=== PATIENT | female | born 1945 | race Caucasian/White ===

== ENCOUNTER 2016-06-24 12:46 | Emergency (ER) | payer MEDICAID, MEDICARE ==
[~2016-06-24] VITALS: Ht 162.6 cm; Wt 99.8 kg
[~2016-06-24 12:46] MED LIST: ACET-168 PO; CEPH500C PO; CEPH500T PO; CYCL10TA9 PO; DICL75TA2 PO; GABA-486 PO; HYDR-3454 PO; HYDR-3874 PO; HYDR25TA4 PO; IBP800T PO; LEVO125T; LEVO125T6; LEVO125T6 PO; LISI-594 PO; LVT.1T PO; OMEP20CA12 PO; OMEP40CA36 PO; OXYC-197 PO; PIRO-9; PIRO10CA; PNT40TEC PO; TRAM-21 PO
--- NOTE | 2016-06-24 13:08 | ED Chest Pain ---
General Chief Complaint: Chest Pain Stated Complaint: CHEST PAIN Source: patient Exam Limitations: no limitations History of Present Illness Time seen by provider: 12:58 Initial Comments Here with complaint of right-sided chest pain that she describes as sharp. It radiates to her right arm. Onset about 6 a.m. this morning and has persisted since. States the pain is 9 out of 10. Denies breathing problems, nausea, vomiting, sweating or weakness. No report of recent trauma. Timing/Duration: 4-6 hours Severity/Quality: moderate Location: central (right-sided) Radiation: arms (right-sided) Prior CP/Workup: stress test ASA po FREELANCE MAKEUP ARTIST: No NTG SL FREELANCE MAKEUP ARTIST: No Associated Symptoms: No abdominal pain, No back pain, No diaphoresis, No nausea /vomiting, No shortness of breath, No weakness Allergies and Home Medications Allergies Coded Allergies: No Known Drug Allergies (Unverified , 06/24/08) Home Medications Cephalexin 500 Mg Capsule, 1 CAP PO TID, #21 Prescribed by: SADIA GUZMAN on 09/29/15 1225 Gabapentin 100 Mg Capsule, 100 MG PO BID, (Reported) Hydrochlorothiazide 25 Mg Tablet, 25 MG PO DAILY, (Reported) Hydrocodone/Acetaminophen 1 Each Tablet, 1-2 TAB PO Q4-6HR PRN for PAIN, #30 Prescribed by: SADIA GUZMAN on 09/29/15 1225 Levothyroxine Sodium 125 Mcg Tablet, 125 MCG PO DAILY, (Reported) Omeprazole 40 Mg Capsule.dr, 40 MG PO DAILY, (Reported) Review of Systems Constitutional: see HPI, No chills, No fever EENTM: No Symptoms Reported Respiratory: No Symptoms Reported Cardiovascular: See HPI, Chest Pain, Denies Edema, Denies Lightheadedness Gastrointestinal: Denies Abdominal Pain, Denies Nausea, Denies Vomiting Genitourinary: No Symptoms Reported Musculoskeletal: no symptoms reported All Other Systems Reviewed Negative Unless Noted: Yes Past Wkbbmbc-Wcquns-Tmmldl Hx Patient Social History Alcohol Use: Denies Use Recreational Drug Use: No Smoking Status: Never a Smoker Immunizations Up To Date Tetanus Booster (TDap): More than 5yrs Date of Pneumonia Vaccine: Jun 10, 2015 Date of Influenza Vaccine: Dec 15, 2014 Surgeries HX Surgeries: Yes ( X 2, RIGHT EYE SX FOR CROSSED EYE, left foot fx, L TKR) Surgeries: Section, Eye Surgery, Hysterectomy, Oophorectomy Respiratory Hx Respiratory Disorders: No Cardiovascular Hx Cardiac Disorders: Yes Cardiac Disorders: Hypertension Neurological Hx Neurological Disorders: No Reproductive System Hx Reproductive Disorders: No Genitourinary Hx Genitourinary Disorders: No Gastrointestinal Hx Gastrointestinal Disorders: Yes Gastrointestinal Disorders: Gastroesophageal Reflux Musculoskeletal Hx Musculoskeletal Disorders: Yes (LEFT FOOT FX) Musculoskeletal Disorders: Arthritis, Chronic Back Pain, Spasms Endocrine Hx Endocrine Disorders: Yes Endocrine Disorders: Hypothyroidsim HEENT HX ENT Disorders: Yes (GLASSES, missing teeth) HEENT Disorders: Cataract Hearing Impairment: Hard of Hearing Cancer Hx Cancer: No Psychosocial Hx Psychiatric Problems: No Integumentary HX Skin/Integumentary Disorder: No Blood Transfusions Hx Blood Disorders: Yes (ANEMIA) Reviewed Nursing Assessment Reviewed/Agree w Nursing PMH: Yes Family Medical History Significant Family History: No Pertinent Family Hx Family Medial History: Patient reports no known family medical history. Physical Exam Vital Signs Vital Sign - Last 12Hours 06/24/16 12:50 Temp 98.1 Pulse 70 Resp 16 B/P (MAP) 146/97 Pulse Ox 98 O2 Delivery Room Air Capillary Refill : General Appearance: No Apparent Distress, WD/WN HEENT: PERRL/EOMI, Pharynx Normal Neck: Non Tender, Supple Respiratory: Lungs Clear, Normal Breath Sounds Cardiovascular: Regular Rate, Rhythm, No Murmur Gastrointestinal: Non Tender, Soft Extremity: Normal Range of Motion, Non Tender, No Calf Tenderness Neurologic/Psychiatric: Alert, Oriented x3 Skin: Normal Color, Warm/Dry Progress/Results/Core Measures Results/Orders Lab Results Laboratory Tests Test 06/24/16 13:25 06/24/16 14:42 Range/Units White Blood Count 9.1 4.3-11.0 10^3/uL Red Blood Count 4.42 4.35-5.85 10^6/uL Hemoglobin 12.8 11.5-16.0 G/DL Hematocrit 40 35-52 % Mean Corpuscular Volume 90 80-99 FL Mean Corpuscular Hemoglobin 29 25-34 PG Mean Corpuscular Hemoglobin Concent 32 32-36 G/DL Red Cell Distribution Width 13.9 10.0-14.5 % Platelet Count 406 H 130-400 10^3/uL Mean Platelet Volume 9.9 7.4-10.4 FL Neutrophils (%) (Auto) 65 42-75 % Lymphocytes (%) (Auto) 26 12-44 % Monocytes (%) (Auto) 6 0-12 % Eosinophils (%) (Auto) 3 0-10 % Basophils (%) (Auto) 1 0-10 % Neutrophils # (Auto) 5.9 1.8-7.8 X 10^3 Lymphocytes # (Auto) 2.3 1.0-4.0 X 10^3 Monocytes # (Auto) 0.5 0.0-1.0 X 10^3 Eosinophils # (Auto) 0.3 0.0-0.3 10^3/uL Basophils # (Auto) 0.1 0.0-0.1 10^3/uL Sodium Level 140 135-145 MMOL/L Potassium Level 4.4 3.6-5.0 MMOL/L Chloride Level 104 98-107 MMOL/L Carbon Dioxide Level 26 21-32 MMOL/L Anion Gap 10 5-14 MMOL/L Blood Urea Nitrogen 16 7-18 MG/DL Creatinine 0.86 0.60-1.30 MG/DL Estimat Glomerular Filtration Rate > 60 BUN/Creatinine Ratio 19 Glucose Level 89 70-105 MG/DL Calcium Level 9.1 8.5-10.1 MG/DL Magnesium Level 2.2 1.8-2.4 MG/DL Total Bilirubin 0.3 0.1-1.0 MG/DL Aspartate Amino Transf (AST/SGOT) 20 5-34 U/L Alanine Aminotransferase (ALT/SGPT) 13 0-55 U/L Alkaline Phosphatase 75 40-136 U/L Myoglobin 45.4 10.0-92.0 NG/ML Troponin I < 0.30 <0.30 NG/ML Total Protein 7.7 6.4-8.2 G/DL Albumin 3.7 3.2-4.5 G/DL Amylase Level 44 25-125 U/L Lipase 49 8-78 U/L Thyroid Stimulating Hormone (TSH) 4.10 0.35-4.94 UIU/ML Prothrombin Time 13.4 12.2-14.7 SEC INR Comment 1.1 0.8-1.4 Activated Partial Thromboplast Time 30 24-35 SEC D-Dimer 0.57 H 0.00-0.49 UG/ML My Orders Orders - BRODY HARRISON MD Cbc With Automated Diff (06/24/16 13:07) Magnesium (06/24/16 13:07) Chest 1 View, Ap/Pa Only (06/24/16 13:07) Ekg Tracing (06/24/16 13:07) Cardiac Profile 1 (06/24/16 13:07) Comprehensive Metabolic Panel (06/24/16 13:07) Myoglobin Serum (06/24/16 13:07) Protime With Inr (06/24/16 13:07) Partial Thromboplastin Time (06/24/16 13:07) O2 (06/24/16 13:07) Monitor-Rhythm Ecg Trace Only (06/24/16 13:07) Lipid Panel (06/25/16 06:00) Aspirin Chewable Tablet (Baby Aspirin Ch (06/24/16:15) Rx-Nitroglycerin Sl Tabs (Rx-Nitrostat S (06/24/16 13:15) Saline Lock/Iv-Start (06/24/16 13:07) Lipase (06/24/16 13:07) Amylase (06/24/16 13:07) Fibrin Degradation Products (06/24/16 13:07) Thyroid Stimulating Hormone (06/24/16 13:07) Ct Angio Chest W (06/24/16 15:51) Us Gallbladder [id number] (06/24/16 15:51) Fentanyl Injection (Sublimaze Injection (06/24/16 15:51) Iohexol Injection (Omnipaque 350 Mg/Ml 1 (06/24/16 16:15) Ns (Ivpb) (Sodium Chloride 0.9% Ivpb Bag (06/24/16 16:15) Fentanyl Injection (Sublimaze Injection (06/24/16 16:44) Ketorolac Injection (Toradol Injection) (06/24/16 16:44) Ns Iv 1000 Ml (Sodium Chloride 0.9%) (06/24/16 16:44) Lidocaine 2% Viscous 15 Ml (Xylocaine Vi (06/24/16 17:15) Antacid Suspension (Mylanta Suspension (06/24/16 17:15) Medications Given in ED Current Medications Medications Dose Ordered Sig/Wu Route Start Time Stop Time Status Last Admin Dose Admin Al Hydrox/Mg Hydrox/Simethicone 30 ml ONCE ONCE PO 06/24/16 17:15 06/24/16 17:16 DC 06/24/16 17:24 30 ML Aspirin 324 mg ONCE ONCE PO 06/24/16 13:15 06/24/16 13:16 DC 06/24/16 13:40 324 MG Iohexol 150 ml ONCE ONCE IV 06/24/16 16:15 06/24/16 16:32 DC 06/24/16 17:12 125 ML Lidocaine HCl 15 ml ONCE ONCE PO 06/24/16 17:15 06/24/16 17:16 DC 06/24/16 17:24 15 ML Nitroglycerin 0.4 mg UD ONCE SL 06/24/16 13:15 06/24/16 13:16 DC 06/24/16 13:40 0.4 MG Sodium Chloride 100 ml ONCE ONCE IV 06/24/16 16:15 06/24/16 16:32 DC 06/24/16 17:12 80 ML Sodium Chloride 1,000 ml @ 0 mls/hr Q0M ONCE IV 06/24/16 16:44 06/24/16 16:45 DC 06/24/16 17:24 0 MLS/HR Vital Signs/I&O Vital Sign - Last 12Hours 06/24/16 06/24/16 06/24/16 12:50 12:55 17:24 Temp 98.1 98.1 Pulse 70 Resp 16 B/P (MAP) 146/97 Pulse Ox 98 O2 Delivery Room Air Room Air Progress Note : Progress Note Seen and evaluated. IV, labs, EKG and chest x-ray ordered. ASA 324 mg by mouth and nitroglycerin sublingual ordered. Monitor patient. No definitive abnormality but patient continues with right-sided pain. CT angiogram of the chest due to mildly elevated d-dimer ordered. Due to right upper quadrant abdominal pain and pain radiating to the right shoulder blade, ultrasound gallbladder ordered. Fentanyl 50 g IV and Toradol 15 mg IV ordered. Monitor patient. Patient refused the fentanyl. GI cocktail ordered. 10: Findings reviewed with the patient. Noted to have a hiatal hernia which I think is the culprit problem. No other abnormalities noted. She will receive 1 L of normal saline after CT angiogram. Discharged home with return precautions. Patient verbalize understanding instructions and agreement with plan. ECG Initial ECG Impression Date: Jun 24, 2016 Initial ECG Impression Time: 13:00 Initial ECG Rate: 78 Initial ECG Rhythm: Normal Sinus Comment Sinus rhythm with borderline inferior Q waves. No evidence of ST elevation FL. Similar to previous of 03/06/14. Interpreted by me. Diagnostic Imaging Diagonstic Imaging: Xray Plain Films/CT/US/NM/MRI: chest Comments [facility]. [place], [place] NAME: NATHANIEL VASQUEZ [facility] REC#: [id number] PT STATUS: REG ER : 1945 PHYSICIAN: BRODY HARRISON MD ADMIT DATE: 06/24/16/ER Draft Date of Exam:06/24/16 CHEST 1 VIEW, AP/PA ONLY Indication: Chest pain. Discussion: Single portable upright view of the chest was obtained, comparison 06/10/2015. Small hiatal hernia is again noted. Stable normal heart size. No focal consolidation, pleural fluid, or pneumothorax. No osseous abnormality. Impression: 1. No acute cardiopulmonary process. 2. Small hiatal hernia. Dictated on workstation # [id number] Dict: 06/24/16 1349 Trans: 06/24/16 1350 [id number] Interpreted by: PASTORA MARIE MD Electronically signed by: Diagonstic Imaging: Ultrasound Plain Films/CT/US/NM/MRI: abdomen Comments NAME: NATHANIEL VASQUEZ [facility] REC#: [id number] PT STATUS: REG ER : 1945 PHYSICIAN: BRODY HARRISON MD ADMIT DATE: 06/24/16/ER Signed Date of Exam: 06/24/16 US GALLBLADDER [id number] PROCEDURE: US Gallbladder. TECHNIQUE: Multiple real-time grayscale images were obtained over the right upper quadrant in various projections. INDICATION: Chest pain and upper abdominal pain. FINDINGS: The pancreas is largely obscured by bowel gas. The liver demonstrates no focal mass. Portions of the left hepatic lobe are obscured by bowel gas. Hepatopetal flow in the portal vein is suggested on color Doppler images. The gallbladder demonstrates no definite stones or wall thickening. Portions of the gallbladder are obscured by overlying bowel gas. The CBD is obscured by bowel gas. The right kidney is 10.3 cm in length with no hydronephrosis or focal lesion identified. No fluid collection in the upper right abdomen seen. Sonographic Funes's sign is reportedly negative. IMPRESSION: Limited exam with no definitive abnormality. Dictated by: Dictated on workstation # [id number] Dict: 06/24/16 1628 Trans: 06/24/161645 [id number] Interpreted by: SUJATA MIDDLETON MD Electronically signed by:SUJATA MIDDLETON MD 06/24/161645 Diagonstic Imaging: CT Plain Films/CT/US/NM/MRI: abdomen, pelvis Comments [place] NAME: NATHANIEL VASQUEZ [facility] REC#: [id number] PT STATUS: REG ER : 1945 PHYSICIAN: BRODY HARRISON MD ADMIT DATE: 06/24/16/ER Draft Date of Exam:06/24/16 CT ANGIO CHEST W PROCEDURE: CT angiography of the chest with contrast. TECHNIQUE: Multiple contiguous axial images were obtained through the chest after uneventful bolus administration of intravenous contrast. Reconstructed CTA MIP acquisitions were also performed. INDICATION: Right-sided chest pain radiating into the back for 8 hours. COMPARISON: 12/29/2011. DISCUSSION: No pulmonary embolus is identified. The thoracic aorta is normal in caliber and configuration. No focal consolidation or suspicious pulmonary nodule identified. Normal heart size. No pleural or pericardial fluid. Moderate hiatal hernia is noted. Shoddy-appearing mediastinal lymph nodes are stable. No pathologically enlarged lymph nodes identified. The visualized upper abdomen is unremarkable. No acute osseous abnormality identified. Age-related degenerative changes are present within the thoracic spine. IMPRESSION: 1. No pulmonary embolus or other acute abnormality identified within the chest. 2. Moderate hiatal hernia. Dictated on workstation # [id number] Dict: 06/24/16 1644 Trans: 06/24/161647 RALPH [id number] Interpreted by: PASTORA MARIE MD Electronically signed by: Departure Impression Impression: Primary Impression: Hiatal hernia Additional Impression: Chest pain Qualified Codes: R07.9 - Chest pain, unspecified Disposition: 01 HOME, SELF-CARE Condition: Stable Departure-Patient Inst. Decision time for Depature: 17:43 Referrals: AFUA LAMB DO (PCP/Family) Primary Care Physician Patient Instructions: Chest Pain (DC), Hiatal Hernia (DC) Add. Discharge Instructions: All discharge instructions reviewed with patient and/or family. Voiced understanding. Follow-up with your doctor and your heart doctor within one week for recheck and further evaluation. You may take Pepcid over the generic famotidine 20 mg once or twice daily for the next several days and then as needed. Return for worse pain, fever, vomiting, weakness, breathing problems or other concerns as needed. Copy Copies To 1: AFUA LAMB TIMOTHY D MD Jun 24, 2016 13:08
[2016-06-24] MEDS ORDERED: RX-NITROGLYCERIN 0.4 MG TAB BTL 25'S SL ONE (13:15)
[2016-06-24] MEDS ORDERED: ASPIRIN 81 MG CHEW (CHILDREN'S ASA) PO ONE (13:15)
[2016-06-24 13:34] LABS: BASOPHILS # (AUTO) 0.1 10^3/uL (0.0-0.1); BASOPHILS % (AUTO) 1 % (0-10); EOSINOPHILS # (AUTO) 0.3 10^3/uL (0.0-0.3); EOSINOPHILS % (AUTO) 3 % (0-10); LYMPHOCYTES # (AUTO) 2.3 X 10^3 (1.0-4.0); LYMPHOCYTES % (AUTO) 26 % (12-44); MEAN CORPUSCULAR HEMOGLOBIN 29 PG (25-34); MEAN CORPUSCULAR HGB CONC 32 G/DL (32-36); MEAN CORPUSCULAR VOLUME 90 FL (80-99); MEAN PLATELET VOLUME 9.9 FL (7.4-10.4); MONOCYTES # (AUTO) 0.5 X 10^3 (0.0-1.0); MONOCYTES % (AUTO) 6 % (0-12); NEUTROPHILS # (AUTO) 5.9 X 10^3 (1.8-7.8); NEUTROPHILS % (AUTO) 65 % (42-75); PLATELET COUNT 406 10^3/uL (130-400); RED BLOOD COUNT 4.42 10^6/uL (4.35-5.85); RED CELL DISTRIBUTION WIDTH 13.9 % (10.0-14.5); WHITE BLOOD COUNT 9.1 10^3/uL (4.3-11.0)
--- NOTE | 2016-06-24 13:50 | Diagnostic Imaging Report ---
Indication: Chest pain. Discussion: Single portable upright view of the chest was obtained, comparison 06/10/2015. Small hiatal hernia is again noted. Stable normal heart size. No focal consolidation, pleural fluid, or pneumothorax. No osseous abnormality. Impression: 1. No acute cardiopulmonary process. 2. Small hiatal hernia. Dictated by: Dictated on workstation # [id number]
[2016-06-24 14:01] LABS: ALANINE AMINOTRANSFERASE 13 U/L (0-55); ALBUMIN 3.7 G/DL (3.2-4.5); AMYLASE 44 U/L (25-125); ANION GAP 10 MMOL/L (5-14); ASPARTATE AMINO TRANSFERASE 20 U/L (5-34); BILIRUBIN,TOTAL 0.3 MG/DL (0.1-1.0); BLOOD UREA NITROGEN 16 MG/DL (7-18); BUN/CREATININE RATIO 19; CALCIUM 9.1 MG/DL (8.5-10.1); CARBON DIOXIDE 26 MMOL/L (21-32); CHLORIDE 104 MMOL/L (98-107); CREATININE SERUM 0.86 MG/DL (0.60-1.30); GFR ESTIMATED > 60; GLUCOSE 89 MG/DL (70-105); LIPASE 49 U/L (8-78); MAGNESIUM 2.2 MG/DL (1.8-2.4); POTASSIUM 4.4 MMOL/L (3.6-5.0); SODIUM 140 MMOL/L (135-145); TOTAL PROTEIN 7.7 G/DL (6.4-8.2)
[2016-06-24 14:21] LABS: MYOGLOBIN SERUM 45.4 NG/ML (10.0-92.0)
[2016-06-24 15:04] LABS: INR 1.1 (0.8-1.4); PROTHROMBIN TIME PATIENT 13.4 SEC (12.2-14.7)
[2016-06-24] MEDS ORDERED: fentaNYL INJECTION 100 MCG/2 ML AMP IVP STA ×2 (15:51→16:44)
[2016-06-24] MEDS ORDERED: NS 100 ML (IVPB) BAG IV ONE (16:15)
[2016-06-24] MEDS ORDERED: IOHEXOL 350 MG/ML 150 ML (OMNIPAQUE 350) VIAL IV ONE (16:15)
--- NOTE | 2016-06-24 16:36 | Diagnostic Imaging Report ---
PROCEDURE: US Gallbladder. TECHNIQUE: Multiple real-time grayscale images were obtained over the right upper quadrant in various projections. INDICATION: Chest pain and upper abdominal pain. FINDINGS: The pancreas is largely obscured by bowel gas. The liver demonstrates no focal mass. Portions of the left hepatic lobe are obscured by bowel gas. Hepatopetal flow in the portal vein is suggested on color Doppler images. The gallbladder demonstrates no definite stones or wall thickening. Portions of the gallbladder are obscured by overlying bowel gas. The CBD is obscured by bowel gas. The right kidney is 10.3 cm in length with no hydronephrosis or focal lesion identified. No fluid collection in the upper right abdomen seen. Sonographic Funes's sign is reportedly negative. IMPRESSION: Limited exam with no definitive abnormality. Dictated by: Dictated on workstation # [id number]
[2016-06-24] MEDS ORDERED: KETOROLAC 30 MG/ML VIAL IVP STA (16:44)
[2016-06-24] MEDS ORDERED: NS IV 1000 ML 1,000 ML IV ONE (16:44)
--- NOTE | 2016-06-24 16:49 | Diagnostic Imaging Report ---
PROCEDURE: CT angiography of the chest with contrast. TECHNIQUE: Multiple contiguous axial images were obtained through the chest after uneventful bolus administration of intravenous contrast. Reconstructed CTA MIP acquisitions were also performed. INDICATION: Right-sided chest pain radiating into the back for 8 hours. COMPARISON: 12/29/2011. DISCUSSION: No pulmonary embolus is identified. The thoracic aorta is normal in caliber and configuration. No focal consolidation or suspicious pulmonary nodule identified. Normal heart size. No pleural or pericardial fluid. Moderate hiatal hernia is noted. Shoddy-appearing mediastinal lymph nodes are stable. No pathologically enlarged lymph nodes identified. The visualized upper abdomen is unremarkable. No acute osseous abnormality identified. Age-related degenerative changes are present within the thoracic spine. IMPRESSION: 1. No pulmonary embolus or other acute abnormality identified within the chest. 2. Moderate hiatal hernia. Dictated by: Dictated on workstation # [id number]
[2016-06-24] MEDS ORDERED: LIDOCAINE 2% VISCOUS 15 ML UDC PO ONE (17:15)
[2016-06-24] MEDS ORDERED: ANTACID SUSP 30 ML UDC (MYLANTA) PO ONE (17:15)
[2016-06-24 18:15] VITALS: BP 132/90
== END 2016-06-24 18:30 | disposition home or self-care (01) ==
LOC: EDUNIT# 12:46 → ER 12:48
DX: K44.9 Diaphragmatic hernia without obstruction or gangrene (principal); R07.9 Chest pain, unspecified; Z79.899 Other long term (current) drug therapy
CPT/HCPCS: 36415; 71010; 71275; 76705; 80053; 82150; 83690; 83735; 83874; 84443; 84484; 85025; 85379; 85610; 85730; 93005; 93041; 96361; 96374; 96375

== ENCOUNTER 2016-09-28 06:04 | Emergency (ER) | payer MEDICARE ==
[~2016-09-28] VITALS: Ht 162.6 cm; Wt 99.8 kg
[2016-09-28] MEDS ORDERED: LEVO75TA6 (06:13)
--- OUTSIDE RECORDS SUMMARY | 2016-09-28 06:15 | XMS REPORT | Continuity of Care Document ---
Author Author [facility] Address Unknown Phone Unavailable Allergies Active Description Code Type Severity Reaction Onset Reported/Identified Relationship to Patient Clinical Status Yes No Known Drug Allergies [id number] Drug Allergy Mild N/A 06/24/2008 Medications Problems Date Dx Coded Attending Type Code Diagnosis Diagnosed By 02/13/1418 URI WILL MD, Ot Z47.1 AFTERCARE FOLLOWING JOINT REPLACEMENT REBOLLEDO 02/13/1418 URI WILL MD, Ot Z96.652 PRESENCE OF LEFT ARTIFICIAL KNEE JOINT 10/30/2007 244.9 HYPOTHYROIDISM 10/30/2007 AFAU LAMB DO 244.9 HYPOTHYROIDISM 10/30/2007 244.9 HYPOTHYROIDISM 10/30/2007 244.9 HYPOTHYROIDISM 10/30/2007 JULIAN GODINEZ APRN 244.9 HYPOTHYROIDISM 10/30/2007 MAX TORRES APRN 244.9 HYPOTHYROIDISM 10/30/2007 JULIAN GODINEZ APRN 244.9 HYPOTHYROIDISM 10/30/2007 AFUA LAMB DO 244.9 HYPOTHYROIDISM 10/30/2007 JULIAN GODINEZ APRN 244.9 HYPOTHYROIDISM 10/30/2007 JULIAN GODINEZ APRN 244.9 HYPOTHYROIDISM 10/30/2007 JULIAN GODINEZ APRN 244.9 HYPOTHYROIDISM 10/30/2007 JULIAN GODINEZ APRN 244.9 HYPOTHYROIDISM 03/28/2008 338.4 PAIN CHRONIC SYNDROME 03/28/2008 AFUA LAMB DO 338.4 PAIN CHRONIC SYNDROME 03/28/2008 338.4 Pain Chronic Syndrome 03/28/2008 338.4 Pain Chronic Syndrome 03/28/2008 JULIAN GODINEZ APRN 338.4 Pain Chronic Syndrome 03/28/2008 MAX TORRES APRN 338.4 Pain Chronic Syndrome 03/28/2008 JULIAN GODINEZ APRN 338.4 Pain Chronic Syndrome 03/28/2008 AFUA LAMB DO 338.4 Pain Chronic Syndrome 03/28/2008 JULIAN GODINEZ APRN 338.4 Pain Chronic Syndrome 03/28/2008 JULIAN GODINEZ APRN 338.4 Pain Chronic Syndrome 03/28/2008 JULIAN GODINEZ APRN 338.4 Pain Chronic Syndrome 03/28/2008 JULIAN GODINEZ APRN 338.4 Pain Chronic Syndrome 06/06/2008 729.5 PAIN IN LIMB 06/06/2008 LAMB DOLUISA K 729.5 PAIN IN LIMB 06/06/2008 729.5 Pain In Limb 06/06/2008 729.5 Pain In Limb 06/06/2008 JULIAN GODINEZ APRN 729.5 Pain In Limb 06/06/2008 BRIAN DAVID MAX A 729.5 Pain In Limb 06/06/2008 JULIAN GODINEZ APRN 729.5 Pain In Limb 06/06/2008 LUIS LAMB DOA K 729.5 Pain In Limb 06/06/2008 JULIAN GODINEZ APRN 729.5 Pain In Limb 06/06/2008 JULIAN GODINEZ APRN 729.5 Pain In Limb 06/06/2008 JULIAN GODINEZ APRN 729.5 Pain In Limb 06/06/2008 JULIAN GODINEZ APRN 729.5 Pain In Limb 06/27/2008 724.2 PAIN LOW BACK 06/27/2008 LAMB DOLUISA K 724.2 PAIN LOW BACK 06/27/2008 724.2 Pain Low Back 06/27/2008 724.2 Pain Low Back 06/27/2008 JULIAN GODINEZ APRN 724.2 Pain Low Back 06/27/2008 BRIAN DAVID MAX A 724.2 Pain Low Back 06/27/2008 JULIAN GODINEZ APRN 724.2 Pain Low Back 06/27/2008 LUIS LAMB DOA K 724.2 Pain Low Back 06/27/2008 JULIAN GODINEZ APRN 724.2 Pain Low Back 06/27/2008 JULIAN GODINEZ APRN 724.2 Pain Low Back 06/27/2008 JULIAN GODINEZ APRN 724.2 Pain Low Back 06/27/2008 JULIAN GODINEZ APRN 724.2 Pain Low Back 09/27/2008 724.4 BACK PAIN WITH RADIATION 09/27/2008 LAMB DOLUISA K 724.4 BACK PAIN WITH RADIATION 09/27/2008 724.4 BACK PAIN WITH RADIATION 09/27/2008 724.4 BACK PAIN WITH RADIATION 09/27/2008 JULIAN GODINEZ APRN 724.4 BACK PAIN WITH RADIATION 09/27/2008 MAX TORRES APRN A 724.4 BACK PAIN WITH RADIATION 09/27/2008 JULIAN GODINEZ APRN 724.4 BACK PAIN WITH RADIATION 09/27/2008 LAMB DO, AFUA K 724.4 BACK PAIN WITH RADIATION 09/27/2008 JULIAN GODINEZ APRN 724.4 BACK PAIN WITH RADIATION 09/27/2008 JULIAN GODINEZ APRN 724.4 BACK PAIN WITH RADIATION 09/27/2008 JULIAN GODINEZ APRN 724.4 BACK PAIN WITH RADIATION 09/27/2008 JULIAN GODINEZ APRN 724.4 BACK PAIN WITH RADIATION 04/10/2010 278.02 OVERWEIGHT 04/10/2010 373.11 HORDEOLUM EXTERNUM 04/10/2010 LAMB DO, AFUA K 278.02 OVERWEIGHT 04/10/2010 LAMB DO, AFUA K 373.11 HORDEOLUM EXTERNUM 04/10/2010 278.02 OVERWEIGHT 04/10/2010 373.11 Hordeolum Externum 04/10/2010 278.02 OVERWEIGHT 04/10/2010 373.11 Hordeolum Externum 04/10/2010 JULIAN GODINEZ APRN 278.02 OVERWEIGHT 04/10/2010 JULIAN GODINEZ APRN 373.11 Hordeolum Externum 04/10/2010 MAX TORRES APRN A 278.02 OVERWEIGHT 04/10/2010 BRIAN DAVID MAX A 373.11 Hordeolum Externum 04/10/2010 JULIAN GODINEZ APRN 278.02 OVERWEIGHT 04/10/2010 JULIAN GODINEZ APRN 373.11 Hordeolum Externum 04/10/2010 LAMB DO, AFUA K 278.02 OVERWEIGHT 04/10/2010 LAMB DO, AFUA K 373.11 Hordeolum Externum 04/10/2010 JULIAN GODINEZ APRN 278.02 OVERWEIGHT 04/10/2010 JULIAN GODINEZ APRN 373.11 Hordeolum Externum 04/10/2010 JULIAN GODINEZ APRN 278.02 OVERWEIGHT 04/10/2010 JULIAN GODINEZ APRN 373.11 Hordeolum Externum 04/10/2010 JULIAN GODINEZ APRN 278.02 OVERWEIGHT 04/10/2010 JULIAN GODINEZ APRN 373.11 Hordeolum Externum 04/10/2010 JULIAN GODINEZ APRN 278.02 OVERWEIGHT 04/10/2010 JULIAN GODINEZ APRN 373.11 Hordeolum Externum 08/15/2010 719.46 KNEE PAIN 08/15/2010 LAMB DO, AFUA K 719.46 KNEE PAIN 08/15/2010 719.46 KNEE PAIN 08/15/2010 719.46 KNEE PAIN 08/15/2010 JULIAN GODINEZ APRN 719.46 KNEE PAIN 08/15/2010 RAJOTTFernando DAVID, MAX A 719.46 KNEE PAIN 08/15/2010 JULIAN GODINEZ APRN 719.46 KNEE PAIN 08/15/2010 LAMB DO, AFUA K 719.46 KNEE PAIN 08/15/2010 JULIAN GODINEZ APRN 719.46 KNEE PAIN 08/15/2010 JULIAN GODINEZ APRN 719.46 KNEE PAIN 08/15/2010 JULINA GODINEZ APRN 719.46 KNEE PAIN 08/15/2010 JULIAN GODINEZ APRN 719.46 KNEE PAIN 03/15/2011 466.0 BRONCHITIS, ACUTE 03/15/2011 786.2 COUGH 03/15/2011 LAMB DO, AFUA K 466.0 BRONCHITIS, ACUTE 03/15/2011 LAMB DO, AFUA K 786.2 COUGH 03/15/2011 466.0 Bronchitis, Acute 03/15/2011 786.2 Cough 03/15/2011 466.0 Bronchitis, Acute 03/15/2011 786.2 Cough 03/15/2011 JULIAN GODINEZ APRN 466.0 Bronchitis, Acute 03/15/2011 JULIAN GODINEZ APRN 786.2 Cough 03/15/2011 RAJOTTE DESKIDDING MACHINE OPERATOR, MAX A 466.0 Bronchitis, Acute 03/15/2011 RAJOTTE DESKIDDING MACHINE OPERATOR, MAX A 786.2 Cough 03/15/2011 JULIAN GODINEZ APRN 466.0 Bronchitis, Acute 03/15/2011 JULIAN GODINEZ APRN 786.2 Cough 03/15/2011 LAMB DO, AFUA K 466.0 Bronchitis, Acute 03/15/2011 LAMB DO, AFUA K 786.2 Cough 03/15/2011 JULIAN GODINEZ APRN T 466.0 Bronchitis, Acute 03/15/2011 JULIAN GODINEZ APRN 786.2 Cough 03/15/2011 JULIAN GODINEZ APRN 466.0 Bronchitis, Acute 03/15/2011 JULIAN GODINEZ APRN 786.2 Cough 03/15/2011 JULIAN GODINEZ APRN 466.0 Bronchitis, Acute 03/15/2011 JULIAN GODINEZ APRN 786.2 Cough 03/15/2011 HERBERT DAVID, JULIAN T 466.0 Bronchitis, Acute 03/15/2011 JULIAN GODINEZ APRN 786.2 Cough 12/31/2011 Ot 244.9 HYPOTHYROIDISM NOS 12/31/2011 Ot 278.00 OBESITY, NOS 12/31/2011 Ot 401.9 HYPERTENSION NOS 12/31/2011 Ot 530.81 ESOPHAGEAL REFLUX 12/31/2011 Ot 553.3 DIAPHRAGMATIC HERNIA 12/31/2011 Ot 786.59 CHEST PAIN NEC 12/31/2011 Ot 790.21 IMPAIRED FASTING GLUCOSE 12/31/2011 Ot V15.82 HISTORY OF TOBACCO USE 12/31/2011 Ot V85.36 BODY MASS INDEX 36.0-36.9, ADULT 10/30/2012 JULIAN GODINEZ APRN 716.90 ARTHRITIS/ ARTHROPATHY, UNSPECIFIED 10/30/2012 MAX TORRES APRN A 716.90 ARTHRITIS/ ARTHROPATHY, UNSPECIFIED 10/30/2012 JULIAN GODINEZ APRN 716.90 ARTHRITIS/ ARTHROPATHY, UNSPECIFIED 10/30/2012 AFUA LAMB DO K 716.90 ARTHRITIS/ ARTHROPATHY, UNSPECIFIED 10/30/2012 JULIAN GODINEZ APRN 716.90 ARTHRITIS/ ARTHROPATHY, UNSPECIFIED 10/30/2012 JULIAN GODINEZ APRN 716.90 ARTHRITIS/ ARTHROPATHY, UNSPECIFIED 10/30/2012 JULIAN GODINEZ APRN 716.90 ARTHRITIS/ ARTHROPATHY, UNSPECIFIED 10/30/2012 JULIAN GODINEZ APRN 716.90 ARTHRITIS/ ARTHROPATHY, UNSPECIFIED 04/05/2013 BRIAN DAVID MAX A 388.60 OTORRHEA UNSPECIFIED 04/05/2013 BRIAN DAVID MAX A 388.70 OTALGIA 04/05/2013 JULIAN GODINEZ APRN 388.60 OTORRHEA UNSPECIFIED 04/05/2013 JULIAN GODINEZ APRN 388.70 OTALGIA 04/05/2013 LAMB , AFUA K 388.60 OTORRHEA UNSPECIFIED 04/05/2013 LAMB DO AFUA K 388.70 OTALGIA 04/05/2013 JULIAN GODINEZ APRN T 388.60 OTORRHEA UNSPECIFIED 04/05/2013 HERBERT DAVID, JULIAN T 388.70 OTALGIA 04/05/2013 HERBERT DAVID, JULIAN T 388.60 OTORRHEA UNSPECIFIED 04/05/2013 HERBERT DAVID, JULIAN T 388.70 OTALGIA 04/05/2013 HERBERT DAVID, JULIAN T 388.60 OTORRHEA UNSPECIFIED 04/05/2013 JULIAN GODINEZ APRN T 388.70 OTALGIA 04/05/2013 HERBERT DAVID, JULIAN T 388.60 OTORRHEA UNSPECIFIED 04/05/2013 HERBERT DAVID, JULIAN T 388.70 OTALGIA 01/15/2014 AFUA LAMB DO 464.00 ACUTE LARYNGITIS WITHOUT OBSTRUCTION 01/15/2014 JULIAN GODINEZ APRN T 464.00 ACUTE LARYNGITIS WITHOUT OBSTRUCTION 01/15/2014 JULIAN GODINEZ APRN T 464.00 ACUTE LARYNGITIS WITHOUT OBSTRUCTION 01/15/2014 JULIAN GODINEZ APRN T 464.00 ACUTE LARYNGITIS WITHOUT OBSTRUCTION 01/15/2014 JULIAN GODINEZ APRN T 464.00 ACUTE LARYNGITIS WITHOUT OBSTRUCTION 03/06/2014 PASTORA PHILIPPE MD Ot 244.9 HYPOTHYROIDISM NOS 03/06/2014 PASTORA PHILIPPE MD Ot 278.00 OBESITY, NOS 03/06/2014 PASTORA PHILIPPE MD Ot 401.9 HYPERTENSION NOS 03/06/2014 PASOTRA PHILPIPE MD Ot 715.90 OSTEOARTHROS NOS-UNSPEC 03/06/2014 PASTORA PHILIPPE MD Ot 786.50 CHEST PAIN NOS 03/06/2014 PASTORA PHILIPPE MD Ot V03.82 PROPHYLACTIC VACC AGAINST STREPTOCOCCUS 03/06/2014 PASTORA PHILIPPE MD Ot V85.36 BODY MASS INDEX 36.0-36.9, ADULT 04/27/2014 JULIAN GODINEZ APRN T 401.1 HYPERTENSION, BENIGN ESSENTIAL 04/27/2014 JULIAN GODINEZ APRN 401.1 HYPERTENSION, BENIGN ESSENTIAL 05/25/2014 JULIAN GODINEZ APRN 703.8 OTHER SPECIFIED DISEASES OF NAIL 05/25/2014 JULIAN GODINEZ APRN 735.0 HALLUX VALGUS (ACQUIRED) 07/04/2014 ALEXX REYNA DC Ot 722.52 07/04/2014 ALEXX REYNA DC Ot 737.30 07/04/2014 SADE DIMAS DO Ot 729.5 PAIN IN LIMB 07/08/2014 HERBERT DAVID, JULIAN T 728.85 MUSCLE SPASM 09/23/2014 LONG DC, ALEXX S Ot 722.52 09/23/2014 LONG DC, ALEXX S Ot 737.30 09/23/2014 THOMAS DPM, SADIA Q Ot 825.25 09/23/2014 THOMAS DPM, SADIA Q Ot E000.8 09/23/2014 THOMAS DPM, SADIA Q Ot E928.9 09/23/2014 THOMAS DPM, SADIA Q Ot V72.63 09/23/2014 THOMAS DPM, SADIA Q Ot V74.8 09/23/2014 THOMAS DPM, SADIA Q Ot 733.82 NONUNION OF FRACTURE 09/23/2014 THOMAS DPM, SADIA Q Ot 905.4 LATE EFFECT LEG FX 09/23/2014 THOMAS DPM, SADIA Q Ot E929.9 LATE EFF ACCIDENT NOS 10/07/2014 THOMAS DPM, SADIA Q Ot 825.25 10/07/2014 THOMAS DPM, SADIA Q Ot E000.8 10/07/2014 THOMAS DPM, SADIA Q Ot E928.9 10/07/2014 THOMAS DPM, SADIA Q Ot V72.63 10/07/2014 THOMAS DPM, SADIA Q Ot V74.8 10/17/2014 THOMAS DPM, SADIA Q Ot 825.25 10/17/2014 THOMAS DPM, SADIA Q Ot E000.8 10/17/2014 THOMAS DPM, SADIA Q Ot E928.9 10/17/2014 THOMAS DPM, SADIA Q Ot V72.63 10/17/2014 THOMAS DPM, SADIA Q Ot V74.8 05/31/2015 LONG KARLOS, ALEXX S Ot 722.52 05/31/2015 LONG DC, ALEXX S Ot 737.30 05/31/2015 THOMAS DPM, SADIA Q Ot 825.25 05/31/2015 THOMAS DPM, SADIA Q Ot E000.8 05/31/2015 THOMAS DPM, SADIA Q Ot E928.9 05/31/2015 THOMAS DPM, SADIA Q Ot V72.63 05/31/2015 THOMAS DPM, SADIA Q Ot V74.8 05/31/2015 NICOLETTE SHERIDAN, URI Shaver Ot M17.12 UNILATERAL PRIMARY OSTEOARTHRITIS, LEFT 05/31/2015 NICOLETTE SHERIDAN, URI P Ot R53.83 OTHER FATIGUE 05/31/2015 NICOLETTE SHERIDAN, URI P Ot Z01.810 ENCOUNTER FOR PREPROCEDURAL CARDIOVASCUL 05/31/2015 NICOLETTE SHERIDAN, URI P Ot Z01.812 ENCOUNTER FOR PREPROCEDURAL LABORATORY E 06/01/2015 NICOLETTE SHERIDAN, URI P Ot M17.12 06/01/2015 NICOLETTE SHERIDAN, URI P Ot Z01.810 06/01/2015 NICOLETTE SHERIDAN, URI P Ot Z01.812 06/01/2015 NICOLETTE SHERIDAN, URI P Ot M17.12 06/01/2015 NICOLETTE SHERIDAN, URI P Ot R53.83 06/01/2015 NICOLETTE SHERIDAN, URI P Ot Z01.810 06/01/2015 NICOLETTE SHERIDAN, URI P Ot Z01.812 06/09/2015 NICOLETTE SHERIDAN, URI P Ot E03.9 06/09/2015 NICOLETTE SHERIDAN, URI P Ot I10 06/09/2015 NICOLETTE SHERIDAN, URI P Ot K21.9 06/09/2015 NICOLETTE SHERIDAN, URI P Ot M17.12 06/12/2015 NICOLETTE SHERIDAN, URI P Ot E03.9 HYPOTHYROIDISM, UNSPECIFIED 06/12/2015 NICOLETTE SHERIDAN, URI P Ot E66.9 OBESITY, UNSPECIFIED 06/12/2015 NICOLETTE SHERIDAN, URI P Ot I10 ESSENTIAL (PRIMARY) HYPERTENSION 06/12/2015 NICOLETTE SHERIDAN, URI P Ot I25.10 ATHSCL HEART DISEASE OF [place] CORONARY 06/12/2015 NICOLETTE SHERIDAN, URI Shaver Ot K21.9 GASTRO-ESOPHAGEAL REFLUX DISEASE WITHOUT 06/12/2015 NICOLETTE SHERIDAN, URI Shaver Ot M17.12 UNILATERAL PRIMARY OSTEOARTHRITIS, LEFT 06/12/2015 NICOLETTE SHERIDAN, URI P Ot R09.02 HYPOXEMIA 06/12/2015 NICOLETTE SHERIDAN, URI Shaver Ot Z68.39 BODY MASS INDEX (BMI) 39.0-39.9, ADULT 07/07/2015 URI WILL MD, Ot Z47.1 AFTERCARE FOLLOWING JOINT REPLACEMENT REBOLLEDO 07/07/2015 URI WILL MD Ot Z96.652 PRESENCE OF LEFT ARTIFICIAL KNEE JOINT 07/11/2015 URI WILL MD Ot Z47.1 AFTERCARE FOLLOWING JOINT REPLACEMENT REBOLLEDO 07/11/2015 URI WILL MD, Ot Z96.652 PRESENCE OF LEFT ARTIFICIAL KNEE JOINT 07/11/2015 LAMB DO, AFUA K Ot E87.6 HYPOKALEMIA 07/11/2015 LAMB DO, AFUA K Ot E87.8 OTH DISORDERS OF ELECTROLYTE AND FLUID B 07/21/2015 LAMB DO, AFUA K Ot E87.6 HYPOKALEMIA 07/21/2015 LAMB DO, AFUA K Ot E87.8 OTH DISORDERS OF ELECTROLYTE AND FLUID B 08/07/2015 URI WILL MD Ot Z47.1 AFTERCARE FOLLOWING JOINT REPLACEMENT REBOLLEDO 08/07/2015 URI WILL MD Ot Z96.652 PRESENCE OF LEFT ARTIFICIAL KNEE JOINT 08/10/2015 URI WILL MD Ot Z47.1 AFTERCARE FOLLOWING JOINT REPLACEMENT REBOLLEDO 08/10/2015 URI WILL MD Ot Z96.652 PRESENCE OF LEFT ARTIFICIAL KNEE JOINT 08/21/2015 URI WILL MD, Ot Z47.1 AFTERCARE FOLLOWING JOINT REPLACEMENT REBOLLEDO 08/21/2015 URI WILL MD Ot Z96.652 PRESENCE OF LEFT ARTIFICIAL KNEE JOINT 08/31/2015 URI WILL MD Ot Z47.1 AFTERCARE FOLLOWING JOINT REPLACEMENT REBOLLEDO 08/31/2015 URI WILL MD Ot Z96.652 PRESENCE OF LEFT ARTIFICIAL KNEE JOINT 09/25/2015 THOMAS DPM, SADIA Q Ot M20.12 HALLUX VALGUS (ACQUIRED), LEFT FOOT 09/25/2015 THOMAS DPM, SADIA Q Ot M20.42 OTHER HAMMER TOE(S) (ACQUIRED), LEFT EVELYN 09/25/2015 THOMAS DPM, SADIA Q Ot T84.293[facility] COMPL OF INT FIX OF BONES OF FOOT A 09/25/2015 HTOMAS DPM, SADIA Q Ot Z01.818 ENCOUNTER FOR OTHER PREPROCEDURAL EXAMIN 09/25/2015 THOMAS DPM, SADIA Q Ot Z11.2 ENCOUNTER FOR SCREENING FOR OTHER BACTER 09/27/2015 THOMAS DPM, SADIA Q Ot M20.12 HALLUX VALGUS (ACQUIRED), LEFT FOOT 09/27/2015 THOMAS DPM, SADIA Q Ot M20.42 OTHER HAMMER TOE(S) (ACQUIRED), LEFT EVELYN 09/27/2015 THOMAS DPM, SADIA Q Ot T84.293A [facility] COMPL OF INT FIX OF BONES OF FOOT A 09/27/2015 THOMAS DPM, SADIA Q Ot Z01.818 ENCOUNTER FOR OTHER PREPROCEDURAL EXAMIN 09/27/2015 THOMAS DPM, SADIA Q Ot Z11.2 ENCOUNTER FOR SCREENING FOR OTHER BACTER 09/29/2015 LAMB DO, AFUA K Ot E87.6 HYPOKALEMIA 09/29/2015 LAMB DO, AFUA K Ot E87.8 OTH DISORDERS OF ELECTROLYTE AND FLUID B 09/29/2015 THOMAS DPM, SADIA Q Ot M20.12 HALLUX VALGUS (ACQUIRED), LEFT FOOT 09/29/2015 THOMAS DPM, SADIA Q Ot M20.42 OTHER HAMMER TOE(S) (ACQUIRED), LEFT EVELYN 09/29/2015 THOMAS DPM, SADIA Q Ot T84.293A [facility] COMPL OF INT FIX OF BONES OF FOOT A 10/02/2015 THOMAS DPM, SADIA Q Ot M20.12 HALLUX VALGUS (ACQUIRED), LEFT FOOT 10/02/2015 THOMAS DPM, SADIA Q Ot M20.42 OTHER HAMMER TOE(S) (ACQUIRED), LEFT EVELYN 10/02/2015 THOMAS DPM, SADIA Q Ot T84.293A [facility] COMPL OF INT FIX OF BONES OF FOOT A 10/03/2015 THOMAS DPM, SADIA Q Ot M20.12 HALLUX VALGUS (ACQUIRED), LEFT FOOT 10/03/2015 THOMAS DPM, SADIA Q Ot M20.42 OTHER HAMMER TOE(S) (ACQUIRED), LEFT EVELYN 10/03/2015 THOMAS DPM, SADIA Q Ot T84.293A [facility] COMPL OF INT FIX OF BONES OF FOOT A 02/05/2016 LONG ALEXX EVERETT Ot 722.52 LUMB/LUMBOSAC DISC DEGEN 02/05/2016 LONG ALEXX EVERETT Ot 737.30 IDIOPATHIC SCOLIOSIS 02/05/2016 THOMAS DPM, SADIA Q Ot 825.25 FX METATARSAL-CLOSED 02/05/2016 THOMAS DPM, SADIA Q Ot E000.8 OTHER EXTERNAL CAUSE STATUS 02/05/2016 THOMAS DPM, SADIA Q Ot E928.9 ACCIDENT NOS 02/05/2016 THOMAS DPM, SADIA Q Ot V72.63 PRE-PROCEDURAL LABORATORY EXAMINATION 02/05/2016 THOMAS DPM, SADIA Q Ot V74.8 SCREEN-BACTERIAL DIS NEC 02/05/2016 LAMB DO, AFUA K Ot E87.6 HYPOKALEMIA 02/05/2016 LAMB DO, AFUA K Ot E87.8 OTH DISORDERS OF ELECTROLYTE AND FLUID B 05/23/2016 LONG DCALEXX S Ot 722.52 LUMB/LUMBOSAC DISC DEGEN 05/23/2016 LONG DCSEBASALEXX S Ot 737.30 IDIOPATHIC SCOLIOSIS 05/23/2016 THOMAS DPM, SADIA Q Ot 825.25 FX METATARSAL-CLOSED 05/23/2016 THOMAS DPM, SADIA Q Ot E000.8 OTHER EXTERNAL CAUSE STATUS 05/23/2016 THOMAS DPM, SADIA Q Ot E928.9 ACCIDENT NOS 05/23/2016 THOMAS DPM, SADIA Q Ot V72.63 PRE-PROCEDURAL LABORATORY EXAMINATION 05/23/2016 THOMAS DPM, SADIA Q Ot V74.8 SCREEN-BACTERIAL DIS NEC 05/23/2016 LAMB DO AFUA K Ot E87.6 HYPOKALEMIA 05/23/2016 ZAINAB PARNELL AFUA K Ot E87.8 OTH DISORDERS OF ELECTROLYTE AND FLUID B 06/24/2016 BRODY HARRISON MD Ot K44.9 DIAPHRAGMATIC HERNIA WITHOUT OBSTRUCTION 06/24/2016 BRODY HARRISON MD Ot R07.9 CHEST PAIN, UNSPECIFIED 06/24/2016 BRODY HARRISON MD Ot Z79.899 OTHER [facility] (CURRENT) DRUG THERAPY 06/27/2016 LAMB DO AFUA K Ot E87.6 HYPOKALEMIA 06/27/2016 ZAINAB PARNELL AFUA K Ot E87.8 OTH DISORDERS OF ELECTROLYTE AND FLUID B 06/28/2016 BRODY HARRISON MD Ot K44.9 DIAPHRAGMATIC HERNIA WITHOUT OBSTRUCTION 06/28/2016 BRODY HARRISON MD Ot R07.9 CHEST PAIN, UNSPECIFIED 06/28/2016 BRODY HARRISON MD Ot Z79.899 OTHER [facility] (CURRENT) DRUG THERAPY Procedures Code Description [place] [address] ROUTINE VENIPUNCTURE 06/24/2012 71958 CBC 06/24/2012 40599 LIPID PANEL 06/24 14039 CMP 06/24/2012 8011104 GFR CALC (RESULT ONLY) 06/24/2012 61900 TSH 06/24/2012 50308 CULTURE EAR & STAIN 04/05/2013 19480 ROUTINE VENIPUNCTURE 11/02/2013 18635 CMP 11/02/2013 17732 LIPID PANEL 11/02 53641 TSH 11/02/2013 41239 CBC 11/02/2013 [id number] REPLACE OF L KNEE JT WITH SYNTH SUB, NILDA 06/07/2015 Results Test Result Range Complete blood count (CBC) with automated white blood cell (WBC) differential - 06/24/16 13:25 Blood leukocytes automated count (number/volume) 9.1 10*3/ uL 4.3-11.0 Blood erythrocytes automated count (number/volume) 4.42 10*6 /uL 4.35-5.85 Venous blood hemoglobin measurement (mass/volume) 12.8 g/dL 11.5-16.0 Blood hematocrit (volume fraction) 40 % 35-52 Automated erythrocyte mean corpuscular volume 90 [foz_us] 80-99 Automated erythrocyte mean corpuscular hemoglobin (mass per erythrocyte) 29 pg 25-34 Automated erythrocyte mean corpuscular hemoglobin concentration measurement ( mass/volume) 32 g/dL 32-36 Automated erythrocyte distribution width ratio 13.9 % 10.0-14.5 Automated blood platelet count (count/volume) 406 10*3/uL 130-400 Automated blood platelet mean volume measurement 9.9 [foz_us ] 7.4-10.4 Automated blood neutrophils/100 leukocytes 65 % 42-75 Automated blood lymphocytes/100 leukocytes 26 % 12-44 Blood monocytes/100 leukocytes 6 % 0-12 Automated blood eosinophils/100 leukocytes 3 % 0-10 Automated blood basophils/100 leukocytes 1 % 0-10 Blood neutrophils automated count (number/volume) 5.9 10*3 1.8-7.8 Blood lymphocytes automated count (number/volume) 2.3 10*3 1.0-4.0 Blood monocytes automated count (number/volume) 0.5 10*3 0.0-1.0 Automated eosinophil count 0.3 10*3/uL 0.0-0.3 Automated blood basophil count (count/volume) 0.1 10*3/uL 0.0-0.1 Comprehensive metabolic panel - 06/24/16 13:25 Serum or plasma sodium measurement (moles/volume) 140 mmol/ L 135-145 Serum or plasma potassium measurement (moles/volume) 4.4 mmol/L 3.6-5.0 Serum or plasma chloride measurement (moles/volume) 104 mmol /L 98-107 Carbon dioxide 26 mmol/L 21-32 Serum or plasma anion gap determination (moles/volume) 10 mmol/L 5-14 Serum or plasma urea nitrogen measurement (mass/volume) 16 mg/dL 7-18 Serum or plasma creatinine measurement (mass/volume) 0.86 mg /dL 0.60-1.30 Serum or plasma urea nitrogen/creatinine mass ratio 19 NRG Serum or plasma creatinine measurement with calculation of estimated glomerular filtration rate > NRG Serum or plasma glucose measurement (mass/volume) 89 mg/dL 70-105 Serum or plasma calcium measurement (mass/volume) 9.1 mg/dL 8.5-10.1 Serum or plasma total bilirubin measurement (mass/volume) 0.3 mg/dL 0.1-1.0 Serum or plasma alkaline phosphatase measurement (enzymatic activity/volume) 75 U/L 40-136 Serum or plasma aspartate aminotransferase measurement (enzymatic activity/ volume) 20 U/L 5-34 Serum or plasma alanine aminotransferase measurement (enzymatic activity/volume ) 13 U/L 0-55 Serum or plasma protein measurement (mass/volume) 7.7 g/dL 6.4-8.2 Serum or plasma albumin measurement (mass/volume) 3.7 g/dL 3.2-4.5 Magnesium - 06/24/16 13:25 Magnesium 2.2 mg/dL 1.8-2.4 Serum or plasma troponin i.cardiac measurement (mass/volume) - 06/24/16 13:25 Serum or plasma troponin i.cardiac measurement (mass/volume) < ng/mL <0.30 Myoglobin, serum - 06/24/16 13:25 Myoglobin, serum 45.4 ng/mL 10.0-92.0 Serum or plasma amylase measurement (enzymatic activity/volume) - 06/24/16 13: 25 Serum or plasma amylase measurement (enzymatic activity/volume) 44 U/L 25-125 Lipase - 06/24/16 13:25 Lipase 49 U/L 8-78 THYROID STIMULATING HORMONE - 06/24/16 13:25 THYROID STIMULATING HORMONE 4.10 u[iU]/mL 0.35-4.94 PT panel in platelet poor plasma by coagulation assay - 06/24/16 14:42 Prothrombin time (PT) in platelet poor plasma by coagulation assay 13.4 s 12.2-14.7 INR in platelet poor plasma or blood by coagulation assay 1.1 0.8-1.4 Activated partial thromboplastin time (aPTT) in platelet poor plasma bycoagulation assay - 06/24/16 14:42 Activated partial thromboplastin time (aPTT) in platelet poor plasma bycoagulation assay 30 s 24-35 Fibrin D-dimer FEU measurement in platelet poor plasma (mass/volume) - 14:42 Fibrin D-dimer FEU measurement in platelet poor plasma (mass/volume) 0.57 ug/mL 0.00-0.49 Encounters ACCT No. Visit Date/Time Discharge Status Pt. Type Provider Facility Loc./Unit Complaint [id number] 07/08/2014 14:27:00 07/08/2014 23: 59:59 [facility] Outpatient JULIAN GODINEZ APRN [id number] 04/27/2014 16:07:00 04/27/2014 23: 59:59 [facility] Outpatient JULIAN GODINEZ APRN [id number] 03/23/2014 15:16:00 03/23/2014 23: 59:59 [facility] Outpatient JULIAN GODINEZ APRN [id number] 01/17/2014 15:57:00 01/17/2014 23: 59:59 [facility] Outpatient JULIAN GODINEZ APRN [id number] 01/15/2014 10:16:00 01/15/2014 23: 59:59 [facility] Outpatient AFUA LAMB DO [id number] 11/02/2013 13:04:00 11/02/2013 23: 59:59 [facility] Outpatient JULIAN GODINEZ APRN [id number] 04/05/2013 08:48:00 04/05/2013 23: 59:59 [facility] Outpatient MAX TORRES APRN [id number] 10/30/2012 14:22:00 10/30/2012 23: 59:59 [facility] Outpatient JULIAN GODINEZ APRN [id number] 06/24/2012 08:16:00 06/24/2012 23: 59:59 [facility] Outpatient [id number] 06/17/2012 14:06:00 06/17/2012 23: 59:59 [facility] Outpatient [id number] 04/14/2012 16:35:00 04/14/2012 23: 59:59 [place] [id number] 03/15/2011 09:42:00 03/15/2011 23: 59:59 [facility] Outpatient
--- NOTE | 2016-09-28 06:34 | ED Respiratory ---
General Chief Complaint: Respiratory Problems Stated Complaint: RT ARM PAIN,SOB,CAN'T SLEEP AT NIGHT Nursing Triage Note: patient reports SOA for a couple months, patient states the last 4 days her R arm has been hurting Source: patient, family Exam Limitations: no limitations History of Present Illness Time seen by provider: 06:29 Initial Comments This 70-year-old white female presents with a history of increasing shortness of breath and decreasing energy for the last several months. The patient in addition has complained of right arm and shoulder pain that largely seems to be unrelated to her exercise intolerance and shortness of breath. The patient denies history of heart disease. The patient denies a family history of heart disease. Significant pertinent past medical history includes hypothyroidism and hypertension. The patient is on levothyroxine and hydrochlorothiazide. She is a patient at [facility]. The patient has had no associated fever chills, productive cough, pressure-type chest discomfort, nausea, or diaphoresis. The patient is asymptomatic at this point. She has no shortness of breath. Allergies and Home Medications Allergies Coded Allergies: No Known Drug Allergies (Unverified , 06/24/08) Home Medications Hydrochlorothiazide 25 Mg Tablet, 25 MG PO DAILY, (Reported) Levothyroxine Sodium 75 Mcg Tablet, #90 (Reported) Omeprazole 40 Mg Capsule.dr, 40 MG PO DAILY, (Reported) Constitutional: No chills, No fever EENTM: No hearing loss, No vision loss Respiratory: No cough, dyspnea on exertion, short of breath, No wheezing Cardiovascular: No chest pain Gastrointestinal: No abdominal pain, No diarrhea, No nausea, No vomiting Genitourinary: No decreased output, No dysuria, No frequency : No Musculoskeletal: No back pain, joint pain (right shoulder. Worse with movement of the shoulder.) Skin: No rash Psychiatric/Neurological: No Symptoms Reported Hematologic/Lymphatic: Other (patient has noted increasing peripheral edema of both legs.) Immunological/Allergic: no symptoms reported Past Wghvnxm-Avhuvj-Sebihc Hx Patient Social History Alcohol Use: Denies Use Recreational Drug Use: No Smoking Status: Never a Smoker Recent Foreign Travel: No Contact w/Someone Who Travel: No Recent Infectious Disease Expo: No Recent Hopitalizations: No Immunizations Up To Date Tetanus Booster (TDap): More than 5yrs Date of Pneumonia Vaccine: Jun 10, 2015 Date of Influenza Vaccine: Dec 15, 2014 Surgeries HX Surgeries: Yes ( X 2, RIGHT EYE SX FOR CROSSED EYE, left foot fx, L TKR) Surgeries: Section, Eye Surgery, Hysterectomy, Oophorectomy Respiratory Hx Respiratory Disorders: No Cardiovascular Hx Cardiac Disorders: Yes Cardiac Disorders: Hypertension Neurological Hx Neurological Disorders: No Reproductive System Hx Reproductive Disorders: No Genitourinary Hx Genitourinary Disorders: No Gastrointestinal Hx Gastrointestinal Disorders: Yes Gastrointestinal Disorders: Gastroesophageal Reflux Musculoskeletal Hx Musculoskeletal Disorders: Yes (LEFT FOOT FX) Musculoskeletal Disorders: Arthritis, Chronic Back Pain, Spasms Endocrine Hx Endocrine Disorders: Yes Endocrine Disorders: Hypothyroidsim HEENT HX ENT Disorders: Yes (GLASSES, missing teeth) HEENT Disorders: Cataract Hearing Impairment: Hard of Hearing Cancer Hx Cancer: No Psychosocial Hx Psychiatric Problems: No Integumentary HX Skin/Integumentary Disorder: No Blood Transfusions Hx Blood Disorders: Yes (ANEMIA) Reviewed Nursing Assessment Reviewed/Agree w Nursing PMH: Yes Family Medical History Significant Family History: Cancer (sister, pancreatic cancer) Family Medial History: Patient reports no known family medical history. Physical Exam Vital Signs Vital Sign - Last 12Hours 09/28/16 06:13 Temp 98.2 Pulse 77 Resp 18 B/P (MAP) 172/114 Pulse Ox 98 Capillary Refill : Less Than 3 Seconds General Appearance: WD/WN, no apparent distress Eyes: Bilateral Eye Normal Inspection HEENT: normal ENT inspection Neck: supple, normal inspection Respiratory: no respiratory distress, decreased breath sounds Cardiovascular: normal peripheral pulses, regular rate, rhythm Gastrointestinal: normal bowel sounds, non tender Extremities: normal range of motion, non-tender Neurologic/Psychiatric: no motor/sensory deficits, alert, normal mood/affect, oriented x 3 Skin: normal color, warm/dry, No ecchymosis, No mottled, No pallor, No rash Progress/Results/Core Measures Results/Orders Lab Results Laboratory Tests Test 09/28/16 06:35 Range/Units White Blood Count 8.0 4.3-11.0 10^3/uL Red Blood Count 4.66 4.35-5.85 10^6/uL Hemoglobin 13.1 11.5-16.0 G/DL Hematocrit 42 35-52 % Mean Corpuscular Volume 89 80-99 FL Mean Corpuscular Hemoglobin 28 25-34 PG Mean Corpuscular Hemoglobin Concent 32 32-36 G/DL Red Cell Distribution Width 14.5 10.0-14.5 % Platelet Count 354 130-400 10^3/uL Mean Platelet Volume 9.6 7.4-10.4 FL Neutrophils (%) (Auto) 66 42-75 % Lymphocytes (%) (Auto) 24 12-44 % Monocytes (%) (Auto) 7 0-12 % Eosinophils (%) (Auto) 3 0-10 % Basophils (%) (Auto) 1 0-10 % Neutrophils # (Auto) 5.3 1.8-7.8 X 10^3 Lymphocytes # (Auto) 1.9 1.0-4.0 X 10^3 Monocytes # (Auto) 0.6 0.0-1.0 X 10^3 Eosinophils # (Auto) 0.2 0.0-0.3 10^3/uL Basophils # (Auto) 0.0 0.0-0.1 10^3/uL Prothrombin Time 13.0 12.2-14.7 SEC INR Comment 1.0 0.8-1.4 D-Dimer 0.55 H 0.00-0.49 UG/ML Sodium Level 138 135-145 MMOL/L Potassium Level 4.4 3.6-5.0 MMOL/L Chloride Level 103 98-107 MMOL/L Carbon Dioxide Level 21 21-32 MMOL/L Anion Gap 14 5-14 MMOL/L Blood Urea Nitrogen 18 7-18 MG/DL Creatinine 0.92 0.60-1.30 MG/DL Estimat Glomerular Filtration Rate > 60 BUN/Creatinine Ratio 20 Glucose Level 106 H 70-105 MG/DL Calcium Level 9.3 8.5-10.1 MG/DL Magnesium Level 2.1 1.8-2.4 MG/DL Total Bilirubin 0.3 0.1-1.0 MG/DL Aspartate Amino Transf (AST/SGOT) 22 5-34 U/L Alanine Aminotransferase (ALT/SGPT) 19 0-55 U/L Alkaline Phosphatase 82 40-136 U/L Troponin I < 0.30 <0.30 NG/ML C-Reactive Protein High Sensitivity 0.49 0.00-0.50 MG/DL B-Type Natriuretic Peptide 20.7 <100.0 PG/ML Total Protein 7.8 6.4-8.2 GM/DL Albumin 3.8 3.2-4.5 GM/DL Thyroid Stimulating Hormone (TSH) 4.75 0.35-4.94 UIU/ML Free Thyroxine 1.01 0.70-1.48 NG/DL My Orders Orders - SEAN, DOLLY Snider MD Cbc With Automated Diff (09/28/16 06:26) Magnesium (09/28/16 06:26) Chest 1 View, Ap/Pa Only (09/28/16 06:26) Ekg Tracing (09/28/16 06:26) Cardiac Profile 1 (09/28/16 06:26) Comprehensive Metabolic Panel (09/28/16 06:26) Protime With Inr (09/28/16 06:26) Monitor-Rhythm Ecg Trace Only (09/28/16 06:26) Saline Lock/Iv-Start (09/28/16 06:26) BNP (09/28/16 06:26) Fibrin Degradation Products (09/28/16 06:26) Free T4 (Free Thyroxine) (09/28/16 06:26) Thyroid Stimulating Hormone (09/28/16 06:26) Hs C Reactive Protein (09/28/16 06:39) Shoulder, Right, 2 Views (09/28/16 06:39) Ct Angio Chest W (09/28/16 07:15) Iohexol Injection (Omnipaque 350 Mg/Ml 1 (09/28/16 07:45) Ns (Ivpb) (Sodium Chloride 0.9% Ivpb Bag (09/28/16 07:45) Albuterol/Ipra Inhalation Soln (Duoneb I (09/28/16 07:45) Svn Sm Volume Nebulizer Rt-Rfs (09/28/16 07:39) Medications Given in ED Current Medications Medications Dose Ordered Sig/Wu Route Start Time Stop Time Status Last Admin Dose Admin Albuterol/ Ipratropium 3 ml ONCE ONCE INH 09/28/16 07:45 09/28/16 07:46 DC 09/28/16 08:11 3 ML Iohexol 125 ml ONCE ONCE IV 09/28/16 07:45 09/28/16 07:46 DC 09/28/16 08:03 125 ML Sodium Chloride 80 ml ONCE ONCE IV 09/28/16 07:45 09/28/16 07:46 DC 09/28/16 08:03 80 ML Vital Signs/I&O Vital Sign - Last 12Hours 09/28/16 06:13 Temp 98.2 Pulse 77 Resp 18 B/P (MAP) 172/114 Pulse Ox 98 Blood Pressure Mean: 133 Progress Note : Time: 06:35 Progress Note Patient's EKG demonstrated normal sinus rhythm. There is no change from the patient's previous EKG. Patient's laboratory and radiographic evaluation were all essentially unremarkable including a CT for PE of her chest as her d-dimer was weakly positive. The patient was given a DuoNeb treatment in the emergency department. There was some symptomatic improvement following the treatment. A prolonged conversation was undertaken with the patient and her . I discussed results of the testing. I asked that they follow up closely with her caregiver at [facility] on Friday. Departure Impression Impression: Primary Impression: Shortness of breath Disposition: 01 HOME, SELF-CARE Condition: Improved Departure-Patient Inst. Decision time for Depature: 08:26 Referrals: AFUA LAMB DO (PCP) Primary Care Physician JULIAN GODINEZ (Family) Primary Care Physician Patient Instructions: Shortness of Breath (Dyspnea) (DC) Add. Discharge Instructions: Close follow-up with your caregiver at [facility] on Friday. Albuterol inhaler trial over the weekend. Return if any problems or questions. All discharge instructions reviewed with patient and/or family. Voiced understanding. DOLLY ESTRADA MD Sep 28, 2016 06:34
[2016-09-28 06:45] LABS: BASOPHILS % (AUTO) 1 % (0-10); EOSINOPHILS # (AUTO) 0.2 10^3/uL (0.0-0.3); EOSINOPHILS % (AUTO) 3 % (0-10); LYMPHOCYTES # (AUTO) 1.9 X 10^3 (1.0-4.0); LYMPHOCYTES % (AUTO) 24 % (12-44); MEAN CORPUSCULAR HEMOGLOBIN 28 PG (25-34); MEAN CORPUSCULAR HGB CONC 32 G/DL (32-36); MEAN CORPUSCULAR VOLUME 89 FL (80-99); MEAN PLATELET VOLUME 9.6 FL (7.4-10.4); MONOCYTES # (AUTO) 0.6 X 10^3 (0.0-1.0); MONOCYTES % (AUTO) 7 % (0-12); NEUTROPHILS # (AUTO) 5.3 X 10^3 (1.8-7.8); NEUTROPHILS % (AUTO) 66 % (42-75); PLATELET COUNT 354 10^3/uL (130-400); RED BLOOD COUNT 4.66 10^6/uL (4.35-5.85); RED CELL DISTRIBUTION WIDTH 14.5 % (10.0-14.5)
[2016-09-28 07:04] LABS: hs C REACTIVE PROTEIN 0.49 MG/DL (0.00-0.50)
[2016-09-28 07:06] LABS: ALANINE AMINOTRANSFERASE 19 U/L (0-55); ALBUMIN 3.8 GM/DL (3.2-4.5); ANION GAP 14 MMOL/L (5-14); ASPARTATE AMINO TRANSFERASE 22 U/L (5-34); BILIRUBIN,TOTAL 0.3 MG/DL (0.1-1.0); BLOOD UREA NITROGEN 18 MG/DL (7-18); BUN/CREATININE RATIO 20; CALCIUM 9.3 MG/DL (8.5-10.1); CARBON DIOXIDE 21 MMOL/L (21-32); CHLORIDE 103 MMOL/L (98-107); CREATININE SERUM 0.92 MG/DL (0.60-1.30); GFR ESTIMATED > 60; GLUCOSE 106 MG/DL (70-105); MAGNESIUM 2.1 MG/DL (1.8-2.4); POTASSIUM 4.4 MMOL/L (3.6-5.0); SODIUM 138 MMOL/L (135-145); TOTAL PROTEIN 7.8 GM/DL (6.4-8.2)
--- NOTE | 2016-09-28 07:24 | Diagnostic Imaging Report ---
INDICATION: Cough. TECHNIQUE: Single-view chest at 07:14 a.m. CORRELATION STUDY: 06/24/2016. FINDINGS: Heart size, mediastinum, and vasculature are within normal limits. Minimal atelectasis in the right mid lung. The lungs are clear with no consolidating infiltrate. There is no significant effusion or pneumothorax. IMPRESSION: 1. Stable chest demonstrates no acute abnormality apart from minimal atelectasis in the right mid lung. Dictated by: Dictated on workstation # [id number]
[2016-09-28 07:28] LABS: THYROID STIMULATING HORMONE 4.75 UIU/ML (0.35-4.94)
--- NOTE | 2016-09-28 07:30 | Diagnostic Imaging Report ---
INDICATION: Shoulder pain. TECHNIQUE: Two views of the right shoulder. CORRELATION STUDY: None. FINDINGS: No acute fracture or dislocation. Hypertrophic changes about the distal clavicle. Lung silverman demonstrate somewhat patchy nodular appearance but is not well appreciated on the accompanying chest radiograph. IMPRESSION: 1. Negative for acute bony abnormality about the shoulder. Dictated by: Dictated on workstation # [id number]
[2016-09-28] MEDS ORDERED: RT-ALBUTEROL/IPRATROPIUM 3 ML (DUONEB) VIAL INH ONE (07:45)
[2016-09-28] MEDS ORDERED: IOHEXOL 350 MG/ML 150 ML (OMNIPAQUE 350) VIAL IV ONE (07:45)
[2016-09-28] MEDS ORDERED: NS 100 ML (IVPB) BAG IV ONE (07:45)
[2016-09-28 08:41] VITALS: BP 172/114
--- NOTE | 2016-09-28 08:56 | Diagnostic Imaging Report ---
PROCEDURE: CT angiography of the chest with contrast. TECHNIQUE: Multiple contiguous axial images were obtained through the chest after uneventful bolus administration of intravenous contrast. Reconstructed CTA MIP acquisitions were also performed. INDICATION: Shortness of air, right arm pain. CORRELATION STUDY: 06/24/2016 FINDINGS: There is no filling defect in the pulmonary arterial tree to suggest pulmonary embolism. Thoracic aorta unremarkable without intraluminal abnormality. Normal three-vessel branching pattern at the level of the aortic arch. Rather tortuous course about the brachiocephalic artery. Heart size within normal limits. No pathologically enlarged mediastinal and/or hilar lymph nodes. There is presence of moderate hiatal hernia. Lung silverman are clear. No infiltrate, effusion or pneumothorax. Calcified granuloma right upper lobe. Visualized portion of the upper abdomen likely some degree of hepatic steatosis. Multilevel degenerative changes thoracic spine. IMPRESSION: 1. CTA imaging unremarkable in appearance about the thoracic aorta. No findings to suggest pulmonary embolism or otherwise acute findings of the chest. Dictated by: Dictated on workstation # [id number]
== END 2016-09-28 08:40 | disposition home or self-care (01) ==
LOC: EDUNIT# 06:04 → ER 06:09
DX: R06.02 Shortness of breath (principal); E03.9 Hypothyroidism, unspecified; I10 Essential (primary) hypertension; K21.9 Gastro-esophageal reflux disease without esophagitis; M19.90 Unspecified osteoarthritis, unspecified site; Z87.81 Personal history of (healed) traumatic fracture; Z80.0 Family history of malignant neoplasm of digestive organs
CPT/HCPCS: 36415; 71010; 71275; 73030; 80053; 83735; 83880; 84439; 84443; 84484; 85025; 85379; 85610; 86141; 94640; 94664

== ENCOUNTER 2017-02-03 12:39 | Emergency (ER) | payer MEDICAID, MEDICARE ==
[~2017-02-03] VITALS: Ht 160 cm; Wt 99.8 kg
[~2017-02-03 12:39] MED LIST changes: +LEVO75TA6
--- OUTSIDE RECORDS SUMMARY | 2017-02-03 12:53 | XMS REPORT ---
Author Author JULIAN GODINEZ [facility] Address [address] [place] [address] Care Team Providers Care Firer Helper Name Role Phone HERBERT JULIAN Unavailable PROBLEMS Type Condition ICD9-CM Code [id number] Code Onset Dates Condition Status SNOMED Code Problem Excessive daytime sleepiness G47.19 Active 577117440085 Problem Anxiety F41.9 Active 96061349 Problem Hypertension, benign I10 Active 23606947 Problem Hypothyroidism (acquired) E03.9 Active 084823927 ALLERGIES No Known Allergies SOCIAL HISTORY Never Assessed PLAN OF CARE Activity Details Follow Up annually for preventive care, sooner for chronic health maintenance Reason: VITAL SIGNS Height 63 in 2016-05-27 Weight 221.1 lbs 2016-05-27 Temperature 97.6 degrees Fahrenheit 2016-05-27 Heart Rate 76 bpm 2016-05-27 Respiratory Rate 20 2016-05-27 BMI 39.16 kg/m2 2016-05-27 Blood pressure systolic 132 mmHg 2016-05-27 Blood pressure diastolic 90 mmHg 2016-05-27 MEDICATIONS Medication Instructions Dosage Frequency Start Date End Date Duration Status Hydrochlorothiazide 25 1 tablet in the morning 24h Active Levothyroxine Sodium 75 mcg Orally Once a day 1 tablet 24h Sep, Active Omeprazole 40 mg 1 capsule 24h Mar, Active RESULTS No Results PROCEDURES Procedure Date Ordered Result Body Site INIT PREV PE LTD DUR MOS MCR May 27, 2016 ANNUAL WELLNES VST; PERSNL PPS INIT May 27, 2016 [facility] VISIT ESTABLISHED PATIENT May 27, 2016 ANNUAL WELLNESS VST; PPS SUBSQT VST May 27, 2016 IMMUNIZATIONS No Known Immunizations MEDICAL (GENERAL) HISTORY Type Description Date Medical History Hypothyroidism Medical History Osteoarthritis (knee) Medical History Hypertension Medical History GERD Surgical History hysterectomy - LIZBETH/BSO for AUB ([place]) 2000 Surgical History section x 2 Surgical History R eye surgery Surgical History Fractured left foot - plate placed ([place]) then removed Surgical History left knee replacement ([place]) 05/2015 Surgical History Tonsillectomy Hospitalization History surgeries
--- OUTSIDE RECORDS SUMMARY | 2017-02-03 12:55 | XMS REPORT ---
Author Author JULIAN GODINEZ [facility] Address [address] [place] [address] Care Team Providers Care [employer] Chief Creative Officer Name Role Phone JULIAN GODINEZ Unavailable PROBLEMS Type Condition ICD9-CM Code [id number] Code Onset Dates Condition Status SNOMED Code Problem Excessive daytime sleepiness G47.19 Active 122796160294 Problem Anxiety F41.9 Active 42474149 Problem Hypertension, benign I10 Active 70970627 Problem Hypothyroidism (acquired) E03.9 Active 585064941 ALLERGIES No Information SOCIAL HISTORY Never Assessed PLAN OF CARE VITAL SIGNS MEDICATIONS No Known Medications RESULTS Name Result Date Reference Range TSH 2016-05-31 TSH 3.240 0.450-4.500 LIPID PANEL 2016-05-31 Cholesterol, Total 171 100-199 Triglycerides 168 0-149 HDL Cholesterol 52 >39 VLDL Cholesterol Param 34 5-40 LDL Cholesterol Calc 85 0-99 CMP 2016-05-31 Glucose, Serum 93 65-99 BUN 20 8-27 Creatinine, Serum 0.93 0.57-1.00 eGFR If NonAfricn Am 63 >59 eGFR If Africn Am 73 >59 BUN/Creatinine Ratio 22 11-26 Sodium, Serum 140 134-144 Potassium, Serum 4.6 3.5-5.2 Chloride, Serum 97 96-106 Carbon Dioxide, Total 27 18-29 Calcium, Serum 9.7 8.7-10.3 Protein, Total, Serum 7.6 6.0-8.5 Albumin, Serum 4.4 3.6-4.8 Globulin, Total 3.2 1.5-4.5 A/G Ratio 1.4 1.2-2.2 Bilirubin, Total 0.4 0.0-1.2 Alkaline Phosphatase, S 84 39-117 AST (SGOT) 22 0-40 ALT (SGPT) 19 0-32 CBC 2016-05-31 WBC 8.3 3.4-10.8 RBC 4.55 3.77-5.28 Hemoglobin 13.0 11.1-15.9 Hematocrit 40.5 34.0-46.6 MCV 89 79-97 MCH 28.6 26.6-33.0 MCHC 32.1 31.5-35.7 RDW 14.2 12.3-15.4 Platelets 389 150-379 Neutrophils 61 Lymphs 29 Monocytes 6 Eos 2 Basos 1 Immature Cells Neutrophils (Absolute) 5.1 1.4-7.0 Lymphs (Absolute) 2.4 0.7-3.1 Monocytes(Absolute) 0.5 0.1-0.9 Eos (Absolute) 0.2 0.0-0.4 Baso (Absolute) 0.1 0.0-0.2 Immature Granulocytes 1 Immature Grans (Abs) 0.0 0.0-0.1 NRBC Hematology Comments: PROCEDURES Procedure Date Ordered Result Body Site LAB NOT BILLED BY [facility] May 31, 2016 VENIPUNCT, ROUTINE* May 31, 2016 IMMUNIZATIONS No Known Immunizations MEDICAL (GENERAL) HISTORY Type Description Date Medical History Hypothyroidism Medical History Osteoarthritis (knee) Medical History Hypertension Medical History GERD Surgical History hysterectomy - LIZBETH/BSO for AUB ([place]) 2000 Surgical History section x 2 Surgical History R eye surgery Surgical History Fractured left foot - plate placed ([place]) then removed Surgical History left knee replacement ([place]) 05/2015 Surgical History Tonsillectomy Hospitalization History surgeries
[2017-02-03] MEDS ORDERED: NS IV 1000 ML 1,000 ML IV ONE (13:38)
[2017-02-03] MEDS ORDERED: RT-ALBUTEROL SULF 2.5 MG/3 ML PRE-MIX VIAL INH STA (13:38)
[2017-02-03] MEDS ORDERED: RT-ALBUTEROL/IPRATROPIUM 3 ML (DUONEB) VIAL INH ONE (13:45)
--- NOTE | 2017-02-03 13:47 | ED Respiratory ---
General Chief Complaint: Cough/Cold/Flu Symptoms Stated Complaint: COUGH Nursing Triage Note: PRODUCTIVE COUGH 3-4 DAYS, PAIN IN CHEST WITH COUGHING, SHORTNESS OF BREATH WITH ACTIVITY, SLEEPING A LOT PER . Source: patient Exam Limitations: no limitations History of Present Illness Time seen by provider: 13:36 Initial Comments Patient presents to ER by private conveyance with her spouse with a chief complaint of past for 5 days she's had progressively worsening malaise, tiredness, cough productive of yellow phlegm. She denies fevers, chills, presently being nausea however yesterday she did vomit 1 after a large coughing fit. She is having some pain up under her left ribs especially on deep inspiration or cough. No cardiac history. She does not smoke however she quit when she was 22 years old. She has not sought dental care for this yet. She denies a history of COPD/asthma or other pulmonary disease. She does not use oxygen at home and has not been hypoxic in the ER on room air. Allergies and Home Medications Allergies Coded Allergies: No Known Drug Allergies (Unverified , 06/24/08) Home Medications Hydrochlorothiazide 25 Mg Tablet, 25 MG PO DAILY, (Reported) Levothyroxine Sodium 75 Mcg Tablet, #90 (Reported) Omeprazole 40 Mg Capsule.dr, 40 MG PO DAILY, (Reported) Constitutional: No chills, No diaphoresis EENTM: No ear pain, No eye pain Respiratory: cough, phlegm, short of breath Cardiovascular: see HPI, chest pain, No vascular heart diseas Gastrointestinal: No constipation, No diarrhea, nausea, vomiting (x1 yesterday) Genitourinary: No discharge, No dysuria Musculoskeletal: No back pain, No joint pain Skin: No pruritus, No rash Psychiatric/Neurological: Denies Headache, Denies Numbness, Denies Paresthesia Past [id number] Hx Patient Social History Alcohol Use: Denies Use Recreational Drug Use: No Smoking Status: Never a Smoker 2nd Hand Smoke Exposure: Yes Recent Foreign Travel: No Contact w/Someone Who Travel: No Recent Infectious Disease Expo: No Recent Hopitalizations: No Physical Abuse: No Sexual Abuse: No Immunizations Up To Date Tetanus Booster (TDap): More than 5yrs Date of Pneumonia Vaccine: Jun 10, 2015 Date of Influenza Vaccine: Dec 05, 2014 Surgeries History of Surgeries: Yes ( X 2, RIGHT EYE SX FOR CROSSED EYE, left foot fx, L TKR) Surgeries: Section, Eye Surgery, Hysterectomy, Oophorectomy Respiratory History of Respiratory Disorde: No Cardiovascular History of Cardiac Disorders: Yes Cardiac Disorders: Hypertension Neurological History of Neurological Disord: No Reproductive System Hx Reproductive Disorders: No Gastrointestinal History of Gastrointestinal Di: Yes Gastrointestinal Disorders: Gastroesophageal Reflux Musculoskeletal History of Musculoskeletal Dis: Yes (LEFT FOOT FX) Musculoskeletal Disorders: Arthritis, Chronic Back Pain, Spasms Endocrine History of Endocrine Disorders: Yes Endocrine Disorders: Hypothyroidsim HEENT HEENT Disorders: Cataract Hearing Impairment: Hard of Hearing Cancer History of Cancer: No Psychosocial History of Psychiatric Problem: No Suicide Risk Score: 0 Integumentary History of Skin or Integumenta: No Blood Transfusions History of Blood Disorders: Yes (ANEMIA) Family Medical History Significant Family History: Cancer Family Medial History: Patient reports no known family medical history. Physical Exam Vital Signs Vital Sign - Last 12Hours 02/03/17 02/03/17 13:06 14:27 Temp 98.6 Pulse 83 Resp 20 B/P (MAP) 125/94 Pulse Ox 96 O2 Delivery Room Air Capillary Refill : Less Than 3 Seconds General Appearance: WD/WN, mild distress Eyes: Bilateral Eye Normal Inspection, Bilateral Eye PERRL, Bilateral Eye EOMI HEENT: PERRL/EOMI, normal ENT inspection, TMs normal, pharynx normal Neck: non-tender, full range of motion, supple, normal inspection Respiratory: no respiratory distress, no accessory muscle use, crackles (left side), wheezing, other (chest tender to palpation over left lower ribs. Painful on deep inspiration.) Cardiovascular: normal peripheral pulses, regular rate, rhythm, no edema Gastrointestinal: normal bowel sounds, non tender, soft Neurologic/Psychiatric: no motor/sensory deficits, alert, normal mood/affect, oriented x 3 Skin: normal color, warm/dry Focused Exam Evaluation Lactate Level Laboratory Tests 02/03/17 14:08: Lactic Acid Level 1.72 Lactic Acid Level Laboratory Tests Test 02/03/17 14:08 Lactic Acid Level 1.72 MMOL/L (0.50-2.00) Progress/Results/Core Measures Suspected Sepsis Recent Fever Within 48 Hours: No Infection Criteria Present: Suspected New Infection New/Unexplained Altered Menta: No Sepsis Screen: No Definite Risk Sepsis Diagnosis: SIRS Temperature:98.6 Pulse: 83 Respiratory Rate: 20 Laboratory Tests 02/03/17 14:08: White Blood Count 8.2 Blood Pressure 125 /94 Mean: 104 Laboratory Tests 02/03/17 14:08: Lactic Acid Level 1.72 Laboratory Tests 02/03/17 14:08: Creatinine 1.09, Platelet Count 327, Total Bilirubin 0.3 Results/Orders Lab Results Laboratory Tests Test 02/03/17 14:08 Range/Units White Blood Count 8.2 4.3-11.0 10^3/uL Red Blood Count 4.49 4.35-5.85 10^6/uL Hemoglobin 12.9 11.5-16.0 G/DL Hematocrit 40 35-52 % Mean Corpuscular Volume 89 80-99 FL Mean Corpuscular Hemoglobin 29 25-34 PG Mean Corpuscular Hemoglobin Concent 32 32-36 G/DL Red Cell Distribution Width 14.3 10.0-14.5 % Platelet Count 327 130-400 10^3/uL Mean Platelet Volume 9.9 7.4-10.4 FL Neutrophils (%) (Auto) 69 42-75 % Lymphocytes (%) (Auto) 19 12-44 % Monocytes (%) (Auto) 9 0-12 % Eosinophils (%) (Auto) 3 0-10 % Basophils (%) (Auto) 1 0-10 % Neutrophils # (Auto) 5.6 1.8-7.8 X 10^3 Lymphocytes # (Auto) 1.6 1.0-4.0 X 10^3 Monocytes # (Auto) 0.7 0.0-1.0 X 10^3 Eosinophils # (Auto) 0.2 0.0-0.3 10^3/uL Basophils # (Auto) 0.1 0.0-0.1 10^3/uL Sodium Level 138 135-145 MMOL/L Potassium Level 3.7 3.6-5.0 MMOL/L Chloride Level 102 98-107 MMOL/L Carbon Dioxide Level 25 21-32 MMOL/L Anion Gap 11 5-14 MMOL/L Blood Urea Nitrogen 19 H 7-18 MG/DL Creatinine 1.09 0.60-1.30 MG/DL Estimat Glomerular Filtration Rate 50 BUN/Creatinine Ratio 17 Glucose Level 113 H 70-105 MG/DL Lactic Acid Level 1.72 0.50-2.00 MMOL/L Calcium Level 9.0 8.5-10.1 MG/DL Total Bilirubin 0.3 0.1-1.0 MG/DL Aspartate Amino Transf (AST/SGOT) 24 5-34 U/L Alanine Aminotransferase (ALT/SGPT) 21 0-55 U/L Alkaline Phosphatase 69 40-136 U/L B-Type Natriuretic Peptide 40.7 <100.0 PG/ML Total Protein 7.4 6.4-8.2 GM/DL Albumin 3.7 3.2-4.5 GM/DL My Orders Orders - VERN SCHULTZ BNP (02/03/17 13:38) Cbc With Automated Diff (02/03/17 13:38) Comprehensive Metabolic Panel (02/03/17 13:38) Lactic Acid Analyzer (02/03/17 13:38) Sputum Culture (02/03/17 13:38) Chest Pa/Lat (2 View) (02/03/17 13:38) Saline Lock/Iv-Start (02/03/17 13:38) Ns Iv 1000 Ml (Sodium Chloride 0.9%) (02/03/17 13:38) Albuterol Pre-Mix Nebs (Rt) (Proventil P (02/03/17 13:38) Albuterol/Ipra Inhalation Soln (Duoneb I (02/03/17 13:45) Svn Sm Volume Nebulizer Rt-Rfs (02/03/17 13:38) Medications Given in ED Current Medications Medications Dose Ordered Sig/Wu Route Start Time Stop Time Status Last Admin Dose Admin Albuterol/ Ipratropium 3 ml ONCE ONCE INH 02/03/17 13:45 02/03/17 13:46 DC 02/03/17 14:26 3 ML Sodium Chloride 1,000 ml @ 0 mls/hr Q0M ONCE IV 02/03/17 13:38 02/03/17 13:43 DC 02/03/17 14:14 0 MLS/HR Vital Signs/I&O Vital Sign - Last 12Hours 02/03/17 02/03/17 13:06 14:27 Temp 98.6 Pulse 83 Resp 20 B/P (MAP) 125/94 Pulse Ox 96 95 O2 Delivery Room Air Capillary Refill : Less Than 3 Seconds Blood Pressure Mean: 104 Progress Note : Time: 13:47 Progress Note Vitals are okay however she has some wheezing and crackles in that left upper lobe that may be consistent with pneumonia. We'll go ahead and grab an x-ray, give her some fluids, and a breathing treatment and see how she does after that. The chest pain is definitely pleuritic/chest wall in nature. Diagnostic Imaging Diagonstic Imaging: Xray Plain Films/CT/US/NM/MRI: chest (2 views) Comments No acute cardiopulmonary processes noted. Reviewed: Reviewed by Me Departure Impression Impression: Primary Impression: Bronchitis Disposition: 01 HOME, SELF-CARE Condition: Stable Departure-Patient Inst. Decision time for Depature: 15:34 Referrals: AFUA LAMB DO (PCP) Primary Care Physician JULIAN GODINEZ (Family) Primary Care Physician Patient Instructions: Acute Bronchitis, Adult (DC) Add. Discharge Instructions: Drink plenty of fluids and use Tylenol 1000 mg every 8 hours or ibuprofen 800 mg every 8 hours as needed for body aches and headaches and fever. Take the azithromycin 2 tablets today and then one tablet daily until it's gone and take 2 tablets of prednisone daily until it's gone for 5 days total each. If you're not seeing some improvement at the end of the week follow-up to primary care physician. Please return to the ER to begin to have chest pain, shortness of breath or worsening of her symptoms. While you're sick use the pro-air, 2 puffs with the spacer device 3 times a day and then every 4 hours as needed if you're having wheezing or shortness of breath in between time. If you're having coughing you can use [id number] cough drops or you may warehouse order picker the Tessalon Perles and use 1 tablet every 6 hours. All discharge instructions reviewed with patient and/or family. Voiced understanding. Scripts Albuterol Sulfate (PROAIR HFA) 1 Puff Puff 2 PUFF IH Q4H Y for WHEEZING, #1 EACH 0 Refills 1 PUFF = 90 MCG Prov: VERN SCHULTZ 02/03/17 Benzonatate (Tessalon Perle) 100 Mg Capsule 100 MG PO Q6H Y for COUGH, #20 CAP 0 Refills Prov: VERN SCHULTZ 02/03/17 Prednisone (Prednisone) 20 Mg Tab 20 MG PO BID for 5 Days, #10 TAB 0 Refills Prov: VERN SCHULTZ 02/03/17 Azithromycin (Azithromycin) 250 Mg Tablet 250 MG PO UD, #6 TAB 0 Refills TAKE 2 TABLETS ON DAY ONE THEN TAKE 1 TABLET DAILY FOR FOUR MORE DAYS Prov: VERN SCHULTZ 02/03/17 Copy Copies To 1: AFUA LAMB TITUS J Feb 03, 2017 13:47
[2017-02-03 14:17] LABS: BASOPHILS # (AUTO) 0.1 10^3/uL (0.0-0.1); BASOPHILS % (AUTO) 1 % (0-10); EOSINOPHILS # (AUTO) 0.2 10^3/uL (0.0-0.3); EOSINOPHILS % (AUTO) 3 % (0-10); LYMPHOCYTES # (AUTO) 1.6 X 10^3 (1.0-4.0); LYMPHOCYTES % (AUTO) 19 % (12-44); MEAN CORPUSCULAR HEMOGLOBIN 29 PG (25-34); MEAN CORPUSCULAR HGB CONC 32 G/DL (32-36); MEAN CORPUSCULAR VOLUME 89 FL (80-99); MEAN PLATELET VOLUME 9.9 FL (7.4-10.4); MONOCYTES # (AUTO) 0.7 X 10^3 (0.0-1.0); MONOCYTES % (AUTO) 9 % (0-12); NEUTROPHILS # (AUTO) 5.6 X 10^3 (1.8-7.8); NEUTROPHILS % (AUTO) 69 % (42-75); PLATELET COUNT 327 10^3/uL (130-400); RED BLOOD COUNT 4.49 10^6/uL (4.35-5.85); RED CELL DISTRIBUTION WIDTH 14.3 % (10.0-14.5); WHITE BLOOD COUNT 8.2 10^3/uL (4.3-11.0)
[2017-02-03 14:38] LABS: ALBUMIN 3.7 GM/DL (3.2-4.5); BILIRUBIN,TOTAL 0.3 MG/DL (0.1-1.0); CREATININE SERUM 1.09 MG/DL (0.60-1.30); POTASSIUM 3.7 MMOL/L (3.6-5.0); TOTAL PROTEIN 7.4 GM/DL (6.4-8.2)
--- NOTE | 2017-02-03 15:35 | Diagnostic Imaging Report ---
EXAMINATION: PA and lateral views of the chest. INDICATION: Cough. FINDINGS: The lungs demonstrate slightly prominent interstitial markings that appear to be chronic with no focal airspace opacity. There is a moderate-sized hiatal hernia. The heart size is mildly enlarged. No effusion or pneumothorax. The mediastinum and delisa appear unremarkable. IMPRESSION: Moderate-sized hiatal hernia. Mild cardiomegaly without significant congestion. Dictated by: Dictated on workstation # [id number]
[2017-02-03] MEDS ORDERED: AZIT250T12 PO (15:36)
[2017-02-03] MEDS ORDERED: PRD20T PO (15:36)
[2017-02-03] MEDS ORDERED: BENZ-13 PO (15:43)
[2017-02-03] MEDS ORDERED: RT-ALBUINH IH (15:43)
[2017-02-03 16:04] VITALS: BP 125/94
== END 2017-02-03 16:04 | disposition home or self-care (01) ==
LOC: EDUNIT# 12:39 → ER 12:40
DX: J40 Bronchitis, not specified as acute or chronic (principal); E03.9 Hypothyroidism, unspecified; K21.9 Gastro-esophageal reflux disease without esophagitis; I10 Essential (primary) hypertension; Z77.22 Contact with and (suspected) exposure to environmental tobacco smoke (acute) (chronic); Z87.59 Personal history of other complications of pregnancy, childbirth and the puerperium; Z90.710 Acquired absence of both cervix and uterus; Z96.652 Presence of left artificial knee joint; Z80.9 Family history of malignant neoplasm, unspecified
CPT/HCPCS: 36415; 71020; 80053; 83605; 83880; 85025; 87070; 87205; 94640; 96360

== ENCOUNTER 2017-03-03 04:06 | Day surgery (SDC) | payer MEDICARE ==
[~2017-03-03] VITALS: Ht 160 cm; Wt 108.6 kg
[~2017-03-03 04:06] MED LIST changes: +AZIT250T12 PO; +BENZ-13 PO; -LEVO75TA6; +LEVO75TA6 PO; +PRD20T PO; +RT-ALBUINH IH
--- OUTSIDE RECORDS SUMMARY | 2017-03-03 04:14 | XMS REPORT | Continuity of Care Document ---
Author Author Formerly [facility] Address Unknown Phone Unavailable Allergies Active Description Code Type Severity Reaction Onset Reported/Identified Relationship to Patient Clinical Status Yes No Known Drug Allergies [id number] Drug Allergy Mild N/A 06/24/2008 Medications There is no data. Problems Date Dx Coded Attending Type Code Diagnosis Diagnosed By 02/13/1418 NICOLETTE SHERIDAN, URI Shaver Ot Z47.1 AFTERCARE FOLLOWING JOINT REPLACEMENT REBOLLEDO 02/13/1418 URI WILL MD, Ot Z96.652 PRESENCE OF LEFT ARTIFICIAL KNEE JOINT 10/30/2007 244.9 HYPOTHYROIDISM 10/30/2007 AFUA LAMB DO 244.9 HYPOTHYROIDISM 10/30/2007 244.9 HYPOTHYROIDISM [...] Pain Chronic Syndrome 03/28/2008 MAX TORRES APRN A 338.4 Pain Chronic Syndrome 03/28/2008 JULIAN GODINEZ APRN 338.4 Pain Chronic Syndrome 03/28/2008 AFUA LAMB DO 338.4 Pain Chronic Syndrome 03/28/2008 JULIAN GODINEZ APRN 338.4 Pain Chronic Syndrome 03/28/2008 JULIAN GODINEZ APRN 338.4 Pain Chronic Syndrome 03/28/2008 JULIAN GODINEZ APRN 338.4 Pain Chronic Syndrome 03/28/2008 JULIAN GODINEZ APRN 338.4 Pain Chronic Syndrome 06/06/2008 729.5 PAIN IN LIMB 06/06/2008 LUIS LAMB DOA K 729.5 PAIN IN LIMB 06/06/2008 729.5 Pain In Limb 06/06/2008 729.5 Pain In Limb 06/06/2008 JULIAN GODINEZ APRN 729.5 Pain In Limb 06/06/2008 SLIM TORRES APRNYL A 729.5 Pain In Limb 06/06/2008 JULIAN GODINEZ APRN 729.5 Pain In Limb 06/06/2008 AFUA LAMB DO K 729.5 Pain In Limb 06/06/2008 JULIAN GODINEZ APRN 729.5 Pain In Limb 06/06/2008 JULIAN GODINEZ APRN 729.5 Pain In Limb 06/06/2008 JULIAN GODINEZ APRN 729.5 Pain In Limb 06/06/2008 JULIAN GODINEZ APRN 729.5 Pain In Limb 06/27/2008 724.2 PAIN LOW BACK 06/27/2008 LUIS LAMB DOA K 724.2 PAIN LOW BACK 06/27/2008 724.2 [...] PAIN WITH RADIATION 09/27/2008 MAX TORRES APRN 724.4 BACK PAIN WITH RADIATION 09/27/2008 JULIAN GODINEZ APRN 724.4 BACK PAIN WITH RADIATION 09/27/2008 ZAINAB DO, AFUA K 724.4 BACK PAIN WITH [...] MAX TORRES APRN A 278.02 OVERWEIGHT 04/10/2010 SLIM TORRES APRNYL A 373.11 Hordeolum Externum 04/10/2010 JULIAN GODINEZ APRN 278.02 OVERWEIGHT 04/10/2010 JULIAN GOIDNEZ APRN 373.11 Hordeolum Externum 04/10/2010 LAMB DO, AFUA K 278.02 OVERWEIGHT 04/10/2010 LAMB DO, AFUA K 373.11 Hordeolum Externum 04/10/2010 JULIAN GODINEZ APRN 278.02 OVERWEIGHT 04/10/2010 JULIAN GODINEZ APRN 373.11 Hordeolum Externum 04/10/2010 JULIAN GODINEZ APRN 278.02 OVERWEIGHT 04/10/2010 JULIAN GODINEZ APRN 373.11 Hordeolum Externum 04/10/2010 JULIAN GODINEZ APRN 278.02 OVERWEIGHT 04/10/2010 JULIAN GODINEZ APRN 373.11 Hordeolum Externum 04/10/2010 JULIAN GODINEZ APRN T 278.02 OVERWEIGHT 04/10/2010 JULIAN GODINEZ APRN 373.11 Hordeolum Externum 08/15/2010 719.46 KNEE PAIN 08/15/2010 LAMB DO, AFUA K 719.46 KNEE PAIN 08/15/2010 719.46 KNEE PAIN 08/15/2010 719.46 KNEE PAIN 08/15/2010 JULIAN GODINEZ APRN 719.46 KNEE PAIN 08/15/2010 BRIAN DAVID MAX A 719.46 KNEE PAIN 08/15/2010 JULIAN [...] 03/15/2011 JULIAN GODINEZ APRN 786.2 Cough 03/15/2011 BRIAN DAVID MAX A 466.0 Bronchitis, Acute 03/15/2011 RAJLILIANE JOANN, MAX A 786.2 Cough 03/15/2011 JULIAN GODINEZ APRN 466.0 Bronchitis, Acute 03/15/2011 JULIAN GODINEZ APRN 786.2 Cough 03/15/2011 LAMB DO, AFUA K 466.0 Bronchitis, Acute 03/15/2011 LAMB DO, AFUA K 786.2 Cough 03/15/2011 JULIAN GODINEZ APRN 466.0 Bronchitis, Acute 03/15/2011 JULIAN GODINEZ APRN 786.2 Cough 03/15/2011 JULIAN GODINEZ APRN 466.0 Bronchitis, Acute 03/15/2011 JULIAN GODINEZ APRN 786.2 Cough 03/15/2011 HERBERT DAVID, JULIAN T 466.0 Bronchitis, Acute 03/15/2011 HERBERT DAVID, JULIAN Kimble 786.2 Cough 03/15/2011 JULIAN GODINEZ APRN 466.0 [...] JULIAN GODINEZ APRN 388.70 OTALGIA 04/05/2013 LAMB DO AFUA K 388.60 OTORRHEA UNSPECIFIED 04/05/2013 LAMB DO, AFUA K 388.70 OTALGIA 04/05/2013 HERBERT DAVID, JULIAN T 388.60 OTORRHEA UNSPECIFIED 04/05/2013 HERBERT DAVID, JULIAN T 388.70 OTALGIA 04/05/2013 HERBERT DAVID, JULIAN T 388.60 OTORRHEA UNSPECIFIED 04/05/2013 HERBERT KAMINSKIN, JULIAN T 388.70 OTALGIA 04/05/2013 HERBERT DAVID, JULIAN T 388.60 OTORRHEA UNSPECIFIED 04/05/2013 HERBERT DAVID, JULIAN T 388.70 OTALGIA 04/05/2013 HERBERT DAVID, JULIAN T 388.60 OTORRHEA UNSPECIFIED 04/05/2013 HERBERT DAVID, JULIAN T 388.70 OTALGIA 01/15/2014 LAMB DO, AFUA K 464.00 ACUTE LARYNGITIS WITHOUT OBSTRUCTION 01/15/2014 JULIAN [...] PHILIPPE MD Ot 401.9 HYPERTENSION NOS 03/06/2014 PASTORA PHILIPPE MD Ot 715.90 OSTEOARTHROS NOS-UNSPEC 03/06/2014 PASTORA PHILIPPE MD Ot 786.50 CHEST PAIN NOS 03/06/2014 PASTORA PHILIPPE MD Ot V03.82 PROPHYLACTIC VACC AGAINST STREPTOCOCCUS 03/06/2014 PASTORA PHILIPPE MD Ot V85.36 BODY MASS INDEX 36.0-36.9, ADULT 04/27/2014 JULIAN GODINEZ APRN T 401.1 HYPERTENSION, BENIGN ESSENTIAL 04/27/2014 JULIAN GODINEZ APRN 401.1 HYPERTENSION, BENIGN ESSENTIAL 05/25/2014 JULIAN GODINEZ APRN T 703.8 OTHER SPECIFIED DISEASES OF NAIL 05/25/2014 JULIAN GODINEZ APRN T 735.0 HALLUX VALGUS (ACQUIRED) 07/04/2014 ALEXX REYNA DC Ot 722.52 07/04/2014 ALEXX REYNA DC Ot 737.30 07/04/2014 SADE DIMAS DO Ot 729.5 PAIN IN LIMB 07/08/2014 JULIAN GODINEZ APRN T 728.85 MUSCLE SPASM 09/23/2014 LONG DC, [...] DPM, SADIA Q Ot V74.8 05/31/2015 LONG DC, ALEXX S Ot 722.52 05/31/2015 LONG DC, [...] P Ot I25.10 ATHSCL HEART DISEASE OF [place] CORONARY 06/12/2015 NICOLETTE SHERIDAN, URI Shaver Ot K21.9 GASTRO-ESOPHAGEAL REFLUX DISEASE WITHOUT 06/12/2015 NICOLETTE SHERIDAN, URI Shaver Ot M17.12 UNILATERAL PRIMARY OSTEOARTHRITIS, LEFT 06/12/2015 NICOLETTE SHERIDAN, URI P Ot R09.02 HYPOXEMIA 06/12/2015 NICOLETTE SHERIDAN, URI Shaver Ot Z68.39 BODY MASS INDEX (BMI) 39.0-39.9, ADULT 07/07/2015 URI WILL MD Ot Z47.1 AFTERCARE FOLLOWING JOINT REPLACEMENT REBOLLEDO 07/07/2015 URI WILL MD, Ot Z96.652 PRESENCE OF LEFT ARTIFICIAL KNEE JOINT 07/11/2015 URI WILL MD, Ot Z47.1 AFTERCARE FOLLOWING [...] LEFT ARTIFICIAL KNEE JOINT 08/31/2015 URI WILL MD, Ot Z47.1 AFTERCARE FOLLOWING JOINT REPLACEMENT REBOLLEDO 08/31/2015 URI WILL MD Ot Z96.652 PRESENCE OF LEFT ARTIFICIAL KNEE JOINT 09/25/2015 THOMAS DPM, SADIA Q Ot M20.12 HALLUX VALGUS (ACQUIRED), LEFT FOOT 09/25/2015 THOMAS DPM, SADIA Q Ot M20.42 OTHER HAMMER TOE(S) (ACQUIRED), LEFT EVELYN 09/25/2015 THOMAS DPM, SADIA Q Ot T84.293A [facility] COMPL OF INT FIX OF BONES OF FOOT A 09/25/2015 THOMAS DPM, SADIA Q Ot Z01.818 ENCOUNTER FOR OTHER PREPROCEDURAL EXAMIN 09/25/2015 THOMAS DPM, SADIA Q Ot Z11.2 ENCOUNTER FOR SCREENING FOR OTHER BACTER 09/27/2015 THOMAS DPM, SADIA Q Ot M20.12 HALLUX VALGUS (ACQUIRED), LEFT FOOT 09/27/2015 THOMAS DPM, SADIA Q Ot M20.42 OTHER HAMMER TOE(S) (ACQUIRED), LEFT EVELYN 09/27/2015 THOMAS DPM, SADIA Q Ot T84.293A [facility] COMPL OF INT FIX OF BONES OF [...] 09/29/2015 THOMAS DPM, SADIA Q Ot T84.293A [facility] COMPL OF INT FIX OF BONES OF FOOT A 10/02/2015 THOMAS DPM, SADIA Q Ot M20.12 HALLUX VALGUS (ACQUIRED), LEFT FOOT 10/02/2015 THOMAS DPM, SADIA Q Ot M20.42 OTHER HAMMER TOE(S) (ACQUIRED), LEFT EVELYN 10/02/2015 THOMAS DPM, SADIA Q Ot T84.293A [facility] COMPL OF INT FIX OF BONES OF FOOT A 10/03/2015 THOMAS DPM, SADIA Q Ot M20.12 HALLUX VALGUS (ACQUIRED), LEFT FOOT 10/03/2015 THOMAS DPM, SADIA Q Ot M20.42 OTHER HAMMER TOE(S) (ACQUIRED), LEFT EVELYN 10/03/2015 THOMAS DPM, SADIA Q Ot T84.293A [facility] COMPL OF INT FIX OF BONES OF FOOT A 02/05/2016 LONG DCALEXX Ot 722.52 LUMB/LUMBOSAC DISC DEGEN 02/05/2016 LONG DCALEXX S Ot 737.30 IDIOPATHIC SCOLIOSIS 02/05/2016 THOMAS DPM, [...] DISORDERS OF ELECTROLYTE AND FLUID B 05/23/2016 ALEXX REYNA DC Ot 722.52 LUMB/LUMBOSAC DISC DEGEN 05/23/2016 ALEXX REYNA DC S Ot 737.30 IDIOPATHIC SCOLIOSIS 05/23/2016 THOMAS DPM, SADIA Q Ot 825.25 FX METATARSAL-CLOSED 05/23/2016 THOMAS DPM, SADIA Q Ot E000.8 OTHER EXTERNAL CAUSE STATUS 05/23/2016 THOMAS DPM, SADIA Q Ot E928.9 ACCIDENT NOS 05/23/2016 THOMAS DPM, SADIA Q Ot V72.63 PRE-PROCEDURAL LABORATORY EXAMINATION 05/23/2016 THOMAS DPM, SADIA Q Ot V74.8 SCREEN-BACTERIAL DIS NEC 05/23/2016 LAMB DO, AFUA K Ot E87.6 HYPOKALEMIA 05/23/2016 ZAINAB PARNELL AFUA K Ot E87.8 OTH DISORDERS OF ELECTROLYTE AND FLUID B 06/24/2016 BRODY HARRISON MD Ot K44.9 DIAPHRAGMATIC HERNIA WITHOUT OBSTRUCTION 06/24/2016 BRODY HARRISON MD Ot R07.9 CHEST PAIN, UNSPECIFIED 06/24/2016 BRODY HARRISON MD Ot 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 06/27/2016 LAMB DO AFUA K Ot E87.6 HYPOKALEMIA 06/27/2016 LAMB DO AFUA K Ot E87.8 OTH DISORDERS OF ELECTROLYTE AND FLUID B 06/28/2016 BRODY HARRISON MD Ot K44.9 DIAPHRAGMATIC HERNIA WITHOUT OBSTRUCTION 06/28/2016 HUNTER SHERIDAN, BRODY Way Ot R07.9 CHEST PAIN, UNSPECIFIED 06/28/2016 BRODY HARRISON MD Ot 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 09/28/2016 SEAN SHERIDAN, DOLLY Snider Ot E03.9 HYPOTHYROIDISM, UNSPECIFIED 09/28/2016 SEAN SHERIDAN, DOLLY Snider Ot I10 ESSENTIAL (PRIMARY) HYPERTENSION 09/28/2016 SEAN SHERIDAN, DOLLY Snider Ot K21.9 GASTRO-ESOPHAGEAL REFLUX DISEASE WITHOUT 09/28/2016 SEAN SHERIDAN, DOLLY Snider Ot M19.90 UNSPECIFIED OSTEOARTHRITIS, UNSPECIFIED 09/28/2016 SEAN SHERIDAN, DOLLY Snider Ot R06.02 SHORTNESS OF BREATH 09/28/2016 SEAN SHERIDAN, DOLLY Snider Ot Z80.0 FAMILY HISTORY OF MALIGNANT NEOPLASM OF 09/28/2016 SEAN SHERIDAN, DOLLY Snider Ot Z87.81 PERSONAL HISTORY OF (HEALED) TRAUMATIC F 09/30/2016 DOLLY ESTRADA MD Ot E03.9 HYPOTHYROIDISM, UNSPECIFIED 09/30/2016 SEAN SHERIDAN, DOLLY Snider Ot I10 ESSENTIAL (PRIMARY) HYPERTENSION 09/30/2016 SEAN SHERIDAN, DOLLY Snider Ot K21.9 GASTRO-ESOPHAGEAL REFLUX DISEASE WITHOUT 09/30/2016 SEAN SHERIDAN, DOLLY Snider Ot M19.90 UNSPECIFIED OSTEOARTHRITIS, UNSPECIFIED 09/30/2016 SEAN SHERIDAN, DOLLY Snider Ot R06.02 SHORTNESS OF BREATH 09/30/2016 SEAN SHERIDAN, DOLLY Snider Ot Z80.0 FAMILY HISTORY OF MALIGNANT NEOPLASM OF 09/30/2016 SEAN SHERIDAN, DOLLY Snider Ot Z87.81 PERSONAL HISTORY OF (HEALED) TRAUMATIC F 01/08/2017 LONG DCALEXX S Ot 722.52 LUMB/LUMBOSAC DISC DEGEN 01/08/2017 LONG DCALEXX S Ot 737.30 IDIOPATHIC SCOLIOSIS 01/08/2017 THOMAS DPM, SADIA Q Ot 825.25 FX METATARSAL-CLOSED 01/08/2017 THOMAS DPM, SADIA Q Ot E000.8 OTHER EXTERNAL CAUSE STATUS 01/08/2017 THOMAS DPM, SADIA Q Ot E928.9 ACCIDENT NOS 01/08/2017 THOMAS DPM, SADIA Q Ot V72.63 PRE-PROCEDURAL LABORATORY EXAMINATION 01/08/2017 THOMAS DPM, SADIA Q Ot V74.8 SCREEN-BACTERIAL DIS NEC 01/08/2017 LAMB DO, AFUA K Ot E87.6 HYPOKALEMIA 01/08/2017 LAMB DO, AFUA K Ot E87.8 OTH DISORDERS OF ELECTROLYTE AND FLUID B 02/03/2017 LONG DC, ALEXX S Ot 722.52 LUMB/LUMBOSAC DISC DEGEN 02/03/2017 LONG DC, ALEXX S Ot 737.30 IDIOPATHIC SCOLIOSIS 02/03/2017 THOMAS DPM, SADIA Q Ot 825.25 FX METATARSAL-CLOSED 02/03/2017 THOMAS DPM, SADIA Q Ot E000.8 OTHER EXTERNAL CAUSE STATUS 02/03/2017 THOMAS DPM, SADIA Q Ot E928.9 ACCIDENT NOS 02/03/2017 THOMAS DPM, SADIA Q Ot V72.63 PRE-PROCEDURAL LABORATORY EXAMINATION 02/03/2017 THOMAS DPM, SADIA Q Ot V74.8 SCREEN-BACTERIAL DIS NEC 02/03/2017 LAMB DO, AFUA K Ot E87.6 HYPOKALEMIA 02/03/2017 LAMB DO AFUA K Ot E87.8 OTH DISORDERS OF ELECTROLYTE AND FLUID B 02/03/2017 VERN SCHULTZ MD Ot E03.9 HYPOTHYROIDISM, UNSPECIFIED 02/03/2017 VERN SCHULTZ MD Ot I10 ESSENTIAL (PRIMARY) HYPERTENSION 02/03/2017 VERN SCHULTZ MD Ot J40 BRONCHITIS, NOT SPECIFIED ACUTE OR CH 02/03/2017 VERN SCHULTZ MD Ot K21.9 GASTRO-ESOPHAGEAL REFLUX DISEASE WITHOUT 02/03/2017 VERN SCHULTZ MD Ot R05 COUGH 02/03/2017 VERN SCHULTZ MD Ot Z77.22 CNTCT W AND EXPSR TO ENVIRON TOBACCO SMO 02/03/2017 VERN SCHULTZ MD Ot Z80.9 FAMILY HISTORY OF MALIGNANT NEOPLASM, UN 02/03/2017 VERN SCHULTZ MD Ot Z87.59 PERSONAL HISTORY OF COMP OF PREG, CHLDBR 02/03/2017 VERN SCHULTZ MD Ot Z90.710 ACQUIRED ABSENCE OF BOTH CERVIX AND UTER 02/03/2017 VERN SCHULTZ MD Ot Z96.652 PRESENCE OF LEFT ARTIFICIAL KNEE JOINT Procedures Code Description [place] [address] ROUTINE VENIPUNCTURE 06/24/2012 65977 CBC 06/24/2012 07606 LIPID PANEL 06/24/2012 70193 CMP 06/24/2012 1676675 GFR CALC (RESULT ONLY) 06/24/2012 70068 TSH 06/24/2012 29013 CULTURE EAR & STAIN 04/05/2013 88085 ROUTINE VENIPUNCTURE 11/02/2013 12223 CMP 11/02/2013 41440 LIPID PANEL 11/02/2013 86985 TSH 11/02/2013 18967 CBC 11/02/2013 [id number] REPLACE OF L KNEE JT WITH SYNTH SUB, NILDA 06/07/2015 Results Test Result Range Complete blood count (CBC) with automated white blood cell (WBC) differential - 06/24/16 13:25 Blood leukocytes automated count (number/volume) 9.1 10*3/uL 4.3-11.0 Blood erythrocytes automated count (number/volume) 4.42 10*6/uL 4.35-5.85 Venous blood hemoglobin measurement (mass/volume) 12.8 [...] Automated blood platelet mean volume measurement 9.9 [foz_us] 7.4-10.4 Automated blood neutrophils/100 leukocytes 65 % [...] Serum or plasma sodium measurement (moles/volume) 140 mmol/L 135-145 Serum or plasma potassium measurement (moles/volume) 4.4 mmol/L 3.6-5.0 Serum or plasma chloride measurement (moles/volume) 104 mmol/L 98-107 Carbon dioxide 26 mmol/L 21-32 Serum or plasma anion gap determination (moles/volume) 10 mmol/L 5-14 Serum or plasma urea nitrogen measurement (mass/volume) 16 mg/dL 7-18 Serum or plasma creatinine measurement (mass/volume) 0.86 mg/dL 0.60-1.30 Serum or plasma urea nitrogen/creatinine mass [...] or plasma troponin i.cardiac measurement (mass/volume) < ng/ mL <0.30 Myoglobin, serum - 06/24/16 13:25 Myoglobin, serum 45.4 ng/mL 10.0-92.0 Serum or plasma amylase measurement (enzymatic activity/volume) - 06/24/16 13: 25 Serum or plasma amylase measurement (enzymatic activity/volume) 44 U /L 25-125 Lipase - 06/24/16 13:25 Lipase 49 [...] platelet poor plasma (mass/volume) 0.57 ug/mL 0.00-0.49 Complete blood count (CBC) with automated white blood cell (WBC) differential - 09/28/16 06:35 Blood leukocytes automated count (number/volume) 8.0 10*3/uL 4.3-11.0 Blood erythrocytes automated count (number/volume) 4.66 10*6/uL 4.35-5.85 Venous blood hemoglobin measurement (mass/volume) 13.1 g/dL 11.5-16.0 Blood hematocrit (volume fraction) 42 % 35-52 Automated erythrocyte mean corpuscular volume 89 [foz_us] 80-99 Automated erythrocyte mean corpuscular hemoglobin (mass per erythrocyte) 28 pg 25-34 Automated erythrocyte mean corpuscular hemoglobin concentration measurement ( mass/volume) 32 g/dL 32-36 Automated erythrocyte distribution width ratio 14.5 % 10.0-14.5 Automated blood platelet count (count/volume) 354 10*3/uL 130-400 Automated blood platelet mean volume measurement 9.6 [foz_us] 7.4-10.4 Automated blood neutrophils/100 leukocytes 66 % 42-75 Automated blood lymphocytes/100 leukocytes 24 % 12-44 Blood monocytes/100 leukocytes 7 % 0-12 Automated blood eosinophils/100 leukocytes 3 % 0-10 Automated blood basophils/100 leukocytes 1 % 0-10 Blood neutrophils automated count (number/volume) 5.3 10*3 1.8-7.8 Blood lymphocytes automated count (number/volume) 1.9 10*3 1.0-4.0 Blood monocytes automated count (number/volume) 0.6 10*3 0.0-1.0 Automated eosinophil count 0.2 10*3/uL 0.0-0.3 Automated blood basophil count (count/volume) 0.0 10*3/uL 0.0-0.1 PT panel in platelet poor plasma by coagulation assay - 09/28/16 06:35 Prothrombin time (PT) in platelet poor plasma by coagulation assay 13.0 s 12.2-14.7 INR in platelet poor plasma or blood by coagulation assay 1.0 0.8-1.4 THYROID STIMULATING HORMONE - 09/28/16 06:35 THYROID STIMULATING HORMONE 4.75 u[iU]/mL 0.35-4.94 Fibrin D-dimer FEU measurement in platelet poor plasma (mass/volume) - 06:35 Fibrin D-dimer FEU measurement in platelet poor plasma (mass/volume) 0.55 ug/mL 0.00-0.49 Comprehensive metabolic panel - 09/28/16 06:35 Serum or plasma sodium measurement (moles/volume) 138 mmol/L 135-145 Serum or plasma potassium measurement (moles/volume) 4.4 mmol/L 3.6-5.0 Serum or plasma chloride measurement (moles/volume) 103 mmol/L 98-107 Carbon dioxide 21 mmol/L 21-32 Serum or plasma anion gap determination (moles/volume) 14 mmol/L 5-14 Serum or plasma urea nitrogen measurement (mass/volume) 18 mg/dL 7-18 Serum or plasma creatinine measurement (mass/volume) 0.92 mg/dL 0.60-1.30 Serum or plasma urea nitrogen/creatinine mass ratio 20 NRG Serum or plasma creatinine measurement with calculation of estimated glomerular filtration rate > NRG Serum or plasma glucose measurement (mass/volume) 106 mg/dL 70-105 Serum or plasma calcium measurement (mass/volume) 9.3 mg/dL 8.5-10.1 Serum or plasma total bilirubin measurement (mass/volume) 0.3 mg/dL 0.1-1.0 Serum or plasma alkaline phosphatase measurement (enzymatic activity/volume) 82 U/L 40-136 Serum or plasma aspartate aminotransferase measurement (enzymatic activity/ volume) 22 U/L 5-34 Serum or plasma alanine aminotransferase measurement (enzymatic activity/volume ) 19 U/L 0-55 Serum or plasma protein measurement (mass/volume) 7.8 g/dL 6.4-8.2 Serum or plasma albumin measurement (mass/volume) 3.8 g/dL 3.2-4.5 Magnesium - 09/28/16 06:35 Magnesium 2.1 mg/dL 1.8-2.4 Serum or plasma troponin i.cardiac measurement (mass/volume) - 09/28/16 06:35 Serum or plasma troponin i.cardiac measurement (mass/volume) < ng/ mL <0.30 Serum or plasma lithium measurement (moles/volume) - 09/28/16 06:35 BNP level 20.7 pg/mL <100.0 Serum or plasma thyroxine (T4) free measurement (mass/volume) - 09/28/16 06:35 Serum or plasma thyroxine (T4) free measurement (mass/volume) 1.01 ng/dL 0.70-1.48 Serum or plasma C reactive protein measurement (mass/volume) - 09/28/16 06:35 Serum or plasma C reactive protein measurement (mass/volume) 0.49 mg /dL 0.00-0.50 Sputum Gram stain - 02/03/17 13:46 GRAM STAIN SPUTUM AND MIXED BACTERIAL [place] [facility] Bacterial sputum culture - 02/03/17 13:46 Bacterial sputum culture NORMAL [facility] Complete blood count (CBC) with automated white blood cell (WBC) differential - 02/03/17 14:08 Blood leukocytes automated count (number/volume) 8.2 10*3/uL 4.3-11.0 Blood erythrocytes automated count (number/volume) 4.49 10*6/uL 4.35-5.85 Venous blood hemoglobin measurement (mass/volume) 12.9 g/dL 11.5-16.0 Blood hematocrit (volume fraction) 40 % 35-52 Automated erythrocyte mean corpuscular volume 89 [foz_us] 80-99 Automated erythrocyte mean corpuscular hemoglobin (mass per erythrocyte) 29 pg 25-34 Automated erythrocyte mean corpuscular hemoglobin concentration measurement ( mass/volume) 32 g/dL 32-36 Automated erythrocyte distribution width ratio 14.3 % 10.0-14.5 Automated blood platelet count (count/volume) 327 10*3/uL 130-400 Automated blood platelet mean volume measurement 9.9 [foz_us] 7.4-10.4 Automated blood neutrophils/100 leukocytes 69 % 42-75 Automated blood lymphocytes/100 leukocytes 19 % 12-44 Blood monocytes/100 leukocytes 9 % 0-12 Automated blood eosinophils/100 leukocytes 3 % 0-10 Automated blood basophils/100 leukocytes 1 % 0-10 Blood neutrophils automated count (number/volume) 5.6 10*3 1.8-7.8 Blood lymphocytes automated count (number/volume) 1.6 10*3 1.0-4.0 Blood monocytes automated count (number/volume) 0.7 10*3 0.0-1.0 Automated eosinophil count 0.2 10*3/uL 0.0-0.3 Automated blood basophil count (count/volume) 0.1 10*3/uL 0.0-0.1 Blood lactic acid measurement (moles/volume) - 02/03/17 14:08 Blood lactic acid measurement (moles/volume) 1.72 mmol/L 0.50-2.00 Comprehensive metabolic panel - 02/03/17 14:08 Serum or plasma sodium measurement (moles/volume) 138 mmol/L 135-145 Serum or plasma potassium measurement (moles/volume) 3.7 mmol/L 3.6-5.0 Serum or plasma chloride measurement (moles/volume) 102 mmol/L 98-107 Carbon dioxide 25 mmol/L 21-32 Serum or plasma anion gap determination (moles/volume) 11 mmol/L 5-14 Serum or plasma urea nitrogen measurement (mass/volume) 19 mg/dL 7-18 Serum or plasma creatinine measurement (mass/volume) 1.09 mg/dL 0.60-1.30 Serum or plasma urea nitrogen/creatinine mass ratio 17 NRG Serum or plasma creatinine measurement with calculation of estimated glomerular filtration rate 50 NRG Serum or plasma glucose measurement (mass/volume) 113 mg/dL 70-105 Serum or plasma calcium measurement (mass/volume) 9.0 mg/dL 8.5-10.1 Serum or plasma total bilirubin measurement (mass/volume) 0.3 mg/dL 0.1-1.0 Serum or plasma alkaline phosphatase measurement (enzymatic activity/volume) 69 U/L 40-136 Serum or plasma aspartate aminotransferase measurement (enzymatic activity/ volume) 24 U/L 5-34 Serum or plasma alanine aminotransferase measurement (enzymatic activity/volume ) 21 U/L 0-55 Serum or plasma protein measurement (mass/volume) 7.4 g/dL 6.4-8.2 Serum or plasma albumin measurement (mass/volume) 3.7 g/dL 3.2-4.5 Serum or plasma lithium measurement (moles/volume) - 02/03/17 14:08 BNP level 40.7 pg/mL <100.0 Encounters ACCT No. Visit Date/Time Discharge Status Pt. Type Provider Facility Loc./Unit Complaint [id number] 07/08/2014 14:27:00 07/08/2014 23:59:59 CLS Outpatient JULIAN GODINEZ APRN [id number] 04/27/2014 16:07:00 04/27/2014 23:59:59 CLS Outpatient JULIAN GODINEZ APRN [id number] 03/23/2014 15:16:00 03/23/2014 23:59:59 CLS Outpatient JULIAN GODINEZ APRN [id number] 01/17/2014 15:57:00 01/17/2014 23:59:59 CLS Outpatient JULIAN GODINEZ APRN [id number] 01/15/2014 10:16:00 01/15/2014 23:59:59 CLS Outpatient AFUA LAMB DO [id number] 11/02/2013 13:04:00 11/02/2013 23:59:59 CLS Outpatient JULIAN GODINEZ APRN [id number] 04/05/2013 08:48:00 04/05/2013 23:59:59 CLS Outpatient BRIAN JOANNSLIMCOLE Bravo [id number] 10/30/2012 14:22:00 10/30/2012 23:59:59 CLS Outpatient JULIAN GODINEZ APRN [id number] 06/24/2012 08:16:00 06/24/2012 23:59:59 CLS Outpatient [id number] 06/17/2012 14:06:00 06/17/2012 23:59:59 CLS Outpatient [id number] 04/14/2012 16:35:00 04/14/2012 23:59:59 [place] [id number] 03/15/2011 09:42:00 03/15/2011 23:59:59 CLS Outpatient [id number] 02/03/2017 12:40:00 02/03/2017 16:04:00 DIS Emergency MARION SHERIDAN, VERN Salgado [facility] ER COUGH [id number] 09/28/2016 06:09:00 09/28/2016 08:40:00 DIS Emergency SEAN SHERIDAN, DOLLY Snider [facility] ER RT ARM PAIN,SOB,CAN'T SLEEP AT NIGHT [id number] 06/24/2016 12:48:00 06/24/2016 18:30:00 DIS Emergency HUNTER SHERIDAN, BRODY Way [facility] ER CHEST PAIN [id number] 09/29/2015 08:18:00 09/29/2015 15:00:00 DIS Outpatient THOMAS DPM, SADIA Q Via [facility] LEFT FOOT HARDWARE FAILURE;HALLUS;MEHREENERTOE [id number] 09/25/2015 13:05:00 09/25/2015 13:35:00 DIS Outpatient THOMAS DPM, SADIA Q [facility] PREOP LEFT FOOT HARDWARE FAILURE;HALLUX; HAMMERTOE [id number] 08/31/2015 13:03:00 08/31/2015 14:19:00 DIS Outpatient URI WILL MD [facility] REHAB L TKR [id number] 06/19/2015 14:41:00 06/19/2015 23:59:59 CLS Outpatient AFUA LAMB DO [facility] HH HYPOPOTASSEMIA, LOW CHLORIDE LEVEL [id number] 06/07/2015 07:30:00 06/12/2015 17:30:00 DIS Inpatient URI WILL MD [facility] 4TH LEFT KNEE SEVERE OSTEOARTHRITIS [id number] 05/31/2015 09:21:00 05/31/2015 10:45:00 DIS Outpatient URI WILL MD [facility] PREOP LEFT KNEE SEVERE OSTEOARTHRITIS [id number] 09/23/2014 11:23:00 09/23/2014 17:00:00 DIS Outpatient THOMAS DPM, SADIA Q Via [facility] FRACTURED 5TH METATARSAL [id number] 09/15/2014 10:32:00 09/15/2014 23:59:59 CLS Outpatient THOMAS DPM, SADIA Q [facility] PREOP FRACTURED 5TH METATARSAL [id number] 07/04/2014 10:30:00 07/04/2014 12:30:00 DIS Emergency SADE DIMAS DO [facility] ER RIGHT LEG PAIN [id number] 03/05/2014 14:17:00 03/06/2014 12:20:00 DIS Inpatient PASTORA PHILIPPE MD [facility] ICU CHEST PAIN [id number] 07/02/2013 14:32:00 07/02/2013 23:59:59 CLS Outpatient ALEXX REYNA DC [facility] RAD LUMBAGO [id number] 12/29/2011 10:00:00 Document Registration
[2017-03-03 04:28] LABS: BASOPHILS # (AUTO) 0.1 10^3/uL (0.0-0.1); BASOPHILS % (AUTO) 1 % (0-10); EOSINOPHILS # (AUTO) 0.2 10^3/uL (0.0-0.3); EOSINOPHILS % (AUTO) 3 % (0-10); LYMPHOCYTES # (AUTO) 1.6 X 10^3 (1.0-4.0); LYMPHOCYTES % (AUTO) 25 % (12-44); MEAN CORPUSCULAR HEMOGLOBIN 29 PG (25-34); MEAN CORPUSCULAR HGB CONC 32 G/DL (32-36); MEAN CORPUSCULAR VOLUME 88 FL (80-99); MEAN PLATELET VOLUME 9.7 FL (7.4-10.4); MONOCYTES # (AUTO) 0.7 X 10^3 (0.0-1.0); MONOCYTES % (AUTO) 12 % (0-12); NEUTROPHILS # (AUTO) 3.7 X 10^3 (1.8-7.8); NEUTROPHILS % (AUTO) 60 % (42-75); PLATELET COUNT 320 10^3/uL (130-400); RED BLOOD COUNT 4.52 10^6/uL (4.35-5.85); RED CELL DISTRIBUTION WIDTH 13.9 % (10.0-14.5); WHITE BLOOD COUNT 6.2 10^3/uL (4.3-11.0)
--- NOTE | 2017-03-03 04:28 | ED Cardiac General ---
History of Present Illness General Stated Complaint: COUGH CHEST PAIN Source: patient (SOMEWHAT LIMITED / VAGUE HISTORIAN) History of Present Illness Time seen by provider: 04:08 Initial Comments PT ARRIVES VIA POV FROM HOME C/O CHEST PAIN SINCE 1500 YESTERDAY PAIN IS IN MID CHEST, NO RADIATION OF PAIN C/O SHORTNESS OF BREATH, ESPECIALLY WITH EXERTION SYMPTOMS WORSE WITH EXERTION, EASE/RESOLVE WITH REST HAS HAD ONGOING NON-PRODUCTIVE COUGH FOR A COUPLE OF MONTHS-- AND IS NO DIFFERENT TODAY NO FEVER/SWEATS/CHILLS HAS HAD SWELLING TO LEFT LOWER LEG/FOOT X 1 MONTH OR MORE--HAS NOT SOUGHT CARE, AND IS NO DIFFERENT TODAY NO NAUSEA/VOMITING C/O BEING VERY TIRED ALL DAY YESTERDAY, AND SLEPT ALL DAY YESTERDAY PT WAS TREATED FOR A "SINUS INFECTION" A COUPLE OF WEEKS AGO, GIVEN AN UNKNOWN ANTIBIOTIC--THOSE SYMPTOMS RESOLVED SEEN IN THIS ER 02/03/17 AND DX WITH BRONCHITIS AND GIVEN RX FOR ZITHROMAX, TESSALON, PREDNISONE, ALBUTEROL INHALER. Allergies and Home Medications Allergies Coded Allergies: No Known Drug Allergies (Unverified , 06/24/08) Home Medications Albuterol Sulfate 1 Puff Puff, 2 PUFF IH Q4H PRN for WHEEZING, #1 Ref 0 1 PUFF = 90 MCG Prescribed by: VERN SCHULTZ on 02/03/17 1543 Azithromycin 250 Mg Tablet, 250 MG PO UD, #6 Ref 0 TAKE 2 TABLETS ON DAY ONE THEN TAKE 1 TABLET DAILY FOR FOUR MORE DAYS Prescribed by: VERN SCHULTZ on 02/03/17 1536 Benzonatate 100 Mg Capsule, 100 MG PO Q6H PRN for COUGH, #20 Ref 0 Prescribed by: VERN SCHULTZ on 02/03/17 1543 Hydrochlorothiazide 25 Mg Tablet, 25 MG PO DAILY, (Reported) Levothyroxine Sodium 75 Mcg Tablet, #90 (Reported) Omeprazole 40 Mg Capsule.dr, 40 MG PO DAILY, (Reported) Prednisone 20 Mg Tab, 20 MG PO BID for 5 Days, #10 Ref 0 Prescribed by: VERN SCHULTZ on 02/03/17 1536 Review of Systems Constitutional: no symptoms reported EENTM: No Symptoms Reported Respiratory: See HPI, Cough, Shortness of Air, SOA With Exertion Cardiovascular: See HPI, Chest Pain, Edema, Denies Lightheadedness, Denies Palpitations, Denies Syncope Gastrointestinal: No Symptoms Reported, Denies Abdominal Pain, Denies Nausea, Denies Vomiting Genitourinary: No Symptoms Reported Musculoskeletal: see HPI Skin: no symptoms reported Psychiatric/Neurological: No Symptoms Reported Endocrine: No Symptoms Reported Hematologic/Lymphatic: No Symptoms Reported Past [id number] Hx Patient Social History Alcohol Use: Denies Use Recreational Drug Use: No Smoking Status: Former Smoker (SMOKED TEEN, QUIT AGE 22) 2nd Hand Smoke Exposure: Yes ( IS SMOKER) Recent Foreign Travel: No Contact w/Someone Who Travel: No Recent Hopitalizations: No Immunizations Up To Date Tetanus Booster (TDap): More than 5yrs Date of Pneumonia Vaccine: Jun 10, 2015 Date of Influenza Vaccine: Dec 05, 2014 Surgeries History of Surgeries: Yes ( X 2, 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, LEFT FOOT SURGERY; LEFT TKR;HYST/BSO) Surgeries: Section, Eye Surgery, Hysterectomy, Oophorectomy, Orthopedic Respiratory History of Respiratory Disorde: No Cardiovascular History of Cardiac Disorders: Yes Cardiac Disorders: Hypertension Neurological History of Neurological Disord: No Reproductive System Hx Reproductive Disorders: No 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, 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 Genitourinary History of Genitourinary Disor: No Gastrointestinal History of Gastrointestinal Di: Yes Gastrointestinal Disorders: Gastroesophageal Reflux, Hiatal Hernia Musculoskeletal History of Musculoskeletal Dis: Yes (LEFT FOOT FX) Musculoskeletal Disorders: Arthritis, Chronic Back Pain, Spasms Endocrine History of Endocrine Disorders: Yes Endocrine Disorders: Hypothyroidsim HEENT History of HEENT Disorders: Yes HEENT Disorders: Cataract Hearing Impairment: Hard of Hearing Cancer History of Cancer: No Psychosocial History of Psychiatric Problem: No Integumentary History of Skin or Integumenta: No Blood Transfusions History of Blood Disorders: Yes (ANEMIA) Family Medical History Significant Family History: Cancer Family Medial History: Patient reports no known family medical history. Physical Exam Vital Signs Vital Sign - Last 12Hours 03/03/17 04:25 Temp 97.1 Pulse 70 Resp 18 B/P (MAP) 129/83 (98) Pulse Ox 95 O2 Delivery Nasal Cannula O2 Flow Rate 2.0 FiO2 100 Capillary Refill : General Appearance: Anxious, Other (MILDLY DYSPNEIC ON EXERTION. ) HEENT: PERRL/EOMI, Normal ENT Inspection (EDENTULOUS) Neck: Full Range of Motion, Normal Inspection, Non Tender, Supple, No Carotid Bruit, No JVD Respiratory: Chest Non Tender, Normal Breath Sounds, No Accessory Muscle Use, No Respiratory Distress Cardiovascular: Regular Rate, Rhythm, No JVD, No Murmur, Normal Peripheral Pulses Gastrointestinal: Normal Bowel Sounds, No Organomegaly, No Pulsatile Mass, Non Tender, Soft Extremity: Normal Capillary Refill, Normal Range of Motion, Non Tender, Pedal Edema (TRACE ON LEFT) Neurologic/Psychiatric: Alert, Oriented x3, No Motor/Sensory Deficits, rubber splicer II- XII Norm as Tested, Other (ANXIOUS) Skin: Normal Color, Warm/Dry, No Rash Progress/Results/Core Measures Results/Orders Lab Results Laboratory Tests Test 03/03/17 04:22 Range/Units White Blood Count 6.2 4.3-11.0 10^3/uL Red Blood Count 4.52 4.35-5.85 10^6/uL Hemoglobin 12.9 11.5-16.0 G/DL Hematocrit 40 35-52 % Mean Corpuscular Volume 88 80-99 FL Mean Corpuscular Hemoglobin 29 25-34 PG Mean Corpuscular Hemoglobin Concent 32 32-36 G/DL Red Cell Distribution Width 13.9 10.0-14.5 % Platelet Count 320 130-400 10^3/uL Mean Platelet Volume 9.7 7.4-10.4 FL Neutrophils (%) (Auto) 60 42-75 % Lymphocytes (%) (Auto) 25 12-44 % Monocytes (%) (Auto) 12 0-12 % Eosinophils (%) (Auto) 3 0-10 % Basophils (%) (Auto) 1 0-10 % Neutrophils # (Auto) 3.7 1.8-7.8 X 10^3 Lymphocytes # (Auto) 1.6 1.0-4.0 X 10^3 Monocytes # (Auto) 0.7 0.0-1.0 X 10^3 Eosinophils # (Auto) 0.2 0.0-0.3 10^3/uL Basophils # (Auto) 0.1 0.0-0.1 10^3/uL Prothrombin Time 13.9 12.2-14.7 SEC INR Comment 1.1 0.8-1.4 Activated Partial Thromboplast Time 27 24-35 SEC Sodium Level 139 135-145 MMOL/L Potassium Level 3.7 3.6-5.0 MMOL/L Chloride Level 102 98-107 MMOL/L Carbon Dioxide Level 25 21-32 MMOL/L Anion Gap 12 5-14 MMOL/L Blood Urea Nitrogen 21 H 7-18 MG/DL Creatinine 1.09 0.60-1.30 MG/DL Estimat Glomerular Filtration Rate 50 BUN/Creatinine Ratio 19 Glucose Level 106 H 70-105 MG/DL Calcium Level 8.9 8.5-10.1 MG/DL Magnesium Level 2.2 1.8-2.4 MG/DL Total Bilirubin 0.4 0.1-1.0 MG/DL Aspartate Amino Transf (AST/SGOT) 29 5-34 U/L Alanine Aminotransferase (ALT/SGPT) 24 0-55 U/L Alkaline Phosphatase 67 40-136 U/L Total Creatine Kinase 106 29-168 U/L Creatine Kinase MB 1.6 <6.6 NG/ML Troponin I < 0.30 <0.30 NG/ML B-Type Natriuretic Peptide 19.4 <100.0 PG/ML Total Protein 7.6 6.4-8.2 GM/DL Albumin 3.8 3.2-4.5 GM/DL Amylase Level 30 25-125 U/L Lipase 25 8-78 U/L My Orders Orders - SADE DIMAS DO Amylase (03/03/17 04:21) Cbc With Automated Diff (03/03/17 04:21) Comprehensive Metabolic Panel (03/03/17 04:21) Creatine Kinase (03/03/17 04:21) Creatine Kinase Mb (03/03/17 04:21) Lipase (03/03/17 04:21) Partial Thromboplastin Time (03/03/17 04:21) Protime With Inr (03/03/17 04:21) Troponin I (03/03/17 04:21) Chest 1 View, Ap/Pa Only (03/03/17 04:21) O2 (03/03/17 04:21) Ekg Tracing (03/03/17 04:21) Aspirin Chewable Tablet (Baby Aspirin Ch (03/03/17 04:30) BNP (03/03/17 04:21) Monitor-Rhythm Ecg Trace Only (03/03/17 04:21) Magnesium (03/03/17 04:21) Saline Lock/Iv-Start (03/03/17 05:15) Ns Iv 1000 Ml (Sodium Chloride 0.9%) (03/03/17 05:15) Ct Angio Chest W (03/03/17 05:15) Medications Given in ED Current Medications Medications Dose Ordered Sig/Wu Route Start Time Stop Time Status Last Admin Dose Admin Aspirin 324 mg ONCE ONCE PO 03/03/17 04:30 03/03/17 04:31 DC 03/03/17 04:39 324 MG Vital Signs/I&O Vital Sign - Last 12Hours 03/03/17 03/03/17 03/03/17 03/03/17 04:25 04:25 04:25 04:32 Temp 97.1 Pulse 70 Resp 18 B/P (MAP) 129/83 (98) Pulse Ox 95 95 O2 Delivery Nasal Cannula Nasal Cannula Nasal Cannula Nasal Cannula O2 Flow Rate 2.0 2.00 2.00 100.00 FiO2 100 Progress Note : Progress Note O2 SATS 92-93% ON ROOM AIR--UP TO 95-96% ON 2L/NC NO PAIN OR SHORTNESS OF BREATH AFTER PT GETS SETTLED ON ER CART ECG Initial ECG Impression Time: 04:07 Initial ECG Rate: 77 Initial ECG Rhythm: Normal Sinus Initial ECG Impression: Normal Initial ECG Comparisson: No Previous ECG Available Departure Departure-Patient Inst. Referrals: AFUA LAMB DO (PCP) Primary Care Physician JULIAN GODINEZ (Family) Primary Care Physician SADE DIMAS DO Mar 03, 2017 04:28
[2017-03-03] MEDS ORDERED: ASPIRIN 81 MG CHEW (CHILDREN'S ASA) PO ONE (04:30)
[2017-03-03 04:37] LABS: INR 1.1 (0.8-1.4); PROTHROMBIN TIME PATIENT 13.9 SEC (12.2-14.7)
[2017-03-03 04:46] LABS: ALANINE AMINOTRANSFERASE 24 U/L (0-55); ALBUMIN 3.8 GM/DL (3.2-4.5); AMYLASE 30 U/L (25-125); ANION GAP 12 MMOL/L (5-14); ASPARTATE AMINO TRANSFERASE 29 U/L (5-34); BILIRUBIN,TOTAL 0.4 MG/DL (0.1-1.0); BLOOD UREA NITROGEN 21 MG/DL (7-18); BUN/CREATININE RATIO 19; CALCIUM 8.9 MG/DL (8.5-10.1); CARBON DIOXIDE 25 MMOL/L (21-32); CHLORIDE 102 MMOL/L (98-107); CREATINE KINASE 106 U/L (29-168); CREATININE SERUM 1.09 MG/DL (0.60-1.30); GFR ESTIMATED 50; GLUCOSE 106 MG/DL (70-105); LIPASE 25 U/L (8-78); MAGNESIUM 2.2 MG/DL (1.8-2.4); POTASSIUM 3.7 MMOL/L (3.6-5.0); SODIUM 139 MMOL/L (135-145); TOTAL PROTEIN 7.6 GM/DL (6.4-8.2)
[2017-03-03 04:53] LABS: TROPONIN I < 0.30 NG/ML (<0.30)
[2017-03-03] MEDS ORDERED: NS IV 1000 ML 1,000 ML IV ONE (05:15)
--- NOTE | 2017-03-03 06:48 | Diagnostic Imaging Report ---
INDICATION: Bibasilar atelectasis and infiltrates, chest pain, and cough since yesterday around 3:00 PM, has not improved. Comparison study: Chest from 02/03/2017. FINDINGS: Portable upright view of the chest demonstrates a hiatal hernia with some adjacent atelectasis. Heart size and vascularity are normal. There are no pleural effusions. IMPRESSION: There is a hiatal hernia with adjacent atelectasis. Dictated by: Dictated on workstation # [id number]
[2017-03-03] MEDS ORDERED: DEXTROSE 50% 50 ML (IMS) SYR IV ONE (07:00)
[2017-03-03] MEDS ORDERED: NS 100 ML (IVPB) BAG IV ONE (07:00)
[2017-03-03] MEDS ORDERED: IOHEXOL 350 MG/ML 150 ML (OMNIPAQUE 350) VIAL IV ONE (07:00)
--- NOTE | 2017-03-03 07:24 | Diagnostic Imaging Report ---
PROCEDURE: CT angiography of the chest with contrast. TECHNIQUE: Multiple contiguous axial images were obtained through the chest after uneventful bolus administration of intravenous contrast. Reconstructed CTA MIP acquisitions were also performed. INDICATION: Cough and chest pain. Comparison study: CTA of the chest dated 09/28/2016. FINDINGS: CTA demonstrates no pulmonary emboli, aortic dissection, or aneurysm. No definite vascular calcifications are seen. Heart size and vascularity are normal. There are no pleural effusions. No abnormally enlarged lymph nodes are present. There are a few small mediastinal and right hilar lymph nodes which are upper normal in size. Moderate-sized hiatal hernia is again identified. Visualized portions of the abdomen appear unremarkable. Bone windows demonstrate mild degenerative changes. IMPRESSION: 1. There are no acute findings. 2. Moderate hiatal hernia is again identified. Dictated by: Dictated on workstation # [id number]
[2017-03-03 08:00] VITALS: BP 123/61
[2017-03-03] MEDS ORDERED: morphine INJ 4 MG/ML 1 ML (VIAL/SYRINGE) IV PRN (08:30)
[2017-03-03] MEDS ORDERED: NITROGLYCERIN 0.4 MG SL TABS BTL 25'S SL PRN (08:30)
--- NOTE | 2017-03-03 10:08 | Short Stay Summary-Hospitalist ---
HPI History of Present Illness: HPI/Chief Complaint CC: Chest pain HPI: This is a 71yoWF of [facility] [place] who presents to the ER w/c/o CP. She reports having a cough for the past 2 months after a sinus infection which was treated by her PCP. She had a normal heart test a few years back but cannot recall when that exactly occurred. Pt feels ok otherwise. I spoke to Dr Calabrese who will see the patient in consultation and likely perform EST to risk stratify. Source: patient Exam Limitations: no limitations Date Seen 03/03/17 Time Seen by Provider: 09:30 Attending Physician Araceli Hopper DO PCP Tracy Spicer DO Referring Physician Date of Admission Mar 03, 2017 at 07:00 Home Medications & Allergies Home Medications Reviewed patient Home Medication Reconciliation Form Allergies Allergies Coded Allergies No Known Drug Allergies (Unverified06/24/08) Past [id number]-[id number]-Jnbzxc Hx Patient Social History Marrital Status: Employed/Student: retired Alcohol Use: Denies Use Recreational Drug Use: No Smoking Status: Former Smoker (SMOKED TEEN, QUIT AGE 22) 2nd Hand Smoke Exposure: Yes ( IS SMOKER) Recent Foreign Travel: No Contact w/other who traveled: No Recent Hopitalizations: No Recent Infectious Disease Expo: No Immunizations Up To Date Tetanus Booster (TDap): More than 5yrs Date of Pneumonia Vaccine: Jun 10, 2015 Date of Influenza Vaccine: Dec 05, 2014 Surgeries Yes ( X 2, 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, LEFT FOOT SURGERY; LEFT TKR;HYST/BSO) Section, Eye Surgery, Hysterectomy, Oophorectomy, Orthopedic Respiratory No Cardiovascular Yes High Cholesterol, Hypertension Neurological No Reproductive System 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, 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 Genitourinary No Gastrointestinal Yes Gastroesophageal Reflux, Hiatal Hernia Musculoskeletal Yes (LEFT FOOT FX) Arthritis, Chronic Back Pain, Spasms Endocrine History of Endocrine Disorders: Yes Endocrine Disorders: Hypothyroidsim HEENT History of HEENT Disorders: Yes HEENT Disorders: Cataract Hearing Impairment: Hard of Hearing Cancer No Psychosocial History of Psychiatric Problem: No Integumentary History of Skin or Integumenta: No Blood Transfusions History of Blood Disorders: Yes (ANEMIA) Family Medical History Significant Family History: Cancer Family Hx: Patient reports no known family medical history. Review of Systems Constitutional: see HPI EENTM: no symptoms reported Respiratory: cough Cardiovascular: chest pain Gastrointestinal: no symptoms reported Genitourinary: no symptoms reported Musculoskeletal: no symptoms reported Skin: no symptoms reported Psychiatric/Neurological: No Symptoms Reported All Other Systems Reviewed Negative Unless Noted: Yes Physical Exam Physical Exam Vital Signs Vital Sign - Last 12Hours 03/03/17 04:25 Temp 97.1 Pulse 70 Resp 18 B/P (MAP) 129/83 (98) Pulse Ox 95 O2 Delivery Nasal Cannula O2 Flow Rate 2.0 FiO2 100 Capillary Refill : Less Than 3 Seconds General Appearance: No Apparent Distress, WD/WN, Chronically ill, Obese Eyes: Bilateral Eye Normal Inspection, Bilateral Eye PERRL HEENT: PERRL/EOMI, Normal ENT Inspection, Pharynx Normal Neck: Full Range of Motion, Normal Inspection, Non Tender, Supple, Carotid Bruit Respiratory: Chest Non Tender, Lungs Clear, Normal Breath Sounds, No Accessory Muscle Use, No Respiratory Distress Cardiovascular: Regular Rate, Rhythm, No Edema, No Gallop, No JVD, No Murmur, Normal Peripheral Pulses Gastrointestinal: Normal Bowel Sounds, No Organomegaly, No Pulsatile Mass, Non Tender, Soft Back: Normal Inspection, No CVA Tenderness, No Vertebral Tenderness Extremity: Normal Capillary Refill, Normal Inspection, Normal Range of Motion, Non Tender, No Calf Tenderness, No Pedal Edema Neurologic/Psychiatric: Alert, Oriented x3, No Motor/Sensory Deficits, Normal Mood/Affect Skin: Normal Color, Warm/Dry Lymphatic: No Adenopathy Results Results/Procedures Lab Laboratory Tests 03/03/17 04:22 Short Stay Diagnosis Discharge Diagnosis-Short Stay Admission Diagnosis Chest pain HTN Hypothyroidism Asthma? GERD Cough x 2 months but negative CXR and CT chest Final Discharge Diagnosis Chest pain HTN Hypothyroidism Asthma? GERD Cough x 2 months but negative CXR and CT chest Conclusion Plan Plan: Risk stratification per Cardiology Home meds when reconciled GERD ARACELI Seo DO Mar 03, 2017 10:08
--- NOTE | 2017-03-03 10:14 | Consultation-Cardiology ---
HPI-Cardiology Cardiology Consultation: Date of Consultation 03/03/17 Date of Admission Attending Physician Araceli Hopper DO Admitting Physician Tracy Spicer DO Consulting Physician Samuel CALABRESE MD HPI: Time Seen by Provider: 09:00 Chief Complaint: Chest pain This is a 71-year-old lady who denies having diabetes, she presents with chest pain which is moderate intensity. Continuing since yesterday. No radiation. No exacerbating or relieving factors. Initial intensity 8/10. Still has mild discomfort. Review of Systems-Cardiology Review of Systems Constitutional: No As described under HPI, No no symptoms reported, No chills, No fever, No lightheadedness, No malaise, No tiredness, No weight loss, No weight gain, No other Eyes: No As described under HPI, No no symptoms reported, No blindness, No blurred vision, No contact lenses, No drainage, No decreased acuity, No foreign body sensation, No glasses, No inflammation, No pain, No photophobia, No previous injury, No shadows, No tunnel vision, No other, No vision change Ears/Nose/Throat: No As described under HPI, No no symptoms reported, No chronic hearing loss, No epistaxis, No ear discharge, No ear pain, No loose teeth, No mouth pain, No mouth swelling, No nasal drainage, No nose pain, No recent hearing loss, No throat pain, No throat swelling, No ulcerations, No other Respiratory: No no symptoms reported, No As described under HPI, No cough, No orthopnea, No shortness of breath, No SOB with excertion, No SOB at rest, No stridor, No wheezing, No other Cardiovascular: chest pain Gastrointestinal: No no symptoms reported, No As described under HPI, No abdomen distended, No abdominal pain, No blood streaked bowels, No constipation , No diarrhea, No difficulty swallowing, No nausea, No poor appetite, No poor fluid intake, No rectal bleeding, No vomiting, No other, No nausea/vomiting/ diarrhea, No stool coloration changes Genitourinary: No no symptoms reported, No As described under HPI, No burning, No dysuria, No discharge, No frequency, No flank pain, No hematuria, No incontinence, No pain, No urgency, No other, No urine frequency changes, No urine coloration changes Musculoskeletal: No no symptoms reported, No As describe under HPI, No back pain, No gout, No joint pain, No joint swelling, No muscle pain, No muscle stiffness, No neck pain, No other Skin: No no symptoms reported, No As described under HPI, No change in color, No change in hair/nails, No dryness, No lesions, No lumps, No rash, No other, No skin related problems, No ulcerations, No rash on exposed areas, No ulcerations on exposed areas Psychiatric/Neurological: No no symptoms reported, No As described under HPI, No anxiety, No depression, No emotional problems, No headache, No numbness, No pre-existing deficit, No seizure, No tingling, No tremors, No weakness, No other , No focal weakness, No syncope Hematologic: No no symptoms reported, No As described under HPI, No anemia, No blood clots, No easy bleeding, No easy bruising, No swollen glands, No other, No bleeding abnormalities All Other Systems Reviewed Negative Unless Noted: Yes [id number]-Zlbodl Hx Patient Social History Marrital Status: Employed/Student: retired Alcohol Use: Denies Use Recreational Drug Use: No Smoking Status: Former Smoker (SMOKED TEEN, QUIT AGE 22) 2nd Hand Smoke Exposure: Yes ( IS SMOKER) Recent Foreign Travel: No Recent Infectious Disease Expo: No Immunizations Up To Date Tetanus Booster (TDap): More than 5yrs Date of Pneumonia Vaccine: Jun 10, 2015 Date of Influenza Vaccine: Dec 05, 2014 Past Medical History PMH As described under Assessment. Family Medical History Family History: Patient reports no known family medical history. Allergies and Home Medications Allergies Coded Allergies: No Known Drug Allergies (Unverified , 06/24/08) Home Medications Hydrochlorothiazide 25 Mg Tablet, 25 MG PO DAILY, (Reported) Levothyroxine Sodium 75 Mcg Tablet, 75 MCG PO DAILY, (Reported) Omeprazole 40 Mg Capsule.dr, 40 MG PO DAILY, (Reported) Physical Exam-Cardiology Physical Exam Vital Signs/I&O Vital Sign - Last 12Hours 03/03/17 03/03/17 03/03/17 03/03/17 04:25 04:25 04:25 04:32 Temp 97.1 Pulse 70 Resp 18 B/P (MAP) 129/83 (98) Pulse Ox 95 95 O2 Delivery Nasal Cannula Nasal Cannula Nasal Cannula Nasal Cannula O2 Flow Rate 2.0 2.00 2.00 100.00 FiO2 100 03/03/17 03/03/17 03/03/17 03/03/17 08:00 08:00 08:02 08:58 Temp 98.5 97.1 Pulse 67 69 69 Resp 16 18 B/P (MAP) 123/61 (81) Pulse Ox 98 O2 Delivery Nasal Cannula Nasal Cannula Nasal Cannula O2 Flow Rate 2.00 2.00 2.00 03/03/17 03/03/17 11:02 12:00 Temp 97.6 Resp 18 O2 Delivery Nasal Cannula Nasal Cannula O2 Flow Rate 2.00 2.00 Capillary Refill : Less Than 3 Seconds Constitutional: No appears stated age, No AAO x 3, No apparent distress, No PERRL, No well-developed, No well-nourished, No other HEENT: No PERRL, No normal ENT inspection, No TMs normal, No pharynx normal, No scleral icterus (R), No scleral icterus (L), No pale conjunctivae (R), No pale conjunctivae (L), No photophobia, No TM abnormal (R), No TM abnormal (L), No pharyngeal erythema, No tonsillar exudate, No other, No discharge, No EOMI, No hearing is well preserved, No hard of hearing, No oral hygience is good, No ulceration, No xanthelasmas are seen Neck: No non-tender, No full range of motion, No supple, No normal inspection, No carotid bruit, No limited range of motion, No lymphadenopathy (R), No lymphadenopathy (L), No tender lateral, No tender midline, No thyromegaly, No other, No carotid pulses are 2 + bilaterally, No with good upstrokes Respiratory: No accessory muscle use, No respiratory distress, No chest tender , No chest expansion is symmetric, No chest is bilaterally symmetric, No lungs clear to percussion, No lungs clear to auscultation, No crackles, No rhonchi, No rales, No stridor, No wheezing, No pleural rub, No other Cardiovascular: No regular rate-rhythm, No irregularly irregular, No extra beats, No parasternal heave is noted, No JVD, No edema, No bradycardia, No tachycardia, No point of maximal impulse, No cardiac thrills are palpable, No S1 and S2, No gallop/S3, No gallop/S4, No diastolic murmur, No systolic murmur, No friction rub, No click, No other Gastrointestinal: No tender, No soft, No round, No distended, No pulsatile mass , No organomegaly, No guarding, No rebound, No tenderness, No hernia, No mass, No audible bowel sounds, No abnormal bowel sounds, No abdominal bruits, No spleenomegaly, No other Rectal: deferred Extremities: No normal range of motion, No non-tender, No normal inspection, No pedal edema, No calf tenderness, No normal capillary refill, No pelvis stable , No calf tenderness, No inflammation, No pedal edema, No slow capillary refill , No swelling, No other, No abrasion, No clubbing, No cyanosis, No ecchymosis, No laceration, No no lower extremity edema bilateral, No significant edema, No tenderness, No wound Neurologic/Psychiatric: No seasonal greenery bundler II-XII nml as tested, No no motor/sensory deficits, No alert, No normal mood/affect, No oriented x 3, No abnormal cerebellar tests, No abnormal seasonal greenery bundler II-XII, No abnormal gait, No aphasia, No EOM palsy, No facial droop, No motor weakness, No sensory deficit, No depressed affect, No disoriented x 3, No other, No grossly intact, No power is 5/5 both on sides Skin: No normal color, No warm/dry, No cyanosis, No cool, No diaphoresis, No damp, No ecchymosis, No jaundice, No mottled, No pallor, No rash, No tattoos/ piercings, No ulcerations, No rash on exposed areas, No ulcerations on exposed areas, No other Data Review Labs Laboratory Tests 03/03/17 04:22: White Blood Count 6.2, Red Blood Count 4.52, Hemoglobin 12.9, Hematocrit 40, Mean Corpuscular Volume 88, Mean Corpuscular Hemoglobin 29, Mean Corpuscular Hemoglobin Concent 32, Red Cell Distribution Width 13.9, Platelet Count 320, Mean Platelet Volume 9.7, Neutrophils (%) (Auto) 60, Lymphocytes (%) (Auto) 25, Monocytes (%) (Auto) 12, Eosinophils (%) (Auto) 3, Basophils (%) (Auto) 1, Neutrophils # (Auto) 3.7, Lymphocytes # (Auto) 1.6, Monocytes # (Auto) 0.7, Eosinophils # (Auto) 0.2, Basophils # (Auto) 0.1, Prothrombin Time 13.9, INR Comment 1.1, Activated Partial Thromboplast Time 27, Sodium Level 139, Potassium Level 3.7, Chloride Level 102, Carbon Dioxide Level 25, Anion Gap 12, Blood Urea Nitrogen 21H, Creatinine 1.09, Estimat Glomerular Filtration Rate 50 , BUN/Creatinine Ratio 19, Glucose Level 106H, Calcium Level 8.9, Magnesium Level 2.2, Total Bilirubin 0.4, Aspartate Amino Transf (AST/SGOT) 29, Alanine Aminotransferase (ALT/SGPT) 24, Alkaline Phosphatase 67, Total Creatine Kinase 106, Creatine Kinase MB 1.6, Troponin I < 0.30, B-Type Natriuretic Peptide 19.4 , Total Protein 7.6, Albumin 3.8, Amylase Level 30, Lipase 25 03/03/17 10:29: Troponin I < 0.30 ECG Impression ECG Initial ECG Rhythm: Normal Sinus Initial ECG Impression: Normal A/P-Cardiology Assessment/Admission Diagnosis Chest pain Plan Chest pain: Check serial troponin. EKG negative. Pharmacological nuclear stress test tomorrow morning. Thank you for your consultation. Please call me if you have any questions. Janki Calabrese MD, FACP, FACC, FSCAI, FHRS, CCDS Interventional Cardiology Cardiac Electrophysiology Vascular Medicine and Endovascular Interventions Samuel CALABRESE MD Mar 03, 2017 10:14 am
[2017-03-03 12:00] VITALS: BP 95/66
[2017-03-03] MEDS ORDERED: INFLUENZA TRIvalent 2017-2018 0.5 ML/45 MCG SYR IM ONE (13:45)
[2017-03-03 16:00] VITALS: BP 105/63
[2017-03-03 20:00] VITALS: BP 125/71
[2017-03-04] VITALS (18 sets, daily range): BP systolic 90–131; BP diastolic 56–99
[2017-03-04 05:00] LABS: BASOPHILS % (AUTO) 0 % (0-10); EOSINOPHILS # (AUTO) 0.2 10^3/uL (0.0-0.3); EOSINOPHILS % (AUTO) 4 % (0-10); LYMPHOCYTES # (AUTO) 0.7 X 10^3 (1.0-4.0); LYMPHOCYTES % (AUTO) 12 % (12-44); MEAN CORPUSCULAR HEMOGLOBIN 29 PG (25-34); MEAN CORPUSCULAR HGB CONC 32 G/DL (32-36); MEAN CORPUSCULAR VOLUME 90 FL (80-99); MEAN PLATELET VOLUME 9.8 FL (7.4-10.4); MONOCYTES # (AUTO) 0.5 X 10^3 (0.0-1.0); MONOCYTES % (AUTO) 9 % (0-12); NEUTROPHILS # (AUTO) 4.3 X 10^3 (1.8-7.8); NEUTROPHILS % (AUTO) 75 % (42-75); PLATELET COUNT 259 10^3/uL (130-400); RED BLOOD COUNT 4.39 10^6/uL (4.35-5.85); WHITE BLOOD COUNT 5.7 10^3/uL (4.3-11.0)
[2017-03-04 05:22] LABS: ALANINE AMINOTRANSFERASE 23 U/L (0-55); ALBUMIN 3.5 GM/DL (3.2-4.5); ANION GAP 11 MMOL/L (5-14); ASPARTATE AMINO TRANSFERASE 30 U/L (5-34); BILIRUBIN,TOTAL 0.4 MG/DL (0.1-1.0); BLOOD UREA NITROGEN 16 MG/DL (7-18); BUN/CREATININE RATIO 20; CALCIUM 8.7 MG/DL (8.5-10.1); CARBON DIOXIDE 26 MMOL/L (21-32); CHLORIDE 101 MMOL/L (98-107); CHOLESTEROL 137 MG/DL (< 200); CREATININE SERUM 0.82 MG/DL (0.60-1.30); DIRECT LDL 79 MG/DL (1-129); GFR ESTIMATED > 60; GLUCOSE 99 MG/DL (70-105); POTASSIUM 3.9 MMOL/L (3.6-5.0); SODIUM 138 MMOL/L (135-145); TOTAL PROTEIN 6.7 GM/DL (6.4-8.2); TRIGLYCERIDES 82 MG/DL (<150); VLDL CHOLESTEROL 16 MG/DL (5-40)
[2017-03-04] MEDS ORDERED: CATHETER FLUSH 10 ML SYR IV PRN (08:00)
--- NOTE | 2017-03-04 08:47 | Diagnostic Imaging Report ---
INDICATION: Decreased pedal pulses. TECHNIQUE: A bilateral lower extremity arterial Doppler study was performed in the routine fashion with color flow Doppler and waveform analysis. FINDINGS: On both sides, flow is triphasic throughout with no focal high velocity jets or occluded segments. IMPRESSION: Unremarkable bilateral lower extremity arterial Doppler study. Dictated by: Dictated on workstation # [id number]
[2017-03-04] MEDS ORDERED: REGADENOSON 0.4 MG/5 ML SYR (LEXISCAN) IV ONE (08:57)
[2017-03-04] MEDS ORDERED: ASPIRIN E.C. 325 MG (ECOTRIN) TABLET PO SCH (09:00)
--- NOTE | 2017-03-04 09:34 | Discharge Summary-Hospitalist ---
Diagnosis/Chief Complaint Date of Admission Mar 03, 2017 at 07:00 Date of Discharge Discharge Date: Mar 04, 2017 Admission Diagnosis Chest pain HTN Hypothyroidism Asthma? GERD Cough x 2 months but negative CXR and CT chest HH Discharge Diagnosis Chest pain with negative troponins but abnormal stress test but negative cardiac catheterization for significant stenosis HTN Hypothyroidism Asthma? GERD Cough x 2 months but negative CXR and CT chest HH Discharge Summary Discharge Physical Examination Allergies: Coded Allergies: No Known Drug Allergies (Unverified , 06/24/08) Vitals & I&Os Vital Signs Date Time Temp Pulse Resp B/P (MAP) Pulse Ox O2 Delivery O2 Flow Rate FiO2 03/04/17 17:00 80 99/68 (78) 97 Room Air 03/04/17 15:23 2.00 03/04/17 12:00 99.9 20 03/03/17 04:25 100 Hospital Course Hospital course: Patient had a brief hospital course she was admitted for chest pain troponins were all resulted as negative and she underwent cardiac stress test that was abnormal and due to risk factors she underwent cardiac catheterization that revealed no significant ischemic changes or stenosis so she was discharged in good condition and will have close follow-up a [facility]. Labs (last 24 hrs) Pending Labs Discharge Home Medications: Active Scripts Active Aspirin EC (Aspirin) 81 Mg Tablet. 81 Mg PO DAILY 30 Days Reported Levothyroxine Sodium 75 Mcg Tablet 75 Mcg PO DAILY Hydrochlorothiazide 25 Mg Tablet 25 Mg PO DAILY Omeprazole 40 Mg Capsule. 40 Mg PO DAILY Instructions to patient/family Please see electronic discharge instructions given to patient. Clinical Quality Measures DVT/VTE Risk/Contraindication: Risk Factor Score Per Nursin RFS Level Per Nursing on Admit: 3=High ROBERT GRANDE DO Mar 04, 2017 09:34
[2017-03-04] MEDS ORDERED: CLOPIDOGREL 300 MG (PLAVIX) TABLET PO NR (12:37)
--- NOTE | 2017-03-04 12:55 | Cardiology Progress Note ---
Cardiology SOAP Progress Note Subjective: still has chest pain Objective: I&O/Vital Signs Vital Sign - Last 12Hours 03/04/17 03/04/17 03/04/17 03/04/17 01:00 04:00 04:00 07:00 Pulse 74 79 81 B/P (MAP) 106/66 (79) Pulse Ox 96 95 O2 Delivery Nasal Cannula Nasal Cannula O2 Flow Rate 2.00 2.00 03/04/17 03/04/17 03/04/17 03/04/17 07:02 07:40 08:00 08:24 Temp 97.9 Pulse 88 Resp 20 B/P (MAP) 112/68 (83) Pulse Ox 96 100 100 O2 Delivery Nasal Cannula Nasal Cannula Nasal Cannula Nasal Cannula O2 Flow Rate 2.00 2.00 2.00 2.00 03/04/17 03/04/17 03/04/17 03/04/17 09:24 10:21 11:00 12:00 Temp 99.9 Pulse 75 101 80 79 Resp 20 B/P (MAP) 96/83 (87) 124/66 (85) 131/57 (81) 131/57 (81) Pulse Ox 92 94 90 O2 Delivery Room Air Room Air Room Air 03/04/17 12:00 Pulse 87 B/P (MAP) 101/56 (71) Pulse Ox 91 O2 Delivery Room Air Intake and Output 03/04/17 00:00 Intake Total 1100 ml Balance 1100 ml Weight (Pounds): 239 Weight (Ounces): 6.0 Weight (Calculated Kilograms): [phone] Constitutional: No appears stated age, No AAO x 3, No apparent distress, No PERRL, No well-developed, No well-nourished, No other Respiratory: No accessory muscle use, No respiratory distress, No chest tender , No chest expansion is symmetric, No chest is bilaterally symmetric, No lungs clear to percussion, No lungs clear to auscultation, No crackles, No rhonchi, No rales, No stridor, No wheezing, No pleural rub, No other Cardiovascular: No regular rate-rhythm, No irregularly irregular, No extra beats, No parasternal heave is noted, No JVD, No edema, No bradycardia, No tachycardia, No point of maximal impulse, No cardiac thrills are palpable, No S1 and S2, No gallop/S3, No gallop/S4, No diastolic murmur, No systolic murmur, No friction rub, No click, No other Gastrointestional: No tender, No soft, No round, No distended, No pulsatile mass, No organomegaly, No guarding, No rebound, No tenderness, No hernia, No mass, No audible bowel sounds, No abnormal bowel sounds, No abdominal bruits, No spleenomegaly, No other Extremities: No normal range of motion, No non-tender, No normal inspection, No pedal edema, No calf tenderness, No normal capillary refill, No pelvis stable , No calf tenderness, No inflammation, No pedal edema, No slow capillary refill , No swelling, No other, No abrasion, No clubbing, No cyanosis, No ecchymosis, No laceration, No no lower extremity edema bilateral, No significant edema, No tenderness, No wound Neurologic/Psychiatric: No floor layer II-XII nml as tested, No no motor/sensory deficits, No alert, No normal mood/affect, No oriented x 3, No abnormal cerebellar tests, No abnormal floor layer II-XII, No abnormal gait, No aphasia, No EOM palsy, No facial droop, No motor weakness, No sensory deficit, No depressed affect, No disoriented x 3, No other, No grossly intact, No power is 5/5 both on sides Skin: No normal color, No warm/dry, No cyanosis, No cool, No diaphoresis, No damp, No ecchymosis, No jaundice, No mottled, No pallor, No rash, No tattoos/ piercings, No ulcerations, No rash on exposed areas, No ulcerations on exposed areas, No other Results/Procedures: Labs Laboratory Tests 03/04/17 04:30: White Blood Count 5.7, Red Blood Count 4.39, Hemoglobin 12.5, Hematocrit 40, Mean Corpuscular Volume 90, Mean Corpuscular Hemoglobin 29, Mean Corpuscular Hemoglobin Concent 32, Red Cell Distribution Width 14.0, Platelet Count 259, Mean Platelet Volume 9.8, Neutrophils (%) (Auto) 75, Lymphocytes (%) (Auto) 12, Monocytes (%) (Auto) 9, Eosinophils (%) (Auto) 4, Basophils (%) (Auto) 0, Neutrophils # (Auto) 4.3, Lymphocytes # (Auto) 0.7L, Monocytes # (Auto) 0.5, Eosinophils # (Auto) 0.2, Basophils # (Auto) 0.0, Sodium Level 138, Potassium Level 3.9, Chloride Level 101, Carbon Dioxide Level 26, Anion Gap 11, Blood Urea Nitrogen 16, Creatinine 0.82, Estimat Glomerular Filtration Rate > 60, BUN/ Creatinine Ratio 20, Glucose Level 99, Calcium Level 8.7, Total Bilirubin 0.4, Aspartate Amino Transf (AST/SGOT) 30, Alanine Aminotransferase (ALT/SGPT) 23, Alkaline Phosphatase 63, Myoglobin 71.0, Total Protein 6.7, Albumin 3.5, Triglycerides Level 82, Cholesterol Level 137, LDL Cholesterol Direct 79, VLDL Cholesterol 16, HDL Cholesterol 39L A/P: Assessment/Dx: Chest pain, hypoxia Plan: Chest pain: acute coronary syndrome ruled out with serial negative troponin. EKG negative. Pharmacological nuclear stress test done this morning showed evidence of apical lateral ischemia. Coronary angiography is recommended. We will give Plavix 300 mg 1 today. hypoxia: Low oxygen saturation. Suggestive of COPD. No evidence of congestive heart failure. Defer to primary team Thank you for your consultation. Please call me if you have any questions. Janki Calabrese MD, FACP, FACC, FSCAI, FHRS, CCDS Interventional Cardiology Cardiac Electrophysiology Vascular Medicine and Endovascular Interventions Samuel CALABRESE MD Mar 04, 2017 12:54 pm
[2017-03-04] MEDS ORDERED: fentaNYL INJECTION 100 MCG/2 ML AMP ONE (12:57)
[2017-03-04] MEDS ORDERED: MIDAZOLAM 5 MG/5 ML (VERSED) VIAL ONE (12:57)
[2017-03-04] MEDS ORDERED: VERAPAMIL 5 MG/2 ML (CALAN) VIAL IV ONE (13:29)
[2017-03-04] MEDS ORDERED: HEParin 1000 UNIT/ML (10ML VIAL) FOR BOLUS ONE (13:29)
[2017-03-04] MEDS ORDERED: NITROGLYCERIN DRIP 25 MG/D5W 250 ML IV ONE (13:29)
--- NOTE | 2017-03-04 14:02 | Cardiac Procedure Note-CS/ASA ---
Pre-Procedure Note Pre-Op Procedure Note H&P Reviewed The H&P was reviewed, patient examined and no changes noted. Date H&P Reviewed: Mar 04, 2017 Time H&P Reviewed: 13:30 Conscious Sedation Pre-Proced Time Reviewed: 13:30 ASA Class: 3 Airway Mallampati Classification: ([place] appropriate class) I. II. III, IV Lungs Heart ASA score ASA 1: a normal healthy patient ASA 2: a patient with a mild systemic disease (mid diabetes, controlled hypertension, obesity ASA 3: a patient with a severe systemic disease that limits activity (angina , COPD, prior Myocardial infarction) ASA 4: a patient with an incapacitating disease that is a constant threat to life (CHF, renal failure) ASA 5: a moribund patient not expected to survive 24 hrs. (ruptured aneurysm) ASA 6: a declared brain patient whose organs are being harvested. For emergent operations, add the letter E after the classification Grade 1 Sedation Plan: Analgesia, Amnesia, Plan communicated to team members, Discussed options with patient/fam, Discussed risks with patient/fam Note The patient is an appropriate candidate to undergo the planned procedure, sedation, and anesthesia. The patient immediately re-assessed prior to indication. Samuel SHAY MD Mar 04, 2017 2:02 pm
[2017-03-04] MEDS ORDERED: NS IV 1000 ML 1,000 ML IV SCH (14:03)
--- NOTE | 2017-03-04 14:03 | Cardiology Post Procedure Note ---
Post-Procedure Note Physician (s)/Bottle Washer (s) Physician Samuel HSAY MD Pre-Procedure Diagnosis Pre-Procedure Diagnosis: chest pain, abnormal nuclear stress test Post-Procedure Note Procedure Start Date: Mar 04, 2017 Procedure Start Time: 13:30 Name of Procedure: Coronary angiography, left heart catheterization Findings/Procedure Note Mild left main disease. No other coronary disease noted. Normal LV function. Anesthesia Type: Conscious Sedation Estimated blood loss (mL): 10 Contrast Amount: 65 Post-Procedure Diagnosis Post-operative diagnosis: Mild CAD. Samuel SHAY MD Mar 04, 2017 2:03 pm
[2017-03-04] MEDS ORDERED: HEParin (CATH LAB) 2,000 ML IV ONE (14:12)
[2017-03-04] MEDS ORDERED: LIDOCAINE 1% INJ 50 ML (XYLOCAINE) VIAL ONE (14:12)
[2017-03-04] MEDS ORDERED: NS IV 1000 ML 1,000 ML ONE (14:12)
[2017-03-04] MEDS ORDERED: PATIENT MAY USE OWN MEDS, ALL PO SCH (14:15)
[2017-03-04] MEDS ORDERED: ASPI-983 PO (16:59)
--- NOTE | 2017-03-04 18:26 | STRESS TEST ---
DATE OF SERVICE: 03/04/2017 PHARMACOLOGICAL NUCLEAR STRESS TEST ATTENDING PHYSICIAN: Araceli Hopper DO. PRIMARY PHYSICIAN: Tracy Spicer DO. PERFORMING PHYSICIAN: Dr. Janki Calabrese. DIAGNOSIS: Chest pain. PROCEDURE DETAILS: The patient was brought to the stress lab after informed consent was taken. Stress test was performed according to the Lexiscan protocol. A 0.4 mg of IV Lexiscan was given. Baseline rhythm was sinus at 80 BPM. Blood pressure was 96/83 mmHg. Maximum heart rate was 106 BPM with blood pressure 137/71 mmHg. The patient had mild chest pain. No ST-T wave abnormalities. No arrhythmias were noted. A 10.63 mCi of Myoview were given for rest imaging and 32.0 mCi of Myoview were given for stress imaging. There is a moderate sized severe intensity apical lateral defect, which has mild reversibility. TID is 0.84, EF is 74%. SSS 14, SRS 8, SDS 4. No wall motion abnormalities. IMPRESSION/CONCLUSION: 1. Pharmacological stress test is negative for ischemia. 2. Normal left ventricular function with normal wall motion. 3. There is evidence of apical lateral ischemia. Clinical correlation is recommended. Job ID: [id number] DocumentID: [id number] Dictated Date: 03/04/2017 12:06:08 Azure Architect Date: 03/04/2017 15:11:42 Dictated By: YEN CALABRESE MD
--- NOTE | 2017-03-04 18:53 | CARDIAC CATHETERIZATION ---
DATE OF SERVICE: 03/04/2017 CORONARY ANGIOGRAPHY INDICATION: Recurrent chest pain, abnormal nuclear stress test. PREOPERATIVE DIAGNOSIS: Recurrent chest pain and abnormal nuclear stress test. POSTOPERATIVE DIAGNOSIS: Mild CAD, normal LV function. HISTORY: The patient is a 71-year-old lady, who presented with prolonged episode of chest pain and recurrent episode. Stress test was performed, which showed evidence there was an apical lateral reversible defect. Coronary angiography was recommended. PROCEDURES PERFORMED: 1. Coronary angiography. 2. Left heart catheterization. COMPLICATIONS: None. SPECIMENS: None. ESTIMATED BLOOD LOSS: 10 mL. ANESTHESIA: Conscious sedation. ANTICOAGULATION: IV heparin. CONTRAST: 106 mL of Omnipaque. FLUOROSCOPY TIME: 6.5 minutes. RADIATION DOSE: 1599 mGy. PROCEDURE DETAILS: The patient was brought to the supervisor cytogenetic laboratory after informed consent was taken. All the risks and complications were explained in detail. She was draped and prepped in the usual sterile fashion. Access was gained in the right radial artery with a 6-Spanish sheath. Left heart catheterization and coronary angiography of the left system was done with a Kevin catheter and the right was engaged with a JR4 catheter. FINDINGS: 1. Left main: mild disease. Stenosis severity 20%. 2. LAD: No significant disease. 3. Left circumflex artery: Patent. 4. RCA: Patent. 5. Left heart catheterization, LV pressure 92/6 mmHg. LVEDP 10 mmHg. Aortic pressure 78/15 mmHg. No gradient across the aortic valve. Normal LV function with no wall motion abnormalities. IMPRESSION AND CONCLUSION: Mild coronary artery disease, secondary prevention measures are recommended. Job ID: [id number] DocumentID: [id number] Dictated Date: 03/04/2017 14:14:50 Machine Deburrer Date: 03/04/2017 18:52:40 Dictated By: YEN SHAY MD MTDD
[2017-03-05] MEDS ORDERED: ASPIRIN E.C. 81 MG (ECOTRIN) TAB PO SCH (09:00)
[2017-03-05] MEDS ORDERED: SULF1TAB35 PO (22:17)
== END 2017-03-04 17:25 | disposition home or self-care (01) ==
LOC: EDUNIT# 04:06 → ER 04:08 → UNDOADMOB 07:00 → ICU 07:00 → CATH 08:00 → ICU 08:00 → UNDOADMOB 08:00 → UNDODISOB 03-04 17:25 → CATH 03-04 17:25
PROVIDERS: ATTEND Internal Medicine
DX: I25.10 Atherosclerotic heart disease of native coronary artery without angina pectoris (principal); I10 Essential (primary) hypertension; E78.00 Pure hypercholesterolemia, unspecified; E03.9 Hypothyroidism, unspecified; K21.9 Gastro-esophageal reflux disease without esophagitis; K44.9 Diaphragmatic hernia without obstruction or gangrene; R05 Cough; Z79.82 Long term (current) use of aspirin; Z79.899 Other long term (current) drug therapy; Z87.891 Personal history of nicotine dependence
CPT/HCPCS: 36415; 71010; 71275; 78452; 80053; 80061; 82150; 82550; 82553; 83690; 83735; 83874; 83880; 84484; 85025; 85610; 85730; 93005; 93017; 93041; 93306; 93458; 93925; 96360

== ENCOUNTER 2017-03-05 18:58 | Emergency (ER) | payer MEDICARE ==
[~2017-03-05] VITALS: Ht 160 cm; Wt 102.1 kg
[~2017-03-05 18:58] MED LIST changes: +ASPI-983 PO
--- NOTE | 2017-03-05 19:21 | ED General ---
General Stated Complaint: BACK PAIN Source of Information: Patient Exam Limitations: No Limitations History of Present Illness Time Seen by Provider: 19:20 Initial Comments ER with reports of left scapular pain for the past 2 days. She's also been fatigued for the past 4-5 days sleeping nearly all the time. She was just released from here earlier today following a cardiac catheterization which showed minimal coronary artery disease with no intervention Timing/Duration: 4-5 Days Severity: Moderate Associated Systoms: Malaise Allergies and Home Medications Allergies Coded Allergies: No Known Drug Allergies (Unverified , 06/24/08) Home Medications Aspirin 81 Mg Tablet.dr, 81 MG PO DAILY for 30 Days Prescribed by: SARAH YEH on 03/04/17 [id number] Hydrochlorothiazide 25 Mg Tablet, 25 MG PO DAILY, (Reported) Levothyroxine Sodium 75 Mcg Tablet, 75 MCG PO DAILY, (Reported) Omeprazole 40 Mg Capsule.dr, 40 MG PO DAILY, (Reported) Constitutional: see HPI EENTM: see HPI Respiratory: no symptoms reported Cardiovascular: no symptoms reported Genitourinary: no symptoms reported Musculoskeletal: back pain Skin: no symptoms reported Psychiatric/Neurological: No Symptoms Reported Past Ontvjve-Zegunb-Nplxzu Hx Patient Social History Type Used: Cigarettes Former Smoker, Quit: Mar 03, 1968 2nd Hand Smoke Exposure: Yes ( IS SMOKER) Recent Foreign Travel: No Contact w/Someone Who Travel: No Recent Hopitalizations: No Immunizations Up To Date Tetanus Booster (TDap): More than 5yrs Date of Pneumonia Vaccine: Jun 10, 2015 Date of Influenza Vaccine: Dec 15, 2016 Seasonal Allergies Seasonal Allergies: No Surgeries History of Surgeries: Yes (LEFT TKR, LEFT FOOT SX, ) Surgeries: Section, Eye Surgery, Hysterectomy, Oophorectomy, Orthopedic Respiratory History of Respiratory Disorde: No Cardiovascular History of Cardiac Disorders: Yes Cardiac Disorders: High Cholesterol, Hypertension Neurological History of Neurological Disord: No Reproductive System Hx Reproductive Disorders: No Sexually Transmitted Disease: No HIV/AIDS: No 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, 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 Genitourinary History of Genitourinary Disor: No Gastrointestinal History of Gastrointestinal Di: Yes Gastrointestinal Disorders: Gastroesophageal Reflux, Hiatal Hernia Musculoskeletal History of Musculoskeletal Dis: Yes (LEFT FOOT FX, LEFT TKR) Musculoskeletal Disorders: Arthritis, Chronic Back Pain, Spasms Endocrine History of Endocrine Disorders: Yes Endocrine Disorders: Hypothyroidsim HEENT History of HEENT Disorders: Yes HEENT Disorders: Cataract Hearing Impairment: Hard of Hearing Cancer History of Cancer: No Psychosocial History of Psychiatric Problem: No Integumentary History of Skin or Integumenta: No Blood Transfusions History of Blood Disorders: Yes (ANEMIA) Family Medical History Significant Family History: Cancer Family Medial History: Patient reports no known family medical history. Physical Exam Vital Signs Vital Sign - Last 12Hours 03/05/17 19:24 Temp 98.3 Pulse 72 Resp 28 B/P (MAP) 122/85 (97) Capillary Refill : General Appearance: No Apparent Distress, WD/WN Eyes: Bilateral Eye Normal Inspection, Bilateral Eye PERRL, Bilateral Eye EOMI HEENT: PERRL/EOMI, TMs Normal Neck: Full Range of Motion, Normal Inspection Respiratory: Normal Breath Sounds, No Accessory Muscle Use, No Respiratory Distress Cardiovascular: Regular Rate, Rhythm, Normal Peripheral Pulses Gastrointestinal: Non Tender, Soft Extremity: Normal Capillary Refill, Normal Inspection Neurologic/Psychiatric: Alert, Oriented x3, No Motor/Sensory Deficits Skin: Normal Color Progress/Results/Core Measures Suspected Sepsis SIRS Temperature: Pulse: Respiratory Rate: Laboratory Tests 03/05/17 19:40: White Blood Count 4.6 Blood Pressure / Mean: Laboratory Tests 03/05/17 19:40: Creatinine 0.91, Platelet Count 277, Total Bilirubin 0.4 Results/Orders Lab Results Laboratory Tests Test 03/05/17 19:40 03/05/17 21:22 Range/Units White Blood Count 4.6 4.3-11.0 10^3/uL Red Blood Count 4.24 L 4.35-5.85 10^6/uL Hemoglobin 12.2 11.5-16.0 G/DL Hematocrit 38 35-52 % Mean Corpuscular Volume 89 80-99 FL Mean Corpuscular Hemoglobin 29 25-34 PG Mean Corpuscular Hemoglobin Concent 32 32-36 G/DL Red Cell Distribution Width 14.0 10.0-14.5 % Platelet Count 277 130-400 10^3/uL Mean Platelet Volume 9.8 7.4-10.4 FL Neutrophils (%) (Auto) 62 42-75 % Lymphocytes (%) (Auto) 24 12-44 % Monocytes (%) (Auto) 12 0-12 % Eosinophils (%) (Auto) 2 0-10 % Basophils (%) (Auto) 0 0-10 % Neutrophils # (Auto) 2.8 1.8-7.8 X 10^3 Lymphocytes # (Auto) 1.1 1.0-4.0 X 10^3 Monocytes # (Auto) 0.5 0.0-1.0 X 10^3 Eosinophils # (Auto) 0.1 0.0-0.3 10^3/uL Basophils # (Auto) 0.0 0.0-0.1 10^3/uL Sodium Level 136 135-145 MMOL/L Potassium Level 3.2 L 3.6-5.0 MMOL/L Chloride Level 101 98-107 MMOL/L Carbon Dioxide Level 26 21-32 MMOL/L Anion Gap 9 5-14 MMOL/L Blood Urea Nitrogen 12 7-18 MG/DL Creatinine 0.91 0.60-1.30 MG/DL Estimat Glomerular Filtration Rate > 60 BUN/Creatinine Ratio 13 Glucose Level 125 H 70-105 MG/DL Calcium Level 8.3 L 8.5-10.1 MG/DL Total Bilirubin 0.4 0.1-1.0 MG/DL Aspartate Amino Transf (AST/SGOT) 31 5-34 U/L Alanine Aminotransferase (ALT/SGPT) 23 0-55 U/L Alkaline Phosphatase 66 40-136 U/L Total Protein 7.0 6.4-8.2 GM/DL Albumin 3.6 3.2-4.5 GM/DL Thyroid Stimulating Hormone (TSH) 5.52 H 0.35-4.94 UIU/ML Free Thyroxine 0.92 0.70-1.48 NG/DL Monoscreen NEGATIVE NEGATIVE Urine Color YELLOW Urine Clarity SLIGHTLY CLOUDY Urine pH 6.5 5-9 Urine Specific [place] 1.005 L 1.016-1.022 Urine Protein NEGATIVE NEGATIVE Urine Glucose (UA) NEGATIVE NEGATIVE Urine Ketones NEGATIVE NEGATIVE Urine Nitrite POSITIVE H NEGATIVE Urine Bilirubin NEGATIVE NEGATIVE Urine Urobilinogen NORMAL NORMAL MG/DL Urine Leukocyte Esterase 1+ H NEGATIVE Urine RBC (Auto) 2+ H NEGATIVE Urine RBC 2-5 H /HPF Urine WBC 2-5 /HPF Urine Squamous Epithelial Cells 0-2 /HPF Urine Crystals NONE /LPF Urine Bacteria LARGE H /HPF Urine Casts NONE /LPF Urine Mucus NEGATIVE /LPF Urine Culture Indicated YES My Orders Orders - JEANETTE MARTINEZ INSTALLER HELPER Cbc With Automated Diff (03/05/17 19:19) Thyroid Stimulating Hormone (03/05/17 19:19) Free T4 (Free Thyroxine) (03/05/17 19:19) Comprehensive Metabolic Panel (03/05/17 19:19) Ua Culture If Indicated (03/05/17 19:19) Chest Pa/Lat (2 View) (03/05/17 19:19) Ketorolac Injection (Toradol Injection) (03/05/17 21:15) Monotest (03/05/17 21:06) Urine Culture (03/05/17 21:22) Medications Given in ED Current Medications Medications Dose Ordered Sig/Wu Route Start Time Stop Time Status Last Admin Dose Admin Ketorolac Tromethamine 60 mg ONCE ONCE IM 03/05/17 21:15 03/05/17 21:16 DC 03/05/17 21:16 60 MG Vital Signs/I&O Vital Sign - Last 12Hours 03/05/17 19:24 Temp 98.3 Pulse 72 Resp 28 B/P (MAP) 122/85 (97) Capillary Refill : Departure Impression Impression: Primary Impression: Fatigue Additional Impressions: Urinary tract infection Thyroid dysfunction Disposition: HOME, SELF-CARE Condition: Stable Departure-Patient Inst. Decision time for Depature: 22:16 Referrals: AFUA LAMB DO (PCP) Primary Care Physician JULIAN GODINEZ (Family) Primary Care Physician Patient Instructions: NO INSTRUCTIONS GIVEN Add. Discharge Instructions: 1. Return to ER for any concerns 2. Follow up with her doctor next week 3. Take antibiotics as directed for the bladder infection. Scripts Sulfamethoxazole/Trimethoprim (Bactrim Ds Tablet) 1 Each Tablet 1 EACH PO BID, #6 TAB Prov: JEANETTE MARTINEZ APRN 03/05/17 Copy Copies To 1: AFUA LAMB PETER J APRN Mar 05, 2017 19:21
[2017-03-05 20:11] LABS: BASOPHILS % (AUTO) 0 % (0-10); EOSINOPHILS # (AUTO) 0.1 10^3/uL (0.0-0.3); EOSINOPHILS % (AUTO) 2 % (0-10); LYMPHOCYTES # (AUTO) 1.1 X 10^3 (1.0-4.0); LYMPHOCYTES % (AUTO) 24 % (12-44); MEAN CORPUSCULAR HEMOGLOBIN 29 PG (25-34); MEAN CORPUSCULAR HGB CONC 32 G/DL (32-36); MEAN CORPUSCULAR VOLUME 89 FL (80-99); MEAN PLATELET VOLUME 9.8 FL (7.4-10.4); MONOCYTES # (AUTO) 0.5 X 10^3 (0.0-1.0); MONOCYTES % (AUTO) 12 % (0-12); NEUTROPHILS # (AUTO) 2.8 X 10^3 (1.8-7.8); NEUTROPHILS % (AUTO) 62 % (42-75); PLATELET COUNT 277 10^3/uL (130-400); RED BLOOD COUNT 4.24 10^6/uL (4.35-5.85); WHITE BLOOD COUNT 4.6 10^3/uL (4.3-11.0)
[2017-03-05 20:37] LABS: ALANINE AMINOTRANSFERASE 23 U/L (0-55); ALBUMIN 3.6 GM/DL (3.2-4.5); ANION GAP 9 MMOL/L (5-14); ASPARTATE AMINO TRANSFERASE 31 U/L (5-34); BILIRUBIN,TOTAL 0.4 MG/DL (0.1-1.0); BLOOD UREA NITROGEN 12 MG/DL (7-18); CALCIUM 8.3 MG/DL (8.5-10.1); CARBON DIOXIDE 26 MMOL/L (21-32); CHLORIDE 101 MMOL/L (98-107); GLUCOSE 125 MG/DL (70-105); POTASSIUM 3.2 MMOL/L (3.6-5.0); SODIUM 136 MMOL/L (135-145)
[2017-03-05 20:42] LABS: BUN/CREATININE RATIO 13; CREATININE SERUM 0.91 MG/DL (0.60-1.30); GFR ESTIMATED > 60
--- NOTE | 2017-03-05 20:48 | Diagnostic Imaging Report ---
INDICATION: Shortness of breath. Compared 03/03/2017 FINDINGS: There is a retrocardiac hernia. The lungs are clear. The heart and vessels normal. There is no effusion or pneumothorax. There has been no change from the study of 03/03. IMPRESSION: No acute appearing abnormality Dictated by: Dictated on workstation # [id number]
[2017-03-05 20:59] LABS: THYROID STIMULATING HORMONE 5.52 UIU/ML (0.35-4.94)
[2017-03-05] MEDS ORDERED: KETOROLAC 60 MG/2 ML VIAL IM ONE (21:15)
[2017-03-05 21:40] LABS: BILIRUBIN,URINE NEGATIVE (NEGATIVE); KETONES,URINE NEGATIVE (NEGATIVE); LEUKOCYTE ESTERASE ,URINE 1+ (NEGATIVE); NITRITE,URINE POSITIVE (NEGATIVE); PH,URINE 6.5 (5-9); PROTEIN,URINE NEGATIVE (NEGATIVE); UROBILINOGEN,URINE NORMAL (NORMAL)
[2017-03-05 21:48] LABS: SQUAMOUS EPITHELIAL CELL,UR 0-2 /HPF
[2017-03-05] MEDS ORDERED: SULF1TAB35 PO (22:17)
[2017-03-05 22:22] VITALS: BP 122/74
[2017-03-05] MEDS ORDERED: TRIM/SULFAMETH 160/800 (SEPTRA DS) TAB PO ONE (22:30)
--- OUTSIDE RECORDS SUMMARY | 2017-03-06 10:12 | XMS REPORT | Continuity of Care Document ---
Author Author Formerly [facility] Address Unknown Phone Unavailable Allergies Active Description Code Type Severity Reaction Onset Reported/Identified Relationship to Patient Clinical Status Yes No Known Drug Allergies [id number] Drug Allergy Mild N/A 06/24/2008 Medications There [...] JULIAN GODINEZ APRN 278.02 OVERWEIGHT 04/10/2010 JULIAN GODNIEZ APRN 373.11 Hordeolum Externum 04/10/2010 LAMB DO, [...] P Ot I25.10 ATHSCL HEART DISEASE OF [place] CORONARY 06/12/2015 NICOLETTE SHERIDAN, URI Shaver Ot [...] 09/25/2015 THOMAS DPM, SADIA Q Ot T84.293A [facility] COMPL OF INT FIX OF BONES OF [...] 09/27/2015 THOMAS DPM, SADIA Q Ot T84.293A [facility] COMPL OF INT FIX OF BONES OF FOOT A 09/27/2015 THOMAS DPM, SADIA Q Ot Z01.818 ENCOUNTER FOR OTHER PREPROCEDURAL EXAMIN 09/27/2015 THOMAS DPM, SADIA Q Ot Z11.2 ENCOUNTER FOR SCREENING FOR OTHER BACTER 09/29/2015 LAMB DO, AFUA K Ot E87.6 HYPOKALEMIA 09/29/2015 LAMB DO, AFUA K Ot E87.8 OTH DISORDERS OF ELECTROLYTE AND FLUID B 09/29/2015 TOHMAS DPM, SADIA Q Ot M20.12 HALLUX VALGUS (ACQUIRED), LEFT FOOT 09/29/2015 THOMAS DPM, SADIA Q Ot M20.42 OTHER HAMMER TOE(S) (ACQUIRED), LEFT EVELYN 09/29/2015 THOMAS DPM, SADIA Q Ot T84.293A [facility] COMPL OF INT FIX OF BONES OF FOOT A 10/02/2015 THOMAS DPM, SADIA Q Ot M20.12 HALLUX VALGUS (ACQUIRED), LEFT FOOT 10/02/2015 THOMAS DPM, SADIA Q Ot M20.42 OTHER HAMMER TOE(S) (ACQUIRED), LEFT EVELYN 10/02/2015 THOMAS DPM, SADIA Q Ot T84.293A [facility] COMPL OF INT FIX OF BONES OF FOOT A 10/03/2015 THOMAS DPM, SADIA Q Ot M20.12 HALLUX VALGUS (ACQUIRED), LEFT FOOT 10/03/2015 THOMAS DPM, SADIA Q Ot M20.42 OTHER HAMMER TOE(S) (ACQUIRED), LEFT EVELYN 10/03/2015 THOMAS DPM, SADIA Q Ot T84.293A [facility] COMPL OF INT FIX OF BONES OF [...] 06/24/2016 BRODY HARRISON MD Ot Z79.899 OTHER [employer] (CURRENT) DRUG THERAPY 06/27/2016 LAMB DO AFUA K Ot E87.6 HYPOKALEMIA 06/27/2016 LAMB DO AFUA K Ot E87.8 OTH DISORDERS OF ELECTROLYTE AND FLUID B 06/28/2016 BRODY HARRISON MD Ot K44.9 DIAPHRAGMATIC HERNIA WITHOUT OBSTRUCTION 06/28/2016 HUNTER SHERIDAN, BRODY Way Ot R07.9 CHEST PAIN, UNSPECIFIED 06/28/2016 BRODY HARRISON MD Ot Z79.899 OTHER [employer] (CURRENT) DRUG THERAPY 09/28/2016 SEAN SHERIDAN, DOLLY [...] Procedures Code Description [place] [address] ROUTINE VENIPUNCTURE 06/24/2012 23255 CBC 06/24/2012 87125 LIPID PANEL 06/24/2012 10023 CMP 06/24/2012 0355188 GFR CALC (RESULT ONLY) 06/24/2012 94730 TSH 06/24/2012 68926 CULTURE EAR & STAIN 04/05/2013 92050 ROUTINE VENIPUNCTURE 11/02/2013 13427 CMP 11/02/2013 77952 LIPID PANEL 11/02/2013 96421 TSH 11/02/2013 59681 CBC 11/02/2013 [id number] REPLACE OF L KNEE JT WITH SYNTH [...] GRAM STAIN SPUTUM AND MIXED BACTERIAL [place] [facility] Bacterial sputum culture - 02/03/17 13:46 Bacterial sputum culture NORMAL [facility] Complete blood count (CBC) with automated white [...] 02/03/17 14:08 BNP level 40.7 pg/mL <100.0 Complete blood count (CBC) with automated white blood cell (WBC) differential - 03/03/17 04:22 Blood leukocytes automated count (number/volume) 6.2 10*3/uL 4.3-11.0 Blood erythrocytes automated count (number/volume) 4.52 10*6/uL 4.35-5.85 Venous blood hemoglobin measurement (mass/volume) 12.9 g/dL 11.5-16.0 Blood hematocrit (volume fraction) 40 % 35-52 Automated erythrocyte mean corpuscular volume 88 [foz_us] 80-99 Automated erythrocyte mean corpuscular hemoglobin (mass per erythrocyte) 29 pg 25-34 Automated erythrocyte mean corpuscular hemoglobin concentration measurement ( mass/volume) 32 g/dL 32-36 Automated erythrocyte distribution width ratio 13.9 % 10.0-14.5 Automated blood platelet count (count/volume) 320 10*3/uL 130-400 Automated blood platelet mean volume measurement 9.7 [foz_us] 7.4-10.4 Automated blood neutrophils/100 leukocytes 60 % 42-75 Automated blood lymphocytes/100 leukocytes 25 % 12-44 Blood monocytes/100 leukocytes 12 % 0-12 Automated blood eosinophils/100 leukocytes 3 % 0-10 Automated blood basophils/100 leukocytes 1 % 0-10 Blood neutrophils automated count (number/volume) 3.7 10*3 1.8-7.8 Blood lymphocytes automated count (number/volume) 1.6 10*3 1.0-4.0 Blood monocytes automated count (number/volume) 0.7 10*3 0.0-1.0 Automated eosinophil count 0.2 10*3/uL 0.0-0.3 Automated blood basophil count (count/volume) 0.1 10*3/uL 0.0-0.1 PT panel in platelet poor plasma by coagulation assay - 03/03/17 04:22 Prothrombin time (PT) in platelet poor plasma by coagulation assay 13.9 s 12.2-14.7 INR in platelet poor plasma or blood by coagulation assay 1.1 0.8-1.4 Activated partial thromboplastin time (aPTT) in platelet poor plasma bycoagulation assay - 03/03/17 04:22 Activated partial thromboplastin time (aPTT) in platelet poor plasma bycoagulation assay 27 s 24-35 Comprehensive metabolic panel - 03/03/17 04:22 Serum or plasma sodium measurement (moles/volume) 139 mmol/L 135-145 Serum or plasma potassium measurement (moles/volume) 3.7 mmol/L 3.6-5.0 Serum or plasma chloride measurement (moles/volume) 102 mmol/L 98-107 Carbon dioxide 25 mmol/L 21-32 Serum or plasma anion gap determination (moles/volume) 12 mmol/L 5-14 Serum or plasma urea nitrogen measurement (mass/volume) 21 mg/dL 7-18 Serum or plasma creatinine measurement (mass/volume) 1.09 mg/dL 0.60-1.30 Serum or plasma urea nitrogen/creatinine mass ratio 19 NRG Serum or plasma creatinine measurement with calculation of estimated glomerular filtration rate 50 NRG Serum or plasma glucose measurement (mass/volume) 106 mg/dL 70-105 Serum or plasma calcium measurement (mass/volume) 8.9 mg/dL 8.5-10.1 Serum or plasma total bilirubin measurement (mass/volume) 0.4 mg/dL 0.1-1.0 Serum or plasma alkaline phosphatase measurement (enzymatic activity/volume) 67 U/L 40-136 Serum or plasma aspartate aminotransferase measurement (enzymatic activity/ volume) 29 U/L 5-34 Serum or plasma alanine aminotransferase measurement (enzymatic activity/volume ) 24 U/L 0-55 Serum or plasma protein measurement (mass/volume) 7.6 g/dL 6.4-8.2 Serum or plasma albumin measurement (mass/volume) 3.8 g/dL 3.2-4.5 Magnesium - 03/03/17 04:22 Magnesium 2.2 mg/dL 1.8-2.4 Serum or plasma creatine kinase measurement (enzymatic activity/volume) - 03/03 04:22 Serum or plasma creatine kinase measurement (enzymatic activity/volume) 106 U/L 29-168 Serum or plasma creatine kinase MB measurement (enzymatic activity/volume) - 04:22 Serum or plasma creatine kinase MB measurement (enzymatic activity/volume) 1.6 ng/mL <6.6 Serum or plasma troponin i.cardiac measurement (mass/volume) - 03/03/17 04:22 Serum or plasma troponin i.cardiac measurement (mass/volume) < ng/ mL <0.30 Serum or plasma amylase measurement (enzymatic activity/volume) - 03/03/17 04: 22 Serum or plasma amylase measurement (enzymatic activity/volume) 30 U /L 25-125 Lipase - 03/03/17 04:22 Lipase 25 U/L 8-78 Serum or plasma lithium measurement (moles/volume) - 03/03/17 04:22 BNP level 19.4 pg/mL <100.0 Serum or plasma troponin i.cardiac measurement (mass/volume) - 03/03/17 10:29 Serum or plasma troponin i.cardiac measurement (mass/volume) < ng/ mL <0.30 Complete blood count (CBC) with automated white blood cell (WBC) differential - 03/04/17 04:30 Blood leukocytes automated count (number/volume) 5.7 10*3/uL 4.3-11.0 Blood erythrocytes automated count (number/volume) 4.39 10*6/uL 4.35-5.85 Venous blood hemoglobin measurement (mass/volume) 12.5 g/dL 11.5-16.0 Blood hematocrit (volume fraction) 40 % 35-52 Automated erythrocyte mean corpuscular volume 90 [foz_us] 80-99 Automated erythrocyte mean corpuscular hemoglobin (mass per erythrocyte) 29 pg 25-34 Automated erythrocyte mean corpuscular hemoglobin concentration measurement ( mass/volume) 32 g/dL 32-36 Automated erythrocyte distribution width ratio 14.0 % 10.0-14.5 Automated blood platelet count (count/volume) 259 10*3/uL 130-400 Automated blood platelet mean volume measurement 9.8 [foz_us] 7.4-10.4 Automated blood neutrophils/100 leukocytes 75 % 42-75 Automated blood lymphocytes/100 leukocytes 12 % 12-44 Blood monocytes/100 leukocytes 9 % 0-12 Automated blood eosinophils/100 leukocytes 4 % 0-10 Automated blood basophils/100 leukocytes 0 % 0-10 Blood neutrophils automated count (number/volume) 4.3 10*3 1.8-7.8 Blood lymphocytes automated count (number/volume) 0.7 10*3 1.0-4.0 Blood monocytes automated count (number/volume) 0.5 10*3 0.0-1.0 Automated eosinophil count 0.2 10*3/uL 0.0-0.3 Automated blood basophil count (count/volume) 0.0 10*3/uL 0.0-0.1 Comprehensive metabolic panel - 03/04/17 04:30 Serum or plasma sodium measurement (moles/volume) 138 mmol/L 135-145 Serum or plasma potassium measurement (moles/volume) 3.9 mmol/L 3.6-5.0 Serum or plasma chloride measurement (moles/volume) 101 mmol/L 98-107 Carbon dioxide 26 mmol/L 21-32 Serum or plasma anion gap determination (moles/volume) 11 mmol/L 5-14 Serum or plasma urea nitrogen measurement (mass/volume) 16 mg/dL 7-18 Serum or plasma creatinine measurement (mass/volume) 0.82 mg/dL 0.60-1.30 Serum or plasma urea nitrogen/creatinine mass ratio 20 NRG Serum or plasma creatinine measurement with calculation of estimated glomerular filtration rate > NRG Serum or plasma glucose measurement (mass/volume) 99 mg/dL 70-105 Serum or plasma calcium measurement (mass/volume) 8.7 mg/dL 8.5-10.1 Serum or plasma total bilirubin measurement (mass/volume) 0.4 mg/dL 0.1-1.0 Serum or plasma alkaline phosphatase measurement (enzymatic activity/volume) 63 U/L 40-136 Serum or plasma aspartate aminotransferase measurement (enzymatic activity/ volume) 30 U/L 5-34 Serum or plasma alanine aminotransferase measurement (enzymatic activity/volume ) 23 U/L 0-55 Serum or plasma protein measurement (mass/volume) 6.7 g/dL 6.4-8.2 Serum or plasma albumin measurement (mass/volume) 3.5 g/dL 3.2-4.5 Myoglobin, serum - 03/04/17 04:30 Myoglobin, serum 71.0 ng/mL 10.0-92.0 Lipid 1996 panel - 03/04/17 04:30 Serum or plasma triglyceride measurement (mass/volume) 82 mg/dL <150 Serum or plasma cholesterol measurement (mass/volume) 137 mg/dL < 200 Serum or plasma cholesterol in HDL measurement (mass/volume) 39 mg/ dL 40-60 Cholesterol in LDL [mass/volume] in serum or plasma by direct assay 79 mg/dL 1-129 Serum or plasma cholesterol in VLDL measurement (mass/volume) 16 mg/ dL 5-40 Complete blood count (CBC) with automated white blood cell (WBC) differential - 03/05/17 19:40 Blood leukocytes automated count (number/volume) 4.6 10*3/uL 4.3-11.0 Blood erythrocytes automated count (number/volume) 4.24 10*6/uL 4.35-5.85 Venous blood hemoglobin measurement (mass/volume) 12.2 g/dL 11.5-16.0 Blood hematocrit (volume fraction) 38 % 35-52 Automated erythrocyte mean corpuscular volume 89 [foz_us] 80-99 Automated erythrocyte mean corpuscular hemoglobin (mass per erythrocyte) 29 pg 25-34 Automated erythrocyte mean corpuscular hemoglobin concentration measurement ( mass/volume) 32 g/dL 32-36 Automated erythrocyte distribution width ratio 14.0 % 10.0-14.5 Automated blood platelet count (count/volume) 277 10*3/uL 130-400 Automated blood platelet mean volume measurement 9.8 [foz_us] 7.4-10.4 Automated blood neutrophils/100 leukocytes 62 % 42-75 Automated blood lymphocytes/100 leukocytes 24 % 12-44 Blood monocytes/100 leukocytes 12 % 0-12 Automated blood eosinophils/100 leukocytes 2 % 0-10 Automated blood basophils/100 leukocytes 0 % 0-10 Blood neutrophils automated count (number/volume) 2.8 10*3 1.8-7.8 Blood lymphocytes automated count (number/volume) 1.1 10*3 1.0-4.0 Blood monocytes automated count (number/volume) 0.5 10*3 0.0-1.0 Automated eosinophil count 0.1 10*3/uL 0.0-0.3 Automated blood basophil count (count/volume) 0.0 10*3/uL 0.0-0.1 Comprehensive metabolic panel - 03/05/17 19:40 Serum or plasma sodium measurement (moles/volume) 136 mmol/L 135-145 Serum or plasma potassium measurement (moles/volume) 3.2 mmol/L 3.6-5.0 Serum or plasma chloride measurement (moles/volume) 101 mmol/L 98-107 Carbon dioxide 26 mmol/L 21-32 Serum or plasma anion gap determination (moles/volume) 9 mmol/L 5-14 Serum or plasma urea nitrogen measurement (mass/volume) 12 mg/dL 7-18 Serum or plasma creatinine measurement (mass/volume) 0.91 mg/dL 0.60-1.30 Serum or plasma urea nitrogen/creatinine mass ratio 13 NRG Serum or plasma creatinine measurement with calculation of estimated glomerular filtration rate > NRG Serum or plasma glucose measurement (mass/volume) 125 mg/dL 70-105 Serum or plasma calcium measurement (mass/volume) 8.3 mg/dL 8.5-10.1 Serum or plasma total bilirubin measurement (mass/volume) 0.4 mg/dL 0.1-1.0 Serum or plasma alkaline phosphatase measurement (enzymatic activity/volume) 66 U/L 40-136 Serum or plasma aspartate aminotransferase measurement (enzymatic activity/ volume) 31 U/L 5-34 Serum or plasma alanine aminotransferase measurement (enzymatic activity/volume ) 23 U/L 0-55 Serum or plasma protein measurement (mass/volume) 7.0 g/dL 6.4-8.2 Serum or plasma albumin measurement (mass/volume) 3.6 g/dL 3.2-4.5 THYROID STIMULATING HORMONE - 03/05/17 19:40 THYROID STIMULATING HORMONE 5.52 u[iU]/mL 0.35-4.94 Serum or plasma thyroxine (T4) free measurement (mass/volume) - 03/05/17 19:40 Serum or plasma thyroxine (T4) free measurement (mass/volume) 0.92 ng/dL 0.70-1.48 Serum heterophile antibody titer - 03/05/17 19:40 Serum heterophile antibody titer NEGATIVE NEGATIVE Complete urinalysis with reflex to culture - 03/05/17 21:22 Urine color determination YELLOW NRG Urine clarity determination SLIGHTLY CLOUDY NRG Urine pH measurement by test strip 6.5 5-9 Specific gravity of urine by test strip 1.005 1.016- 1.022 Urine protein assay by test strip, semi-quantitative NEGATIVE NEGATIVE Urine glucose detection by automated test strip NEGATIVE NEGATIVE Erythrocytes detection in urine sediment by light microscopy 2+ NEGATIVE Urine ketones detection by automated test strip NEGATIVE NEGATIVE Urine nitrite detection by test strip POSITIVE NEGATIVE Urine total bilirubin detection by test strip NEGATIVE NEGATIVE Urine urobilinogen measurement by automated test strip (mass/volume) NORMAL NORMAL Urine leukocyte esterase detection by dipstick 1+ NEGATIVE Automated urine sediment erythrocyte count by microscopy (number/high power field) [HPF] NRG Automated urine sediment leukocyte count by microscopy (number/high power field ) [HPF] NRG Bacteria detection in urine sediment by light microscopy LARGE NRG Squamous epithelial cells detection in urine sediment by light microscopy 0-2 NRG Crystals detection in urine sediment by light microscopy NONE NRG Casts detection in urine sediment by light microscopy NONE NRG Mucus detection in urine sediment by light microscopy NEGATIVE NRG Complete urinalysis with reflex to culture YES NRG Bacterial urine culture - 03/05/17 21:22 Bacterial urine culture [id number] NRG COLONY COUNT 10,000/ML - 100,000/ML NRG FTX;REPORTABLE STUDIES TO FOLLOW NRG Encounters ACCT No. Visit Date/Time Discharge Status Pt. Type Provider Facility Loc./Unit Complaint [id number] 07/08/2014 14:27:00 07/08/2014 23:59:59 CLS Outpatient JULIAN GODINEZ APRN [id number] 04/27/2014 16:07:00 04/27/2014 23:59:59 CLS Outpatient JULIAN GODINEZ APRN [id number] 03/23/2014 15:16:00 03/23/2014 23:59:59 CLS Outpatient JULIAN GODINEZ APRN [id number] 01/17/2014 15:57:00 01/17/2014 23:59:59 CLS Outpatient JULIAN GODINEZ APRN [id number] 01/15/2014 10:16:00 01/15/2014 23:59:59 CLS Outpatient AFUA LAMB DO [id number] 11/02/2013 13:04:00 11/02/2013 23:59:59 CLS Outpatient JULIAN GODINEZ APRN [id number] 04/05/2013 08:48:00 04/05/2013 23:59:59 CLS Outpatient MAX TORRES APRN [id number] 10/30/2012 14:22:00 10/30/2012 23:59:59 CLS Outpatient JULIAN GODINEZ APRN [id number] 06/24/2012 08:16:00 06/24/2012 23:59:59 CLS Outpatient [id number] 06/17/2012 14:06:00 06/17/2012 23:59:59 CLS Outpatient [id number] 04/14/2012 16:35:00 04/14/2012 23:59:59 [place] [id number] 03/15/2011 09:42:00 03/15/2011 23:59:59 CLS Outpatient [id number] 03/03/2017 08:00:00 03/04/2017 17:25:00 DIS Outpatient ROBERT GRANDE DO [facility] CATH CHEST PAIN [id number] 02/03/2017 12:40:00 02/03/2017 16:04:00 DIS Emergency MARION SHERIDAN, VERN Salgado [facility] ER COUGH [id number] 09/28/2016 06:09:00 09/28/2016 08:40:00 DIS Emergency SEAN SHERIDAN, DOLLY Snider [facility] ER RT ARM PAIN,SOB,CAN'T SLEEP AT NIGHT [id number] 06/24/2016 12:48:00 06/24/2016 18:30:00 DIS Emergency HUNTER SHERIDAN, BRODY Way [facility] ER CHEST PAIN [id number] 09/29/2015 08:18:00 09/29/2015 15:00:00 DIS Outpatient THOMAS DPM, SADIA Q [facility] SDC LEFT FOOT HARDWARE FAILURE;HALLUS;HAMMERTOE [id number] 09/25/2015 13:05:00 09/25/2015 13:35:00 DIS Outpatient THOMAS DPM, SADIA Q [facility] PREOP LEFT FOOT HARDWARE FAILURE;HALLUX; HAMMERTOE [id number] 08/31/2015 13:03:00 08/31/2015 14:19:00 DIS Outpatient URI WILL MD [facility] REHAB L TKR [id number] 06/19/2015 14:41:00 06/19/2015 23:59:59 CLS Outpatient AFUA LAMB DO [facility] HH HYPOPOTASSEMIA, LOW CHLORIDE LEVEL [id number] 06/07/2015 07:30:00 06/12/2015 17:30:00 DIS Inpatient URI WILL MD [facility] 4TH LEFT KNEE SEVERE OSTEOARTHRITIS [id number] 05/31/2015 09:21:00 05/31/2015 10:45:00 DIS Outpatient NICOLETTE SHERIDAN, URI Shaver [facility] PREOP LEFT KNEE SEVERE OSTEOARTHRITIS [id number] 09/23/2014 11:23:00 09/23/2014 17:00:00 DIS Outpatient THOMAS MCCONNELLMSADIA Q [facility] SDC FRACTURED 5TH METATARSAL [id number] 09/15/2014 10:32:00 09/15/2014 23:59:59 CLS Outpatient NIRU GUZMAN DPMIN Q [facility] PREOP FRACTURED 5TH METATARSAL [id number] 07/04/2014 10:30:00 07/04/2014 12:30:00 DIS Emergency SADE DIMAS DO [facility] ER RIGHT LEG PAIN [id number] 03/05/2014 14:17:00 03/06/2014 12:20:00 DIS Inpatient JOSE MARTIN SHERIDAN, PASTORA Torres [facility] ICU CHEST PAIN [id number] 07/02/2013 14:32:00 07/02/2013 23:59:59 CLS Outpatient ALEXX REYNA DC [facility] RAD LUMBAGO [id number] 03/05/2017 19:00:00 ACT Emergency JEANETTE MARTINEZ APRN [facility] ER BACK PAIN [id number] 12/29/2011 10:00:00 Document Registration
== END 2017-03-05 22:22 | disposition home or self-care (01) ==
LOC: EDUNIT# 18:58 → ER 19:00
DX: N39.0 Urinary tract infection, site not specified (principal); R53.83 Other fatigue; E78.00 Pure hypercholesterolemia, unspecified; I10 Essential (primary) hypertension; K21.9 Gastro-esophageal reflux disease without esophagitis; E03.9 Hypothyroidism, unspecified; Z79.82 Long term (current) use of aspirin; Z87.891 Personal history of nicotine dependence; Z90.710 Acquired absence of both cervix and uterus
CPT/HCPCS: 36415; 71020; 80053; 81000; 84439; 84443; 85025; 86308; 87088; 87186; 96372; 99284

== ENCOUNTER 2018-01-02 10:15 | Emergency (ER) | payer MEDICARE ==
[~2018-01-02] VITALS: Ht 160 cm; Wt 104.3 kg
[~2018-01-02 10:15] MED LIST changes: -BENZ-13 PO; +BENZ100C18 PO; -OXYC-197 PO; +OXYC1TAB87 PO; +SULF1TAB35 PO
--- OUTSIDE RECORDS SUMMARY | 2018-01-02 10:49 | XMS REPORT ---
Author Author THOMAS SADIA Organization [facility] Address [address] [place] [address] Care Team Providers Care Bench Machine Operator Name Role Phone SADIA GUZMAN Unavailable PROBLEMS Type Condition ICD9-CM Code LJJ98-AI Code Onset Dates Condition Status SNOMED Code Problem Obesity (BMI 35.0-39.9 without comorbidity) E66.9 Active 353952804 Problem Essential hypertension I10 Active 31470921 Problem Elevated triglycerides with high cholesterol E78.2 Active 590571845 Problem Allergic rhinitis J30.9 Active 87182779 Problem Exposure to second hand smoke Z77.22 Active 95807136 Problem Other hammer toe(s) (acquired), right foot M20.41 Active 111886798 Problem Other hammer toe(s) (acquired), left foot M20.42 Active 28861379 Problem Acquired hallux valgus of left foot M20.12 Active 810275994706274 Problem Hallux valgus (acquired), right foot M20.11 Active 955728530 Problem Excessive daytime sleepiness G47.19 Active 774459873940 Problem Stasis dermatitis of both legs I87.2 Active 13449279 Problem Osteopenia of lumbar spine M85.88 Active 200196414 Problem Neuropathy G62.9 Active 697222293 Problem Anxiety F41.9 Active 02152749 Problem Acquired hypothyroidism E03.9 Active 710844533 ALLERGIES No Information ENCOUNTERS Encounter Location Date Diagnosis [facility] [address] [facility] [id number] [address] Feb, [facility] [address], [place] [address] Jan, 2018 [facility] [id number], [place] [address] 14 Dec, 2017 Cough R05 ; Allergic rhinitis J30.9 ; Cerumen impaction H61.20 ; Exposure to second hand smoke Z77.22 and BMI 40.0-44.9, adult Z68.41 [address] [address] [id number] [place] [address] Nov, Onychomycosis B35.1 ; Neuropathy G62.9 ; Other hammer toe(s ) (acquired), left foot M20.42 ; Other hammer toe(s) (acquired), right foot M20.41 ; Acquired hallux valgus of left foot M20.12 and Hallux valgus (acquired) , right foot M20.11 [place] [id number] [place] [address]239- [address]647 Aug, [address] [address] Aug, Onychomycosis B35.1 and Neuropathy G62.[address] [address] Aug, Medicare annual wellness visit, initial Z00.00 [place] [id number] [place] [address]47[address] July, [address] [address] July, Essential hypertension I10 ; Elevated triglycerides with high cholesterol E78.2 ; Elevated glucose R73.09 ; Acquired hypothyroidism E03.9 ; Obesity (BMI 35.0-39.9 without comorbidity) E66.9 ; Bilateral leg edema R60.0 and Left ear impacted cerumen H61.22 [place] [id number] [place] [address]79- 8615 Jun, [address] [address] May, Hypothyroidism (acquired) E03.9 and Stasis dermatitis of both legs I87.2 [place] [id number] [place] [address]27- 9045 May, Hypothyroidism (acquired) E03.9 [facility] [address] [place] [address] 90575- 42[address] 16 May, 2017 Medicare annual wellness visit, initial Z00.00 [facility] [id number] [place] [address] 05104- 7604 16 May, 2017 Stasis dermatitis of both legs I87.2 and Onychomycosis B35.1 [place] [id number] [place] [address] 14999- 5018 02 Mar, 2017 Hypothyroidism (acquired) E03.9 [place] [id number] [place] [address] 57[address]- 8346 Feb, Wheezing R06.2 and Hypothyroidism (acquired) E03.9 [place] [id number] [place] [address] 59362- 6046 17 Dec, 2016 Encounter for immunization Z23 [place] [address] [address] 14 Oct, 2016 Excessive daytime sleepiness G47.19 [place] [id number] [place] [address] 95932- 0827 17 Sep, 2016 Chest pain in adult R07.9 ; SOB (shortness of breath) R06.02 and Anxiety F41.9 [place] [id number] [place] [address] 95417- 9518 17 Sep, 2016 [place] [id number] [place] [address] 08157- 5293 May, Medicare annual wellness visit, initial Z00.00 [place] [id number] [place] [address] 44724- 0580 13 May, 2016 Medicare annual wellness visit, initial Z00.00 [place] [id number] [place] [address] 15082- 8716 Feb, Hypothyroidism (acquired) E03.9 [place] [id number] [place] [address] 10781- 9301 Oct, Hypothyroidism (acquired) E03.9 [facility] [id number] [place] [address] 44236- 2268 Oct, Hypothyroidism (acquired) E03.9 [facility] [id number] [place] [address] 39094- 4434 Sep, Hypertension, benign I10 and Hypothyroidism (acquired) E03.9 [facility] [address] [address]68- [address]66 Sep, Pre-op evaluation Z01.818 ; Hypertension, benign I10 and Hypothyroidism (acquired) E03.9 [facility] [address] [address]47- [address] May, [place] [address] [address]- [address] May, [facility] [address] [address]- [address] May, Preoperative clearance Z01.818 [facility] [id number] [place] [address] 22452- 4854 Apr, Hypertension, benign I10 and Hypothyroidism (acquired) E03.9 [facility] [id number] [place] [address] 40958- 2750 Apr, Hypertension, benign I10 ; Hypothyroidism (acquired) E03.9 and Gastritis K29.70 [facility] [id number] [place] [address] 00597- 7721 Mar, [facility] [id number] [place] [address] 07095- 4758 Feb, [place] [address] [address]- [address] Jan, Primary osteoarthritis of left knee M17.12 [facility] [id number] [place] [address] 33797- 9325 Dec, Left knee pain M25.562 [facility] [address], [place] [address] Dec, Left knee pain M25.562 [facility] [address] [place] [address] 44838- 8260 Dec, Encounter for immunization Z23 [facility] [id number] [place] [address] 04975- 0815 Sep, Pre-op evaluation V72.84 and Fracture of 5th metatarsal 825.25 [facility] [address], [place] [address] Aug, [facility] [id number] [place] [address] 00010- 4566 Aug, [facility] [id number] [place] [address] 01284- 2043 July, Metatarsal bone fracture 825.25 ; Hallux valgus 735.0 ; 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 ; Hammertoe 735.4 and Onychomycosis 110.1 [facility] [address], [place] [address] Jun, [facility] [address], [place] [address] Jun, [facility] [address], [place] [address] May, [facility] [address], [place] [address] May, [facility] [address], [place] [address]- 3992 Apr, [facility] [address], [place] [address]- [address] Apr, [facility] [address], [place] [address]- [address] Mar, [facility] [place] [facility] [address] [id number] [place] [address]- 8739 Mar, [facility] [place] [facility] [address] [id number] [place] [address]- 4243 Mar, [facility] [place] [facility] [address] [id number] [place] [address]- 9102 Mar, [facility] [place] [facility] [address] [id number] [place] [address]- 1251 Jan, [facility] [place] [facility] [address] [id number] [place] [address]- 3769 Jan, [facility] [place] [facility] [address] [id number] [place] [address]- 7798 Jan, [facility] [place] [facility] [address] [id number] [place] [address]- 0966 Jan, [facility] [place] [facility] [address] [id number] [place] [address]- 2775 Dec, [facility] [place] [facility] [address] [id number] [place] [address]- 8322 Dec, [facility] [place] [facility] [address] [id number] [place] [address]- 2844 Nov, [facility] [place] [facility] [address] [id number] [place] [address]- 6090 Nov, [facility] [place] [facility] [address] [id number] [place] [address]- 3116 Oct, [facility] [place] [facility] [address] [id number] [place] [address]- 0331 Oct, [facility] [place] [facility] [address] [id number] [place] [address]- 3061 Oct, [facility] [place] [facility] [address] [id number] [place] [address]- 0499 Oct, [facility] [place] [facility] [address] [id number] [place] [address]- 8675 Aug, [facility] [place] [facility] [address] [id number] [place] [address]- 8950 Aug, [facility] [place] [facility] [address] [id number] [place] [address]- 3545 July, [facility] [place] [facility] [address] [id number] [place] [address]- 9269 July, [facility] [place] [facility] [address] [id number] [place] [address]- 2222 Jun, [facility] [place] [facility] [address] [id number] [place] [address]- 4463 Jun, [facility] [place] [facility] [address] [id number] [place] [address]- 6275 Jun, [facility] [place] [facility] [address] [id number] [place] [address]- 6752 Mar, [facility] [place] [facility] [address] [id number] [place] [address]- 9617 Mar, [facility] [place] [facility] [address] [id number] [place] [address]- 5683 Mar, [facility] [place] [facility] [address] [id number] [place] [address]- 6891 Mar, [facility] [place] [facility] [address] [id number], [place] [address]- 7841 Mar, [facility] [place] [facility] [address] [id number], [place] [address]- 6664 Dec, [facility] [place] [facility] [address] [id number] [place] [address]- 6890 Dec, [facility] [place] [facility] [address] [id number] [place] [address]- 0067 Oct, [facility] [place] [facility] [address] [id number] [place] [address]- 6239 Oct, [facility] [place] [facility] [address] [id number] [place] [address]- 0299 10 Jun, 2012 [facility] [place] [facility] [address] [id number] [place] [address]- 7280 Jun, [facility] [place] [facility] [address] [id number] [place] [address]- 7870 May, [facility] [place] [facility] [address] [id number] [place] [address]- 6862 May, [facility] [place] [facility] [address] [id number] [place] [address]- 4016 Apr, [facility] [place] [facility] [address] [id number] [place] [address]- 7883 Apr, [facility] [place] [facility] [address] [id number] [place] [address]- 5439 Mar, [facility] [place] [facility] [address] [id number] [place] [address]- 8252 Dec, [facility] [place] [facility] [address] [id number] [place] [address]- 6598 Dec, [facility] [place] [facility] [address] [id number] [place] [address]- 9078 Dec, [facility] [place] [facility] [address] [id number] [place] [address]- 5945 Dec, [facility] [place] [facility] [address] [id number] [place] [address]- 1563 Oct, [facility] [place] [facility] [address] [id number] [place] [address]- 0539 Jun, [facility] [place] [facility] [address] [id number] [place] [address]- 8177 Feb, [facility] [place] [facility] [address] [id number] [place] [address]- 2546 Jan, [facility] [place] [facility] [address] [id number] [place] [address]- 9268 Jan, [facility] [address] [facility] [id number], [place] [address]- 3211 Feb, [facility] [address] [facility] [id number], [place] [address]- 6425 Jun, [facility] [address] [facility] [id number], [place] [address]- 3476 Feb, [facility] [address] [facility] [id number], [place] [address]- 4325 Sep, [facility] [address] [facility] [id number], [place] [address]- 9343 Jun, IMMUNIZATIONS No Known Immunizations SOCIAL HISTORY Never Assessed REASON FOR VISIT 3 month f/u - RUDY Matson PLAN OF CARE Activity Details Follow Up prn Reason: VITAL SIGNS Height 63 in 2017-12-05 Blood pressure systolic 118 mmHg 2017-12-05 Blood pressure diastolic 80 mmHg 2017-12-05 MEDICATIONS Unknown Medications RESULTS No Results PROCEDURES Procedure Date Ordered Result Body Site [facility] VISIT ESTABLISHED PATIENT Dec 05, 2017 INSTRUCTIONS MEDICATIONS ADMINISTERED No Known Medications MEDICAL (GENERAL) HISTORY Type Description Date Medical History Hypothyroidism Medical History Osteoarthritis (knee) Medical History Hypertension Medical History GERD Surgical History hysterectomy - LIZBETH/BSO for AUB ([facility]quin) 2000 Surgical History section x 2 Surgical History R eye surgery Surgical History Fractured left foot - plate placed (Thomas) then removed Surgical History left knee replacement (Zashyanneta) 05/2015 Surgical History Tonsillectomy Hospitalization History surgeries Hospitalization History cough - [facility] ED visit 02/03/17 Hospitalization History cough and chest pain - [facility] inpatient admit. Discharged 03/04/17. 03/03/17 Hospitalization History back pain - [facility] ED visit 03/05/17
--- OUTSIDE RECORDS SUMMARY | 2018-01-02 10:50 | XMS REPORT ---
Author Author SADIA GUZMAN Organization [facility] Address [address] [place] [address] Care Team Providers Care Compound Machine Operator Name Role Phone SADIA GUZMAN Unavailable PROBLEMS Type Condition ICD9-CM Code UNT35-KZ Code Onset Dates Condition Status SNOMED Code Problem Osteopenia of lumbar spine M85.88 Active 279071981 Problem Excessive daytime sleepiness G47.19 Active 859899775255 Problem Anxiety F41.9 Active 70108739 Problem Acquired hypothyroidism E03.9 Active 993285017 Problem Essential hypertension I10 Active 75604524 Problem Neuropathy G62.9 Active 783067793 Problem Stasis dermatitis of both legs I87.2 Active 34319591 Problem Elevated triglycerides with high cholesterol E78.2 Active 959144031 Problem Obesity (BMI 35.0-39.9 without comorbidity) E66.9 Active [id number] ALLERGIES No Information ENCOUNTERS Encounter Location Date Diagnosis [place] [id number] [address] Nov, [facility] [address] [place] [id number] [place] [address] Aug, [facility] [id number] [place] [address]- 0078 Aug, Onychomycosis B35.1 and Neuropathy G62.9 [facility] [id number] [place] [address]- 1678 Aug, Medicare annual wellness visit, initial Z00.00 [place] [address] [address] July, [facility] [id number] [place] [address]62- 77[address] July, Essential hypertension I10 ; Elevated triglycerides with high cholesterol E78.2 ; Elevated glucose R73.09 ; Acquired hypothyroidism E03.9 ; Obesity (BMI 35.0-39.9 without comorbidity) E66.9 ; Bilateral leg edema R60.0 and Left ear impacted cerumen H61.22 [place] [address] [id number] [place] [address]- [address] 02 Jun, 2017 [place] [address] [address] 28 May, 2017 Hypothyroidism (acquired) E03.9 and Stasis dermatitis of both legs I87.2 [place] [address] [address]- [address] 16 May, 2017 Hypothyroidism (acquired) E03.9 [place] [address] [address]- [address] May, Medicare annual wellness visit, initial Z00.00 [place] [address] [address]- [address] May, Stasis dermatitis of both legs I87.2 and Onychomycosis B35.1 [place] [address] [address]- [address]151 Mar, Hypothyroidism (acquired) E03.9 [place] [address] [place] [id number] [place] [address]33- 0979 Feb, Wheezing R06.2 and Hypothyroidism (acquired) E03.9 [place] [address] [address]- [address] 17 Dec, 2016 Encounter for immunization Z23 [place] [address] [address]- [address] 14 Oct, 2016 Excessive daytime sleepiness G47.19 [place] [address] 6[address]- [address] 17 Sep, 2016 Chest pain in adult R07.9 ; SOB (shortness of breath) R06.02 and Anxiety F41.9 [place] [address] [place] [address] [address] 17 Sep, 2016 [facility] [address] [address] May, Medicare annual wellness visit, initial Z00.00 [facility] [address] [address] 13 May, 2016 Medicare annual wellness visit, initial Z00.00 [facility] [id number] [place] [address]27- 8408 12 Feb, 2016 Hypothyroidism (acquired) E03.9 [facility] [id number] [place] [address] 10022- 3206 15 Oct, 2015 Hypothyroidism (acquired) E03.9 [facility] [id number] [address] Oct, Hypothyroidism (acquired) E03.9 [facility] [address] [place] [address] 22412- 4533 Sep, Hypertension, benign I10 and Hypothyroidism (acquired) E03.9 [facility] [id number] [place] [address] 01548- 4608 Sep, Pre-op evaluation Z01.818 ; Hypertension, benign I10 and Hypothyroidism (acquired) E03.9 [facility] [address] [address] May, [facility] [address] [place] [address] May, [facility] [address] [address] 267[address] May, Preoperative clearance Z01.818 [facility] [address] [place] [address] 22772- 3909 Apr, Hypertension, benign I10 and Hypothyroidism (acquired) E03.9 [facility] [address] [place] [address] 14479- 5274 Apr, Hypertension, benign I10 ; Hypothyroidism (acquired) E03.9 and Gastritis K29.[address] [address]- [address] Mar, [place] [address] [place] [id number] [place] [address] 17789- 7581 Feb, [place] [address] 47797- 5[address] Jan, Primary osteoarthritis of left knee M17.[address] 7[address]- 0407 Dec, Left knee pain M25.562 [place] [address] [address]- 3093 Dec, Left knee pain M25.[address] 27[address]- [address] Dec, Encounter for immunization Z23 [address] [address]- [address] Sep, Pre-op evaluation V72.84 and Fracture of 5th metatarsal 825.25 [place] [id number] [place] [address] 42199- 7879 Aug, [address] 26[address]- 82[address] Aug, [place] [address] [address]- [address] July, Metatarsal bone fracture 825.25 ; Hallux valgus 735.0 ; 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 ; Hammertoe 735.4 and Onychomycosis 110.1 [place] [address] [id number] [place] [address]43- 0622 Jun, [address] [address]- [address] Jun, [facility] [place] [facility] [address] [id number] [place] [address]- 1620 May, [facility] [place] [facility] [address] [id number] [place] [address]- 0654 May, [facility] [place] [facility] [address] [id number] [place] [address]- 8154 Apr, [facility] [place] [facility] [address] [id number] [place] [address]- 9574 Apr, [facility] [place] [facility] [address] [id number] [place] [address] Mar, [facility] [place] [facility] [address] [id number] [place] [address]- 4061 Mar, [facility] [place] [facility] [address] [id number] [place] [address]- 2573 Mar, [facility] [place] [facility] [address] [id number], [place] [address] 3468 Mar, [facility] [place] [facility] [address] [id number] [place] [address]- 3055 Jan, [facility] [place] [facility] [address] [id number], [place] [address]- 5229 Jan, [facility] [place] [facility] [address] [id number], [place] [address]- 9859 Jan, [facility] [place] [facility] [address] [id number], [place] [address]- 9[address] Jan, [facility] [place] [facility] [address] [id number] [place] [address]- 8764 Dec, [facility] [place] [facility] [address] [id number] [place] [address]- 6653 Dec, [facility] [place] [facility] [address] [id number] [place] [address]- 0213 Nov, [facility] [place] [facility] [address] [id number] [place] [address]- 0042 Nov, [facility] [place] [facility] [address] [id number] [place] [address]- 6896 Oct, [facility] [place] [facility] [address] [id number] [place] [address]- 8425 Oct, [facility] [place] [facility] [address] [id number] [place] [address]- 7199 Oct, [facility] [place] [facility] [address] [id number] [place] [address]- 7680 Oct, [facility] [place] [facility] [address] [id number] [place] [address]- 5168 Aug, [facility] [place] [facility] [address] [id number] [place] [address]- 9660 Aug, [facility] [place] [facility] [address] [id number] [place] [address]- 1623 July, [facility] [place] [facility] [address] [id number] [place] [address]- 0666 July, [facility] [place] [facility] [address] [id number] [place] [address]- 1887 Jun, [facility] [place] [facility] [address] [id number] [place] [address]- 6391 Jun, [facility] [place] [facility] [address] [id number] [place] [address]- 8706 Jun, [facility] [place] [facility] [address] [id number], [place] [address]- 5687 Mar, [facility] [place] [facility] [address] [id number] [place] [address]- 4922 Mar, [facility] [place] [facility] [address] [id number] [place] [address]- 3058 Mar, [facility] [place] [facility] [address] [id number] [place] [address]- 4777 Mar, [facility] [place] [facility] [address] [id number] [place] [address]- 4330 Mar, [facility] [place] [facility] [address] [id number] [place] [address]- 0612 Dec, [facility] [place] [facility] [address] [id number] [place] [address]- 4644 Dec, [facility] [place] [facility] [address] [id number] [place] [address]- 3998 Oct, [facility] [place] [facility] [address] [id number] [place] [address]- 1133 Oct, [facility] [place] [facility] [address] [id number] [place] [address]- 5317 Jun, [facility] [place] [facility] [address] [id number] [place] [address]- 7812 Jun, [facility] [place] [facility] [address] [id number] [place] [address]- 7319 May, [facility] [place] [facility] [address] [id number] [place] [address]- 6871 May, [facility] [place] [facility] [address] [id number] [place] [address]- 0644 Apr, [facility] [place] [facility] [address] [id number] [place] [address]- 4426 Apr, [facility] [place] [facility] [address] [id number] [place] [address]- 7035 Mar, [facility] [place] [facility] [address] [id number] [place] [address]- 9539 Dec, [facility] [place] [facility] [address] [id number] [place] [address]- 4726 Dec, [facility] [place] [facility] [address] [id number] [place] [address]- 7288 Dec, [facility] [place] [facility] [address] [id number], [place] [address]- 5806 Dec, [facility] [id number] [address]- 2055 Oct, [facility] [address], [place] [address] 2546 Jun, [facility] [address] [place] [address]- 6516 Feb, [facility] [address] [place] [address]- 2546 Jan, [facility] [address], [place] [address]- 5[address] Jan, [facility] [address], [place] [address]- 4016 Feb, [facility] [address] [place] [address]- 3626 Jun, [facility] [address], [place] [address]- 7709 Feb, [facility] [address], [place] [address]- 2908 Sep, [facility] [id number] [address]- 1409 Jun, IMMUNIZATIONS No Known Immunizations SOCIAL HISTORY Never Assessed REASON FOR VISIT Onychomycosis, left foot pain with swelling-Bharat GRANT PLAN OF CARE Activity Details Follow Up 3 Months Reason: VITAL SIGNS Height 63 in 2017-08-29 Blood pressure systolic 132 mmHg 2017-08-29 Blood pressure diastolic 90 mmHg 2017-08-29 MEDICATIONS Medication Instructions Dosage Frequency Start Date End Date Duration Status Triamcinolone & Emollient 0.1 % Active Omeprazole 40 mg 1 capsule 24h Mar, Not-Taking Levothyroxine Sodium 75 mcg Orally Once a day 1 tablet 24h Sep, Active Hydrochlorothiazide 25 mg Orally Once a day 1 tablet in the morning 24h Active RESULTS No Results PROCEDURES Procedure Date Ordered Result Body Site DEBRIDE NAIL, 6 OR MORE August 29, 2017 [facility] VISIT ESTABLISHED PATIENT August 29, 2017 INSTRUCTIONS MEDICATIONS ADMINISTERED No Known Medications MEDICAL (GENERAL) HISTORY Type Description Date Medical History Hypothyroidism Medical History Osteoarthritis (knee) Medical History Hypertension Medical History GERD Surgical History hysterectomy - LIZBETH/BSO for AUB ([facility]) 2000 Surgical History section x 2 Surgical History R eye surgery Surgical History Fractured left foot - plate placed (Mika) then removed Surgical History left knee replacement (Branden) 05/2015 Surgical History Tonsillectomy Hospitalization History surgeries
--- OUTSIDE RECORDS SUMMARY | 2018-01-02 10:50 | XMS REPORT ---
Author Author POLINA MENA Organization [facility] Address [address] [place] [address] Care Team Providers Care Guest Services Associate Name Role Phone POLINA MENA Unavailable PROBLEMS Type Condition ICD9-CM Code [id number] Code Onset Dates Condition Status SNOMED Code Problem Osteopenia of lumbar spine M85.88 Active 990019080 Problem Excessive daytime sleepiness G47.19 Active 506899955040 Problem Anxiety F41.9 Active 50307886 Problem Acquired hypothyroidism E03.9 Active 632811071 Problem Essential hypertension I10 Active 31477185 Problem Neuropathy G62.9 Active 918610505 Problem Stasis dermatitis of both legs I87.2 Active 64263196 Problem Elevated triglycerides with high cholesterol E78.2 Active 772432816 Problem Obesity (BMI 35.0-39.9 without comorbidity) E66.9 Active 055319088 ALLERGIES No Known Allergies ENCOUNTERS Encounter Location Date Diagnosis [place] [id number] [place] [address] 91170- 2064 Nov, [place] [id number] [place] [address] 82521- 3630 Aug, [place] [address] [place] [address] 58116- 2831 Aug, Onychomycosis B35.1 and Neuropathy G62.9 [facility] [address] [place] [address] 09768- 0673 Aug, Medicare annual wellness visit, initial Z00.00 [facility] [address] [place] [address] 59469- 7148 July, [facility] [address] [place] [address] 05509- 9832 July, Essential hypertension I10 ; Elevated triglycerides with high cholesterol E78.2 ; Elevated glucose R73.09 ; Acquired hypothyroidism E03.9 ; Obesity (BMI 35.0-39.9 without comorbidity) E66.9 ; Bilateral leg edema R60.0 and Left ear impacted cerumen H61.22 [place] [address] [place] [id number] [place] [address] 35928- 8958 02 Jun, 2017 [place] [address] 73284- 0352 28 May, 2017 Hypothyroidism (acquired) E03.9 and Stasis dermatitis of both legs I87.2 [place] [address] 76415- 6518 May, Hypothyroidism (acquired) E03.9 [place] [address] [place] [id number] [place] [address] 39439- 6775 16 May, 2017 Medicare annual wellness visit, initial Z00.00 [place] [address] 44630- 7607 May, Stasis dermatitis of both legs I87.2 and Onychomycosis B35.1 [place] [address] [place] [id number] [place] [address] 92727- 3205 02 Mar, 2017 Hypothyroidism (acquired) E03.9 [place] [address] [place] [id number] [place] [address] 20938- 3337 Feb, Wheezing R06.2 and Hypothyroidism (acquired) E03.9 [place] [address] [place] [id number] [place] [address] 23208- 3633 17 Dec, 2016 Encounter for immunization Z23 [place] [address] 26814- 2768 14 Oct, 2016 Excessive daytime sleepiness G47.19 [place] [address] [place] [id number] [place] [address] 77036- 8635 17 Sep, 2016 Chest pain in adult R07.9 ; SOB (shortness of breath) R06.02 and Anxiety F41.9 [place] [address] [address]- 4324 17 Sep, 2016 [facility] [address] [place] [address] 80097- 0325 May, Medicare annual wellness visit, initial Z00.00 [facility] [address] [address]- 8870 13 May, 2016 Medicare annual wellness visit, initial Z00.00 [facility] [address] [place] [id number] [place] [address] 97909- 6847 12 Feb, 2016 Hypothyroidism (acquired) E03.9 [facility] [address] [place] [id number] [place] [address] 57309- 3674 15 Oct, 2015 Hypothyroidism (acquired) E03.9 [facility] [address] [place] [address] [id number] [place] [address] 49153- 7642 Oct, Hypothyroidism (acquired) E03.9 [facility] [address] [place] [address] [id number] [place] [address] 26388- 1141 Sep, Hypertension, benign I10 and Hypothyroidism (acquired) E03.9 [facility] [address] [place] [address] 07822- 0553 Sep, Pre-op evaluation Z01.818 ; Hypertension, benign I10 and Hypothyroidism (acquired) E03.9 [facility] [address] [address]- 6396 May, [facility] [address] [place] [id number] [address]- 1898 May, [facility] [address] [place] [address] 56554- 9612 May, Preoperative clearance Z01.818 [facility] [address] [place] [address] 88658- 3273 Apr, Hypertension, benign I10 and Hypothyroidism (acquired) E03.9 [facility] [address] [place] [id number] [place] [address] 91212- 3418 Apr, Hypertension, benign I10 ; Hypothyroidism (acquired) E03.9 and Gastritis K29.70 [place] [address] [place] [id number] [place] [address] 67350- 0913 Mar, [place] [address] [place] [id number] [place] [address] 94151- 5355 Feb, [place] [address] 30933- 1228 Jan, Primary osteoarthritis of left knee M17.12 [place] [id number] [place] [address] 81550- 1898 Dec, Left knee pain M25.562 [place] [id number] [place] [address] 54145- 2410 Dec, Left knee pain M25.[address] 36715- 0969 Dec, Encounter for immunization Z23 [place] [id number] [place] [address] 59949- 7848 Sep, Pre-op evaluation V72.84 and Fracture of 5th metatarsal 825.25 [place] [id number] [place] [address] 57085- 5114 Aug, [place] [id number] [place] [address] 79183- 7224 Aug, [place] [id number] [place] [address] 23960- 9145 July, Metatarsal bone fracture 825.25 ; Hallux valgus 735.0 ; 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 ; Hammertoe 735.4 and Onychomycosis 110.1 [place] [address] [place] [id number] [place] [address] 50077- 4855 14 Jun, [address] 89415- 4747 Jun, [facility] [place] [facility] [address] [id number] [place] [address]- 3793 May, [facility] [place] [facility] [address] [id number] [place] [address]- 5496 May, [facility] [place] [facility] [address] [facility] [id number] [place] [address]- 2402 Apr, [facility] [place] [facility] [address] [id number] [place] [address]- 2533 Apr, [facility] [place] [facility] [address] [id number] [place] [address]- 5592 Mar, [facility] [place] [facility] [address] [id number] [place] [address]- 6276 Mar, [facility] [place] [facility] [address] [id number] [place] [address]- 6478 Mar, [facility] [place] [facility] [address] [id number] [address]- 5131 Mar, [facility] [place] [facility] [address] [id number] [place] [address]- 8323 Jan, [facility] [place] [facility] [address] [id number] [place] [address]- 0351 Jan, [facility] [place] [facility] [address] [id number], [place] [address]- 0918 Jan, [facility] [place] [facility] [address] [id number] [address]- 0724 Jan, [facility] [place] [facility] [address] [id number] [address]- 6868 Dec, [facility] [place] [facility] [address] [facility] [id number] [address]- 9534 Dec, [facility] [place] [facility] [address] [facility] [id number][place] [address]- 4375 Nov, [facility] [place] [facility] [address] [id number] [place] [address]- 4430 Nov, [facility] [address] [id number] [place] [address]- 4174 Oct, [facility] [address] [id number] [place] [address]- 1203 Oct, [facility] [address] [id number] [place] [address]- 6208 Oct, [facility] [address] [id number] [place] [address]- 6613 Oct, [facility] [address] [id number] [place] [address]- 9437 Aug, [facility] [address] [id number] [place] [address]- 0969 Aug, [facility] [address] [id number] [place] [address]- 7667 July, [facility] [address] [id number] [place] [address]- 5621 July, [facility] [address] [id number] [place] [address]- 1981 Jun, [facility] [address] [id number] [place] [address]- 8494 Jun, [facility] [place] [facility] [address] [id number] [place] [address]- 3162 Jun, [facility] [place] [facility] [address] [id number] [place] [address]- 9765 Mar, [facility] [place] [facility] [address] [id number] [place] [address]- 1437 Mar, [facility] [place] [facility] [address] [id number] [place] [address]- 5083 Mar, [facility] [place] [facility] [address] [id number] [place] [address]- 8988 Mar, [facility] [place] [facility] [address] [id number] [place] [address]- 6507 Mar, [facility] [place] [facility] [address] [id number] [place] [address]- 0322 Dec, [facility] [place] [facility] [address] [id number] [place] [address]- 1825 Dec, [facility] [place] [facility] [address] [id number] [place] [address]- 5109 Oct, [facility] [place] [facility] [address] [id number] [place] [address]- 2658 Oct, [facility] [place] [facility] [address] [id number] [place] [address]- 4318 Jun, [facility] [place] [facility] [address] [id number] [place] [address]- 5055 Jun, [facility] [place] [facility] [address] [id number] [place] [address]- 1924 May, [facility] [place] [facility] [address] [id number] [place] [address]- 2402 May, [facility] [place] [facility] [address] [id number] [place] [address]- 3637 Apr, [facility] [place] [facility] [address] [id number] [place] [address]- 6069 Apr, [facility] [place] [facility] [address] [id number] [address]- 8454 Mar, [facility] [place] [facility] [address] [id number] [place] [address]- 9672 Dec, [facility] [place] [facility] [address] [id number] [place] [address]- 6017 Dec, [facility] [place] [facility] [address] [id number][place] [address]- 2648 Dec, [facility] [place] [facility] [address] [id number] [address]- 2542 Dec, [facility] [address] [address]- 3444 Oct, [facility] [address] [address]- 9547 Jun, [facility] [address] [address]- 5166 Feb, [facility] [address] [place] [id number] [place] [address] 37252- 1043 Jan, [facility] [address] [place] [address] 32455- 4394 Jan, [facility] [address] [place] [id number] [place] [address] 47431- 8277 Feb, [facility] [address] [place] [id number] [place] [address] 24416- 7981 Jun, [facility] [address] [address]- 3787 Feb, [facility] [address] [address]- 9993 Sep, [facility] [address] [address]- 7265 Jun, IMMUNIZATIONS No Known Immunizations SOCIAL HISTORY Never Assessed REASON FOR VISIT Physical-RUDY Miner PLAN OF CARE Activity Details Follow Up annually for preventive care, sooner for chronic health maintenance Reason: VITAL SIGNS Height 63 in 2017-08-29 Weight 226.2 lbs 2017-08-29 Temperature 97.8 degrees Fahrenheit 2017-08-29 Heart Rate 88 bpm 2017-08-29 Respiratory Rate 20 2017-08-29 BMI 40.07 kg/m2 2017-08-29 Blood pressure systolic 112 mmHg 2017-08-29 Blood pressure diastolic 78 mmHg 2017-08-29 MEDICATIONS Medication Instructions Dosage Frequency Start Date End Date Duration Status Triamcinolone & Emollient 0.1 % Active Omeprazole 40 mg 1 capsule 24h Mar, Active Levothyroxine Sodium 75 mcg Orally Once a day 1 tablet 24h Sep, Active Hydrochlorothiazide 25 mg Orally Once a day 1 tablet in the morning 24h Active RESULTS Name Result Date Reference Range Mammogram, Bilateral Screening 2017-09-11 Bone Density 2017-09-11 PROCEDURES Procedure Date Ordered Result Body Site INIT PREV PE LTD DUR 1ST 12 MOS MCR August 29, 2017 ANNUAL WELLNES VST; PERSNL PPS INIT August 29, 2017 [facility] VISIT ESTABLISHED PATIENT August 29, 2017 ANNUAL WELLNESS VST; PPS SUBSQT VST August 29, 2017 INSTRUCTIONS MEDICATIONS ADMINISTERED No [...]
--- OUTSIDE RECORDS SUMMARY | 2018-01-02 10:50 | XMS REPORT ---
Author Author IAN LEAL Organization [facility] Address [address] [place] [address] Care Team Providers Care Logistics Engineer Name Role Phone IAN LEAL Unavailable PROBLEMS Type Condition ICD9-CM Code [id number] Code Onset Dates Condition Status SNOMED Code Problem Osteopenia of lumbar spine M85.88 Active 653431619 Problem Excessive daytime sleepiness G47.19 Active 938504193805 Problem Anxiety F41.9 Active 72049759 Problem Acquired hypothyroidism E03.9 Active 425588809 Problem Essential hypertension I10 Active 29334333 Problem Neuropathy G62.9 Active 008318549 Problem Stasis dermatitis of both legs I87.2 Active 04323941 Problem Elevated triglycerides with high cholesterol E78.2 Active 057466584 Problem Obesity (BMI 35.0-39.9 without comorbidity) E66.9 Active 704914287 ALLERGIES No Information ENCOUNTERS Encounter Location Date Diagnosis [place] [address] [place] [id number] [place] [address] 02711- 9103 Nov, [facility] [address] [place] [id number] [place] [address] 59878- 5918 Aug, [facility] [address] [place] [id number] [place] [address] 21755- 9629 Aug, Onychomycosis B35.1 and Neuropathy G62.9 [facility] [address] [place] [id number] [place] [address] 41105- 1841 Aug, Medicare annual wellness visit, initial Z00.00 [facility] [address] 86627- 9360 July, [facility] [address] [place] [id number] [place] [address] 08830- 4460 July, Essential hypertension I10 ; Elevated triglycerides with high cholesterol E78.2 ; Elevated glucose R73.09 ; Acquired hypothyroidism E03.9 ; Obesity (BMI 35.0-39.9 without comorbidity) E66.9 ; Bilateral leg edema R60.0 and Left ear impacted cerumen H61.22 [place] [address] [place] [id number] [place] [address] 03781- 7981 02 Jun, 2017 [place] [address] 16340- 7832 28 May, 2017 Hypothyroidism (acquired) E03.9 and Stasis dermatitis of both legs I87.2 [place] [address] 24088- 1629 16 May, 2017 Hypothyroidism (acquired) E03.9 [place] [address] 47424- 4946 May, Medicare annual wellness visit, initial Z00.00 [place] [address] 24724- 2898 May, Stasis dermatitis of both legs I87.2 and Onychomycosis B35.1 [place] [address] 33898- 0721 Mar, Hypothyroidism (acquired) E03.9 [place] [address] [place] [id number] [place] [address] 17861- 5154 Feb, Wheezing R06.2 and Hypothyroidism (acquired) E03.9 [place] [address] 56848- 7337 17 Dec, 2016 Encounter for immunization Z23 [place] [address] 26969- 5795 14 Oct, 2016 Excessive daytime sleepiness G47.19 [place] [address] 32851- 9620 17 Sep, 2016 Chest pain in adult R07.9 ; SOB (shortness of breath) R06.02 and Anxiety F41.9 [place] [address] [place] [address]- 9721 17 Sep, 2016 [facility] [address] [address]- 6696 May, Medicare annual wellness visit, initial Z00.00 [facility] [address], [place] [address]- 0615 13 May, 2016 Medicare annual wellness visit, initial Z00.00 [facility] [address] [place] [id number] [place] [address] 33727- 6924 12 Feb, 2016 Hypothyroidism (acquired) E03.9 [facility] [address] [place] [id number] [place] [address] 70917- 7529 15 Oct, 2015 Hypothyroidism (acquired) E03.9 [facility] [address] [place] [id number] [address]- 3676 Oct, Hypothyroidism (acquired) E03.9 [facility] [address] [place] [address] 46742- 8697 Sep, Hypertension, benign I10 and Hypothyroidism (acquired) E03.9 [facility] [address] [place] [id number] [place] [address] 16714- 5154 Sep, Pre-op evaluation Z01.818 ; Hypertension, benign I10 and Hypothyroidism (acquired) E03.9 [facility] [address] [address]- 0624 May, [facility] [address], [place] [address]- 9679 May, [facility] [address], [place] [address]- 9696 May, Preoperative clearance Z01.818 [facility] [address] [place] [address] 23053- 3861 Apr, Hypertension, benign I10 and Hypothyroidism (acquired) E03.9 [facility] [address] [place] [address] 59216- 5469 Apr, Hypertension, benign I10 ; Hypothyroidism (acquired) E03.9 and Gastritis K29.[address] 83298- 2403 Mar, [place] [address] [place] [id number] [place] [address] 17366- 3768 Feb, [place] [address] 90073- 5356 Jan, Primary osteoarthritis of left knee M17.[address] 72527- 2500 Dec, Left knee pain M25.562 [place] [address] 73831- 8956 Dec, Left knee pain M25.[address] 97916- 5320 Dec, Encounter for immunization Z23 [address] 77463- 1556 Sep, Pre-op evaluation V72.84 and Fracture of 5th metatarsal 825.25 [place] [id number] [place] [address] 00477- 3813 Aug, [address] 85220- 1181 Aug, [place] [address] 51718- 0060 July, Metatarsal bone fracture 825.25 ; Hallux valgus 735.0 ; 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 ; Hammertoe 735.4 and Onychomycosis 110.1 [place] [address] [place] [id number] [place] [address] 95244- 8696 Jun, [address] 68306- 5626 Jun, [facility] [place] [facility] [address] [id number] [place] [address]- 4096 May, [facility] [place] [facility] [address] [id number] [place] [address]- 7277 May, [facility] [place] [facility] [address] [id number] [place] [address]- 3145 Apr, [facility] [place] [facility] [address] [id number] [place] [address]- 1303 Apr, [facility] [place] [facility] [address] [id number] [place] 1475 Mar, [facility] [place] [facility] [address] [id number] [place] [address]- 9978 Mar, [facility] [place] [facility] [address] [id number] [place] [address]- 5180 Mar, [facility] [place] [facility] [address] [id number], [place] [address]- 1678 Mar, [facility] [place] [facility] [address] [id number] [place] [address]- 9256 Jan, [facility] [place] [facility] [address] [id number], [place] [address]- 0727 Jan, [facility] [place] [facility] [address] [id number], [place] [address]- 6661 Jan, [facility] [place] [facility] [address] [id number], [place] [address]- 2040 Jan, [facility] [place] [facility] [address] [id number] [place] [address]- 0463 Dec, [facility] [place] [facility] [address] [id number] [place] [address]- 4954 Dec, [facility] [place] [facility] [address] [id number] [place] [address]- 0311 Nov, [facility] [place] [facility] [address] [id number] [place] [address]- 9940 Nov, [facility] [place] [facility] [address] [id number] [place] [address]- 6963 Oct, [facility] [place] [facility] [address] [id number] [place] [address]- 0602 Oct, [facility] [place] [facility] [address] [id number] [place] [address]- 4366 Oct, [facility] [place] [facility] [address] [id number] [place] [address]- 9326 Oct, [facility] [place] [facility] [address] [id number] [place] [address]- 6386 Aug, [facility] [place] [facility] [address] [id number] [place] [address]- 1084 Aug, [facility] [place] [facility] [address] [id number] [place] [address]- 6036 July, [facility] [place] [facility] [address] [id number] [place] [address]- 7974 July, [facility] [place] [facility] [address] [id number] [place] [address]- 3260 Jun, [facility] [place] [facility] [address] [id number] [place] [address]- 3113 Jun, [facility] [place] [facility] [address] [id number] [place] [address]- 8174 Jun, [facility] [place] [facility] [address] [id number], [place] [address]- 0498 Mar, [facility] [place] [facility] [address] [id number] [place] [address] Mar, [facility] [place] [facility] [address] [id number] [place] [address] Mar, [facility] [place] [facility] [address] [id number] [place] [address] Mar, [facility] [place] [facility] [address] [id number] [place] [address] Mar, [facility] [place] [facility] [address] [id number] [place] [address] Dec, [facility] [place] [facility] [address] [id number] [place] [address] Dec, [facility] [place] [facility] [address] [id number] [place] [address] Oct, [facility] [place] [facility] [address] [id number] [place] [address] Oct, [facility] [place] [facility] [address] [id number] [place] [address] Jun, [facility] [place] [facility] [address] [id number] [place] [address] Jun, [facility] [place] [facility] [address] [id number] [place] [address] May, [facility] [place] [facility] [address] [id number] [place] [address] May, [facility] [place] [facility] [address] [id number] [place] [address] Apr, [facility] [place] [facility] [address] [id number] [place] [address] Apr, [facility] [place] [facility] [address] [id number] [place] [address] Mar, [facility] [place] [facility] [address] [id number] [place] [address] Dec, [facility] [place] [facility] [address] [id number] [place] [address] Dec, [facility] [place] [facility] [address] [id number] [place] [address] Dec, [facility] [place] [facility] [address] [id number], [place] [address] Dec, [facility] [address] [id number], [place] [address] Oct, [facility] [id number] [address] Jun, [facility] [id number], [place] [address] Feb, [facility] [id number], [place] [address] Jan, [facility] [id number], [place] [address] Jan, [facility] [id number], [place] [address] Feb, [facility] [id number], [place] [address] Jun, [facility] [id number], [place] [address] Feb, [facility] [id number], [place] [address] Sep, [facility] [id number], [place] [address] Jun, IMMUNIZATIONS No Known Immunizations SOCIAL HISTORY Never Assessed REASON FOR VISIT requests appt PLAN OF CARE VITAL SIGNS MEDICATIONS Unknown Medications RESULTS No Results PROCEDURES No Known procedures INSTRUCTIONS MEDICATIONS ADMINISTERED No Known Medications MEDICAL [...]
--- OUTSIDE RECORDS SUMMARY | 2018-01-02 10:50 | XMS REPORT ---
Author Author IAN LEAL Organization [facility] Address [address] [place] [address] Care Team Providers Care Supervisor Wall Mirror Department Name Role Phone IAN LEAL Unavailable PROBLEMS Type Condition ICD9-CM Code ANK53-PR Code Onset Dates Condition Status SNOMED Code Problem Osteopenia of lumbar spine M85.88 Active 143691871 Problem Excessive daytime sleepiness G47.19 Active 574130093712 Problem Anxiety F41.9 Active 78982007 Problem Acquired hypothyroidism E03.9 Active 228416817 Problem Essential hypertension I10 Active 53605492 Problem Neuropathy G62.9 Active 751244089 Problem Stasis dermatitis of both legs I87.2 Active 31637585 Problem Elevated triglycerides with high cholesterol E78.2 Active 467361709 Problem Obesity (BMI 35.0-39.9 without comorbidity) E66.9 Active 554720949 ALLERGIES No Information ENCOUNTERS Encounter Location Date Diagnosis [place] [id number] [place] [address] 26038- 6399 Nov, [facility] [id number] [place] [address] 26435- 6281 Aug, [facility] [id number] [place] [address] 99638- 2255 Aug, Onychomycosis B35.1 and Neuropathy G62.9 [facility] [id number] [place] [address] 57927- 2678 Aug, Medicare annual wellness visit, initial Z00.00 [facility] [address] 0[address]35- 3503 July, [facility] [id number] [place] [address] 27821- 8243 July, Essential hypertension I10 ; Elevated triglycerides with high cholesterol E78.2 ; Elevated glucose R73.09 ; Acquired hypothyroidism E03.9 ; Obesity (BMI 35.0-39.9 without comorbidity) E66.9 ; Bilateral leg edema R60.0 and Left ear impacted cerumen H61.22 [place] [id number] [place] [address] 33866- 2477 02 Jun, 2017 [place] [address] 32083- 9925 28 May, 2017 Hypothyroidism (acquired) E03.9 and Stasis dermatitis of both legs I87.2 [place] [address] 89617- 5319 16 May, 2017 Hypothyroidism (acquired) E03.9 [place] [address] 15495- 0839 May, Medicare annual wellness visit, initial Z00.00 [place] [address] 79384- 1262 May, Stasis dermatitis of both legs I87.2 and Onychomycosis B35.1 [place] [address] 91692- 2434 Mar, Hypothyroidism (acquired) E03.9 [place] [id number] [place] [address] 30261- 1139 Feb, Wheezing R06.2 and Hypothyroidism (acquired) E03.9 [place] [address] 51282- 3279 17 Dec, 2016 Encounter for immunization Z23 [place] [address] 69863- 1947 14 Oct, 2016 Excessive daytime sleepiness G47.19 [place] [address] 07128- 9400 17 Sep, 2016 Chest pain in adult R07.9 ; SOB (shortness of breath) R06.02 and Anxiety F41.9 [place] [address] [place] [place] [address]- 6097 17 Sep, 2016 [facility] [address] [address]- 5882 May, Medicare annual wellness visit, initial Z00.00 [facility] [address] [address]- 0871 13 May, 2016 Medicare annual wellness visit, initial Z00.00 [facility] [id number] [place] [address] 37387- 5845 12 Feb, 2016 Hypothyroidism (acquired) E03.9 [facility] [id number] [place] [address] 71621- 0658 15 Oct, 2015 Hypothyroidism (acquired) E03.9 [facility] [id number] [address]- 9572 Oct, Hypothyroidism (acquired) E03.9 [facility] [id number] [place] [address] 57020- 9393 Sep, Hypertension, benign I10 and Hypothyroidism (acquired) E03.9 [facility] [id number] [place] [address] 48493- 4281 Sep, Pre-op evaluation Z01.818 ; Hypertension, benign I10 and Hypothyroidism (acquired) E03.9 [facility] [address] [address]- 3709 May, [facility] [address] [address]- 1946 May, [facility] [address] [address]- 8379 May, Preoperative clearance Z01.818 [facility] [id number] [place] [address] 63331- 6163 Apr, Hypertension, benign I10 and Hypothyroidism (acquired) E03.9 [facility] [id number] [place] [address] 38416- 0692 Apr, Hypertension, benign I10 ; Hypothyroidism (acquired) E03.9 and Gastritis K29.[address] 25692- 6870 Mar, [place] [id number] [place] [address] 46931- 0370 Feb, [place] [address] 89784- 5619 Jan, Primary osteoarthritis of left knee M17.[address] 69687- 7650 Dec, Left knee pain M25.562 [place] [address] 42746- 3738 Dec, Left knee pain M25.[address] 28614- 2254 Dec, Encounter for immunization Z23 [address] 59827- 6688 Sep, Pre-op evaluation V72.84 and Fracture of 5th metatarsal 825.25 [place] [id number] [place] [address] 50357- 8126 Aug, [address] 06271- 7530 Aug, [place] [address] 67040- 8041 July, Metatarsal bone fracture 825.25 ; Hallux valgus 735.0 ; 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 ; Hammertoe 735.4 and Onychomycosis 110.1 [place] [id number] [place] [address] 27971- 0169 Jun, [address] 56215- 8671 Jun, [facility] [place] [facility] [address] [id number] [place] [address]- 6080 May, [facility] [place] [facility] [address] [id number] [place] [address]- 6531 May, [facility] [place] [facility] [address] [id number] [place] [address]- 2276 Apr, [facility] [place] [facility] [address] [id number] [place] [address]- 7483 Apr, [facility] [place] [facility] [address] [id number] [place] 3341 Mar, [facility] [place] [facility] [address] [id number] [place] [address]- 1565 Mar, [facility] [place] [facility] [address] [id number] [place] [address]- 8609 Mar, [facility] [place] [facility] [address] [id number], [place] [address]- 0037 Mar, [facility] [place] [facility] [address] [id number] [place] [address]- 1687 Jan, [facility] [place] [facility] [address] [id number], [place] [address]- 8763 Jan, [facility] [place] [facility] [address] [id number], [place] [address]- 5352 Jan, [facility] [place] [facility] [address] [id number] [address]- 8976 Jan, [facility] [place] [facility] [address] [id number] [place] [address]- 7512 Dec, [facility] [place] [facility] [address] [id number] [place] [address]- 7812 Dec, [facility] [place] [facility] [address] [id number] [place] [address]- 2391 Nov, [facility] [place] [facility] [address] [id number] [place] [address]- 6459 Nov, [facility] [place] [facility] [address] [id number] [place] [address]- 2717 Oct, [facility] [place] [facility] [address] [id number] [place] [address]- 6416 Oct, [facility] [place] [facility] [address] [id number] [place] [address]- 0335 Oct, [facility] [place] [facility] [address] [id number] [place] [address]- 1260 Oct, [facility] [place] [facility] [address] [id number] [place] [address]- 1489 Aug, [facility] [place] [facility] [address] [id number] [place] [address]- 2130 Aug, [facility] [place] [facility] [address] [id number] [place] [address]- 4840 July, [facility] [place] [facility] [address] [id number] [place] [address]- 1120 July, [facility] [place] [facility] [address] [id number] [place] [address]- 1908 Jun, [facility] [place] [facility] [address] [id number] [place] [address]- 0558 Jun, [facility] [place] [facility] [address] [id number] [place] [address]- 9519 Jun, [facility] [place] [facility] [address] [id number], [place] [address]- 9484 Mar, [facility] [place] [facility] [address] [id number] [place] [address]- 9913 Mar, [facility] [place] [facility] [address] [id number] [place] [address]- 6778 Mar, [facility] [place] [facility] [address] [id number] [place] [address]- 8345 Mar, [facility] [place] [facility] [address] [id number] [place] [address]- 1952 Mar, [facility] [place] [facility] [address] [id number] [place] [address]- 1981 Dec, [facility] [place] [facility] [address] [id number] [place] [address]- 5083 Dec, [facility] [place] [facility] [address] [id number] [place] [address]- 0261 Oct, [facility] [place] [facility] [address] [id number] [place] [address]- 2469 Oct, [facility] [place] [facility] [address] [id number] [place] [address]- 2442 Jun, [facility] [place] [facility] [address] [id number] [place] [address]- 9953 Jun, [facility] [place] [facility] [address] [id number] [place] [address]- 1657 May, [facility] [place] [facility] [address] [id number] [place] [address]- 1010 May, [facility] [place] [facility] [address] [id number] [place] [address]- 1149 Apr, [facility] [place] [facility] [address] [id number] [place] [address]- 5129 Apr, [facility] [place] [facility] [address] [id number] [place] [address]- 6705 Mar, [facility] [place] [facility] [address] [id number] [place] [address]- 1543 Dec, [facility] [place] [facility] [address] [id number] [place] [address]- 4659 Dec, [facility] [place] [facility] [address] [id number] [place] [address]- 6120 Dec, [facility] [place] [facility] [address] [id number] [address]- 5446 Dec, [facility] [id number] [address]- 0674 Oct, [facility] [address] [address]- 5426 Jun, [facility] [address], [place] [address]- 9506 Feb, [facility] [address] [address]- 5976 Jan, [facility] [address] [address]- 4264 Jan, [facility] [address], [place] [address]- 5216 Feb, [facility] [address], [place] [address]- 0486 Jun, [facility] [address], [place] [address]- 1899 Feb, [facility] [address] [address]- 4217 Sep, [facility] [address] [address]- 7522 Jun, IMMUNIZATIONS No Known Immunizations SOCIAL HISTORY Never Assessed REASON FOR VISIT [facility] needs dx clarification PLAN OF CARE VITAL SIGNS MEDICATIONS Unknown [...]
--- OUTSIDE RECORDS SUMMARY | 2018-01-02 10:51 | XMS REPORT ---
Author Author JULIAN GODINEZ Organization [facility] Address [address] [place] [address] Care Team Providers Care Photostatic Copy Maker Name Role Phone JULIAN GODINEZ Unavailable PROBLEMS Type Condition ICD9-CM Code [id number] Code Onset Dates Condition Status SNOMED Code Problem Osteopenia of lumbar spine M85.88 Active 333142916 Problem Excessive daytime sleepiness G47.19 Active 761393356035 Problem Anxiety F41.9 Active 54824993 Problem Acquired hypothyroidism E03.9 Active 073041951 Problem Essential hypertension I10 Active 49638547 Problem Neuropathy G62.9 Active 944839327 Problem Stasis dermatitis of both legs I87.2 Active 77454482 Problem Elevated triglycerides with high cholesterol E78.2 Active 426709788 Problem Obesity (BMI 35.0-39.9 without comorbidity) E66.9 Active 684032588 ALLERGIES No Information ENCOUNTERS Encounter Location Date Diagnosis [place] [id number] [place] [address] 64090- 3850 Nov, [place] [address] [id number] [place] [address] 38819- 1939 Aug, [place] [address] [place] [address] 32457- 6447 Aug, Onychomycosis B35.1 and Neuropathy G62.9 [place] [address] [place] [address] 61943- 8089 Aug, Medicare annual wellness visit, initial Z00.00 [place] [id number] [place] [address] 31888- 9186 July, [place] [id number] [place] [address] 09073- 1300 July, Essential hypertension I10 ; Elevated triglycerides with high cholesterol E78.2 ; Elevated glucose R73.09 ; Acquired hypothyroidism E03.9 ; Obesity (BMI 35.0-39.9 without comorbidity) E66.9 ; Bilateral leg edema R60.0 and Left ear impacted cerumen H61.22 [place] [address] 98995- 7327 Jun, [place] [address] 72076- 0568 28 May, 2017 Hypothyroidism (acquired) E03.9 and Stasis dermatitis of both legs I87.2 [place] [address] 11608- 2246 May, Hypothyroidism (acquired) E03.9 [place] [address] 49957- 9287 May, Medicare annual wellness visit, initial Z00.00 [place] [address] 03810- 6308 May, Stasis dermatitis of both legs I87.2 and Onychomycosis B35.1 [place] [address] 27879- 2845 Mar, Hypothyroidism (acquired) E03.9 [place] [address] 12239- 4404 Feb, Wheezing R06.2 and Hypothyroidism (acquired) E03.9 [place] [id number] [place] [address] 27539- 8636 Dec, Encounter for immunization Z23 [place] [address] 59539- 2632 14 Oct, 2016 Excessive daytime sleepiness G47.19 [place] [address] 65997- 7080 17 Sep, 2016 Chest pain in adult R07.9 ; SOB (shortness of breath) R06.02 and Anxiety F41.9 [place] [address] [place] [address]- 6037 17 Sep, 2016 [facility] [address], [place] [address]- 5200 17 May, 2016 Medicare annual wellness visit, initial Z00.00 [facility] [address]- 7336 13 May, 2016 Medicare annual wellness visit, initial Z00.00 [facility] [id number] [place] [address] 21276- 2433 12 Feb, 2016 Hypothyroidism (acquired) E03.9 [facility] [id number] [place] [address] 22420- 5075 15 Oct, 2015 Hypothyroidism (acquired) E03.9 [facility] [id number] [place] [address] 90006- 3811 Oct, Hypothyroidism (acquired) E03.9 [facility] [id number], [place] [address]- 1288 Sep, Hypertension, benign I10 and Hypothyroidism (acquired) E03.9 [facility] [address] [place] [address] 98481- 8224 Sep, Pre-op evaluation Z01.818 ; Hypertension, benign I10 and Hypothyroidism (acquired) E03.9 [facility] [address], [place] [address]- 1710 May, [facility] [address], [place] [address]- 0288 May, [facility] [address], [place] [address]- 0461 May, Preoperative clearance Z01.818 [facility] [address] [place] [address] 23067- 4159 Apr, Hypertension, benign I10 and Hypothyroidism (acquired) E03.9 [facility] [address], [place] [address]- 0579 Apr, Hypertension, benign I10 ; Hypothyroidism (acquired) E03.9 and Gastritis K29.70 [place] [address] 61104- 4111 Mar, [place] [id number] [place] [address] 72071- 0710 Feb, [place] [address] 68887- 2544 Jan, Primary osteoarthritis of left knee M17.12 [place] [address] 34441- 5317 Dec, Left knee pain M25.562 [place] [address] 91920- 0663 Dec, Left knee pain M25.562 [place] [address] 44634- 5339 Dec, Encounter for immunization Z23 [address] 80189- 9434 Sep, Pre-op evaluation V72.84 and Fracture of 5th metatarsal 825.25 [place] [id number] [place] [address] 32853- 0091 Aug, [place] [id number] [place] [address] 27467- 0180 Aug, [place] [address] 69365- 7986 July, Metatarsal bone fracture 825.25 ; Hallux valgus 735.0 ; 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 ; Hammertoe 735.4 and Onychomycosis 110.1 [place] [id number] [place] [address] 21558- 2000 Jun, [place] [address] 72376- 1563 Jun, [facility] [place] [facility] [address] [id number] [place] [address]- 6975 May, [facility] [place] [facility] [address] [id number] [place] [address]- 3705 May, [facility] [place] [facility] [address] [id number] [place] [address]- 2768 Apr, [facility] [place] [facility] [address] [id number] [place] [address]- 7795 Apr, [facility] [place] [facility] [address] [id number] [place] [address]- 4884 Mar, [facility] [place] [facility] [address] [id number] [place] [address]- 2817 Mar, [facility] [place] [facility] [address] [id number] [place] [address]- 3852 Mar, [facility] [place] [facility] [address] [id number] [place] [address]- 1166 Mar, [facility] [place] [facility] [address] [id number] [place] [address]- 2595 Jan, [facility] [place] [facility] [address] [id number] [place] [address]- 8516 Jan, [facility] [place] [facility] [address] [id number] [place] [address]- 5111 Jan, [facility] [place] [facility] [address] [id number], [place] [address]- 6052 Jan, [facility] [place] [facility] [address] [id number] [place] [address]- 2390 Dec, [facility] [place] [facility] [address] [id number] [place] [address]- 4215 Dec, [facility] [place] [facility] [address] [id number] [place] [address]- 2280 Nov, [facility] [place] [facility] [address] [id number] [place] [address]- 7566 Nov, [facility] [place] [facility] [address] [id number] [place] [address]- 3551 Oct, [facility] [place] [facility] [address] [id number] [place] [address]- 0600 Oct, [facility] [place] [facility] [address] [id number] [place] [address]- 8665 Oct, [facility] [place] [facility] [address] [id number] [place] [address]- 6642 Oct, [facility] [place] [facility] [address] [id number] [place] [address]- 8050 Aug, [facility] [place] [facility] [address] [id number] [place] [address]- 4159 Aug, [facility] [place] [facility] [address] [id number] [place] [address]- 0462 July, [facility] [place] [facility] [address] [id number] [place] [address]- 9036 July, [facility] [place] [facility] [address] [id number] [place] [address]- 7971 Jun, [facility] [place] [facility] [address] [id number] [place] [address]- 2501 Jun, [facility] [place] [facility] [address] [id number] [place] [address]- 0971 Jun, [facility] [place] [facility] [address] [id number] [place] [address]- 5474 Mar, [facility] [place] [facility] [address] [id number] [place] [address]- 9158 Mar, [facility] [place] [facility] [address] [id number] [place] [address]- 1847 Mar, [facility] [place] [facility] [address] [id number] [place] [address]- 8203 Mar, [facility] [place] [facility] [address] [id number] [place] [address]- 8546 Mar, [facility] [address] [id number] [place] [address]- 4423 Dec, [facility] [place] [facility] [address] [id number] [place] [address]- 5798 Dec, [facility] [address] [id number] [place] [address]- 0891 Oct, [facility] [place] [facility] [address] [id number] [place] [address]- 6790 Oct, [facility] [address] [id number] [place] [address]- 4176 Jun, [facility] [place] [facility] [address] [id number] [place] [address]- 6716 Jun, [facility] [place] [facility] [address] [id number] [place] [address]- 8162 May, [facility] [address] [id number] [place] [address] May, [facility] [place] [facility] [address] [id number] [place] [address] Apr, [facility] [address] [id number] [place] [address] Apr, [facility] [place] [facility] [address] [id number] [place] [address] Mar, [facility] [address] [id number] [place] [address] Dec, [facility] [place] [facility] [address] [id number] [place] [address] Dec, [facility] [place] [facility] [address] [id number] [place] [address] Dec, [facility] [place] [facility] [address] [id number] [place] [address] Dec, [facility] [id number] [address] Oct, [facility] [id number] [place] [address] Jun, [facility] [id number] [address] Feb, [facility] [id number] [place] [address] Jan, [facility] [id number], [place] [address] Jan, [facility] [id number] [place] [address] Feb, [facility] [id number] [address] Jun, [facility] [id number], [place] [address] Feb, [facility] [id number] [place] [address] Sep, [facility] [id number] [place] [address] Jun, IMMUNIZATIONS No Known Immunizations SOCIAL HISTORY Never Assessed REASON FOR VISIT Lab results PLAN OF CARE VITAL SIGNS MEDICATIONS Unknown [...]
--- OUTSIDE RECORDS SUMMARY | 2018-01-02 10:51 | XMS REPORT ---
Author Author JULIAN GODINEZ Organization [facility] Address [address] [place] [address] Care Team Providers Care Student Services Coordinator Name Role Phone JULIAN GODINEZ Unavailable PROBLEMS Type Condition ICD9-CM Code [id number] Code Onset Dates Condition Status SNOMED Code Problem Osteopenia of lumbar spine M85.88 Active 723420901 Problem Excessive daytime sleepiness G47.19 Active 664845110915 Problem Anxiety F41.9 Active 23444283 Problem Acquired hypothyroidism E03.9 Active 260258211 Problem Essential hypertension I10 Active 37265683 Problem Neuropathy G62.9 Active 054311393 Problem Stasis dermatitis of both legs I87.2 Active 62413622 Problem Elevated triglycerides with high cholesterol E78.2 Active 000336220 Problem Obesity (BMI 35.0-39.9 without comorbidity) E66.9 Active 811263412 ALLERGIES No Information ENCOUNTERS Encounter Location Date Diagnosis [place] [id number] [place] [address] 88840- 5672 Nov, [place] [address] [place] [id number] [place] [address] 76261- 6953 Aug, [place] [address] [place] [address] 67769- 2948 Aug, Onychomycosis B35.1 and Neuropathy G62.9 [place] [id number] [place] [address] 40199- 1686 Aug, Medicare annual wellness visit, initial Z00.00 [place] [id number] [place] [address] 63613- 7914 July, [place] [id number] [place] [address] 00895- 0711 July, Essential hypertension I10 ; Elevated triglycerides with high cholesterol E78.2 ; Elevated glucose R73.09 ; Acquired hypothyroidism E03.9 ; Obesity (BMI 35.0-39.9 without comorbidity) E66.9 ; Bilateral leg edema R60.0 and Left ear impacted cerumen H61.22 [place] [address] 90804- 2052 Jun, [place] [address] 71937- 6209 28 May, 2017 Hypothyroidism (acquired) E03.9 and Stasis dermatitis of both legs I87.2 [place] [address] 99676- 4754 May, Hypothyroidism (acquired) E03.9 [place] [address] 29653- 0719 May, Medicare annual wellness visit, initial Z00.00 [place] [address] 88103- 8475 May, Stasis dermatitis of both legs I87.2 and Onychomycosis B35.1 [place] [address] 62469- 0123 Mar, Hypothyroidism (acquired) E03.9 [place] [address] 09530- 2605 Feb, Wheezing R06.2 and Hypothyroidism (acquired) E03.9 [place] [address] [place] [address] [id number] [place] [address] 93827- 0013 Dec, Encounter for immunization Z23 [place] [address] 78085- 4056 14 Oct, 2016 Excessive daytime sleepiness G47.19 [place] [address] 93124- 9117 17 Sep, 2016 Chest pain in adult R07.9 ; SOB (shortness of breath) R06.02 and Anxiety F41.9 [place] [address] [place] [address]- 5462 17 Sep, 2016 [facility] [address] [address] 5272 17 May, 2016 Medicare annual wellness visit, initial Z00.00 [facility] [address] 8906 13 May, 2016 Medicare annual wellness visit, initial Z00.00 [facility] [id number] [place] [address] 44911- 9463 12 Feb, 2016 Hypothyroidism (acquired) E03.9 [facility] [id number] [place] [address] 99183- 2448 15 Oct, 2015 Hypothyroidism (acquired) E03.9 [facility] [id number] [place] [address] 84063- 5587 Oct, Hypothyroidism (acquired) E03.9 [facility] [id number] [address]- 1567 Sep, Hypertension, benign I10 and Hypothyroidism (acquired) E03.9 [facility] [address] [place] [address] 71742- 4148 Sep, Pre-op evaluation Z01.818 ; Hypertension, benign I10 and Hypothyroidism (acquired) E03.9 [facility] [address] [address]- 4347 May, [facility] [address] [address]- 7502 May, [facility] [address] [address]- 9715 May, Preoperative clearance Z01.818 [facility] [address] [place] [address] 74692- 3688 Apr, Hypertension, benign I10 and Hypothyroidism (acquired) E03.9 [facility] [address] [address]- 1470 Apr, Hypertension, benign I10 ; Hypothyroidism (acquired) E03.9 and Gastritis K29.70 [place] [address] 81589- 1346 Mar, [place] [address] [place] [id number] [place] [address] 41333- 5188 Feb, [place] [address] 22529- 3070 Jan, Primary osteoarthritis of left knee M17.12 [place] [address] 89324- 7216 Dec, Left knee pain M25.562 [place] [address] 23894- 4732 Dec, Left knee pain M25.562 [place] [address] 99600- 2549 Dec, Encounter for immunization Z23 [address] 43446- 9577 Sep, Pre-op evaluation V72.84 and Fracture of 5th metatarsal 825.25 [place] [address] [place] [address] [id number] [place] [address] 23928- 7018 Aug, [place] [address] [place] [address] [id number] [place] [address] 81687- 4327 Aug, [place] [address] 77030- 1839 July, Metatarsal bone fracture 825.25 ; Hallux valgus 735.0 ; 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 ; Hammertoe 735.4 and Onychomycosis 110.1 [place] [address] [place] [id number] [place] [address] 07615- 7244 Jun, [place] [address] 94174- 4189 Jun, [facility] [place] [facility] [address] [id number] [place] [address]- 3899 May, [facility] [place] [facility] [address] [id number] [place] [address]- 3026 May, [facility] [place] [facility] [address] [id number] [place] [address]- 1699 Apr, [facility] [place] [facility] [address] [id number] [place] [address]- 2648 Apr, [facility] [place] [facility] [address] [id number] [place] [address]- 0536 Mar, [facility] [place] [facility] [address] [id number] [place] [address]- 8589 Mar, [facility] [place] [facility] [address] [id number] [place] [address]- 0767 Mar, [facility] [place] [facility] [address] [id number] [place] [address]- 4941 Mar, [facility] [place] [facility] [address] [id number] [place] [address]- 9279 Jan, [facility] [place] [facility] [address] [id number] [place] [address]- 7585 Jan, [facility] [place] [facility] [address] [id number] [place] [address]- 0030 Jan, [facility] [place] [facility] [address] [id number], [place] [address]- 6887 Jan, [facility] [place] [facility] [address] [id number] [place] [address]- 5753 Dec, [facility] [place] [facility] [address] [id number] [place] [address]- 9626 Dec, [facility] [place] [facility] [address] [id number] [place] [address]- 4579 Nov, [facility] [place] [facility] [address] [id number] [place] [address]- 8058 Nov, [facility] [place] [facility] [address] [id number] [place] [address]- 5968 Oct, [facility] [place] [facility] [address] [id number] [place] [address]- 8426 Oct, [facility] [place] [facility] [address] [id number] [place] [address]- 6944 Oct, [facility] [place] [facility] [address] [id number] [place] [address]- 8619 Oct, [facility] [place] [facility] [address] [id number] [place] [address]- 9739 Aug, [facility] [place] [facility] [address] [id number] [place] [address]- 1468 Aug, [facility] [place] [facility] [address] [id number] [place] [address]- 4371 July, [facility] [place] [facility] [address] [id number] [place] [address]- 7994 July, [facility] [place] [facility] [address] [id number] [place] [address]- 2373 Jun, [facility] [place] [facility] [address] [id number] [place] [address]- 1213 Jun, [facility] [place] [facility] [address] [id number] [place] [address]- 9140 Jun, [facility] [place] [facility] [address] [id number] [place] [address]- 4228 Mar, [facility] [place] [facility] [address] [id number] [place] [address]- 7956 Mar, [facility] [place] [facility] [address] [id number] [place] [address]- 0645 Mar, [facility] [place] [facility] [address] [id number] [place] [address]- 0686 Mar, [facility] [place] [facility] [address] [id number] [place] [address]- 1615 Mar, [facility] [address] [id number] [place] [address]- 2213 Dec, [facility] [place] [facility] [address] [id number] [place] [address]- 6557 Dec, [facility] [address] [id number] [place] [address]- 1350 Oct, [facility] [place] [facility] [address] [id number] [place] [address]- 7996 Oct, [facility] [address] [id number] [place] [address]- 3654 Jun, [facility] [place] [facility] [address] [id number] [place] [address]- 5686 Jun, [facility] [place] [facility] [address] [id number] [place] [address]- 7623 May, [facility] [address] [id number] [place] [address]- 7006 May, [facility] [place] [facility] [address] [id number] [place] [address]- 7150 Apr, [facility] [address] [id number] [place] [address]- 1292 Apr, [facility] [place] [facility] [address] [id number] [place] [address]- 1572 Mar, [facility] [address] [id number] [place] [address]- 8130 Dec, [facility] [place] [facility] [address] [id number] [place] [address]- 5671 Dec, [facility] [place] [facility] [address] [id number] [place] [address]- 8036 Dec, [facility] [place] [facility] [address] [id number] [place] [address]- 5346 Dec, [facility] [address] [address]- 6460 Oct, [facility] [address], [place] [address]- 0306 Jun, [facility] [address], [place] [address]- 4526 Feb, [facility] [address] [place] [id number] [place] [address] 64811- 2546 Jan, [facility] [address], [place] [address]- 0833 Jan, [facility] [address] [place] [id number] [place] [address] 93590- 3426 Feb, [facility] [address] [id number] [place] [address] 39874- 1403 Jun, [facility] [address], [place] [address]- 9216 Feb, [facility] [address], [place] [address]- 0007 Sep, [facility] [address], [place] [address]- 1782 Jun, IMMUNIZATIONS No Known Immunizations SOCIAL HISTORY Never Assessed REASON FOR VISIT Lab PLAN OF CARE VITAL SIGNS MEDICATIONS Unknown Medications RESULTS Name Result Date Reference Range TSH 2017-05-30 TSH 4.18 0.40-4.50 PROCEDURES Procedure Date Ordered Result Body Site LAB NOT BILLED BY [facility] May 30, 2017 VENIPUNCT, ROUTINE* May 30, 2017 INSTRUCTIONS MEDICATIONS ADMINISTERED No Known Medications [...]
--- OUTSIDE RECORDS SUMMARY | 2018-01-02 10:51 | XMS REPORT ---
Author Author IAN LEAL [facility] Address [address] [place] [address] Care Team Providers Care [employer] Supervisor Name Role Phone IAN LEAL Unavailable PROBLEMS Type Condition ICD9-CM Code MQD78-XP Code Onset Dates Condition Status SNOMED Code Problem Osteopenia of lumbar spine M85.88 Active 856615042 Problem Excessive daytime sleepiness G47.19 Active 617672776445 Problem Anxiety F41.9 Active 53116826 Problem Acquired hypothyroidism E03.9 Active 996408658 Problem Essential hypertension I10 Active 48903321 Problem Neuropathy G62.9 Active 200416700 Problem Stasis dermatitis of both legs I87.2 Active 84594154 Problem Elevated triglycerides with high cholesterol E78.2 Active 471795373 Problem Obesity (BMI 35.0-39.9 without comorbidity) E66.9 Active 239857102 ALLERGIES No Known Allergies ENCOUNTERS Encounter Location Date Diagnosis [facility] [id number] [place] [address] 01174- 0351 Nov, [facility] [id number] [place] [address] 69000- 2845 Aug, [facility] [id number] [place] [address] 90504- 5650 Aug, Onychomycosis B35.1 and Neuropathy G62.9 [facility] [id number] [place] [address] 35541- 6694 Aug, Medicare annual wellness visit, initial Z00.00 [facility] [id number] [place] [address] 51457- 7494 July, [facility] [id number] [place] [address] 12622- 1814 July, Essential hypertension I10 ; Elevated triglycerides with high cholesterol E78.2 ; Elevated glucose R73.09 ; Acquired hypothyroidism E03.9 ; Obesity (BMI 35.0-39.9 without comorbidity) E66.9 ; Bilateral leg edema R60.0 and Left ear impacted cerumen H61.22 [place] [address] [place] [id number] [place] [address] 46328- 2394 02 Jun, 2017 [place] [address] 91398- 7024 28 May, 2017 Hypothyroidism (acquired) E03.9 and Stasis dermatitis of both legs I87.2 [place] [address] 49900- 0076 May, Hypothyroidism (acquired) E03.9 [place] [address] [place] [id number] [place] [address] 77231- 6892 May, Medicare annual wellness visit, initial Z00.00 [place] [address] 77343- 6265 May, Stasis dermatitis of both legs I87.2 and Onychomycosis B35.1 [place] [address] 26503- 8508 Mar, Hypothyroidism (acquired) E03.9 [place] [address] [place] [address] [id number] [place] [address] 15030- 5733 Feb, Wheezing R06.2 and Hypothyroidism (acquired) E03.9 [place] [address] [place] [id number] [place] [address] 10044- 6936 17 Dec, 2016 Encounter for immunization Z23 [place] [address] 70676- 3742 Oct, Excessive daytime sleepiness G47.19 [place] [address] [place] [id number] [place] [address] 86519- 1377 17 Sep, 2016 Chest pain in adult R07.9 ; SOB (shortness of breath) R06.02 and Anxiety F41.9 [place] [address] [place] [address] [address]- 2717 17 Sep, 2016 [facility] [address] [address]- 0199 May, Medicare annual wellness visit, initial Z00.00 [facility] [address] [address]- 2271 13 May, 2016 Medicare annual wellness visit, initial Z00.00 [facility] [address] [address]- 3034 12 Feb, 2016 Hypothyroidism (acquired) E03.9 [facility] [id number] [place] [address] 44649- 8935 15 Oct, 2015 Hypothyroidism (acquired) E03.9 [facility] [id number] [address]- 8740 Oct, Hypothyroidism (acquired) E03.9 [facility] [address] [place] [address] 20271- 1383 Sep, Hypertension, benign I10 and Hypothyroidism (acquired) E03.9 [facility] [id number] [place] [address] 49007- 2354 Sep, Pre-op evaluation Z01.818 ; Hypertension, benign I10 and Hypothyroidism (acquired) E03.9 [facility] [address] [address]- 9508 May, [facility] [address] [address]- 1808 May, [facility] [address] [address]- 1833 May, Preoperative clearance Z01.818 [facility] [address] [place] [address] 62275- 8973 Apr, Hypertension, benign I10 and Hypothyroidism (acquired) E03.9 [facility] [address] [place] [address] 51722- 5815 Apr, Hypertension, benign I10 ; Hypothyroidism (acquired) E03.9 and Gastritis K29.[address] 51338- 6235 Mar, [place] [address] 61776- 7449 Feb, [address] 48796- 4281 Jan, Primary osteoarthritis of left knee M17.[address] 58825- 5365 Dec, Left knee pain M25.[address] 07966- 3971 Dec, Left knee pain M25.[address] 49533- 7482 Dec, Encounter for immunization Z23 [address] 70024- 6643 Sep, Pre-op evaluation V72.84 and Fracture of 5th metatarsal 825.25 [place] [id number] [place] [address] 20215- 4964 Aug, [address] 40462- 4012 Aug, [address] 36320- 1376 July, Metatarsal bone fracture 825.25 ; Hallux valgus 735.0 ; 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 ; Hammertoe 735.4 and Onychomycosis 110.1 [place] [id number] [place] [address] 97488- 2521 Jun, [address] 71152- 4732 Jun, [facility] [place] [facility] [address] [id number] [place] [address]- 2785 May, [facility] [place] [facility] [address] [id number] [place] [address]- 9923 May, [facility] [place] [facility] [address] [id number] [place] [address]- 5658 Apr, [facility] [place] [facility] [address] [id number] [place] [address]- 3693 Apr, [facility] [place] [facility] [address] [id number] [place] [address]- 6003 Mar, [facility] [place] [facility] [address] [id number] [place] [address]- 1766 Mar, [facility] [place] [facility] [address] [id number] [place] [address]- 9010 Mar, [facility] [place] [facility] [address] [id number] [address]- 7317 Mar, [facility] [place] [facility] [address] [id number] [place] [address]- 6040 Jan, [facility] [place] [facility] [address] [id number] [place] [address]- 6064 Jan, [facility] [place] [facility] [address] [id number] [place] [address]- 2505 Jan, [facility] [place] [facility] [address] [id number] [place] [address]- 8999 Jan, [facility] [place] [facility] [address] [id number] [place] [address]- 9577 Dec, [facility] [place] [facility] [address] [id number] [place] [address]- 2393 Dec, [facility] [place] [facility] [address] [id number] [place] [address]- 3555 Nov, [facility] [place] [facility] [address] [id number] [place] [address]- 3445 Nov, [facility] [place] [facility] [address] [id number] [place] [address]- 2356 Oct, [facility] [place] [facility] [address] [id number] [place] [address]- 0826 Oct, [facility] [place] [facility] [address] [id number] [place] [address]- 6357 Oct, [facility] [place] [facility] [address] [id number] [place] [address]- 0549 Oct, [facility] [place] [facility] [address] [id number] [place] [address]- 5432 Aug, [facility] [place] [facility] [address] [id number] [place] [address]- 9240 Aug, [facility] [place] [facility] [address] [id number] [place] [address]- 2592 July, [facility] [place] [facility] [address] [id number] [place] [address]- 5472 July, [facility] [place] [facility] [address] [id number] [place] [address]- 3821 Jun, [facility] [place] [facility] [address] [id number] [place] [address]- 9522 Jun, [facility] [place] [facility] [address] [id number] [place] [address]- 5216 Jun, [facility] [place] [facility] [address] [id number] [place] [address]- 2665 Mar, [facility] [place] [facility] [address] [id number] [place] [address]- 1780 Mar, [facility] [place] [facility] [address] [id number] [place] [address]- 9700 Mar, [facility] [place] [facility] [address] [id number] [place] [address]- 5370 Mar, [facility] [place] [facility] [address] [id number] [place] [address] Mar, [facility] [place] [facility] [address] [id number] [place] [address] Dec, [facility] [place] [facility] [address] [id number] [place] [address] Dec, [facility] [place] [facility] [address] [id number] [place] [address] Oct, [facility] [place] [facility] [address] [id number] [place] [address] Oct, [facility] [place] [facility] [address] [id number] [place] [address] Jun, [facility] [place] [facility] [address] [id number] [place] [address] Jun, [facility] [place] [facility] [address] [id number] [place] [address] May, [facility] [place] [facility] [address] [id number] [place] [address] May, [facility] [place] [facility] [address] [id number] [place] [address] Apr, [facility] [place] [facility] [address] [id number] [place] [address] Apr, [facility] [place] [facility] [address] [id number] [place] [address] Mar, [facility] [place] [facility] [address] [id number] [place] [address] Dec, [facility] [place] [facility] [address] [id number] [place] [address] Dec, [facility] [place] [facility] [address] [id number] [place] [address] Dec, [facility] [place] [facility] [address] [id number] [place] [address] Dec, [facility] [id number] [address] Oct, [facility] [id number] [address] Jun, [facility] [id number] [address] Feb, [facility] [id number] [address] Jan, [facility] [id number] [address] Jan, [facility] [id number] [place] [address] Feb, [facility] [id number] [address] Jun, [facility] [id number] [address] Feb, [facility] [id number] [address] Sep, [facility] [id number] [address] Jun, IMMUNIZATIONS No Known Immunizations SOCIAL HISTORY Never Assessed REASON FOR VISIT [place] [facility], feet are swelling PLAN OF CARE Activity Details Follow Up Next Available for [facility] with [facility] Reason: VITAL SIGNS Height 63 in 2017-08-05 Weight 220.7 lbs 2017-08-05 Temperature 97.9 degrees Fahrenheit 2017-08-05 Heart Rate 72 bpm 2017-08-05 Respiratory Rate 20 2017-08-05 BMI 39.09 kg/m2 2017-08-05 Blood pressure systolic 118 mmHg 2017-08-05 Blood pressure diastolic 64 mmHg 2017-08-05 MEDICATIONS Medication Instructions Dosage Frequency Start Date End Date Duration Status Triamcinolone & Emollient 0.1 % Active Hydrochlorothiazide 25 mg Orally Once a day 1 tablet in the morning 24h Active Levothyroxine Sodium 75 mcg Orally Once a day 1 tablet 24h 14 Sep, 2015 Active Omeprazole 40 mg 1 capsule 24h 07 Mar, 2014 Active RESULTS No Results PROCEDURES Procedure Date Ordered Result Body Site MICROALBUMIN, SEMIQUANT August 05, 2017 [facility] August 05, 2017 VENIPUNCT, ROUTINE* August 05, 2017 Hemoglobin Test Send Out 0 dollar August 05, 2017 [facility] VISIT ESTABLISHED PATIENT August 05, 2017 INSTRUCTIONS MEDICATIONS ADMINISTERED No Known [...]
--- OUTSIDE RECORDS SUMMARY | 2018-01-02 10:52 | XMS REPORT ---
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 Name Role Phone JULIAN GODINEZ Unavailable PROBLEMS Type Condition ICD9-CM Code BEG01-WX Code Onset Dates Condition Status SNOMED Code Problem Osteopenia of lumbar spine M85.88 Active 897641821 Problem Excessive daytime sleepiness G47.19 Active 311480498168 Problem Anxiety F41.9 Active 64757963 Problem Acquired hypothyroidism E03.9 Active 867486216 Problem Essential hypertension I10 Active 10696108 Problem Neuropathy G62.9 Active 291972011 Problem Stasis dermatitis of both legs I87.2 Active 93427287 Problem Elevated triglycerides with high cholesterol E78.2 Active 799227959 Problem Obesity (BMI 35.0-39.9 without comorbidity) E66.9 Active 387299273 ALLERGIES No Known Allergies ENCOUNTERS Encounter Location Date Diagnosis [place] [id number] [place] [address] 18726- 9589 Nov, [place] [address] [place] [id number] [place] [address] 10635- 2440 Aug, [place] [id number] [place] [address] 47951- 7543 Aug, Onychomycosis B35.1 and Neuropathy G62.9 [place] [id number] [place] [address] 04073- 5748 Aug, Medicare annual wellness visit, initial Z00.00 [place] [address] [place] [id number] [place] [address] 06352- 4715 July, [place] [address] [place] [id number] [place] [address] 83327- 2756 July, Essential hypertension I10 ; Elevated triglycerides with high cholesterol E78.2 ; Elevated glucose R73.09 ; Acquired hypothyroidism E03.9 ; Obesity (BMI 35.0-39.9 without comorbidity) E66.9 ; Bilateral leg edema R60.0 and Left ear impacted cerumen H61.22 [place] [address] [place] [id number] [place] [address] 54372- 4967 02 Jun, 2017 [place] [address] 37054- 5278 28 May, 2017 Hypothyroidism (acquired) E03.9 and Stasis dermatitis of both legs I87.2 [place] [address] 68782- 3121 May, Hypothyroidism (acquired) E03.9 [place] [address] 83590- 8546 16 May, 2017 Medicare annual wellness visit, initial Z00.00 [place] [address] 51678- 1785 May, Stasis dermatitis of both legs I87.2 and Onychomycosis B35.1 [place] [address] 61910- 5918 Mar, Hypothyroidism (acquired) E03.9 [place] [address] 82980- 6098 Feb, Wheezing R06.2 and Hypothyroidism (acquired) E03.9 [place] [address] 62530- 0972 Dec, Encounter for immunization Z23 [place] [address] 76887- 5108 14 Oct, 2016 Excessive daytime sleepiness G47.19 [place] [address] 76496- 5434 17 Sep, 2016 Chest pain in adult R07.9 ; SOB (shortness of breath) R06.02 and Anxiety F41.9 [place] [address] [place] [address]- 5000 17 Sep, 2016 [facility] [address] [address] 5177 17 May, 2016 Medicare annual wellness visit, initial Z00.00 [facility] [address] [address] 13 May, 2016 Medicare annual wellness visit, initial Z00.00 [facility] [address] [place] [id number] [place] [address] 00174- 7860 12 Feb, 2016 Hypothyroidism (acquired) E03.9 [facility] [address] [place] [id number] [place] [address] 57334- 5151 15 Oct, 2015 Hypothyroidism (acquired) E03.9 [facility] [address] [place] [id number] [place] [address] 79287- 4671 Oct, Hypothyroidism (acquired) E03.9 [facility] [address] [place] [id number] [place] [address] 49272- 5845 Sep, Hypertension, benign I10 and Hypothyroidism (acquired) E03.9 [facility] [id number] [place] [address] 46199- 8948 Sep, Pre-op evaluation Z01.818 ; Hypertension, benign I10 and Hypothyroidism (acquired) E03.9 [facility] [address] [address]- 8549 May, [facility] [address] [place] [id number] [address]- 0639 May, [facility] [address] [address]- 2649 May, Preoperative clearance Z01.818 [facility] [id number] [place] [address] 65068- 7834 Apr, Hypertension, benign I10 and Hypothyroidism (acquired) E03.9 [facility] [id number] [place] [address] 73264- 1159 Apr, Hypertension, benign I10 ; Hypothyroidism (acquired) E03.9 and Gastritis K29.70 [place] [address] 35305- 8251 Mar, [place] [address] [place] [id number] [place] [address] 86637- 4231 Feb, [place] [address] 45536- 4121 Jan, Primary osteoarthritis of left knee M17.12 [place] [address] 17251- 5062 Dec, Left knee pain M25.562 [place] [address] 34075- 7623 Dec, Left knee pain M25.562 [place] [address] 05509- 1154 Dec, Encounter for immunization Z23 [address] [address]27- 1253 Sep, Pre-op evaluation V72.84 and Fracture of 5th metatarsal 825.25 [place] [address] [place] [id number] [place] [address] 51357- 0939 Aug, [place] [address] [place] [id number] [place] [address] 40470- 9924 Aug, [place] [address] 50668- 3688 July, Metatarsal bone fracture 825.25 ; Hallux valgus 735.0 ; 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 ; Hammertoe 735.4 and Onychomycosis 110.1 [place] [address] [place] [id number] [place] [address] 17137- 4146 Jun, [place] [address] 76365- 2879 Jun, [facility] [place] [facility] [address] [id number] [place] [address]- 3564 May, [facility] [place] [facility] [address] [id number] [place] [address]- 8872 May, [facility] [place] [facility] [address] [id number] [place] [address]- 9145 Apr, [facility] [place] [facility] [address] [id number] [place] [address]- 6656 Apr, [facility] [place] [facility] [address] [id number] [place] [address]- 6377 Mar, [facility] [place] [facility] [address] [id number] [place] [address]- 9170 Mar, [facility] [place] [facility] [address] [id number] [place] [address]- 9748 Mar, [facility] [place] [facility] [address] [id number] [place] [address]- 4683 Mar, [facility] [place] [facility] [address] [id number] [place] [address]- 1000 Jan, [facility] [place] [facility] [address] [id number] [address]- 0143 Jan, [facility] [place] [facility] [address] [id number] [place] [address]- 1157 Jan, [facility] [place] [facility] [address] [id number] [address]- 2983 Jan, [facility] [place] [facility] [address] [id number] [place] [address]- 2799 Dec, [facility] [place] [facility] [address] [id number] [place] [address]- 9307 Dec, [facility] [place] [facility] [address] [id number] 6655 Nov, [facility] [place] [facility] [address] [id number] [address]- 0208 Nov, [facility] [place] [facility] [address] [id number] [place] [address]- 8367 Oct, [facility] [place] [facility] [address] [id number] [place] [address]- 9881 Oct, [facility] [place] [facility] [address] [id number] [place] [address]- 3318 Oct, [facility] [place] [facility] [address] [id number] [place] [address]- 1151 Oct, [facility] [place] [facility] [address] [id number] [place] [address]- 4401 Aug, [facility] [place] [facility] [address] [id number] [place] [address]- 6497 Aug, [facility] [place] [facility] [address] [id number] [place] [address]- 8907 July, [facility] [place] [facility] [address] [id number] [place] [address]- 1442 July, [facility] [place] [facility] [address] [id number] [place] [address]- 7117 Jun, [facility] [place] [facility] [address] [id number] [place] [address]- 6361 Jun, [facility] [place] [facility] [address] [id number] [place] [address]- 7331 Jun, [facility] [place] [facility] [address] [id number] [place] [address]- 1859 Mar, [facility] [place] [facility] [address] [id number] [place] [address]- 6460 Mar, [facility] [place] [facility] [address] [id number] [place] [address]- 3913 Mar, [facility] [place] [facility] [address] [id number] [place] [address]- 5683 Mar, [facility] [place] [facility] [address] [id number] [place] [address]- 1598 Mar, [facility] [place] [facility] [address] [id number] [place] [address]- 1815 Dec, [facility] [place] [facility] [address] [id number] [place] [address]- 3963 Dec, [facility] [place] [facility] [address] [id number] [place] [address]- 1194 Oct, [facility] [place] [facility] [address] [id number] [place] [address]- 7115 Oct, [facility] [place] [facility] [address] [id number] [place] [address]- 6082 Jun, [facility] [place] [facility] [address] [id number] [place] [address]- 4613 Jun, [facility] [place] [facility] [address] [id number] [place] [address]- 0718 May, [facility] [place] [facility] [address] [id number] [place] [address]- 5870 May, [facility] [place] [facility] [address] [id number] [place] [address]- 5718 Apr, [facility] [place] [facility] [address] [id number] [place] [address]- 3798 Apr, [facility] [place] [facility] [address] [id number] [place] [address]- 7651 Mar, [facility] [place] [facility] [address] [id number] [place] [address]- 5143 Dec, [facility] [place] [facility] [address] [id number] [place] [address]- 7991 Dec, [facility] [place] [facility] [address] [id number] [place] [address]- 3635 Dec, [facility] [place] [facility] [address] [id number] [place] [address]- 1971 Dec, [facility] [address] [place] [id number] [address]- 5066 Oct, [facility] [address] [address]- 6376 Jun, [facility] [address], [place] [address]- 9576 Feb, [facility] [address] [place] [id number] [address]- 4166 Jan, [facility] [address] [address]- 4866 Jan, [facility] [address] [place] [id number] [place] [address] 38667- 9436 Feb, [facility] [address] [place] [id number] [address]- 1655 Jun, [facility] [address] [address]- 5318 Feb, [facility] [address] [address]- 7801 Sep, [facility] [address] [address]- 3675 Jun, IMMUNIZATIONS No Known Immunizations SOCIAL HISTORY Never Assessed REASON FOR VISIT Swelling norma feet, reports swelling improved slightly. CBrumbackRN, verified meds with pt history PLAN OF CARE VITAL SIGNS Height 63 in 2017-06-11 Weight 215.6 lbs 2017-06-11 Temperature 98.4 degrees Fahrenheit 2017-06-11 Heart Rate 92 bpm 2017-06-11 Respiratory Rate 20 2017-06-11 BMI 38.19 kg/m2 2017-06-11 Blood pressure systolic 126 mmHg 2017-06-11 Blood pressure diastolic 88 mmHg 2017-06-11 MEDICATIONS Medication Instructions Dosage Frequency Start Date End Date Duration Status Hydrochlorothiazide 25 mg Orally Once a day 1 tablet in the morning 24h Active Levothyroxine Sodium 75 mcg Orally Once a day 1 tablet 24h Sep, Active Omeprazole 40 mg 1 capsule 24h Mar, Active RESULTS No Results PROCEDURES Procedure Date Ordered Result Body Site [facility] VISIT ESTABLISHED PATIENT June 11, 2017 INSTRUCTIONS MEDICATIONS ADMINISTERED No Known Medications [...]
--- OUTSIDE RECORDS SUMMARY | 2018-01-02 10:52 | XMS REPORT ---
Author Author JULIAN GODINEZ Organization [facility] Address [address] [place] [address] Care Team Providers Care Manager Social Work Name Role Phone JULIAN GODINEZ Unavailable PROBLEMS Type Condition ICD9-CM Code YSY15-QP Code Onset Dates Condition Status SNOMED Code Problem Osteopenia of lumbar spine M85.88 Active 130240700 Problem Excessive daytime sleepiness G47.19 Active 420881626097 Problem Anxiety F41.9 Active 08611434 Problem Acquired hypothyroidism E03.9 Active 623726012 Problem Essential hypertension I10 Active 68706170 Problem Neuropathy G62.9 Active 163848414 Problem Stasis dermatitis of both legs I87.2 Active 39036666 Problem Elevated triglycerides with high cholesterol E78.2 Active 377390291 Problem Obesity (BMI 35.0-39.9 without comorbidity) E66.9 Active 533799536 ALLERGIES No Information ENCOUNTERS Encounter Location Date Diagnosis [place] [id number] [place] [address] 71544- 6496 Nov, [place] [address] [place] [id number] [place] [address] 67412- 3853 Aug, [place] [id number] [place] [address] 35230- 4896 Aug, Onychomycosis B35.1 and Neuropathy G62.9 [place] [id number] [place] [address] 07895- 4903 Aug, Medicare annual wellness visit, initial Z00.00 [place] [address] [place] [id number] [place] [address] 62818- 2638 July, [place] [address] [place] [id number] [place] [address] 93970- 2405 July, Essential hypertension I10 ; Elevated triglycerides with high cholesterol E78.2 ; Elevated glucose R73.09 ; Acquired hypothyroidism E03.9 ; Obesity (BMI 35.0-39.9 without comorbidity) E66.9 ; Bilateral leg edema R60.0 and Left ear impacted cerumen H61.22 [place] [address] 12939- 1842 Jun, [place] [address] 70973- 2662 28 May, 2017 Hypothyroidism (acquired) E03.9 and Stasis dermatitis of both legs I87.2 [place] [address] 98266- 6848 May, Hypothyroidism (acquired) E03.9 [place] [address] 88482- 9641 May, Medicare annual wellness visit, initial Z00.00 [place] [address] 08873- 0569 May, Stasis dermatitis of both legs I87.2 and Onychomycosis B35.1 [place] [address] 92350- 4051 Mar, Hypothyroidism (acquired) E03.9 [place] [address] 62077- 0247 Feb, Wheezing R06.2 and Hypothyroidism (acquired) E03.9 [place] [address] [place] [id number] [place] [address] 03964- 1369 Dec, Encounter for immunization Z23 [place] [address] 68730- 2348 14 Oct, 2016 Excessive daytime sleepiness G47.19 [place] [address] 90546- 6043 17 Sep, 2016 Chest pain in adult R07.9 ; SOB (shortness of breath) R06.02 and Anxiety F41.9 [place] [address] [place] [address]- 6276 17 Sep, 2016 [facility] [address] [address]- 7891 17 May, 2016 Medicare annual wellness visit, initial Z00.00 [facility] [address] 1646 13 May, 2016 Medicare annual wellness visit, initial Z00.00 [facility] [address] [id number] [place] [address] 34712- 7301 12 Feb, 2016 Hypothyroidism (acquired) E03.9 [facility] [address] [place] [id number] [place] [address] 83490- 9989 15 Oct, 2015 Hypothyroidism (acquired) E03.9 [facility] [address] [place] [address] [id number] [place] [address] 93196- 3327 Oct, Hypothyroidism (acquired) E03.9 [facility] [address] [place] [id number] [address]- 9503 Sep, Hypertension, benign I10 and Hypothyroidism (acquired) E03.9 [facility] [id number] [place] [address] 88555- 2207 Sep, Pre-op evaluation Z01.818 ; Hypertension, benign I10 and Hypothyroidism (acquired) E03.9 [facility] [address] [address]- 8426 May, [facility] [address] [address]- 3896 May, [facility] [address] [address]- 3688 May, Preoperative clearance Z01.818 [facility] [id number] [place] [address] 17842- 3468 Apr, Hypertension, benign I10 and Hypothyroidism (acquired) E03.9 [facility] [address] [address]- 3093 Apr, Hypertension, benign I10 ; Hypothyroidism (acquired) E03.9 and Gastritis K29.70 [place] [address] 74331- 0490 Mar, [place] [address] [place] [id number] [place] [address] 22838- 1641 Feb, [place] [address] 02878- 5790 Jan, Primary osteoarthritis of left knee M17.12 [place] [address] 45394- 1774 Dec, Left knee pain M25.562 [place] [address] 35470- 7915 Dec, Left knee pain M25.562 [place] [address] 02497- 3560 Dec, Encounter for immunization Z23 [address] [address]644- 1147 Sep, Pre-op evaluation V72.84 and Fracture of 5th metatarsal 825.25 [place] [address] [place] [id number] [place] [address] 17759- 2647 Aug, [place] [address] [place] [id number] [place] [address] 87990- 8711 Aug, [place] [address] 92929- 6123 July, Metatarsal bone fracture 825.25 ; Hallux valgus 735.0 ; 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 ; Hammertoe 735.4 and Onychomycosis 110.1 [place] [address] [place] [id number] [place] [address] 25117- 8702 Jun, [place] [address] 60665- 5314 Jun, [facility] [place] [facility] [address] [id number] [place] [address]- 1368 May, [facility] [place] [facility] [address] [id number] [place] [address]- 9034 May, [facility] [place] [facility] [address] [id number] [place] [address]- 7103 Apr, [facility] [place] [facility] [address] [id number] [place] [address]- 3648 Apr, [facility] [place] [facility] [address] [id number] [place] [address]- 9833 Mar, [facility] [place] [facility] [address] [id number] [place] [address]- 2250 Mar, [facility] [place] [facility] [address] [id number] [place] [address]- 7401 Mar, [facility] [place] [facility] [address] [id number] [place] [address]- 3846 Mar, [facility] [place] [facility] [address] [id number] [place] [address]- 2957 Jan, [facility] [place] [facility] [address] [id number] [place] [address]- 4237 Jan, [facility] [place] [facility] [address] [id number] [place] [address]- 0790 Jan, [facility] [place] [facility] [address] [id number] [address]- 5695 Jan, [facility] [place] [facility] [address] [id number] [place] [address]- 2994 Dec, [facility] [place] [facility] [address] [id number] [place] [address]- 0377 Dec, [facility] [place] [facility] [address] [id number] [place] [address]- 4019 Nov, [facility] [place] [facility] [address] [id number] [place] [address]- 0285 Nov, [facility] [place] [facility] [address] [id number] [place] [address]- 9889 Oct, [facility] [place] [facility] [address] [id number] [place] [address]- 6783 Oct, [facility] [place] [facility] [address] [id number] [place] [address]- 8611 Oct, [facility] [place] [facility] [address] [id number] [place] [address]- 5884 Oct, [facility] [place] [facility] [address] [id number] [place] [address]- 3786 Aug, [facility] [place] [facility] [address] [id number] [place] [address]- 0508 Aug, [facility] [place] [facility] [address] [id number] [place] [address]- 5020 July, [facility] [place] [facility] [address] [id number] [place] [address]- 7368 July, [facility] [place] [facility] [address] [id number] [place] [address]- 4120 Jun, [facility] [place] [facility] [address] [id number] [place] [address]- 9657 Jun, [facility] [place] [facility] [address] [id number] [place] [address] Jun, [facility] [place] [facility] [address] [id number] [place] [address] Mar, [facility] [place] [facility] [address] [id number] [place] [address] Mar, [facility] [place] [facility] [address] [id number] [place] [address] Mar, [facility] [place] [facility] [address] [id number] [place] [address] Mar, [facility] [place] [facility] [address] [id number] [place] [address] Mar, [facility] [address] [id number] [place] [address] Dec, [facility] [place] [facility] [address] [id number] [place] [address] Dec, [facility] [address] [id number] [place] [address] Oct, [facility] [place] [facility] [address] [id number] [place] [address] Oct, [facility] [address] [id number] [place] [address] Jun, [facility] [place] [facility] [address] [id number] [place] [address] Jun, [facility] [place] [facility] [address] [id number] [place] [address] May, [facility] [address] [id number] [place] [address] May, [facility] [place] [facility] [address] [id number] [place] [address] Apr, [facility] [address] [id number] [place] [address] Apr, [facility] [place] [facility] [address] [id number] [place] [address] Mar, [facility] [address] [id number] [place] [address] Dec, [facility] [place] [facility] [address] [id number] [place] [address] Dec, [facility] [place] [facility] [address] [id number] [place] [address] Dec, [facility] [place] [facility] [address] [id number] [place] [address] Dec, [facility] [id number] [address] Oct, [facility] [id number] [address] Jun, [facility] [id number] [address] Feb, [facility] [id number] [address] Jan, [facility] [id number] [address] Jan, [facility] [id number] [place] [address] Feb, [facility] [id number] [address] Jun, [facility] [id number] [address] Feb, [facility] [id number] [address] Sep, [facility] [id number] [address] Jun, IMMUNIZATIONS No Known Immunizations SOCIAL HISTORY Never Assessed REASON FOR VISIT Refill request PLAN OF CARE VITAL SIGNS MEDICATIONS Medication Instructions Dosage Frequency Start Date End Date Duration Status Hydrochlorothiazide 25 mg Orally Once a day 1 tablet in the morning 24h 30 days Active RESULTS No Results PROCEDURES No Known procedures [...]
--- OUTSIDE RECORDS SUMMARY | 2018-01-02 10:52 | XMS REPORT ---
Author Author SERGIO Costello Organization [facility] Address [address] [place] [address] Care Team Providers Care Behaviour Support Teacher Name Role Phone SERGIO Costello Unavailable PROBLEMS Type Condition ICD9-CM Code PCP09-SI Code Onset Dates Condition Status SNOMED Code Problem Osteopenia of lumbar spine M85.88 Active 039739213 Problem Excessive daytime sleepiness G47.19 Active 387531052166 Problem Anxiety F41.9 Active 42529647 Problem Acquired hypothyroidism E03.9 Active 463359356 Problem Essential hypertension I10 Active 70710885 Problem Neuropathy G62.9 Active 093325754 Problem Stasis dermatitis of both legs I87.2 Active 49117346 Problem Elevated triglycerides with high cholesterol E78.2 Active 331432833 Problem Obesity (BMI 35.0-39.9 without comorbidity) E66.9 Active 605920787 ALLERGIES No Known Allergies ENCOUNTERS Encounter Location Date Diagnosis [facility] [id number] [place] [address]17- 3657 Nov, [facility] [id number], [place] [address] Aug, [facility] [id number] [place] [address] 21766- 7633 Aug, Onychomycosis B35.1 and Neuropathy G62.9 [facility] [id number] [address] Aug, Medicare annual wellness visit, initial Z00.00 [facility] [id number] [place] [address] 14582- 4326 July, [facility] [id number] [place] [address] 34203- 3295 22 May, 2018 Essential hypertension I10 ; Elevated triglycerides with high cholesterol E78.2 ; Elevated glucose R73.09 ; Acquired hypothyroidism E03.9 ; Obesity (BMI 35.0-39.9 without comorbidity) E66.9 ; Bilateral leg edema R60.0 and Left ear impacted cerumen H61.22 [facility] [id number] [place] [address] 73951- 8144 02 Jun, 2017 [facility] [address] [address]55- 1266 28 May, 2017 Hypothyroidism (acquired) E03.9 and Stasis dermatitis of both legs I87.2 [facility] [facility] [address] 0[address]89- 3276 May, Hypothyroidism (acquired) E03.9 [facility] [id number] [place] [address] 05016- 0984 16 May, 2017 Medicare annual wellness visit, initial Z00.00 [place] [address] 19397- 3806 May, Stasis dermatitis of both legs I87.2 and Onychomycosis B35.1 [facility] [address] 26986- 2565 02 Mar, 2017 Hypothyroidism (acquired) E03.9 [facility] [id number] [place] [address] 81810- 4842 Feb, Wheezing R06.2 and Hypothyroidism (acquired) E03.9 [facility] [id number] [place] [address] 24452- 3664 17 Dec, 2016 Encounter for immunization Z23 [facility] [address] 90218- 8921 14 Oct, 2016 Excessive daytime sleepiness G47.19 [facility] [id number] [place] [address] 24756- 6160 17 Sep, 2016 Chest pain in adult R07.9 ; SOB (shortness of breath) R06.02 and Anxiety F41.9 [facility] [id number] [address] 00[address] 17 Sep, 2016 [facility] [id number] [address] 6045 17 May, 2016 Medicare annual wellness visit, initial Z00.00 [facility] [id number] [address] 13 May, 2016 Medicare annual wellness visit, initial Z00.00 [facility] [id number], [place] [address] 4[address] 12 Feb, 2016 Hypothyroidism (acquired) E03.9 [facility] [id number] [place] [address] 94544- 8061 15 Oct, 2015 Hypothyroidism (acquired) E03.9 [facility] [id number] [address] 78[address] Oct, Hypothyroidism (acquired) E03.9 [facility] [address] [address]- 7[address] Sep, Hypertension, benign I10 and Hypothyroidism (acquired) E03.9 [facility] [id number], [place] [address] 37[address] Sep, Pre-op evaluation Z01.818 ; Hypertension, benign I10 and Hypothyroidism (acquired) E03.9 [facility] [id number], [place] [address]- 2720 May, [facility] [id number] [address] 5316 May, [facility] [id number], [place] [address]- 1752 May, Preoperative clearance Z01.818 [facility] [address], [place] [address]- 8259 Apr, Hypertension, benign I10 and Hypothyroidism (acquired) E03.9 [facility] [id number] [place] [address] 40565- 3334 Apr, Hypertension, benign I10 ; Hypothyroidism (acquired) E03.9 and Gastritis K29.70 [place] [address] 27144- 6195 Mar, [facility] [address] 03979- 2848 Feb, [facility] [address] 51808- 1348 Jan, Primary osteoarthritis of left knee M17.12 [place] [address] 18044- 4199 Dec, Left knee pain M25.562 [place] [address] 42228- 8121 Dec, Left knee pain M25.562 [place] [address] 25355- 2744 Dec, Encounter for immunization Z23 [place] [address] 55289- 8929 Sep, Pre-op evaluation V72.84 and Fracture of 5th metatarsal 825.25 [facility] [id number] [place] [address] 36895- 5652 Aug, [facility] [address] 61723- 9081 Aug, [facility] [id number] [place] [address] 79020- 8347 July, Metatarsal bone fracture 825.25 ; Hallux valgus 735.0 ; 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 ; Hammertoe 735.4 and Onychomycosis 110.1 [place] [address] 99199- 3548 Jun, [facility] [address] 23997- 8906 Jun, [facility] [place] [facility] [address] [id number] [place] [address]- 6784 May, [facility] [place] [facility] [address] [id number], [place] [address]- 8382 May, [facility] [place] [facility] [address] [facility] [id number] [place] [address]- 2469 Apr, [facility] [place] [facility] [address] [id number] [place] [address]- 6498 Apr, [facility] [place] [facility] [address] [facility] [id number] [place] [address]- 4821 Mar, [facility] [place] [facility] [address] [facility] [id number] [place] [address]- 7458 Mar, [facility] [place] [facility] [address] [facility] [id number], [place] [address]- 4718 Mar, [facility] [place] [facility] [address] [facility] [id number], [place] [address]- 7884 Mar, [facility] [place] [facility] [address] [facility] [id number], [place] [address]- 0275 Jan, [facility] [place] [facility] [address] [facility] [id number], [place] [address]- 4264 Jan, [facility] [place] [facility] [address] [facility] [id number], [place] [address]- 3393 Jan, [facility] [place] [facility] [address] [facility] [id number][place] [address]- 3792 Jan, [facility] [place] [facility] [address] [id number], [place] [address]- 6169 Dec, [facility] [place] [facility] [address] [facility] [id number], [place] [address]- 9636 Dec, [facility] [place] [facility] [address] [facility] [id number], [place] [address]- 6548 Nov, [facility] [place] [facility] [address] [id number] [place] [address]- 1497 Nov, [facility] [place] [facility] [address] [id number] [place] [address]- 3246 Oct, [facility] [place] [facility] [address] [id number] [place] [address]- 8389 Oct, [facility] [place] [facility] [address] [id number] [place] [address]- 6710 Oct, [facility] [place] [facility] [address] [id number] [place] [address]- 7709 Oct, [facility] [place] [facility] [address] [id number] [place] [address]- 5429 Aug, [facility] [place] [facility] [address] [id number] [place] [address]- 5227 Aug, [facility] [place] [facility] [address] [id number] [place] [address]- 4313 July, [facility] [place] [facility] [address] [id number] [place] [address]- 5327 July, [facility] [place] [facility] [address] [id number] [place] [address]- 4758 Jun, [facility] [place] [facility] [address] [id number] [place] [address]- 0964 Jun, [facility] [place] [facility] [address] [id number] [place] [address]- 4594 Jun, [facility] [place] [facility] [address] [id number] [place] [address]- 1514 Mar, [facility] [place] [facility] [address] [id number] [place] [address]- 8301 Mar, [facility] [place] [facility] [address] [id number] [place] [address]- 1366 Mar, [facility] [place] [facility] [address] [id number] [place] [address]- 2424 Mar, [facility] [place] [facility] [address] [id number] [place] [address]- 5370 Mar, [facility] [place] [facility] [address] [id number] [place] [address]- 7121 Dec, [facility] [place] [facility] [address] [id number] [place] [address]- 0916 Dec, [facility] [place] [facility] [address] [id number] [place] [address]- 2251 Oct, [facility] [place] [facility] [address] [id number] [place] [address]- 2875 Oct, [facility] [place] [facility] [address] [id number] [place] [address]- 0878 Jun, [facility] [place] [facility] [address] [id number] [place] [address]- 4569 Jun, [facility] [place] [facility] [address] [id number] [place] [address]- 4965 May, [facility] [place] [facility] [address] [id number] [place] [address]- 9764 May, [facility] [place] [facility] [address] [id number] [place] [address]- 7787 Apr, [facility] [place] [facility] [address] [id number] [place] [address]- 6017 Apr, [facility] [place] [facility] [address] [id number], [place] [address]- 2921 Mar, [facility] [place] [facility] [address] [id number] [place] [address]- 7702 Dec, [facility] [place] [facility] [address] [id number] [place] [address]- 3311 Dec, [facility] [place] [facility] [address] [id number] [place] [address]- 4220 Dec, [facility] [place] [facility] [address], [place] [address]- 3816 Dec, [facility] [id number], [place] [address]- 7666 Oct, [facility] [id number] [address]66 Jun, [facility] [address] 1444 Feb, [facility] [address], [place] [address]- 6233 Jan, [facility] [id number] [place] [address] 252837- 8409 Jan, [facility] [id number] [place] [address] 87942- 0676 Feb, [facility] [id number] [place] [address] 02046- 1357 Jun, [facility] [address], [place] [address]- 2477 Feb, [facility] [address], [place] [address]- 6325 Sep, [facility] [address], [place] [address]- 2697 Jun, IMMUNIZATIONS No Known Immunizations SOCIAL HISTORY Never Assessed REASON FOR VISIT swelling, bilateral left is worse, x2-3 months-----DBennettRN, redness in left leg x1 week PLAN OF CARE Activity Details Follow Up 7-10 days Reason: VITAL SIGNS Height 63 in 2017-05-30 Weight 225 lbs 2017-05-30 Temperature 98.1 degrees Fahrenheit 2017-05-30 Heart Rate 70 bpm 2017-05-30 Respiratory Rate 20 2017-05-30 BMI 39.85 kg/m2 2017-05-30 Blood pressure systolic 132 mmHg 2017-05-30 Blood pressure diastolic 74 mmHg 2017-05-30 MEDICATIONS Medication Instructions Dosage Frequency Start Date End Date Duration Status Triamcinolone Acetonide 0.1 % Externally Twice a day 1 application to affected area 12h Active Lasix 20 mg Orally Once a day 1 tablet 24h May, Active Omeprazole 40 mg 1 capsule 24h Mar, Active Levothyroxine Sodium 75 mcg Orally Once a day 1 tablet 24h Sep, Active Hydrochlorothiazide 25 1 tablet in the morning 24h Active Trazodone HCl 50 mg Orally Once a day 1 tablet at bedtime as needed 24h Sep, 30 day(s) Active RESULTS No Results PROCEDURES Procedure Date Ordered Result Body Site [facility] VISIT ESTABLISHED PATIENT May 30, 2017 INSTRUCTIONS MEDICATIONS ADMINISTERED No [...]
--- OUTSIDE RECORDS SUMMARY | 2018-01-02 10:53 | XMS REPORT ---
Author Author JULIAN GODINEZ Organization [facility] Address [address] [place] [address] Care Team Providers Care Performance Test Engineer Name Role Phone JULIAN GODINEZ Unavailable PROBLEMS Type Condition ICD9-CM Code [id number] Code Onset Dates Condition Status SNOMED Code Problem Stasis dermatitis of both legs I87.2 Active 11694035 Problem Excessive daytime sleepiness G47.19 Active 438784442449 Problem Hypothyroidism (acquired) E03.9 Active 947774437 Problem Anxiety F41.9 Active 57373420 Problem Hypertension, benign I10 Active [id number] ALLERGIES No Information ENCOUNTERS Encounter Location Date Diagnosis [place] [address] [address] Aug, [facility] [address] [address] July, [facility] [address] [address] Jun, [facility] [address] [address] May, Hypothyroidism (acquired) E03.9 and Stasis dermatitis of both legs I87.2 [place] [address] [place] [id number] [place] [address] May, Hypothyroidism (acquired) E03.9 [facility] [address] [place] [id number] [place] [address] May, Medicare annual wellness visit, initial Z00.00 [place] [address] [address] May, Stasis dermatitis of both legs I87.2 and Onychomycosis B35.1 [place] [address] [place] [address] 02 Mar, 2017 Hypothyroidism (acquired) E03.9 [facility] [address] [address] 29 Feb, 2017 Wheezing R06.2 and Hypothyroidism (acquired) E03.9 [facility] [address] [place] [id number] [place] [address]- [address] 17 Dec, 2016 Encounter for immunization Z23 [facility] [address] [address] 14 Oct, 2016 Excessive daytime sleepiness G47.19 [place] [address] [address] 17 Sep, 2016 Chest pain in adult R07.9 ; SOB (shortness of breath) R06.02 and Anxiety F41.9 [place] [address] [address] 17 Sep, 2016 [facility] [address] [place] [id number] [place] [address]- [address] 17 May, 2016 Medicare annual wellness visit, initial Z00.00 [place] [address] [address] 13 May, 2016 Medicare annual wellness visit, initial Z00.00 [place] [address] [place] [id number] [place] [address]- 4[address] 12 Feb, 2016 Hypothyroidism (acquired) E03.9 [facility] [address] [place] [id number] [place] [address] 79478- 6389 15 Oct, 2015 Hypothyroidism (acquired) E03.9 [facility] [address] [place] [id number] [place] [address]- [address]71 11 Oct, 2015 Hypothyroidism (acquired) E03.9 [facility] [address] [place] [id number] [place] [address]282- 39[address] 14 Sep, 2015 Hypertension, benign I10 and Hypothyroidism (acquired) E03.9 [facility] [address] [place] [id number] [place] [address] Sep, Pre-op evaluation Z01.818 ; Hypertension, benign I10 and Hypothyroidism (acquired) E03.9 [facility] [address] [place] [id number] [place] [address]- [address] May, [facility] [address] [place] [id number] [place] [address] 7[address]65- 1473 May, [facility] [address] [place] [id number] [place] [address] 08393- 2556 May, Preoperative clearance Z01.818 [facility] [address] [address] Apr, Hypertension, benign I10 and Hypothyroidism (acquired) E03.9 [facility] [address] [place] [id number] [place] [address]- [address] Apr, Hypertension, benign I10 ; Hypothyroidism (acquired) E03.9 and Gastritis K29.70 [facility] [address] [place] [id number] [place] [address] 84390- [address] Mar, [facility] [address] [address]- [address] Feb, [facility] [address] [place] [id number] [place] [address]- [address] Jan, Primary osteoarthritis of left knee M17.12 [facility] [address] [place] [id number] [place] [address]17- 3073 Dec, Left knee pain M25.562 [facility] [address] [place] [id number] [place] [address] 7[address]- [address] Dec, Left knee pain M25.562 [facility] [address] [place] [id number] [place] [address] 9[address]39- [address] Dec, Encounter for immunization Z23 [facility] [address] [address] Sep, Pre-op evaluation V72.84 and Fracture of 5th metatarsal 825.25 [facility] [address] [address] Aug, [facility] [address] [place] [id number] [address] Aug, [facility] [address] [place] [id number] [place] [address]88- [address]70 July, Metatarsal bone fracture 825.25 ; Hallux valgus 735.0 ; 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 ; Hammertoe 735.4 and Onychomycosis 110.1 [facility] [address] [place] [id number] [place] [address] 59185- 5350 Jun, [facility] [address] [place] [id number] [place] [address]85- 0840 Jun, [facility] [address] [place] [id number] [place] [address] 48026- 9995 May, [facility] [address], [place] [address] May, [facility] [id number] [place] [address]16- 3314 Apr, [facility] [address] [address]- 8[address] Apr, [facility] [address], [place] [address]- [address] Mar, [facility] [address], [place] [address]- [address] Mar, [facility] [address], [place] [address]- 8367 Mar, [facility] [address], [place] [address]- 12[address] Mar, [facility] [address] [place] [address] Jan, [facility] [place] [facility] [address] [id number] [place] [address] Jan, [facility] [place] [facility] [address] [id number] [place] [address]- 4122 Jan, [facility] [place] [facility] [address] [id number] [place] [address]- 6416 Jan, [facility] [place] [facility] [address] [id number] [place] [address]- 5814 Dec, [facility] [place] [facility] [address] [id number] [place] [address] Dec, [facility] [place] [facility] [address] [id number] [place] [address]- 5650 Nov, [facility] [place] [facility] [address] [id number] [place] [address]- 7870 Nov, [facility] [place] [facility] [address] [id number] [place] [address]- 0180 Oct, [facility] [place] [facility] [address] [id number] [place] [address]- 7976 Oct, [facility] [place] [facility] [address] [id number] [place] [address]- 1017 Oct, [facility] [place] [facility] [address] [id number], [place] [address]- 7242 Oct, [facility] [place] [facility] [address] [id number], [place] [address]- 5[address] Aug, [facility] [place] [facility] [address] [id number] [place] [address]- 7800 Aug, [facility] [place] [facility] [address] [id number] [place] [address]- 9135 July, [facility] [place] [facility] [address] [id number] [place] [address]- 9362 July, [facility] [place] [facility] [address] [id number] [place] [address]- 8323 17 Jun, 2013 [facility] [address] [id number] [place] [address]- 4764 Jun, [facility] [address] [id number] [place] [address]- 9616 Jun, [facility] [address] [id number] [place] [address]- 5036 Mar, [facility] [address] [id number] [place] [address]- 3389 Mar, [facility] [address] [id number] [place] [address]- 6854 Mar, [facility] [address] [id number] [place] [address]- 1925 Mar, [facility] [address] [id number] [place] [address]- 2954 Mar, [facility] [address] [id number] [place] [address]- 1072 Dec, [facility] [address] [id number] [place] [address]- 7565 Dec, [facility] [address] [id number] [place] [address]- 9767 Oct, [facility] [address] [id number] [place] [address]- 8557 Oct, [facility] [address] [id number] [place] [address]- 6437 Jun, [facility] [place] [facility] [address] [id number] [place] [address]- 4133 Jun, [facility] [place] [facility] [address] [id number] [place] [address]- 2494 May, [facility] [address] [id number] [place] [address]- 6227 May, [facility] [place] [facility] [address] [id number] [place] [address]- 3099 Apr, [facility] [place] [facility] [address] [id number] [place] [address]- 9626 Apr, [facility] [place] [facility] [address] [id number] [place] [address]- 0076 Mar, [facility] [place] [facility] [address] [id number] [place] [address]- 5566 Dec, [facility] [place] [facility] [address] [id number] [place] [address]- 5922 Dec, [facility] [place] [facility] [address] [id number] [place] [address]- 9556 Dec, [facility] [place] [facility] [address] [id number] [place] [address]- 9596 Dec, [facility] [place] [facility] [address] [id number] [place] [address]- 4314 Oct, [facility] [place] [facility] [address] [id number] [place] [address]- 7797 Jun, [facility] [place] [facility] [address] [facility] [id number] [place] [address]- 9657 Feb, [facility] [place] [facility] [address] [id number] [place] [address]- 5526 Jan, [facility] [place] [facility] [address] [id number], [place] [address]- 3576 Jan, [facility] [place] [facility] [address] [id number] [place] [address]- 1676 Feb, [facility] [place] [facility] [address] [id number] [place] [address]- 4116 Jun, [facility] [place] [facility] [address] [facility] [id number] [place] [address]- 1996 Feb, [facility] [place] [facility] [address] [id number] [place] [address]- 8295 14 Sep, 2008 [facility] [address] [facility] [id number] [place] [address]- 1498 13 Jun, 2008 IMMUNIZATIONS Vaccine Route Administration Date Status FLUARIX QUAD (3 AND UP) 2017 IM Intramuscular Dec 31, 2016 Administered SOCIAL HISTORY Never Assessed REASON FOR VISIT Flu shot---[place],[facility] PLAN OF CARE VITAL SIGNS MEDICATIONS Unknown Medications RESULTS No Results PROCEDURES Procedure Date Ordered Result Body Site FLUARIX QUAD (3 & UP)-GSK-2015 Dec 31, 2016 SINGLE IMMUNIZATION ADMIN Dec 31, 2016 INSTRUCTIONS MEDICATIONS ADMINISTERED No Known Medications MEDICAL [...] Hospitalization History surgeries Hospitalization History cough - [facility] ED visit 02/03/17 Hospitalization History cough and chest pain - [facility] inpatient admit. Discharged 03/04/17. 03/03/17 Hospitalization History back pain - [facility] ED visit 03/05/17
--- OUTSIDE RECORDS SUMMARY | 2018-01-02 10:53 | XMS REPORT ---
Author Author JULIAN GODINEZ Organization [facility] Address [address] [place] [address] Care Team Providers Care Disc Sander Name Role Phone JULIAN GODINEZ Unavailable PROBLEMS Type Condition ICD9-CM Code SIP84-WV Code Onset Dates Condition Status SNOMED Code Problem Excessive daytime sleepiness G47.19 Active 583386620739 Problem Anxiety F41.9 Active 69471828 Problem Acquired hypothyroidism E03.9 Active 062234214 Problem Essential hypertension I10 Active 91520874 Problem Neuropathy G62.9 Active 140835798 Problem Stasis dermatitis of both legs I87.2 Active 27884238 Problem Elevated triglycerides with high cholesterol E78.2 Active 496924640 Problem Obesity (BMI 35.0-39.9 without comorbidity) E66.9 Active 458893060 ALLERGIES No Known Allergies ENCOUNTERS Encounter Location Date Diagnosis [place] [address] [address] Nov, [place] [address] 02183- 6841 Aug, [place] [address] 67375- 8013 Aug, Onychomycosis B35.1 and Neuropathy G62.9 [place] [address] 36673- 3910 Aug, Medicare annual wellness visit, initial Z00.00 [place] [address] 12384- 5881 July, [place] [address] 71592- 6904 July, Essential hypertension I10 ; Elevated triglycerides with high cholesterol E78.2 ; Elevated glucose R73.09 ; Acquired hypothyroidism E03.9 ; Obesity (BMI 35.0-39.9 without comorbidity) E66.9 ; Bilateral leg edema R60.0 and Left ear impacted cerumen H61.22 [place] [address] 24746- 9107 Jun, [place] [address] 56519- 5174 May, Hypothyroidism (acquired) E03.9 and Stasis dermatitis of both legs I87.2 [place] [address] 74579- 7116 May, Hypothyroidism (acquired) E03.9 [place] [address] 85527- 0163 May, Medicare annual wellness visit, initial Z00.00 [place] [address] 60738- 5471 May, Stasis dermatitis of both legs I87.2 and Onychomycosis B35.1 [place] [address] 29160- 0341 Mar, Hypothyroidism (acquired) E03.9 [place] [address] 03506- 6467 Feb, Wheezing R06.2 and Hypothyroidism (acquired) E03.9 [place] [address] 94087- 6496 Dec, Encounter for immunization Z23 [place] [address] 18384- 8386 Oct, Excessive daytime sleepiness G47.19 [place] [address] 36197- 0116 Sep, Chest pain in adult R07.9 ; SOB (shortness of breath) R06.02 and Anxiety F41.9 [place] [address] 32506- 5105 Sep, [facility] [address] [address]26 17 May, 2016 Medicare annual wellness visit, initial Z00.00 [facility] [address] [address] 13 May, 2016 Medicare annual wellness visit, initial Z00.00 [facility] [address] [address]- 3870 12 Feb, 2016 Hypothyroidism (acquired) E03.9 [facility] [address] [address] 8262 15 Oct, 2015 Hypothyroidism (acquired) E03.9 [facility] [address] [address]- 7830 Oct, Hypothyroidism (acquired) E03.9 [facility] [address] [address]- 5784 Sep, Hypertension, benign I10 and Hypothyroidism (acquired) E03.9 [facility] [address] [address]- 8507 Sep, Pre-op evaluation Z01.818 ; Hypertension, benign I10 and Hypothyroidism (acquired) E03.9 [facility] [address] [address]- 2647 29 May, 2015 [facility] [address] [address]- 2662 May, [facility] [address] [place] [id number] [address]- 1056 May, Preoperative clearance Z01.818 [facility] [address] [address]- 7655 Apr, Hypertension, benign I10 and Hypothyroidism (acquired) E03.9 [facility] [address] [address]- 9437 Apr, Hypertension, benign I10 ; Hypothyroidism (acquired) E03.9 and Gastritis K29.70 [place] [address] [place] [id number] [place] [address] 30113- 0255 Mar, [place] [address] [place] [id number] [place] [address] 16889- 5101 Feb, [place] [address] [place] [id number] [place] [address] 94948- 3298 Jan, Primary osteoarthritis of left knee M17.12 [place] [address] 35337- 3844 Dec, Left knee pain M25.562 [place] [address] 69911- 8362 Dec, Left knee pain M25.562 [place] [address] 94107- 1861 Dec, Encounter for immunization Z23 [place] [address] 70219- 1456 Sep, Pre-op evaluation V72.84 and Fracture of 5th metatarsal 825.25 [place] [address] [place] [id number] [place] [address] 31937- 4610 Aug, [place] [address] [place] [id number] [place] [address] 73864- 4307 Aug, [place] [address] [place] [id number] [place] [address] 22019- 9750 July, Metatarsal bone fracture 825.25 ; Hallux valgus 735.0 ; 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 ; Hammertoe 735.4 and Onychomycosis 110.1 [place] [address] [place] [id number] [place] [address] 31674- 0236 14 Jun, 2014 [place] [address] [place] [id number] [place] [address] 56288- 7005 Jun, [place] [address] [place] [address]- 3336 May, [facility] [place] [facility] [address] [id number] [place] [address]- 4036 May, [facility] [place] [facility] [address] [id number] [place] [address]- 3110 Apr, [facility] [place] [facility] [address] [id number] [place] [address]- 8312 Apr, [facility] [place] [facility] [address] [id number] [place] [address]- 4989 Mar, [facility] [place] [facility] [address] [id number] [place] [address]- 8618 Mar, [facility] [place] [facility] [address] [id number] [place] [address]- 4961 Mar, [facility] [place] [facility] [address] [id number] [place] [address]- 4778 Mar, [facility] [place] [facility] [address] [id number] [place] [address]- 4432 Jan, [facility] [place] [facility] [address] [id number] [place] [address]- 5559 Jan, [facility] [place] [facility] [address] [id number] [place] [address]- 6963 Jan, [facility] [place] [facility] [address] [id number] [place] [address]- 6836 Jan, [facility] [place] [facility] [address] [id number] [address]- 3964 Dec, [facility] [place] [facility] [address] [id number] [place] [address]- 1290 Dec, [facility] [place] [facility] [address] [id number] [place] [address]- 7676 Nov, [facility] [place] [facility] [address] [id number] [address] Nov, [facility] [place] [facility] [address] [id number] [place] [address]- 6850 Oct, [facility] [place] [facility] [address] [id number] [place] [address]- 6873 Oct, [facility] [place] [facility] [address] [id number] [place] [address]- 6587 Oct, [facility] [place] [facility] [address] [id number] [place] [address]- 2867 Oct, [facility] [place] [facility] [address] [id number] [place] [address]- 9541 Aug, [facility] [place] [facility] [address] [id number] [place] [address]- 6371 Aug, [facility] [place] [facility] [address] [id number] [place] [address]- 0481 July, [facility] [place] [facility] [address] [id number] [place] [address]- 1874 July, [facility] [place] [facility] [address] [id number] [place] [address]- 9774 Jun, [facility] [place] [facility] [address] [id number] [place] [address]- 8609 Jun, [facility] [place] [facility] [address] [id number] [place] [address]- 8895 Jun, [facility] [place] [facility] [address] [id number] [place] [address]- 4406 Mar, [facility] [place] [facility] [address] [id number] [place] [address]- 8517 Mar, [facility] [place] [facility] [address] [id number] [place] [address]- 9572 Mar, [facility] [place] [facility] [address] [id number] [place] [address]- 4258 Mar, [facility] [place] [facility] [address] [id number] [place] [address]- 6917 Mar, [facility] [place] [facility] [address] [id number] [place] [address]- 2102 Dec, [facility] [place] [facility] [address] [id number] [place] 2667 Dec, [facility] [place] [facility] [address] [id number] [place] [address]- 9520 Oct, [facility] [place] [facility] [address] [id number] [place] [address]- 9156 Oct, [facility] [place] [facility] [address] [id number] [place] [address]- 3884 Jun, [facility] [place] [facility] [address] [id number] [place] [address]- 5346 Jun, [facility] [place] [facility] [address] [id number] [place] [address]- 6950 May, [facility] [place] [facility] [address] [id number] [place] [address]- 6898 May, [facility] [place] [facility] [address] [id number] [place] [address]- 6239 Apr, [facility] [place] [facility] [address] [id number] [place] [address]- 9325 Apr, [facility] [place] [facility] [address] [id number] [address]- 3521 Mar, [facility] [place] [facility] [address] [id number] [address]- 4152 Dec, [facility] [place] [facility] [address] [id number] [place] [address]- 7872 Dec, [facility] [place] [facility] [address] [id number] [place] 2486 Dec, [facility] [place] [facility] [address] [id number] [place] [address]- 8649 Dec, [facility] [place] [facility] [address] [address]- 0582 Oct, [facility] [address] [address]- 1060 Jun, [facility] [address] [address]- 7132 Feb, [facility] [address] [address]- 9361 Jan, [facility] [address] [address]- 6018 Jan, [facility] [address] [place] [id number] [place] [address] 91293- 5197 Feb, [facility] [address] [address]- 5910 Jun, [facility] [address] [address]- 9015 Feb, [facility] [address] [address]- 6350 Sep, [facility] [address] [address] Jun, IMMUNIZATIONS No Known Immunizations SOCIAL HISTORY Never Assessed REASON FOR VISIT ER f/u, sinus infection x 3weeks ago, persistant cough----Senait PLAN OF CARE VITAL SIGNS Height 63 in 2017-03-14 Weight 222 lbs 2017-03-14 Temperature 98.7 degrees Fahrenheit 2017-03-14 Heart Rate 60 bpm 2017-03-14 Respiratory Rate 20 2017-03-14 BMI 39.32 kg/m2 2017-03-14 Blood pressure systolic 122 mmHg 2017-03-14 Blood pressure diastolic 82 mmHg 2017-03-14 MEDICATIONS Medication Instructions Dosage Frequency Start Date End Date Duration Status Trazodone HCl 50 mg Orally Once a day 1 tablet at bedtime as needed 24h Sep, 30 day(s) Active PredniSONE 20 mg Orally Once a day 2 tablets 24h Feb, Mar, 05 days Active Omeprazole 40 mg 1 capsule 24h 07 Cesar, 2015 Active Levothyroxine Sodium 75 mcg Orally Once a day 1 tablet 24h Sep, Active Hydrochlorothiazide 25 1 tablet in the morning 24h Active RESULTS Name Result Date Reference Range TSH 2017-03-14 TSH 8.89 0.40-4.50 PROCEDURES Procedure Date Ordered Result Body Site [facility] VISIT ESTABLISHED PATIENT Mar 14, 2017 VENIPUNCT, ROUTINE* Mar 14, 2017 [facility] Mar [facility], 2017 INSTRUCTIONS MEDICATIONS ADMINISTERED No Known Medications [...]
--- OUTSIDE RECORDS SUMMARY | 2018-01-02 10:53 | XMS REPORT ---
Author Author JULIAN GODINEZ Organization [facility] [place] Address [address] [place] [address] Care Team Providers Care Facilities Technician Name Role Phone JULIAN GODINEZ Unavailable PROBLEMS Type Condition ICD9-CM Code HPR35-SN Code Onset Dates Condition Status SNOMED Code Problem Excessive daytime sleepiness G47.19 Active 633141007860 Problem Anxiety F41.9 Active 20837575 Problem Acquired hypothyroidism E03.9 Active 521399116 Problem Essential hypertension I10 Active 62383028 Problem Neuropathy G62.9 Active 500514932 Problem Stasis dermatitis of both legs I87.2 Active 98746319 Problem Elevated triglycerides with high cholesterol E78.2 Active 132278576 Problem Obesity (BMI 35.0-39.9 without comorbidity) E66.9 Active 632827265 ALLERGIES No Information ENCOUNTERS Encounter Location Date Diagnosis [place] [address] [place] [id number] [place] [address] 36278- 2342 Nov, [place] [address] [place] [id number] [place] [address] 58373- 5485 Aug, [place] [address] [place] [id number] [place] [address] 87415- 2583 Aug, Onychomycosis B35.1 and Neuropathy G62.9 [place] [address] [place] [id number] [place] [address] 00675- 5574 Aug, Medicare annual wellness visit, initial Z00.00 [place] [address] 96881- 9605 July, [place] [address] 66224- 2596 July, Essential hypertension I10 ; Elevated triglycerides with high cholesterol E78.2 ; Elevated glucose R73.09 ; Acquired hypothyroidism E03.9 ; Obesity (BMI 35.0-39.9 without comorbidity) E66.9 ; Bilateral leg edema R60.0 and Left ear impacted cerumen H61.22 [place] [address] 64056- 3079 Jun, [place] [address] 95348- 9250 May, Hypothyroidism (acquired) E03.9 and Stasis dermatitis of both legs I87.2 [place] [address] 08254- 2807 May, Hypothyroidism (acquired) E03.9 [place] [address] 55277- 4247 May, Medicare annual wellness visit, initial Z00.00 [place] [address] 41037- 5967 May, Stasis dermatitis of both legs I87.2 and Onychomycosis B35.1 [place] [address] 35664- 5675 Mar, Hypothyroidism (acquired) E03.9 [place] [address] 13275- 9521 Feb, Wheezing R06.2 and Hypothyroidism (acquired) E03.9 [place] [address] 08536- 3124 17 Dec, 2016 Encounter for immunization Z23 [place] [address] 96023- 9793 14 Oct, 2016 Excessive daytime sleepiness G47.19 [place] [address] 62744- 0418 Sep, Chest pain in adult R07.9 ; SOB (shortness of breath) R06.02 and Anxiety F41.9 [place] [address] 03535- 3117 Sep, [facility] [place] [address] [address]- 0033 17 May, 2016 Medicare annual wellness visit, initial Z00.00 [facility] [place] [address] [address]- 0993 13 May, 2016 Medicare annual wellness visit, initial Z00.00 [facility] [place] [address] [address]- 8441 12 Feb, 2016 Hypothyroidism (acquired) E03.9 [facility] [place] [address] [address]- 7814 Oct, Hypothyroidism (acquired) E03.9 [facility] [place] [address] [address]- 6390 Oct, Hypothyroidism (acquired) E03.9 [facility] [place] [address] [address]- 6607 Sep, Hypertension, benign I10 and Hypothyroidism (acquired) E03.9 [facility] [place] [address] [address]- 7084 Sep, Pre-op evaluation Z01.818 ; Hypertension, benign I10 and Hypothyroidism (acquired) E03.9 [facility] [place] [address] [address]- 0656 May, [facility] [place] [address] [address]- 3029 May, [facility] [place] [address] [id number] [address]- 2828 May, Preoperative clearance Z01.818 [facility] [place] [address] 0226 Apr, Hypertension, benign I10 and Hypothyroidism (acquired) E03.9 [facility] [place] [id number] [address]- 9137 Apr, Hypertension, benign I10 ; Hypothyroidism (acquired) E03.9 and Gastritis K29.70 [place] [address] [place] [id number] [place] [address] 25963- 9121 Mar, [place] [address] 22434- 0594 Feb, [place] [address] 35690- 5881 Jan, Primary osteoarthritis of left knee M17.12 [place] [address] 76426- 3222 Dec, Left knee pain M25.562 [place] [address] 25047- 8273 Dec, Left knee pain M25.562 [place] [address] 28465- 0875 Dec, Encounter for immunization Z23 [place] [address] 87773- 7203 Sep, Pre-op evaluation V72.84 and Fracture of 5th metatarsal 825.25 [place] [address] [place] [id number] [place] [address] 94931- 1255 Aug, [place] [address] [place] [id number] [place] [address] 96352- 7235 Aug, [place] [address] 76946- 4371 July, Metatarsal bone fracture 825.25 ; Hallux valgus 735.0 ; 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 ; Hammertoe 735.4 and Onychomycosis 110.1 [place] [address] [place] [id number] [place] [address] 58832- 4319 14 Jun, 2014 [place] [address] 41288- 8089 Jun, [place] [address] 49723- 3347 May, [facility] [place] [facility] [address] [id number] [place] [address]- 7095 May, [facility] [place] [facility] [address] [id number] [place] [address]- 4824 Apr, [facility] [place] [facility] [address] [facility] [id number] [place] [address]- 2405 Apr, [facility] [place] [facility] [address] [id number] [place] [address]- 6235 Mar, [facility] [place] [facility] [address] [id number] [place] [address]- 4024 Mar, [facility] [place] [facility] [address] [facility] [id number] [place] [address]- 8678 Mar, [facility] [place] [facility] [address] [facility] [id number] [place] [address]- 0037 Mar, [facility] [place] [facility] [address] [id number] [place] [address]- 9219 Jan, [facility] [place] [facility] [address] [id number] [place] [address]- 6497 Jan, [facility] [place] [facility] [address] [facility] [id number] [place] [address]- 1141 Jan, [facility] [place] [facility] [address] [id number] [place] [address]- 3255 Jan, [facility] [place] [facility] [address] [id number] [address]- 1494 Dec, [facility] [place] [facility] [address] [id number] [place] [address]- 5339 Dec, [facility] [place] [facility] [address] [facility] [id number] [place] [address]- 6588 Nov, [facility] [place] [facility] [address] [facility] [id number] [address]- 4816 Nov, [facility] [place] [facility] [address] [id number] [place] [address]- 2794 Oct, [facility] [place] [facility] [address] [id number] [place] [address]- 4840 Oct, [facility] [place] [facility] [address] [id number] [place] [address]- 6058 Oct, [facility] [place] [facility] [address] [id number] [place] [address]- 5884 Oct, [facility] [place] [facility] [address] [id number] [place] [address]- 2886 Aug, [facility] [place] [facility] [address] [id number] [place] [address]- 9805 Aug, [facility] [place] [facility] [address] [id number] [place] [address]- 5656 July, [facility] [place] [facility] [address] [id number] [place] [address]- 3763 July, [facility] [place] [facility] [address] [id number] [place] [address]- 3262 Jun, [facility] [place] [facility] [address] [id number] [place] [address]- 7112 Jun, [facility] [place] [facility] [address] [id number] [place] [address]- 0962 Jun, [facility] [place] [facility] [address] [id number] [place] [address] Mar, [facility] [place] [facility] [address] [id number] [place] [address] Mar, [facility] [place] [facility] [address] [id number] [place] [address] Mar, [facility] [place] [facility] [address] [id number] [place] [address] Mar, [facility] [place] [facility] [address] [id number] [place] [address] Mar, [facility] [place] [facility] [address] [id number] [place] [address] Dec, [facility] [place] [facility] [address] [id number] [place] [address] Dec, [facility] [place] [facility] [address] [id number] [place] [address] Oct, [facility] [place] [facility] [address] [id number] [place] [address] Oct, [facility] [place] [facility] [address] [id number] [place] [address] Jun, [facility] [place] [facility] [address] [id number] [place] [address] Jun, [facility] [place] [facility] [address] [id number] [place] [address] May, [facility] [place] [facility] [address] [id number] [place] [address] May, [facility] [place] [facility] [address] [id number] [place] [address] Apr, [facility] [place] [facility] [address] [id number] [place] [address] Apr, [facility] [place] [facility] [address] [id number] [address] Mar, [facility] [place] [facility] [address] [id number] [place] [address] Dec, [facility] [place] [facility] [address] [id number] [place] [address] Dec, [facility] [place] [facility] [address] [id number] [place] [address] Dec, [facility] [place] [facility] [address] [id number] [place] [address] Dec, [facility] [place] [facility] [id number] [address] Oct, [facility] [place] [id number] [address] Jun, [facility] [place] [id number] [address] Feb, [facility] [place] [id number] [address] Jan, [facility] [place] [address] [id number] [address] Jan, [facility], [place] [id number] [place] [address] Feb, [facility] [place] [id number] [place] [address] Jun, [facility] [place] [id number] [address] Feb, [facility] [place] [id number], [place] [address] Sep, [facility] [place] [id number], [place] [address] Jun, IMMUNIZATIONS No Known Immunizations SOCIAL HISTORY Never Assessed REASON FOR VISIT PLAN OF CARE VITAL SIGNS MEDICATIONS Unknown [...]
--- OUTSIDE RECORDS SUMMARY | 2018-01-02 10:54 | XMS REPORT ---
Author Author JULIAN GODINEZ Organization [facility] Address [address] [place] [address] Care Team Providers Care Certified Medical Technician Name Role Phone JULIAN GODINEZ Unavailable PROBLEMS Type Condition ICD9-CM Code FII09-KP Code Onset Dates Condition Status SNOMED Code Problem Stasis dermatitis of both legs I87.2 Active 49282773 Problem Excessive daytime sleepiness G47.19 Active 245462817579 Problem Hypothyroidism (acquired) E03.9 Active 858770399 Problem Anxiety F41.9 Active 02843965 Problem Hypertension, benign I10 Active [id number] ALLERGIES No Known Allergies ENCOUNTERS Encounter Location Date Diagnosis [place] [address] [address] Aug, [place] [address] [address] July, [place] [address] [address]- [address] May, Hypothyroidism (acquired) E03.9 and Stasis dermatitis of both legs I87.2 [place] [address] [place] [id number] [place] [address]65- 1418 May, Hypothyroidism (acquired) E03.9 [place] [address] [address]- [address] May, Medicare annual wellness visit, initial Z00.00 [place] [address] 15237- 8766 May, Stasis dermatitis of both legs I87.2 and Onychomycosis B35.1 [place] [address] [address]- [address] Mar, Hypothyroidism (acquired) E03.9 [place] [address] [place] [id number] [place] [address] 08251- 6215 29 Feb, 2017 Wheezing R06.2 and Hypothyroidism (acquired) E03.9 [place] [address] [place] [id number] [place] [address] 87560- 7294 17 Dec, 2016 Encounter for immunization Z23 [place] [address] [place] [id number] [place] [address] 53117- 2576 14 Oct, 2016 Excessive daytime sleepiness G47.19 [place] [address] [place] [id number] [place] [address] 66736- 8767 17 Sep, 2016 Chest pain in adult R07.9 ; SOB (shortness of breath) R06.02 and Anxiety F41.9 [place] [address] [place] [id number] [place] [address] 67533- 9101 17 Sep, 2016 [place] [address] [place] [id number] [place] [address] 15696- 7297 17 May, 2016 Medicare annual wellness visit, initial Z00.00 [place] [address] [place] [id number] [place] [address] 67565- 8082 13 May, 2016 Medicare annual wellness visit, initial Z00.00 [place] [address] [place] [id number] [place] [address] 55428- 1434 12 Feb, 2016 Hypothyroidism (acquired) E03.9 [place] [address] [place] [id number] [place] [address] 58142- 6049 15 Oct, 2015 Hypothyroidism (acquired) E03.9 [place] [address] [place] [id number] [place] [address] 85290- 9895 11 Oct, 2015 Hypothyroidism (acquired) E03.9 [place] [address] [place] [id number] [place] [address] 40539- 4968 14 Sep, 2015 Hypertension, benign I10 and Hypothyroidism (acquired) E03.9 [place] [id number] [place] [address] 94394- 1860 06 Sep, 2015 Pre-op evaluation Z01.818 ; Hypertension, benign I10 and Hypothyroidism (acquired) E03.9 [facility] [address] [place] [id number] [place] [address] 00267- 9318 May, [place] [address] 01841- 57[address] May, [place] [address] 43014- 9758 May, Preoperative clearance Z01.818 [place] [address] 15993- 6877 Apr, Hypertension, benign I10 and Hypothyroidism (acquired) E03.9 [place] [address] 14930- 6672 Apr, Hypertension, benign I10 ; Hypothyroidism (acquired) E03.9 and Gastritis K29.70 [place] [address] 27749- 5384 Mar, [place] [address] 76737- 0547 Feb, [place] [address] 52190- 7661 Jan, Primary osteoarthritis of left knee M17.12 [place] [address] 69743- 3501 Dec, Left knee pain M25.562 [place] [address] 61789- 3141 Dec, Left knee pain M25.562 [place] [address] 86879- 3085 Dec, Encounter for immunization Z23 [place] [address] 49085- 1397 Sep, Pre-op evaluation V72.84 and Fracture of 5th metatarsal 825.25 [place] [address] [place] [address] [address] Aug, [facility] [address] [address] Aug, [facility] [address] [place] [id number] [address] 65[address] July, Metatarsal bone fracture 825.25 ; Hallux valgus 735.0 ; 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 ; Hammertoe 735.4 and Onychomycosis 110.1 [facility] [address] [address] 6173 Jun, [facility] [address] [place] [id number] [place] [address] 47137- 9230 Jun, [facility] [address] [place] [id number] [address] 4896 May, [facility] [address] [place] [id number] [place] [address] 24371- 8811 May, [facility] [address] [address]- 2141 Apr, [facility] [address] [address]- 0[address] Apr, [facility] [address] [address]- 9603 Mar, [facility] [address] [address]- 4762 Mar, [facility] [address] [address]- 2746 Mar, [facility] [address] [address]- 1689 Mar, [facility] [address] [address] Jan, [facility] [address] [address] Jan, [facility] [place] [facility] [address] [id number] [place] [address] Jan, [facility] [place] [facility] [address] [id number] [place] [address]- 7168 Jan, [facility] [place] [facility] [address] [id number] [place] [address]- 9576 Dec, [facility] [place] [facility] [address] [id number] [place] [address]- 8785 Dec, [facility] [place] [facility] [address] [id number] [place] [address]- 7513 Nov, [facility] [place] [facility] [address] [id number] [place] [address]- 4480 Nov, [facility] [place] [facility] [address] [id number] [place] [address]- 3934 Oct, [facility] [place] [facility] [address] [id number] [place] [address]- 6753 Oct, [facility] [place] [facility] [address] [id number] [place] [address]- 5012 Oct, [facility] [place] [facility] [address] [id number] [place] [address]- 7177 Oct, [facility] [place] [facility] [address] [id number] [place] [address]- 6783 Aug, [facility] [place] [facility] [address] [id number] [place] [address]- 5537 Aug, [facility] [place] [facility] [address] [id number] [place] [address]- 4139 July, [facility] [place] [facility] [address] [id number] [place] [address]- 2132 July, [facility] [place] [facility] [address] [id number] [place] [address]- 8207 Jun, [facility] [place] [facility] [address] [id number] [place] [address]- 0312 11 Jun, 2013 [facility] [address] [id number] [place] [address]- 9396 Jun, [facility] [place] [facility] [address] [id number] [place] [address]- 6431 Mar, [facility] [address] [id number] [place] [address]- 0400 Mar, [facility] [address] [id number] [place] [address]- 8017 Mar, [facility] [address] [id number] [place] [address]- 3001 Mar, [facility] [address] [id number] [place] [address]- 2644 Mar, [facility] [address] [id number] [place] [address]- 9323 Dec, [facility] [address] [id number] [place] [address]- 6705 Dec, [facility] [address] [id number] [place] [address]- 7050 Oct, [facility] [address] [id number] [place] [address]- 1391 Oct, [facility] [place] [facility] [address] [id number] [place] [address]- 3473 Jun, [facility] [address] [id number] [place] [address]- 8756 Jun, [facility] [place] [facility] [address] [id number] [place] [address]- 6336 May, [facility] [place] [facility] [address] [id number] [place] [address]- 2546 May, [facility] [place] [facility] [address] [id number] [place] [address]- 8984 Apr, [facility] [place] [facility] [address] [id number] [place] [address]- 5218 Apr, [facility] [place] [facility] [address] [id number] [place] [address]- 7825 Mar, [facility] [place] [facility] [address] [id number] [place] [address]- 7972 Dec, [facility] [place] [facility] [address] [id number] [place] [address]- 8981 Dec, [facility] [place] [facility] [address] [id number] [place] [address]- 8660 Dec, [facility] [place] [facility] [address] [id number] [place] [address]- 3981 Dec, [facility] [place] [facility] [address] [id number] [place] [address]- 1339 Oct, [facility] [place] [facility] [address] [id number] [place] [address]- 7276 Jun, [facility] [place] [facility] [address] [id number] [place] [address]- 9202 Feb, [facility] [place] [facility] [address] [id number] [place] [address]- 0870 Jan, [facility] [place] [facility] [address] [id number] [place] [address]- 3694 Jan, [facility] [place] [facility] [address] [id number] [address]- 1892 Feb, [facility] [place] [facility] [address] [id number] [place] [address]- 0778 Jun, [facility] [place] [facility] [address] [id number] [place] [address]- 3327 Feb, [facility] [place] [facility] [address] [id number] [place] [address]- 7896 14 Sep, 2008 [facility] [place] [facility] [address] [facility] [id number] [address]- 1750 Jun, IMMUNIZATIONS No Known Immunizations SOCIAL HISTORY Never Assessed REASON FOR VISIT [facility] f/u - Early Friday morning went to ER right arm/shoulder pain, shallow breathing, high bp. She was given a prescription but she has not filled it because she doesn't know if [facility] would agree. - Lio [facility] PLAN OF CARE Activity Details Follow Up 4 Weeks Reason:mood disorder VITAL SIGNS Height 63 in 2016-09-30 Weight 227.2 lbs 2016-09-30 Temperature 98.9 degrees Fahrenheit 2016-09-30 Heart Rate 100 bpm 2016-09-30 Respiratory Rate 20 2016-09-30 BMI 40.24 kg/m2 2016-09-30 Blood pressure systolic 120 mmHg 2016-09-30 Blood pressure diastolic 76 mmHg 2016-09-30 MEDICATIONS Medication Instructions Dosage Frequency Start Date End Date Duration Status Trazodone HCl 50 mg Orally Once a day 1 tablet at bedtime as needed 24h Sep, 30 day(s) Active Hydrochlorothiazide 25 1 tablet in the morning 24h Active Levothyroxine Sodium 75 mcg Orally Once a day 1 tablet 24h Sep, Active Omeprazole 40 mg 1 capsule 24h Mar, Active RESULTS No Results PROCEDURES Procedure Date Ordered Result Body Site [facility] VISIT ESTABLISHED PATIENT September 30, 2016 INSTRUCTIONS MEDICATIONS ADMINISTERED No Known Medications [...] Hospitalization History surgeries Hospitalization History cough - [facility] ED visit 02/03/17 Hospitalization History cough and chest pain - [facility] inpatient admit. Discharged 03/04/17. 03/03/17 Hospitalization History back pain - [facility] ED visit 03/05/17
--- OUTSIDE RECORDS SUMMARY | 2018-01-02 10:57 | XMS REPORT | Continuity of Care Document ---
Author Author [facility] Address Unknown Phone Unavailable Allergies Active Description Code Type Severity Reaction Onset Reported/Identified Relationship to Patient Clinical Status Yes No Known Drug Allergies [id number] Drug Allergy Mild N/A 06/24/2008 Medications There [...] 03/15/2011 JULIAN GODINEZ APRN 786.2 Cough 03/15/2011 UJLIAN GODINEZ APRN 466.0 Bronchitis, Acute 03/15/2011 JULIAN [...] P Ot I25.10 ATHSCL HEART DISEASE OF [place] CORONARY 06/12/2015 NICOLETTE SHERIDAN, URI Shaver Ot [...] 09/25/2015 THOMAS DPM, SADIA Q Ot T84.293A [facility] COMPL OF INT FIX OF BONES [...] 09/27/2015 THOMAS DPM, SADIA Q Ot T84.293A [facility] COMPL OF INT FIX OF BONES [...] 09/29/2015 THOMAS DPM, SADIA Q Ot T84.293A [facility] COMPL OF INT FIX OF BONES OF FOOT A 10/02/2015 THOMAS DPM, SADIA Q Ot M20.12 HALLUX VALGUS (ACQUIRED), LEFT FOOT 10/02/2015 THOMAS DPM, SADIA Q Ot M20.42 OTHER HAMMER TOE(S) (ACQUIRED), LEFT EVELYN 10/02/2015 THOMAS DPM, SADIA Q Ot T84.293A [facility] COMPL OF INT FIX OF BONES OF FOOT A 10/03/2015 THOMAS DPM, SADIA Q Ot M20.12 HALLUX VALGUS (ACQUIRED), LEFT FOOT 10/03/2015 THOMAS DPM, SADIA Q Ot M20.42 OTHER HAMMER TOE(S) (ACQUIRED), LEFT EVELYN 10/03/2015 THOMAS DPM, SADIA Q Ot T84.293A [facility] COMPL OF INT FIX OF BONES [...] 06/24/2016 BRODY HARRISON MD Ot Z79.899 OTHER MANAGER FILM (CURRENT) DRUG THERAPY 06/27/2016 LAMB DO AFUA K Ot E87.6 HYPOKALEMIA 06/27/2016 LAMB DO AFUA K Ot E87.8 OTH DISORDERS OF ELECTROLYTE AND FLUID B 06/28/2016 BRODY HARRISON MD Ot K44.9 DIAPHRAGMATIC HERNIA WITHOUT OBSTRUCTION 06/28/2016 HUNTER SHERIDAN, BRODY Way Ot R07.9 CHEST PAIN, UNSPECIFIED 06/28/2016 BRODY HARRISON MD Ot Z79.899 OTHER MANAGER FILM (CURRENT) DRUG THERAPY 09/28/2016 SEAN SHERIDAN, DOLLY [...] HISTORY OF MALIGNANT NEOPLASM OF 09/30/2016 SEAN SHEIRDAN, DOLLY Snider Ot Z87.81 PERSONAL HISTORY OF [...] Ot V74.8 SCREEN-BACTERIAL DIS NEC 02/03/2017 LAMB DO AFUA K Ot E87.6 HYPOKALEMIA 02/03/2017 ZAINAB PARNELL AFUA K Ot E87.8 OTH [...] Z96.652 PRESENCE OF LEFT ARTIFICIAL KNEE JOINT 03/04/2017 ROBERT GRANDE DO Ot E03.9 HYPOTHYROIDISM, UNSPECIFIED 03/04/2017 CHRISTIANE PARNELL ROBERT Ot E78.00 PURE HYPERCHOLESTEROLEMIA, UNSPECIFIED 03/04/2017 CHRISTIANE PARNELL ROBERT Ot I10 ESSENTIAL (PRIMARY) HYPERTENSION 03/04/2017 CHRISTIANE PARNELL ROBERT Ot I25.10 ATHSCL HEART DISEASE OF [place] CORONARY 03/04/2017 CHRISTIANE PARNELL ROBERT Ot K21.9 GASTRO-ESOPHAGEAL REFLUX DISEASE WITHOUT 03/04/2017 CHRISTIANE PARNELL ROBERT Ot K44.9 DIAPHRAGMATIC HERNIA WITHOUT OBSTRUCTION 03/04/2017 CHRISTIANE PARNELL ROBERT Ot R05 COUGH 03/04/2017 CHRISTIANE PARNELL ROBERT Ot Z79.82 SENIOR LIVING (CURRENT) USE OF ASPIRIN 03/04/2017 KIMMIE GRANDE DOI Ot Z79.899 OTHER MANAGER FILM (CURRENT) DRUG THERAPY 03/04/2017 KIMMIE GRANDE DOI Ot Z87.891 PERSONAL HISTORY OF NICOTINE DEPENDENCE 03/05/2017 JEANETTE MARTINEZ APRN Ot E03.9 HYPOTHYROIDISM, UNSPECIFIED 03/05/2017 JEANETTE MARTINEZ APRN Ot E78.00 PURE HYPERCHOLESTEROLEMIA, UNSPECIFIED 03/05/2017 JEANETTE MARTINEZ MACHINE RIGGER Ot I10 ESSENTIAL (PRIMARY) HYPERTENSION 03/05/2017 JEANETTE MARTINEZ APRN Ot K21.9 GASTRO-ESOPHAGEAL REFLUX DISEASE WITHOUT 03/05/2017 JEANETTE MARTINEZ APRN Ot M54.9 DORSALGIA, UNSPECIFIED 03/05/2017 JEANETTE MARTINEZ APRN Ot N39.0 URINARY TRACT INFECTION, SITE NOT SPECIF 03/05/2017 JEANETTE MARTINEZ APRN Ot R53.83 OTHER FATIGUE 03/05/2017 JEANETTE MARTINEZ MACHINE RIGGER Ot Z79.82 SENIOR LIVING (CURRENT) USE OF ASPIRIN 03/05/2017 JEANETTE MARTINEZ MACHINE RIGGER Ot Z87.891 PERSONAL HISTORY OF NICOTINE DEPENDENCE 03/05/2017 JEANETTE MARTINEZ MACHINE RIGGER Ot Z90.710 ACQUIRED ABSENCE OF BOTH CERVIX AND UTER 03/06/2017 KIMMIE GRANDE DOI Ot E03.9 HYPOTHYROIDISM, UNSPECIFIED 03/06/2017 CHRISTIANE DO ROBERT Ot E78.00 PURE HYPERCHOLESTEROLEMIA, UNSPECIFIED 03/06/2017 CHRISTIANE DO ROBERT Ot I10 ESSENTIAL (PRIMARY) HYPERTENSION 03/06/2017 CHRISTIANE PARNELL ROBERT Ot I25.10 ATHSCL HEART DISEASE OF [place] CORONARY 03/06/2017 CHRISTIANE PARNELL ROBERT Ot K21.9 GASTRO-ESOPHAGEAL REFLUX DISEASE WITHOUT 03/06/2017 CHRISTIANE PARNELL ROBERT Ot K44.9 DIAPHRAGMATIC HERNIA WITHOUT OBSTRUCTION 03/06/2017 CHRISTIANE PARNELL ROBERT Ot R05 COUGH 03/06/2017 KIMMIE GRANDE DOI Ot Z79.82 SENIOR LIVING (CURRENT) USE OF ASPIRIN 03/06/2017 KIMMIE GRANDE DOI Ot Z79.899 OTHER MANAGER FILM (CURRENT) DRUG THERAPY 03/06/2017 CHRISTIANE PARNELL ROBERT Ot Z87.891 PERSONAL HISTORY OF NICOTINE DEPENDENCE 03/11/2017 JEANETTE MARTINEZ APRN Ot E03.9 HYPOTHYROIDISM, UNSPECIFIED 03/11/2017 JEANTETE MARTINEZ APRN Ot E78.00 PURE HYPERCHOLESTEROLEMIA, UNSPECIFIED 03/11/2017 JEANETTE MARTINEZ MACHINE RIGGER Ot I10 ESSENTIAL (PRIMARY) HYPERTENSION 03/11/2017 JEANETTE MARTINEZ APRN Ot K21.9 GASTRO-ESOPHAGEAL REFLUX DISEASE WITHOUT 03/11/2017 JEANETTE MARTINEZ APRN Ot M54.9 DORSALGIA, UNSPECIFIED 03/11/2017 JEANETTE MARTINEZ APRN Ot N39.0 URINARY TRACT INFECTION, SITE NOT SPECIF 03/11/2017 JEANETTE MARTINEZ APRN Ot R53.83 OTHER FATIGUE 03/11/2017 JEANETTE MARTINEZ MACHINE RIGGER Ot Z79.82 MANAGER FILM (CURRENT) USE OF ASPIRIN 03/11/2017 JEANETTE MARTINEZ APRN Ot Z87.891 PERSONAL HISTORY OF NICOTINE DEPENDENCE 03/11/2017 JEANETTE MARTINEZ APRN Ot Z90.710 ACQUIRED ABSENCE OF BOTH CERVIX AND UTER 03/14/2017 CHRISTIANE PARNELL ROBERT Ot E03.9 HYPOTHYROIDISM, UNSPECIFIED 03/14/2017 CHRISTIANE PARNELL ROBERT Ot E78.00 PURE HYPERCHOLESTEROLEMIA, UNSPECIFIED 03/14/2017 CHRISTIANE PARNELL ROBERT Ot I10 ESSENTIAL (PRIMARY) HYPERTENSION 03/14/2017 ROBERT GRANDE DO Ot I25.10 ATHSCL HEART DISEASE OF [place] CORONARY 03/14/2017 CHRISTIANE PARNELL ROBERT Ot K21.9 GASTRO-ESOPHAGEAL REFLUX DISEASE WITHOUT 03/14/2017 CHRISTIANE PARNELL ROBERT Ot K44.9 DIAPHRAGMATIC HERNIA WITHOUT OBSTRUCTION 03/14/2017 CHRISTIANE PARNELL ROBERT Ot R05 COUGH 03/14/2017 ROBERT GRANDE DO Ot Z79.82 SENIOR LIVING (CURRENT) USE OF ASPIRIN 03/14/2017 ROBERT GRANDE DO Ot Z79.899 OTHER SENIOR LIVING (CURRENT) DRUG THERAPY 03/14/2017 ROBERT GRANDE DO Ot Z87.891 PERSONAL HISTORY OF NICOTINE DEPENDENCE 05/30/2017 Ot 722.52 05/30/2017 LONG DC, ALEXX S Ot 722.52 LUMB/LUMBOSAC DISC DEGEN 05/30/2017 LONG DC, ALEXX S Ot 737.30 IDIOPATHIC SCOLIOSIS 05/30/2017 THOMAS DPM, SADIA Q Ot 825.25 FX METATARSAL-CLOSED 05/30/2017 THOMAS DPM, SADIA Q Ot E000.8 OTHER EXTERNAL CAUSE STATUS 05/30/2017 THOMAS DPM, SADAI Q Ot E928.9 ACCIDENT NOS 05/30/2017 THOMAS DPM, SADIA Q Ot V72.63 PRE-PROCEDURAL LABORATORY EXAMINATION 05/30/2017 THOMAS DPM, SADIA Q Ot V74.8 SCREEN-BACTERIAL DIS NEC 05/30/2017 AFUA LAMB DO Ot E87.6 HYPOKALEMIA 05/30/2017 AFUA LAMB DO Ot E87.8 OTH DISORDERS OF ELECTROLYTE AND FLUID B 05/30/2017 AFUA LAMB DO Ot E87.6 HYPOKALEMIA 05/30/2017 AFUA LAMB DO K Ot E87.8 OTH DISORDERS OF ELECTROLYTE AND FLUID B 08/29/2017 NATHANIEL WALSH Ot Z00.00 ENCNTR FOR GENERAL ADULT MEDICAL EXAM 09/08/2017 NATHANIEL WALSH Ot Z00.00 ENCNTR FOR GENERAL ADULT MEDICAL EXAM 09/11/2017 NATHANIEL WALSH Ot Z00.00 ENCNTR FOR GENERAL ADULT MEDICAL EXAM W09/12/2017 NATHANIEL WALSH Ot Z13.820 ENCOUNTER FOR SCREENING FOR OSTEOPOROSIS 10/06/2017 NATHANIEL WALSH Ot Z13.820 ENCOUNTER FOR SCREENING FOR OSTEOPOROSIS Procedures Code [place] [address] ROUTINE VENIPUNCTURE 06/24/2012 81564 CBC 06/24/2012 31040 LIPID PANEL 06/24/2012 31661 CMP 06/24/2012 8373223 GFR CALC (RESULT ONLY) 06/24/2012 00417 TSH 06/24/2012 98234 CULTURE EAR & STAIN 04/05/2013 85682 ROUTINE VENIPUNCTURE 11/02/2013 55255 [facility] 11/02/2013 98927 LIPID PANEL 11/02/2013 92581 TSH 11/02/2013 36928 CBC 11/02/2013 [id number] REPLACE OF L KNEE JT WITH SYNTH SUB, NILDA 06/07/2015 Results Test Result Range TSH+Free T4 - 02/26/16 14:34 TSH 2.290 uIU/mL 0.450-4.500 T4,Free(Direct) 0.98 ng/dL 0.82-1.77 CBC With Differential/Platelet - 05/31/16 08:09 WBC 8.3 x10E3/uL 3.4-10.8 RBC 4.55 x10E6/uL 3.77-5.28 Hemoglobin 13.0 g/dL 11.1-15.9 Hematocrit 40.5 % 34.0-46.6 MCV 89 fL 79-97 MCH 28.6 pg 26.6-33.0 MCHC 32.1 g/dL 31.5-35.7 RDW 14.2 % 12.3-15.4 Platelets 389 x10E3/uL 150-379 Neutrophils 61 % Lymphs 29 % Monocytes 6 % Eos 2 % Basos 1 % Neutrophils (Absolute) 5.1 x10E3/uL 1.4-7.0 Lymphs (Absolute) 2.4 x10E3/uL 0.7-3.1 Monocytes(Absolute) 0.5 x10E3/uL 0.1-0.9 Eos (Absolute) 0.2 x10E3/uL 0.0-0.4 Baso (Absolute) 0.1 x10E3/uL 0.0-0.2 Immature Granulocytes 1 % Immature Grans (Abs) 0.0 x10E3/uL 0.0-0.1 Comp. Metabolic Panel (14) - 05/31/16 08:09 Glucose, Serum 93 mg/dL 65-99 BUN 20 mg/dL 8-27 Creatinine, Serum 0.93 mg/dL 0.57-1.00 eGFR If NonAfricn Am 63 mL/min/1.73 >59 eGFR If Africn Am 73 mL/min/1.73 >59 BUN/Creatinine Ratio 22 11-26 Sodium, Serum 140 mmol/L 134-144 Potassium, Serum 4.6 mmol/L 3.5-5.2 Chloride, Serum 97 mmol/L 96-106 Carbon Dioxide, Total 27 mmol/L 18-29 Calcium, Serum 9.7 mg/dL 8.7-10.3 Protein, Total, Serum 7.6 g/dL 6.0-8.5 Albumin, Serum 4.4 g/dL 3.6-4.8 Globulin, Total 3.2 g/dL 1.5-4.5 A/G Ratio 1.4 1.2-2.2 Bilirubin, Total 0.4 mg/dL 0.0-1.2 Alkaline Phosphatase, S 84 IU/L 39-117 AST (SGOT) 22 IU/L 0-40 ALT (SGPT) 19 IU/L 0-32 Lipid Panel - 05/31/16 08:09 Cholesterol, Total 171 mg/dL 100-199 Triglycerides 168 mg/dL 0-149 HDL Cholesterol 52 mg/dL >39 VLDL Cholesterol Param 34 mg/dL 5-40 LDL Cholesterol Calc 85 mg/dL 0-99 TSH - 05/31/16 08:09 TSH 3.240 uIU/mL 0.450-4.500 Complete blood count (CBC) with automated white [...] GRAM STAIN SPUTUM AND MIXED BACTERIAL [place] [facility] Bacterial sputum culture - 02/03/17 13:46 Bacterial sputum culture NORMAL [facility] Complete blood count (CBC) with automated white [...] culture - 03/05/17 21:22 Bacterial urine culture [id number] NRG COLONY COUNT 10,000/ML - 100,000/ML NRG FTX;REPORTABLE SENSITIVITY NOT USUALLY PERFORMED FOR NRG URINE CULTURE RESULTS PLUS NRG FREE TEXT ENTRY 2 THIS ORGANISM. NR Bacterial susceptibility panel - 03/05/17 21:22 Gentamicin susceptibility test by minimum inhibitory concentration < = NRG Trimethoprim/sulfamethoxazole susceptibility test by minimum inhibitoryconcentration S NRG Ampicillin susceptibility test by minimum inhibitory concentration 4 NRG Tobramycin susceptibility test by minimum inhibitory concentration < = NRG Cefazolin susceptibility test by minimum inhibitory concentration < = NRG Ceftriaxone susceptibility test by minimum inhibitory concentration <= NRG Ampicillin/sulbactam susceptibility test by minimum inhibitory concentration <= NRG Piperacillin/tazobactam susceptibility test by minimum inhibitory concentration S NRG Ciprofloxacin susceptibility test by minimum inhibitory concentration <= NRG Meropenem susceptibility test by minimum inhibitory concentration < = NRG Nitrofurantoin susceptibility test by minimum inhibitory concentration <= NRG Aztreonam susceptibility test by minimum inhibitory concentration < = NRG Extended spectrum beta lactamase (ESBL) producing bacteria susceptibility test by minimum inhibitory concentration - NRG TSH - 03/14/17 10:05 TSH 8.89 mIU/L 0.40-4.50 TSH - 05/30/17 10:27 TSH 4.18 mIU/L 0.40-4.50 A1C - 08/05/17 09:35 HEMOGLOBIN A1c 6.2 % of total Hgb <5.7 Encounters ACCT No. Visit Date/Time Discharge Status Pt. Type Provider Facility Loc./Unit Complaint [id number] 07/08/2014 14:27:00 07/08/2014 23:59:59 CLS Outpatient HERBERT KAMINSKINJULIAN [id number] 04/27/2014 16:07:00 04/27/2014 23:59:59 CLS Outpatient HERBERT KAMINSKIAshli JULIAN Kimble [id number] 03/23/2014 15:16:00 03/23/2014 23:59:59 CLS Outpatient HERBERT KAMINSKIAshli JULIAN Shyanne [id number] 01/17/2014 15:57:00 01/17/2014 23:59:59 CLS Outpatient HERBERT DAVID JULIAN Kimble [id number] 01/15/2014 10:16:00 01/15/2014 23:59:59 CLS Outpatient AFUA LAMB DO [id number] 11/02/2013 13:04:00 11/02/2013 23:59:59 CLS Outpatient JULIAN GODINEZ APRN [id number] 04/05/2013 08:48:00 04/05/2013 23:59:59 CLS Outpatient DAVIDFernando KAMINSKIMAX Cornelius [id number] 10/30/2012 14:22:00 10/30/2012 23:59:59 CLS Outpatient HERBERT KAMINSKIAshli JULIAN Kimble [id number] 06/24/2012 08:16:00 06/24/2012 23:59:59 CLS Outpatient [id number] 06/17/2012 14:06:00 06/17/2012 23:59:59 CLS Outpatient [id number] 04/14/2012 16:35:00 04/14/2012 23:59:59 [place] [id number] 03/15/2011 09:42:00 03/15/2011 23:59:59 CLS Outpatient [id number] 09/11/2017 07:46:00 09/11/2017 23:59:59 CLS Outpatient NATHANIEL WALSH [facility] RAD MEDICARE ANNUAL WELLNESS VISIT Z00.00 [id number] 08/29/2017 12:10:00 08/29/2017 23:59:59 CLS Preadmit PEREIRANATHANIEL HEAD [facility] RAD WELLNESS VISIT [id number] 03/05/2017 19:00:00 03/05/2017 22:22:00 DIS Emergency JEANETTE MARTINEZ APRN [facility] ER BACK PAIN [id number] 03/03/2017 08:00:00 03/04/2017 17:25:00 DIS Outpatient ROBERT GRANDE DO [facility] CATH CHEST PAIN [id number] 02/03/2017 12:40:00 02/03/2017 16:04:00 DIS Emergency MARION SHERIDAN, VERN Salgado [facility] ER COUGH [id number] 09/28/2016 06:09:00 09/28/2016 08:40:00 DIS Emergency SEAN SHERIDAN, DOLLY Snider [facility] ER RT ARM PAIN,SOB,CAN'T SLEEP AT NIGHT [id number] 06/24/2016 12:48:00 06/24/2016 18:30:00 DIS Emergency HUNTER SHERIDAN, BRODY Way [facility] ER CHEST PAIN [id number] 09/29/2015 08:18:00 09/29/2015 15:00:00 DIS Outpatient THOMAS DPM, SADIA Q [facility] SDC LEFT FOOT HARDWARE FAILURE;HALLUS;HAMMERTOE [id number] 09/25/2015 13:05:00 09/25/2015 13:35:00 DIS Outpatient THOMAS DPM, SADIA Q [facility] PREOP LEFT FOOT HARDWARE FAILURE;HALLUX; HAMMERTOE [id number] 08/31/2015 13:03:00 08/31/2015 14:19:00 DIS Outpatient NICOLETTE SHERIDAN, URI Shaver [facility] REHAB L TKR [id number] 06/19/2015 14:41:00 06/19/2015 23:59:59 CLS Outpatient AFUA LAMB DO [facility] HH HYPOPOTASSEMIA, LOW CHLORIDE LEVEL [id number] 06/07/2015 07:30:00 06/12/2015 17:30:00 DIS Inpatient URI WILL MD [facility] 4TH LEFT KNEE SEVERE OSTEOARTHRITIS [id number] 05/31/2015 09:21:00 05/31/2015 10:45:00 DIS Outpatient URI WILL MD [facility] PREOP LEFT KNEE SEVERE OSTEOARTHRITIS [id number] 09/23/2014 11:23:00 09/23/2014 17:00:00 DIS Outpatient THOMAS DPM, SADIA Q [facility] SDC FRACTURED 5TH METATARSAL [id number] 09/15/2014 10:32:00 09/15/2014 23:59:59 CLS Outpatient THOMAS DPM, SADIA Q [facility] PREOP FRACTURED 5TH METATARSAL [id number] 07/04/2014 10:30:00 07/04/2014 12:30:00 DIS Emergency SADE DIMAS DO [facility] ER RIGHT LEG PAIN [id number] 03/05/2014 14:17:00 03/06/2014 12:20:00 DIS Inpatient PASTORA PHILIPPE MD [facility] ICU CHEST PAIN [id number] 07/02/2013 14:32:00 07/02/2013 23:59:59 CLS Outpatient ALEXX REYNA DC [facility] RAD LUMBAGO [id number] 05/30/2017 12:05:00 Document Registration [id number] 05/30/2017 12:05:00 Document Registration [id number] 12/29/2011 10:00:00 Document Registration [id number] 07/07/2008 14:47:00 Document Registration [id number] 02/27/2016 10:05:00 Document Registration [id number] 09/24/2014 04:33:59 ACT Document Registration [id number] 08/29/2017 09:00:00 08/29/2017 23:59:59 CLS Outpatient IAN LEAL [facility] [id number] 08/05/2017 09:00:00 Document Registration [id number] 05/30/2017 11:00:00 Document Registration [id number] 03/14/2017 10:00:00 Document Registration [id number] 06/01/2016 08:06:00 Document Registration
[2018-01-02] MEDS ORDERED: predniSONE 20 MG TAB PO ONE (11:15)
[2018-01-02] MEDS ORDERED: RT-ALBUTEROL/IPRATROPIUM 3 ML (DUONEB) VIAL INH ONE (11:15)
[2018-01-02] MEDS ORDERED: AZIT250T12 PO (11:15)
[2018-01-02] MEDS ORDERED: PRD20T PO (11:15)
--- NOTE | 2018-01-02 11:15 | ED Cough/URI ---
General Stated Complaint: COUGH;COLD Source: patient Exam Limitations: no limitations History of Present Illness Date Seen by Provider: Jan 02, 2018 Time Seen by Provider: 11:12 Initial Comments To ER with a one-week history of productive cough, wheezing. [place] [facility] [place] the onset of this and given an albuterol inhaler and fluticasone nasal spray. She denies improvement. No fevers. Timing/Duration: week Severity/Quality: productive cough Associated Symptoms: cough, wheezing Allergies and Home Medications Allergies Coded Allergies: No Known Drug Allergies (Unverified , 06/24/08) Home Medications Aspirin 81 Mg Tablet., 81 MG PO DAILY Prescribed by: SARAH YEH on 03/04/17 2002 Hydrochlorothiazide 25 Mg Tablet, 25 MG PO DAILY, (Reported) Levothyroxine Sodium 75 Mcg Tablet, 75 MCG PO DAILY, (Reported) Omeprazole 40 Mg Capsule.dr, 40 MG PO DAILY, (Reported) Sulfamethoxazole/Trimethoprim 1 Each Tablet, 1 EACH PO BID Prescribed by: JEANETTE MARTINEZ on 03/05/17 6013 Patient Home Medication List Home Medication List Reviewed: Yes Review of Systems Review of Systems Constitutional: see HPI EENTM: see HPI Respiratory: see HPI, wheezing Cardiovascular: no symptoms reported Genitourinary: no symptoms reported Musculoskeletal: no symptoms reported Skin: no symptoms reported Psychiatric/Neurological: No Symptoms Reported Hematologic/Lymphatic: No Symptoms Reported Past Secnrds-Igaolg-Wagzol Hx Patient Social History Type Used: Cigarettes Former Smoker, Quit: Mar 03, 1968 2nd Hand Smoke Exposure: Yes ( IS SMOKER) Recent Hopitalizations: Yes (chest pain 03/02/17) Immunizations Up To Date Tetanus Booster (TDap): More than 5yrs Date of Pneumonia Vaccine: Jun 10, 2015 Date of Influenza Vaccine: Dec 15, 2016 Seasonal Allergies Seasonal Allergies: No Past Medical History Surgeries: Yes (LEFT TKR, LEFT FOOT SX, ) Section, Eye Surgery, Hysterectomy, Oophorectomy, Orthopedic Respiratory: No Cardiac: Yes High Cholesterol, Hypertension Neurological: No Reproductive Disorders: No [employer] History: Hysterectomy, Menopausal Sexually Transmitted Disease: No HIV/AIDS: No Genitourinary: No Gastrointestinal: Yes Gastroesophageal Reflux, Hiatal Hernia Musculoskeletal: Yes (LEFT FOOT FX, LEFT TKR) Arthritis, Chronic Back Pain, Spasms Endocrine: Yes Hypothyroidsim HEENT: Yes Cataract Hearing Impairment: Hard of Hearing Cancer: No Psychosocial: No Integumentary: No Blood Disorders: Yes (ANEMIA) Family Medical History Patient reports no known family medical history. Cancer Physical Exam Capillary Refill : Height: 5'3.00" Weight: 225lbs. 6.0oz. 102.244519uc; 46.8 BMI Method:Stated General Appearance: WD/WN, no apparent distress Eyes: Bilateral Eye Normal Inspection, Bilateral Eye PERRL, Bilateral Eye EOMI HEENT: PERRL/EOMI, normal ENT inspection Neck: non-tender, full range of motion Respiratory: no respiratory distress, no accessory muscle use, wheezing (left lung) Gastrointestinal: normal bowel sounds, non tender Extremities: normal range of motion, non-tender Neurologic/Psychiatric: alert, normal mood/affect, oriented x 3 Skin: normal color, warm/dry Progress/Results/Core Measures Suspected Sepsis SIRS Temperature: Pulse: Respiratory Rate: Blood Pressure / Mean: Results/Orders Vital Signs/I&O Capillary Refill : Departure Impression Primary Impression: Bronchitis Disposition: 01 HOME, SELF-CARE Condition: Stable Departure-Patient Inst. Decision time for Depature: 11:14 Referrals: IAN LEAL MD (PCP/Family) Primary Care Physician Patient Instructions: Acute Bronchitis in Adults Add. Discharge Instructions: 1. Steroids and antibiotics as directed. Use your inhaler 2 puffs every 4 hours. Scripts Azithromycin (Azithromycin) 250 Mg Tablet 250 MG PO UD, #6 TAB TAKE 2 TABLETS ON DAY ONE THEN TAKE 1 TABLET DAILY FOR FOUR MORE DAYS Prov: JEANETTE MARTINEZ APRN 01/02/18 Prednisone (Prednisone) 20 Mg Tab 40 MG PO DAILY, #6 TAB Prov: JEANETTE MARTINEZ APRN 01/02/18 JEANETTE MARTINEZ APRN Jan 02, 2018 11:15
--- NOTE | 2018-01-02 11:38 | Diagnostic Imaging Report ---
INDICATION: Cough and cold x1 week. TECHNIQUE: Two view chest 11:52 AM CORRELATION STUDY: 03/05/2017 FINDINGS: The heart size, mediastinal configuration and pulmonary vasculature are generally stable. Likely areas of scarring or discoid atelectasis particularly left midlung field. No infiltrate. No significant effusion. Retrocardiac esophageal hernia. IMPRESSION: 1. Negative for acute abnormality of the chest. Dictated by: Dictated on workstation # [id number]
[2018-01-02 11:43] VITALS: BP 129/100
== END 2018-01-02 11:43 | disposition home or self-care (01) ==
LOC: EDUNIT# 10:15 → ER 10:16
DX: J40 Bronchitis, not specified as acute or chronic (principal); E78.00 Pure hypercholesterolemia, unspecified; I10 Essential (primary) hypertension; K21.9 Gastro-esophageal reflux disease without esophagitis; E03.9 Hypothyroidism, unspecified; D64.9 Anemia, unspecified; Z87.19 Personal history of other diseases of the digestive system; Z79.82 Long term (current) use of aspirin; Z79.51 Long term (current) use of inhaled steroids; Z77.22 Contact with and (suspected) exposure to environmental tobacco smoke (acute) (chronic); Z98.890 Other specified postprocedural states; Z90.710 Acquired absence of both cervix and uterus
CPT/HCPCS: 71046

== ENCOUNTER 2018-04-19 09:31 | Emergency (ER) | payer MEDICARE ==
[~2018-04-19] VITALS: Ht 160 cm; Wt 104.5 kg
--- OUTSIDE RECORDS SUMMARY | 2018-04-19 09:37 | XMS REPORT ---
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 Name Role Phone IAN LEAL Unavailable PROBLEMS Type Condition ICD9-CM Code KHC62-JS Code Onset Dates Condition Status SNOMED Code Problem Obesity (BMI 35.0-39.9 without comorbidity) E66.9 Active 047076372 Problem Essential hypertension I10 Active 50860539 Problem Elevated triglycerides with high cholesterol E78.2 Active 356235099 Problem Allergic rhinitis J30.9 Active 76472439 Problem Exposure to second hand smoke Z77.22 Active 53528593 Problem Other hammer toe(s) (acquired), right foot M20.41 Active 432667833 Problem Other hammer toe(s) (acquired), left foot M20.42 Active 72452884 Problem Acquired hallux valgus of left foot M20.12 Active 115035115848931 Problem Hallux valgus (acquired), right foot M20.11 Active 156824426 Problem Excessive daytime sleepiness G47.19 Active 876777246037 Problem Stasis dermatitis of both legs I87.2 Active 19194968 Problem Osteopenia of lumbar spine M85.88 Active 900947329 Problem Neuropathy G62.9 Active 471810829 Problem Anxiety F41.9 Active 32329253 Problem Acquired hypothyroidism E03.9 Active 664952523 ALLERGIES No Known Allergies ENCOUNTERS Encounter Location Date Diagnosis [facility] [address] [facility] [id number] [address] Feb, [facility] [id number] [place] [address]- 2381 Jan, Allergic rhinitis J30.9 ; Wheezing R06.2 ; Cerumen impaction H61.20 ; Exposure to second hand smoke Z77.22 and BMI 40.0-44.9, adult Z68.41 [facility] [id number] [place] [address] 14 Dec, 2017 Cough R05 ; Allergic rhinitis J30.9 ; Cerumen impaction H61.20 ; Exposure to second hand smoke Z77.22 and BMI 40.0-44.9, adult Z68.41 [place] [address] [address] 21 Nov, 2017 Onychomycosis B35.1 ; Neuropathy G62.9 ; Other hammer toe(s ) (acquired), left foot M20.42 ; Other hammer toe(s) (acquired), right foot M20.41 ; Acquired hallux valgus of left foot M20.12 and Hallux valgus (acquired) , right foot M20.11 [place] [address] [address] Aug, [address] [address] Aug, Onychomycosis B35.1 and Neuropathy G62.9 [place] [address] [address]252- [address]25 Aug, Medicare annual wellness visit, initial Z00.00 [place] [id number] [place] [address] 02208- 0031 July, [place] [address] [address]- [address]92 July, Essential hypertension I10 ; Elevated triglycerides with high cholesterol E78.2 ; Elevated glucose R73.09 ; Acquired hypothyroidism E03.9 ; Obesity (BMI 35.0-39.9 without comorbidity) E66.9 ; Bilateral leg edema R60.0 and Left ear impacted cerumen H61.22 [place] [id number] [place] [address] 06606- 0041 Jun, [place] [address] 28578- 7265 May, Hypothyroidism (acquired) E03.9 and Stasis dermatitis of both legs I87.2 [facility] [id number] [place] [address] 31760- 9881 16 May, 2017 Hypothyroidism (acquired) E03.9 [facility] [id number] [place] [address] 56078- 1278 16 May, 2017 Medicare annual wellness visit, initial Z00.00 [facility] [id number] [place] [address] 05830- 9547 16 May, 2017 Stasis dermatitis of both legs I87.2 and Onychomycosis B35.1 [place] [id number] [place] [address] 90563- 1586 Mar, Hypothyroidism (acquired) E03.9 [place] [id number] [place] [address] 37505- 3893 Feb, Wheezing R06.2 and Hypothyroidism (acquired) E03.9 [place] [id number] [place] [address] 84265- 0265 17 Dec, 2016 Encounter for immunization Z23 [place] [address] 4[address]- [address] 14 Oct, 2016 Excessive daytime sleepiness G47.19 [place] [id number] [place] [address] 46110- 9477 17 Sep, 2016 Chest pain in adult R07.9 ; SOB (shortness of breath) R06.02 and Anxiety F41.9 [facility] [id number] [place] [address] 05226- 2465 17 Sep, 2016 [place] [id number] [place] [address] 32293- 2059 May, Medicare annual wellness visit, initial Z00.00 [facility] [id number] [place] [address] 97967- 6764 13 May, 2016 Medicare annual wellness visit, initial Z00.00 [place] [id number] [place] [address] 08639- 9450 Feb, Hypothyroidism (acquired) E03.9 [facility] [id number] [place] [address] 54926- 1290 Oct, Hypothyroidism (acquired) E03.9 [facility] [id number] [place] [address] 65469- 0465 Oct, Hypothyroidism (acquired) E03.9 [facility] [address] 29173- 9807 Sep, Hypertension, benign I10 and Hypothyroidism (acquired) E03.9 [facility] [id number] [place] [address] 06959- 0434 Sep, Pre-op evaluation Z01.818 ; Hypertension, benign I10 and Hypothyroidism (acquired) E03.9 [facility] [id number] [place] [address] 93465- 7113 May, [facility] [id number] [place] [address] 19522- 4978 May, [facility] [id number] [place] [address] 18441- 9112 May, Preoperative clearance Z01.818 [facility] [id number] [place] [address] 33857- 7322 Apr, Hypertension, benign I10 and Hypothyroidism (acquired) E03.9 [facility] [id number] [place] [address] 45406- 0352 Apr, Hypertension, benign I10 ; Hypothyroidism (acquired) E03.9 and Gastritis K29.70 [facility] [address] 12210- 6124 Mar, [facility] [id number] [place] [address] 27228- 1542 Feb, [facility] [address] 09859- 7011 Jan, Primary osteoarthritis of left knee M17.12 [facility] [address] [address] 2827 Dec, Left knee pain M25.562 [facility] [address] [place] [address] 52028- 3900 Dec, Left knee pain M25.562 [facility] [id number] [place] [address] 89903- 4168 Dec, Encounter for immunization Z23 [place] [id number] [place] [address] 65038- 7854 Sep, Pre-op evaluation V72.84 and Fracture of 5th metatarsal 825.25 [place] [id number] [place] [address] 91036- 4363 Aug, [place] [id number] [place] [address] 25159- 4235 Aug, [facility] [id number] [place] [address] 62370- 9947 July, Metatarsal bone fracture 825.25 ; Hallux valgus 735.0 ; 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 ; Hammertoe 735.4 and Onychomycosis 110.1 [place] [address] [address] 8[address] Jun, [facility] [address] [place] [address] 53881- 7568 Jun, [facility] [address] [place] [address] 35817- 7480 May, [facility] [id number] [place] [address] 54008- 4464 May, [facility] [address] [address]- 5545 Apr, [facility] [id number] [place] [address] 46765- 4839 Apr, [facility] [place] [facility] [address] [id number] [place] [address]- 9692 Mar, [facility] [place] [facility] [address] [id number] [place] [address]- 9988 Mar, [facility] [place] [facility] [address] [id number] [place] [address]- 9080 Mar, [facility] [place] [facility] [address] [id number] [place] [address]- 2942 Mar, [facility] [place] [facility] [address] [id number] [place] [address]- 6684 Jan, [facility] [place] [facility] [address] [id number] [place] [address]- 8657 Jan, [facility] [place] [facility] [address] [id number] [place] [address]- 2859 Jan, [facility] [place] [facility] [address] [id number] [place] [address]- 2542 Jan, [facility] [place] [facility] [address] [id number] [place] [address]- 4687 Dec, [facility] [place] [facility] [address] [id number] [place] [address]- 5529 Dec, [facility] [place] [facility] [address] [id number], [place] [address]- 2612 Nov, [facility] [place] [facility] [address] [id number], [place] [address]- 7365 Nov, [facility] [place] [facility] [address] [id number] [place] [address]- 3632 Oct, [facility] [place] [facility] [address] [id number] [place] [address]- 4598 Oct, [facility] [place] [facility] [address] [id number] [place] [address]- 5109 Oct, [facility] [place] [facility] [address] [id number] [place] [address]- 4139 Oct, [facility] [address] [id number] [place] [address]- 6503 Aug, [facility] [place] [facility] [address] [id number] [place] [address]- 8866 Aug, [facility] [address] [id number] [place] [address]- 2403 July, [facility] [address] [id number] [place] [address]- 1257 July, [facility] [address] [id number] [place] [address]- 7086 Jun, [facility] [address] [id number] [place] [address]- 0831 Jun, [facility] [address] [id number] [place] [address]- 0043 Jun, [facility] [address] [id number] [place] [address]- 6062 Mar, [facility] [address] [id number] [place] [address]- 4813 Mar, [facility] [address] [id number] [place] [address]- 1350 Mar, [facility] [place] [facility] [address] [id number] [place] [address]- 6616 Mar, [facility] [address] [id number] [place] [address]- 6798 Mar, [facility] [place] [facility] [address] [id number] [place] [address]- 3733 Dec, [facility] [place] [facility] [address] [id number] [place] [address]- 6688 Dec, [facility] [place] [facility] [address] [id number] [place] [address]- 9205 Oct, [facility] [place] [facility] [address] [id number] [place] [address]- 8589 Oct, [facility] [place] [facility] [address] [id number] [place] [address]- 2339 Jun, [facility] [place] [facility] [address] [id number] [place] [address]- 7141 Jun, [facility] [place] [facility] [address] [id number] [place] [address]- 8585 May, [facility] [place] [facility] [address] [id number] [place] [address]- 2946 May, [facility] [place] [facility] [address] [id number] [place] [address]- 7875 Apr, [facility] [place] [facility] [address] [id number] [place] [address]- 0990 Apr, [facility] [place] [facility] [address] [id number] [place] [address]- 9210 Mar, [facility] [place] [facility] [address] [id number] [place] [address]- 8341 Dec, [facility] [place] [facility] [address] [id number] [place] [address]- 7574 Dec, [facility] [place] [facility] [address] [id number] [place] [address]- 8090 Dec, [facility] [place] [facility] [address] [id number] [place] [address]- 6766 Dec, [facility] [place] [facility] [address] [id number] [place] [address]- 8130 Oct, [facility] [place] [facility] [address] [id number] [place] [address]- 6861 Jun, [facility] [place] [facility] [address] [id number] [place] [address]- 6178 30 Feb, 2011 [facility] [place] [facility] [address] [id number], [place] [address]- 0626 08 Jan, 2011 [facility] [address] [address]- 7936 Jan, [facility] [id number] [address]- 4225 Feb, [facility] [address] [address]- 3017 Jun, [facility] [address] [address]- 9600 Feb, [facility] [address] [address]- 3599 Sep, [facility] [address] 4414 Jun, IMMUNIZATIONS No Known Immunizations SOCIAL HISTORY Never Assessed REASON FOR VISIT Cold symptoms, still congested and having cough -- bethanie vance PLAN OF CARE Activity Details Follow Up 3 Months with Yuliana fitch Reason: VITAL SIGNS Height 63 in 2018-01-22 Weight 230.0 lbs 2018-01-22 Temperature 97.0 degrees Fahrenheit 2018-01-22 Heart Rate 80 bpm 2018-01-22 Respiratory Rate 20 2018-01-22 BMI 40.74 kg/m2 2018-01-22 Blood pressure systolic 126 mmHg 2018-01-22 Blood pressure diastolic 80 mmHg 2018-01-22 MEDICATIONS Medication Instructions Dosage Frequency Start Date End Date Duration Status Levothyroxine Sodium 75 mcg Orally Once a day 1 tablet 24h Sep, Active ProAir HFA 108 (90 Base) MCG/ACT Inhalation every 6 hrs 2 puffs as needed 6h Dec, 30 days Active Fexofenadine HCl 180 MG Orally Once a day 1 tablet as needed 24h Dec, Apr, 30 day(s) Active Hydrochlorothiazide 25 mg Orally Once a day 1 tablet in the morning 24h Active Fluticasone Propionate 50 MCG/ACT Nasally Once a day 1 spray in each nostril 24h Dec, 30 day(s) Active Spacer/Aero-Holding Chambers - as directed Jan, Active PredniSONE 20 mg Orally Once a day 1 tablet 24h Jan, Jan, 5 days Active Triamcinolone & Emollient 0.1 % Active RESULTS No Results PROCEDURES Procedure Date Ordered Result Body Site [facility] VISIT ESTABLISHED PATIENT Jan 22, 2018 INSTRUCTIONS MEDICATIONS ADMINISTERED No Known Medications MEDICAL [...] Hospitalization History surgeries Hospitalization History cough - [facility] ED visit 02/03/17 Hospitalization History cough and chest pain - [facility] inpatient admit. Discharged 03/04/17. 03/03/17 Hospitalization History back pain - [facility] ED visit 03/05/17
--- OUTSIDE RECORDS SUMMARY | 2018-04-19 09:43 | XMS REPORT | Continuity of Care Document ---
Author Author [facility] Address Unknown Phone Unavailable Allergies Active Description Code Type Severity Reaction Onset Reported/Identified Relationship to Patient Clinical Status Yes No Known Drug Allergies [id number] Drug Allergy Mild N/A 06/24/2008 Medications There [...] DOA K 724.2 Pain Low Back 06/27/2008 JUILAN GODINEZ APRN 724.2 Pain Low Back 06/27/2008 [...] Q Ot 733.82 NONUNION OF FRACTURE 09/23/2014 TOHMAS DPM, SADIA Q Ot 905.4 LATE EFFECT [...] P Ot I25.10 ATHSCL HEART DISEASE OF [place] CORONARY 06/12/2015 NICOLETTE SHERIDAN, URI Shaver Ot [...] 09/25/2015 THOMAS DPM, SADIA Q Ot T84.293A [facility] COMPL OF INT FIX OF BONES OF [...] 09/27/2015 THOMAS DPM, SADIA Q Ot T84.293A [facility] COMPL OF INT FIX OF BONES OF [...] 09/29/2015 THOMAS DPM, SADIA Q Ot T84.293A [facility] COMPL OF INT FIX OF BONES OF FOOT A 10/02/2015 THOMAS DPM, SADIA Q Ot M20.12 HALLUX VALGUS (ACQUIRED), LEFT FOOT 10/02/2015 THOMAS DPM, SADIA Q Ot M20.42 OTHER HAMMER TOE(S) (ACQUIRED), LEFT EVELYN 10/02/2015 THOMAS DPM, SADIA Q Ot T84.293A [facility] COMPL OF INT FIX OF BONES OF FOOT A 10/03/2015 THOMAS DPM, SADIA Q Ot M20.12 HALLUX VALGUS (ACQUIRED), LEFT FOOT 10/03/2015 THOMAS DPM, SADIA Q Ot M20.42 OTHER HAMMER TOE(S) (ACQUIRED), LEFT EVELNY 10/03/2015 THOMAS DPM, SADIA Q Ot T84.293A [facility] COMPL OF INT FIX OF BONES OF [...] 06/24/2016 BRODY HARRISON MD Ot Z79.899 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 LABORATORY TECHNICIAN (CURRENT) DRUG THERAPY 06/27/2016 LAMB DO AFUA K Ot E87.6 HYPOKALEMIA 06/27/2016 LAMB DO AFUA K Ot E87.8 OTH DISORDERS OF ELECTROLYTE AND FLUID B 06/28/2016 BRODY HARRISON MD Ot K44.9 DIAPHRAGMATIC HERNIA WITHOUT OBSTRUCTION 06/28/2016 HUNTER SHERIDAN, BRODY Way Ot R07.9 CHEST PAIN, UNSPECIFIED 06/28/2016 BRODY HARRISON MD Ot Z79.899 OTHER RESEARCH LABORATORY TECHNICIAN (CURRENT) DRUG THERAPY 09/28/2016 SEAN SHERIDAN, DOLLY [...] Ot I10 ESSENTIAL (PRIMARY) HYPERTENSION 03/04/2017 CHRISTIANE PANRELL ROBERT Ot I25.10 ATHSCL HEART DISEASE OF [place] CORONARY 03/04/2017 CHRISTIANE PARNELL ROBERT Ot K21.9 GASTRO-ESOPHAGEAL REFLUX DISEASE WITHOUT 03/04/2017 CHRISTIANE PARNELL ROBERT Ot K44.9 DIAPHRAGMATIC HERNIA WITHOUT OBSTRUCTION 03/04/2017 CHRISTIANE PARNELL ROBERT Ot R05 COUGH 03/04/2017 CHRISTIANE PARNELL ROBERT Ot Z79.82 [facility] (CURRENT) USE OF ASPIRIN 03/04/2017 KIMMIE GRANDE DOI Ot Z79.899 OTHER RESEARCH LABORATORY TECHNICIAN (CURRENT) DRUG THERAPY 03/04/2017 KIMMIE GRANDE DOI Ot Z87.891 PERSONAL HISTORY OF NICOTINE DEPENDENCE 03/05/2017 JEANETTE MARTINEZ APRN Ot E03.9 HYPOTHYROIDISM, UNSPECIFIED 03/05/2017 JEANETTE MARTINEZ APRN Ot E78.00 PURE HYPERCHOLESTEROLEMIA, UNSPECIFIED 03/05/2017 JEANETTE MARTINEZ CARRIER WASHER Ot I10 ESSENTIAL (PRIMARY) HYPERTENSION 03/05/2017 JEANETTE MARTINEZ APRN Ot K21.9 GASTRO-ESOPHAGEAL REFLUX DISEASE WITHOUT 03/05/2017 JEANETTE MARTINEZ APRN Ot M54.9 DORSALGIA, UNSPECIFIED 03/05/2017 JEANETTE MARTINEZ APRN Ot N39.0 URINARY TRACT INFECTION, SITE NOT SPECIF 03/05/2017 JEANETTE MARTINEZ APRN Ot R53.83 OTHER FATIGUE 03/05/2017 JEANETTE MARTINEZ CARRIER WASHER Ot Z79.82 [facility] (CURRENT) USE OF ASPIRIN 03/05/2017 JEANETTE MARTINEZ CARRIER WASHER Ot Z87.891 PERSONAL HISTORY OF NICOTINE DEPENDENCE 03/05/2017 JEANETTE MARTINEZ CARRIER WASHER Ot Z90.710 ACQUIRED ABSENCE OF BOTH CERVIX AND UTER 03/06/2017 KIMMIE GRANDE DOI Ot E03.9 HYPOTHYROIDISM, UNSPECIFIED 03/06/2017 CHRISTIANE DO ROBERT Ot E78.00 PURE HYPERCHOLESTEROLEMIA, UNSPECIFIED 03/06/2017 CHRISTIANE DO ROBERT Ot I10 ESSENTIAL (PRIMARY) HYPERTENSION 03/06/2017 CHRISTIANE PARNELL ROBERT Ot I25.10 ATHSCL HEART DISEASE OF [place] CORONARY 03/06/2017 CHRISTIANE PARNELL ROBERT Ot K21.9 GASTRO-ESOPHAGEAL REFLUX DISEASE WITHOUT 03/06/2017 CHRISTIANE PARNELL ROBERT Ot K44.9 DIAPHRAGMATIC HERNIA WITHOUT OBSTRUCTION 03/06/2017 CHRISTIANE PARNELL ROBERT Ot R05 COUGH 03/06/2017 KIMMIE GRANDE DOI Ot Z79.82 [facility] (CURRENT) USE OF ASPIRIN 03/06/2017 KIMMIE GRANDE DOI Ot Z79.899 OTHER RESEARCH LABORATORY TECHNICIAN (CURRENT) DRUG THERAPY 03/06/2017 CHRISTIANE PARNELL ROBERT Ot Z87.891 PERSONAL HISTORY OF NICOTINE DEPENDENCE 03/11/2017 JEANETTE MARTINEZ APRN Ot E03.9 HYPOTHYROIDISM, UNSPECIFIED 03/11/2017 JEANETTE MARTINEZ APRN Ot E78.00 PURE HYPERCHOLESTEROLEMIA, UNSPECIFIED 03/11/2017 JEANETTE MARTINEZ CARRIER WASHER Ot I10 ESSENTIAL (PRIMARY) HYPERTENSION 03/11/2017 JEANETTE MARTINEZ APRN Ot K21.9 GASTRO-ESOPHAGEAL REFLUX DISEASE WITHOUT 03/11/2017 JEANETTE MARTINEZ APRN Ot M54.9 DORSALGIA, UNSPECIFIED 03/11/2017 JEANETTE MARTINEZ APRN Ot N39.0 URINARY TRACT INFECTION, SITE NOT SPECIF 03/11/2017 JEANETTE MARTINEZ APRN Ot R53.83 OTHER FATIGUE 03/11/2017 JEANETTE MARTINEZ CARRIER WASHER Ot Z79.82 RESEARCH LABORATORY TECHNICIAN (CURRENT) USE OF ASPIRIN 03/11/2017 JEANETTE MARTINEZ [...] DO Ot I25.10 ATHSCL HEART DISEASE OF [place] CORONARY 03/14/2017 CHRISTIANE PARNELL ROBERT Ot K21.9 GASTRO-ESOPHAGEAL REFLUX DISEASE WITHOUT 03/14/2017 CHRISTIANE PARNELL ROBERT Ot K44.9 DIAPHRAGMATIC HERNIA WITHOUT OBSTRUCTION 03/14/2017 CHRISTIANE PARNELL ROBERT Ot R05 COUGH 03/14/2017 ROBERT GRANDE DO Ot Z79.82 [facility] (CURRENT) USE OF ASPIRIN 03/14/2017 ROBERT GRANDE DO Ot Z79.899 OTHER [facility] (CURRENT) DRUG THERAPY 03/14/2017 ROBERT GRANDE DO Ot Z87.891 PERSONAL HISTORY OF NICOTINE DEPENDENCE 05/30/2017 Ot 722.52 05/30/2017 LONG DC, ALEXX S Ot 722.52 LUMB/LUMBOSAC DISC DEGEN 05/30/2017 LONG DC, ALEXX S Ot 737.30 IDIOPATHIC SCOLIOSIS 05/30/2017 THOMAS DPM, SADIA Q Ot 825.25 FX METATARSAL-CLOSED 05/30/2017 THOMAS DPM, SADIA Q Ot E000.8 OTHER EXTERNAL CAUSE STATUS 05/30/2017 THOMAS DPM, SADIA Q Ot E928.9 ACCIDENT NOS 05/30/2017 THOMAS DPM, SADIA Q Ot V72.63 PRE-PROCEDURAL LABORATORY EXAMINATION 05/30/2017 THOMAS DPM, SADIA Q Ot V74.8 SCREEN-BACTERIAL DIS NEC 05/30/2017 AFUA LAMB DO Ot E87.6 HYPOKALEMIA 05/30/2017 AFUA LAMB DO Ot E87.8 OTH DISORDERS OF ELECTROLYTE AND FLUID B 05/30/2017 AFUA LAMB DO Ot E87.6 HYPOKALEMIA 05/30/2017 LUIS LAMB DOA Radha Ot E87.8 OTH DISORDERS OF ELECTROLYTE AND FLUID B 08/29/2017 NATHANIEL WALSH INCIDENT ANALYST Ot Z00.00 ENCNTR FOR GENERAL ADULT MEDICAL EXAM 09/08/2017 NATHANIEL WALSH INCIDENT ANALYST Ot Z00.00 ENCNTR FOR GENERAL ADULT MEDICAL EXAM 09/11/2017 NATHANIEL WALSH INCIDENT ANALYST Ot Z00.00 ENCNTR FOR GENERAL ADULT MEDICAL EXAM W09/12/2017 NATHANIEL WALSH INCIDENT ANALYST Ot Z13.820 ENCOUNTER FOR SCREENING FOR OSTEOPOROSIS 10/06/2017 NATHANIEL WALSHP Ot Z13.820 ENCOUNTER FOR SCREENING FOR OSTEOPOROSIS 01/02/2018 JEANETTE MARTINEZ APRN Ot D64.9 ANEMIA, UNSPECIFIED 01/02/2018 JEANETTE MARTINEZ APRN Ot E03.9 HYPOTHYROIDISM, UNSPECIFIED 01/02/2018 JEANETTE MARTINEZ APRN Ot E78.00 PURE HYPERCHOLESTEROLEMIA, UNSPECIFIED 01/02/2018 JEANETTE MARTINEZ APRN Ot I10 ESSENTIAL (PRIMARY) HYPERTENSION 01/02/2018 JEANETTE MARTINEZ APRN Ot J40 BRONCHITIS, NOT SPECIFIED ACUTE OR CH 01/02/2018 JEANETTE MARTINEZ APRN Ot K21.9 GASTRO-ESOPHAGEAL REFLUX DISEASE WITHOUT 01/02/2018 JEANETTE MARTINEZ APRN Ot R05 COUGH 01/02/2018 JEANETTE MARTINEZ APRN Ot Z77.22 CNTCT W AND EXPSR TO ENVIRON TOBACCO SMO 01/02/2018 JEANETTE MARTINEZ APRN Ot Z79.51 [facility] (CURRENT) USE OF INHALED STERO 01/02/2018 JEANETTE MARTINEZ APRN Ot Z79.82 [facility] (CURRENT) USE OF ASPIRIN 01/02/2018 JEANETTE MARTINEZ APRN Ot Z87.19 PERSONAL HISTORY OF OTHER DISEASES OF TH 01/02/2018 JEANETTE MARTINEZ APRN Ot Z90.710 ACQUIRED ABSENCE OF BOTH CERVIX AND UTER 01/02/2018 JEANETTE MARTINEZ APRN Ot Z98.890 OTHER SPECIFIED POSTPROCEDURAL STATES 01/02/2018 LAMB DOLUISA Radha Ot E87.6 HYPOKALEMIA 01/02/2018 LUIS LAMB DOA Radha Ot E87.8 OTH DISORDERS OF ELECTROLYTE AND FLUID B 01/02/2018 NATHANIEL WALSH Ot Z13.820 ENCOUNTER FOR SCREENING FOR OSTEOPOROSIS 01/02/2018 NATHANIEL WALSH Ot Z12.31 ENCNTR SCREEN MAMMOGRAM FOR MALIGNANT NE 01/06/2018 JEANETTE MARTINEZ APRN Ot D64.9 ANEMIA, UNSPECIFIED 01/06/2018 JEANETTE MARTINEZ APRN Ot E03.9 HYPOTHYROIDISM, UNSPECIFIED 01/06/2018 JEANETTE MARTINEZ APRN Ot E78.00 PURE HYPERCHOLESTEROLEMIA, UNSPECIFIED 01/06/2018 JEANETTE MARTINEZ APRN Ot I10 ESSENTIAL (PRIMARY) HYPERTENSION 01/06/2018 JAENETTE MARTINEZ APRN Ot J40 BRONCHITIS, NOT SPECIFIED ACUTE OR CH 01/06/2018 JEANETTE MARTINEZ APRN Ot K21.9 GASTRO-ESOPHAGEAL REFLUX DISEASE WITHOUT 01/06/2018 JEANETTE MARTINEZ APRN Ot R05 COUGH 01/06/2018 JEANETTE MARTINEZ APRN Ot Z77.22 CNTCT W AND EXPSR TO ENVIRON TOBACCO SMO 01/06/2018 JEANETTE MARTINEZ APRN Ot Z79.51 [facility] (CURRENT) USE OF INHALED STERO 01/06/2018 JEANETTE MARTINEZ APRN Ot Z79.82 RESEARCH LABORATORY TECHNICIAN (CURRENT) USE OF ASPIRIN 01/06/2018 JEANETTE MARTINEZ APRN Ot Z87.19 PERSONAL HISTORY OF OTHER DISEASES OF TH 01/06/2018 JEANETTE MARTINEZ APRN Ot Z90.710 ACQUIRED ABSENCE OF BOTH CERVIX AND UTER 01/06/2018 JEANETTE MARTINEZ APRN Ot Z98.890 OTHER SPECIFIED POSTPROCEDURAL STATES Procedures Code Description [place] [address] ROUTINE VENIPUNCTURE 06/24/2012 65100 CBC 06/24/2012 49803 LIPID PANEL 06/24/2012 02390 CMP 06/24/2012 8495908 GFR CALC (RESULT ONLY) 06/24/2012 08337 TSH 06/24/2012 51800 CULTURE EAR & STAIN 04/05/2013 01943 ROUTINE VENIPUNCTURE 11/02/2013 38571 CMP 11/02/2013 75173 LIPID PANEL 11/02/2013 00189 TSH 11/02/2013 22162 CBC 11/02/2013 [id number] REPLACE OF L KNEE JT WITH SYNTH [...] GRAM STAIN SPUTUM AND MIXED BACTERIAL [place] NRG Bacterial sputum culture - 02/03/17 13:46 Bacterial sputum culture NORMAL NRG Complete blood count (CBC) with automated white [...] culture - 03/05/17 21:22 Bacterial urine culture [id number] NRG COLONY COUNT 10,000/ML - 100,000/ML NRG FTX;REPORTABLE SENSITIVITY NOT USUALLY PERFORMED FOR NRG URINE CULTURE RESULTS PLUS NRG FREE TEXT ENTRY 2 THIS ORGANISM. NRG Bacterial susceptibility panel - 03/05/17 21:22 Gentamicin [...] Status Pt. Type Provider Facility Loc./Unit Complaint [id number] 07/08/2014 14:27:00 07/08/2014 23:59:59 CLS Outpatient JULIAN GODINEZ APRN [id number] 04/27/2014 16:07:00 04/27/2014 23:59:59 CLS Outpatient JULIAN GODINEZ APRN [id number] 03/23/2014 15:16:00 03/23/2014 23:59:59 CLS Outpatient JULIAN GODINEZ APRN [id number] 01/17/2014 15:57:00 01/17/2014 23:59:59 CLS Outpatient JULIAN GOIDNEZ APRN [id number] 01/15/2014 10:16:00 01/15/2014 23:59:59 CLS Outpatient AFUA LAMB DO [id number] 11/02/2013 13:04:00 11/02/2013 23:59:59 CLS Outpatient JULIAN GODINEZ APRN [id number] 04/05/2013 08:48:00 04/05/2013 23:59:59 CLS Outpatient MAX TORRES APRN [id number] 10/30/2012 14:22:00 10/30/2012 23:59:59 CLS Outpatient JULIAN GODINEZ APRN [id number] 06/24/2012 08:16:00 06/24/2012 23:59:59 CLS Outpatient [id number] 06/17/2012 14:06:00 06/17/2012 23:59:59 CLS Outpatient [id number] 04/14/2012 16:35:00 04/14/2012 23:59:59 CLS Outpatient AFUA LAMB DO Radha [id number] 03/15/2011 09:42:00 03/15/2011 23:59:59 CLS Outpatient [id number] 01/02/2018 10:16:00 01/02/2018 11:43:00 DIS Emergency JEANETTE MARTINEZ APRN [facility] ER COUGH;COLD [id number] 09/11/2017 07:46:00 09/11/2017 23:59:59 CLS Outpatient NATHANIEL WALSH [facility] RAD MEDICARE ANNUAL WELLNESS VISIT Z00.00 [id number] 08/29/2017 12:10:00 08/29/2017 23:59:59 CLS Preadmit NATHANIEL WALSH [facility] RAD WELLNESS VISIT [id number] 03/05/2017 19:00:00 03/05/2017 22:22:00 DIS Emergency JEAENTTE MARTINEZ APRN [facility] ER BACK PAIN [id number] 03/03/2017 08:00:00 03/04/2017 17:25:00 DIS Outpatient ROBERT GRANDE DO [facility] CATH CHEST PAIN [id number] 02/03/2017 12:40:00 02/03/2017 16:04:00 DIS Emergency VERN SCHULTZ MD [facility] ER COUGH [id number] 09/28/2016 06:09:00 09/28/2016 08:40:00 DIS Emergency DOLLY ESTRADA MD [facility] ER RT ARM PAIN,SOB,CAN'T SLEEP AT NIGHT [id number] 06/24/2016 12:48:00 06/24/2016 18:30:00 DIS Emergency BRODY HARRISON MD [facility] ER CHEST PAIN [id number] 09/29/2015 08:18:00 09/29/2015 15:00:00 DIS Outpatient THOMAS DPM, SADIA Q [facility] LEFT FOOT HARDWARE FAILURE;HALLUS;HAMMERTOE [id number] 09/25/2015 13:05:00 09/25/2015 13:35:00 DIS Outpatient THOMAS DPM, SADIA Q [facility] PREOP LEFT FOOT HARDWARE FAILURE;HALLUX; HAMMERTOE [id number] 08/31/2015 13:03:00 08/31/2015 14:19:00 DIS Outpatient URI WILL MD [facility] REHAB L TKR [id number] 06/19/2015 14:41:00 06/19/2015 23:59:59 CLS Outpatient AFUA LAMB DO [facility] HH HYPOPOTASSEMIA, LOW CHLORIDE LEVEL [id number] 06/07/2015 07:30:00 06/12/2015 17:30:00 DIS Inpatient URI WILL MD [facility] 4TH LEFT KNEE SEVERE OSTEOARTHRITIS [id number] 05/31/2015 09:21:00 05/31/2015 10:45:00 DIS Outpatient URI WILL MD [facility] PREOP LEFT KNEE SEVERE OSTEOARTHRITIS [id number] 09/23/2014 11:23:00 09/23/2014 17:00:00 DIS Outpatient THOMAS DPM, SADIA Q [facility] FRACTURED 5TH METATARSAL [id number] 09/15/2014 10:32:00 09/15/2014 23:59:59 CLS Outpatient THOMAS DPM, SADIA Q [facility] PREOP FRACTURED 5TH METATARSAL [id number] 07/04/2014 10:30:00 07/04/2014 12:30:00 DIS Emergency SADE DIMAS DO [facility] ER RIGHT LEG PAIN [id number] 03/05/2014 14:17:00 03/06/2014 12:20:00 DIS Inpatient JOSE MARTIN SHERIDAN, PASTORA Torres [facility] ICU CHEST PAIN [id number] 07/02/2013 14:32:00 07/02/2013 23:59:59 CLS Outpatient ALEXX REYNA DC [facility] RAD LUMBAGO [id number] 05/30/2017 12:05:00 Document Registration [id number] 05/30/2017 12:05:00 Document Registration [id number] 12/29/2011 10:00:00 Document Registration [id number] 07/07/2008 14:47:00 Document Registration [id number] 02/27/2016 10:05:00 Document Registration [id number] 09/24/2014 04:33:59 ACT Document Registration [id number] 03/06/2018 09:15:00 03/06/2018 23:59:59 CLS Outpatient IAN LEAL [facility] [id number] 08/05/2017 09:00:00 Document Registration [id number] 05/30/2017 11:00:00 Document Registration [id number] 03/14/2017 10:00:00 Document Registration [id number] 06/01/2016 08:06:00 Document Registration
[2018-04-19] MEDS ORDERED: KETOROLAC 30 MG/ML VIAL IVP STA (10:40)
[2018-04-19] MEDS ORDERED: ASPIRIN 81 MG CHEW (CHILDREN'S ASA) PO ONE (10:45)
--- NOTE | 2018-04-19 10:50 | ED Chest Pain ---
General Chief Complaint: Upper Extremity Stated Complaint: L ARM PAIN Nursing Triage Note: Pt c/o L arm/elbow pain. Pt reports pain started yesterday and has worsened today. Pt denies injury. Pt reports pain is worse with movement. Pt also c/o SOB. Nursing Sepsis Screen: No Definite Risk Source: patient, family Exam Limitations: no limitations History of Present Illness Date Seen by Provider: Apr 19, 2018 Time Seen by Provider: 10:35 Initial Comments Here with report of left arm pain to the posterior aspect that started yesterday. Appears to be worse with movement. Also complains of shortness of breath and states that recently she has not been a little walk even to the mailbox without getting short of breath ear that is worsening. Also complains of right-sided neck pain that radiates down to her chest that has been going on for a few months. Denies chest pain. Denies sweating, nausea, vomiting or other problems. She has not taken anything for the pain. She does not smoke but lives with a smoker. Timing/Duration: 24 hours, getting worse, changing over time Severity/Quality: mild, moderate, aching Location: other (left arm and right neck) Radiation: shoulders Activities at Onset: none Prior CP/Workup: no prior cardiac workup Modifying Factors: worse with movement; improves with rest ASA po TEA AND SPICE SUPERVISOR: No NTG SL TEA AND SPICE SUPERVISOR: No Associated Symptoms: No abdominal pain, No back pain, No diaphoresis, No dizziness, No edema, No nausea/vomiting; shortness of breath; No weakness Allergies and Home Medications Allergies Coded Allergies: No Known Drug Allergies (Unverified , 06/24/08) Home Medications Aspirin 81 Mg Tablet., 81 MG PO DAILY Prescribed by: SARAH YEH on 03/04/17 1659 Azithromycin 250 Mg Tablet, 250 MG PO UD TAKE 2 TABLETS ON DAY ONE THEN TAKE 1 TABLET DAILY FOR FOUR MORE DAYS Prescribed by: JEANETTE MARTINEZ on 01/02/18 1115 Hydrochlorothiazide 25 Mg Tablet, 25 MG PO DAILY, (Reported) Levothyroxine Sodium 75 Mcg Tablet, 75 MCG PO DAILY, (Reported) Omeprazole 40 Mg Capsule., 40 MG PO DAILY, (Reported) Prednisone 20 Mg Tab, 40 MG PO DAILY Prescribed by: JEANETTE MARTINEZ on 01/02/18 1115 Sulfamethoxazole/Trimethoprim 1 Each Tablet, 1 EACH PO BID Prescribed by: JEANETTE MARTINEZ on 03/05/17 2217 Patient Home Medication List Home Medication List Reviewed: Yes Review of Systems Review of Systems Constitutional: see HPI; No chills, No fever EENTM: No Symptoms Reported Respiratory: See HPI, Shortness of Air, SOA With Exertion Cardiovascular: Denies Chest Pain; Edema Gastrointestinal: Denies Abdominal Pain, Denies Diarrhea, Denies Difficulty Swallowing, Denies Nausea, Denies Vomiting Genitourinary: No Symptoms Reported Musculoskeletal: joint pain, muscle pain Skin: no symptoms reported Psychiatric/Neurological: No Symptoms Reported Endocrine: No Symptoms Reported All Other Systems Reviewed Negative Unless Noted: Yes Past Fhhtkkx-Uijuup-Hvqlkl Hx Past Med/Social Hx: Reviewed Nursing Past Med/Soc Hx Patient Social History Alcohol Use: Denies Use Recreational Drug Use: No Type Used: Cigarettes Former Smoker, Quit: Mar 03, 1968 2nd Hand Smoke Exposure: Yes ( IS SMOKER) Recent Foreign Travel: No Contact w/Someone Who Travel: No Recent Infectious Disease Expo: No Recent Hopitalizations: Yes (chest pain 03/02/17) Physical Abuse: No Sexual Abuse: No Immunizations Up To Date Tetanus Booster (TDap): More than 5yrs Date of Pneumonia Vaccine: Jun 10, 2015 Date of Influenza Vaccine: Dec 15, 2016 Seasonal Allergies Seasonal Allergies: No Past Medical History Surgeries: Yes (LEFT TKR, LEFT FOOT SX, ) Section, Eye Surgery, Hysterectomy, Oophorectomy, Orthopedic Respiratory: No Cardiac: Yes High Cholesterol, Hypertension Neurological: No Reproductive Disorders: No IMPROVEMENT SPEC History: Hysterectomy, Menopausal Sexually Transmitted Disease: No HIV/AIDS: No Genitourinary: No Gastrointestinal: Yes Gastroesophageal Reflux, Hiatal Hernia Musculoskeletal: Yes (LEFT FOOT FX, LEFT TKR) Arthritis, Chronic Back Pain, Spasms Endocrine: Yes Hypothyroidsim HEENT: Yes Cataract Hearing Impairment: Hard of Hearing Cancer: No Psychosocial: No Integumentary: No Blood Disorders: Yes (ANEMIA) Family Medical History Reviewed Nursing Family Hx Patient reports no known family medical history. Cancer Physical Exam Vital Signs Vital Signs - First Documented 04/19/18 09:39 Temp 96.2 Pulse 77 Resp 25 B/P (MAP) 135/88 (104) Pulse Ox 94 O2 Delivery Room Air Capillary Refill : Less Than 3 Seconds Height, Weight, BMI Height: 5'3.00" Weight: 230lbs. 6.0oz. [id number]; 46.8 BMI Method:Stated General Appearance: No Apparent Distress, WD/WN HEENT: PERRL/EOMI, Pharynx Normal Neck: Full Range of Motion, Normal Inspection, Non Tender, Supple Respiratory: Lungs Clear, Normal Breath Sounds Cardiovascular: Regular Rate, Rhythm, No Murmur Gastrointestinal: Non Tender, Soft Extremity: Normal Range of Motion, Other (reports mild tenderness to the posterior left arm. This appears to be worse with complete flexion at the elbow. Denies pain in the elbow or shoulder.) Neurologic/Psychiatric: Alert, Oriented x3 Skin: Normal Color, Warm/Dry Progress/Results/Core Measures Results/Orders Lab Results Laboratory Tests Test 04/19/18 11:15 Range/Units White Blood Count 9.2 4.3-11.0 10^3/uL Red Blood Count 4.53 4.35-5.85 10^6/uL Hemoglobin 13.0 11.5-16.0 G/DL Hematocrit 40 35-52 % Mean Corpuscular Volume 89 80-99 FL Mean Corpuscular Hemoglobin 29 25-34 PG Mean Corpuscular Hemoglobin Concent 32 32-36 G/DL Red Cell Distribution Width 14.9 H 10.0-14.5 % Platelet Count 382 130-400 10^3/uL Mean Platelet Volume 10.0 7.4-10.4 FL Neutrophils (%) (Auto) 67 42-75 % Lymphocytes (%) (Auto) 24 12-44 % Monocytes (%) (Auto) 8 0-12 % Eosinophils (%) (Auto) 2 0-10 % Basophils (%) (Auto) 0 0-10 % Neutrophils # (Auto) 6.1 1.8-7.8 X 10^3 Lymphocytes # (Auto) 2.2 1.0-4.0 X 10^3 Monocytes # (Auto) 0.7 0.0-1.0 X 10^3 Eosinophils # (Auto) 0.2 0.0-0.3 10^3/uL Basophils # (Auto) 0.0 0.0-0.1 10^3/uL Prothrombin Time 13.5 12.2-14.7 SEC INR Comment 1.0 0.8-1.4 Activated Partial Thromboplast Time 29 24-35 SEC D-Dimer 0.58 H 0.00-0.49 UG/ML Sodium Level 140 135-145 MMOL/L Potassium Level 3.6 3.6-5.0 MMOL/L Chloride Level 102 98-107 MMOL/L Carbon Dioxide Level 24 21-32 MMOL/L Anion Gap 14 5-14 MMOL/L Blood Urea Nitrogen 23 H 7-18 MG/DL Creatinine 1.09 0.60-1.30 MG/DL Estimat Glomerular Filtration Rate 50 BUN/Creatinine Ratio 21 Glucose Level 100 70-105 MG/DL Calcium Level 9.4 8.5-10.1 MG/DL Corrected Calcium 9.3 8.5-10.1 MG/DL Magnesium Level 2.4 1.8-2.4 MG/DL Total Bilirubin 0.4 0.1-1.0 MG/DL Aspartate Amino Transf (AST/SGOT) 23 5-34 U/L Alanine Aminotransferase (ALT/SGPT) 22 0-55 U/L Alkaline Phosphatase 67 40-136 U/L Myoglobin 57.6 10.0-92.0 NG/ML Troponin I < 0.028 <0.028 NG/ML Total Protein 7.4 6.4-8.2 GM/DL Albumin 4.1 3.2-4.5 GM/DL TSH [place] Testing 3.55 0.35-4.94 UIU/ML My Orders Orders - BRODY HARRISON MD Cbc With Automated Diff (04/19/18 10:40) Magnesium (04/19/18 10:40) Chest 1 View, Ap/Pa Only (04/19/18 10:40) Ekg Tracing (04/19/18 10:40) Cardiac Profile 1 (04/19/18 10:40) Comprehensive Metabolic Panel (04/19/18 10:40) Myoglobin Serum (04/19/18 10:40) Protime With Inr (04/19/18 10:40) Partial Thromboplastin Time (04/19/18 10:40) O2 (04/19/18 10:40) Monitor-Rhythm Ecg Trace Only (04/19/18 10:40) Lipid Panel (04/20/18 06:00) Aspirin Chewable Tablet (Baby Aspirin Ch (04/19/18 10:45) Saline Lock/Iv-Start (04/19/18 10:40) Ketorolac Injection (Toradol Injection) (04/19/18 10:40) Fibrin Degradation Products (04/19/18 10:40) Thyroid Analyzer (04/19/18 11:15) Tramadol Tablet (Ultram Tablet) (04/19/18 13:18) Medications Given in ED Current Medications Medications Dose Ordered Sig/Wu Route Start Time Stop Time Status Last Admin Dose Admin Aspirin 324 mg ONCE ONCE PO 04/19/18 10:45 04/19/18 10:46 DC 04/19/18 10:54 324 MG Vital Signs/I&O 04/19/18 09:39 Temp 96.2 Pulse 77 Resp 25 B/P (MAP) 135/88 (104) Pulse Ox 94 O2 Delivery Room Air Blood Pressure Mean: 104 Progress Progress Note : Progress Note Seen and evaluated. IV, labs, EKG and chest x-ray ordered. ASA 324 mg by mouth ordered. We will check thyroid study. Toradol 10 mg IV for arm pain. Monitor patient. Pain is only a little better. No acute findings on labs. 1320: Tramadol 50 mg by mouth. This appears to be more musculoskeletal. She will follow-up with Dr. Leal. I will send a copy of the chart to her. Discharged home with return precautions. Patient and family verbalize understanding instructions and agreement with plan. Initial ECG Impression Date: Apr 19, 2018 Initial ECG Impression Time: 10:45 Initial ECG Rate: 59 Initial ECG Rhythm: Normal Sinus Comment Sinus rhythm with normal axis. No evidence of ST elevation [place]. Similar to . Interpreted by me. Diagnostic Imaging Diagonstic Imaging: Xray Plain Films/CT/US/NM/MRI: chest Comments [facility] [place], [place] NAME: NATHANIEL VASQUEZ [facility] REC#: [id number] PT STATUS: REG ER : 1945 PHYSICIAN: BRODY HARRISON MD ADMIT DATE: 04/19/18/ER Draft Date of Exam:04/19/18 CHEST 1 VIEW, AP/PA ONLY INDICATION: Right-sided neck pain, left arm pain. TECHNIQUE: Single-view chest, 11:27 a.m. CORRELATION STUDY: 01/02/2018. FINDINGS: Heart size is enlarged. Mediastinum is mildly prominent. Likely tortuous ectatic thoracic aorta. Probable hiatal hernia. Minimal perihilar atelectasis. No significant consolidating infiltrate. Probable small effusions. IMPRESSION: 1. Generally stable chest. There may be trace pleural effusions. Dictated on workstation # [id number] Dict: 04/19/18 1139 Trans: 04/19/18 1144 [id number] Interpreted by: SUBHA FLORES DO Electronically signed by: Departure Impression Primary Impression: Musculoskeletal pain of left upper extremity Disposition: HOME, SELF-CARE Condition: Improved Departure-Patient Inst. Decision time for Depature: 13:22 Referrals: IAN LEAL MD (PCP/Family) Primary Care Physician Patient Instructions: Muscle Strain (DC) Add. Discharge Instructions: All discharge instructions reviewed with patient and/or family. Voiced understanding. You may take Tylenol/acetaminophen 1000 mg every 6 hours as needed for pain. Follow-up with your doctor this week for recheck and further evaluation. Call her office in the morning for appointment. Return for worse pain, fever, vomiting, weakness, breathing problems or other concerns as needed. Copy Copies To 1: IAN LEAL MD, TIMOTHY D MD Apr 19, 2018 10:50
--- NOTE | 2018-04-19 11:00 | NUR ---
Pt reported additional symptoms to Dr. Cuadra that were not disclosed to this nurse. This nurse questioned pt, and pt also reports pain in the R side of neck radiating to clavicle that has persisted for several weeks. Pt also reports SOB when walking 100 feet or less.
[2018-04-19 11:31] LABS: BASOPHILS % (AUTO) 0 % (0-10); EOSINOPHILS # (AUTO) 0.2 10^3/uL (0.0-0.3); EOSINOPHILS % (AUTO) 2 % (0-10); HEMATOCRIT 40 % (35-52); LYMPHOCYTES # (AUTO) 2.2 X 10^3 (1.0-4.0); LYMPHOCYTES % (AUTO) 24 % (12-44); MEAN CORPUSCULAR HEMOGLOBIN 29 PG (25-34); MEAN CORPUSCULAR HGB CONC 32 G/DL (32-36); MEAN CORPUSCULAR VOLUME 89 FL (80-99); MONOCYTES # (AUTO) 0.7 X 10^3 (0.0-1.0); MONOCYTES % (AUTO) 8 % (0-12); NEUTROPHILS # (AUTO) 6.1 X 10^3 (1.8-7.8); NEUTROPHILS % (AUTO) 67 % (42-75); PLATELET COUNT 382 10^3/uL (130-400); RED CELL DISTRIBUTION WIDTH 14.9 % (10.0-14.5); WHITE BLOOD COUNT 9.2 10^3/uL (4.3-11.0)
--- NOTE | 2018-04-19 11:45 | Diagnostic Imaging Report ---
INDICATION: Right-sided neck pain, left arm pain. TECHNIQUE: Single-view chest, 11:27 a.m. CORRELATION STUDY: 01/02/2018. FINDINGS: Heart size is enlarged. Mediastinum is mildly prominent. Likely tortuous ectatic thoracic aorta. Probable hiatal hernia. Minimal perihilar atelectasis. No significant consolidating infiltrate. Probable small effusions. IMPRESSION: 1. Generally stable chest. There may be trace pleural effusions. Dictated by: Dictated on workstation # [id number]
[2018-04-19 11:53] LABS: FIBRIN DEGRADATION PRODUCTS 0.58 UG/ML (0.00-0.49); PROTHROMBIN TIME PATIENT 13.5 SEC (12.2-14.7)
[2018-04-19 11:58] LABS: ALANINE AMINOTRANSFERASE 22 U/L (0-55); ALBUMIN 4.1 GM/DL (3.2-4.5); ALKALINE PHOSPHATASE 67 U/L (40-136); BILIRUBIN,TOTAL 0.4 MG/DL (0.1-1.0); BUN/CREATININE RATIO 21; CALCIUM 9.4 MG/DL (8.5-10.1); CARBON DIOXIDE 24 MMOL/L (21-32); CHLORIDE 102 MMOL/L (98-107); CREATININE SERUM 1.09 MG/DL (0.60-1.30); GFR ESTIMATED 50; GLUCOSE 100 MG/DL (70-105); MAGNESIUM 2.4 MG/DL (1.8-2.4); POTASSIUM 3.6 MMOL/L (3.6-5.0); SODIUM 140 MMOL/L (135-145); TOTAL PROTEIN 7.4 GM/DL (6.4-8.2)
[2018-04-19 12:20] LABS: MYOGLOBIN SERUM 57.6 NG/ML (10.0-92.0); TSH (THYROID ANALYZER) 3.55 UIU/ML (0.35-4.94)
[2018-04-19 13:26] VITALS: BP 117/82
== END 2018-04-19 13:30 | disposition home or self-care (01) ==
LOC: EDUNIT# 09:31 → ER 09:32
DX: M79.18 Myalgia, other site (principal); M79.602 Pain in left arm; E78.00 Pure hypercholesterolemia, unspecified; I10 Essential (primary) hypertension; K21.9 Gastro-esophageal reflux disease without esophagitis; E03.9 Hypothyroidism, unspecified; D64.9 Anemia, unspecified; Z87.19 Personal history of other diseases of the digestive system; Z79.82 Long term (current) use of aspirin; Z79.52 Long term (current) use of systemic steroids; Z87.891 Personal history of nicotine dependence; Z90.710 Acquired absence of both cervix and uterus; Z98.890 Other specified postprocedural states
CPT/HCPCS: 36415; 71045; 80053; 83735; 83874; 84443; 84484; 85025; 85379; 85610; 85730; 93005; 93041

== ENCOUNTER 2018-07-30 05:36 | Outpatient (CLI) | payer MEDICARE ==
[~2018-07-30] VITALS: Ht 160 cm; Wt 104.5 kg
[~2018-07-30 05:36] MED LIST changes: -HYDR-3454 PO; +HYDR-3455 PO
== END 2018-07-30 10:30 | disposition home or self-care (01) ==
LOC: PREOP 05:36
PROVIDERS: ATTEND Specialist
DX: Z01.818 Encounter for other preprocedural examination (principal)

== ENCOUNTER 2018-07-31 09:06 | Day surgery (SDC) | payer MEDICARE ==
[~2018-07-31] VITALS: Ht 160 cm; Wt 104.5 kg
[2018-07-31 09:25] VITALS: BP 129/88
[2018-07-31] MEDS ORDERED: LIDOCAINE PF 1% 2 ML AMP IR PRN (09:30)
[2018-07-31] MEDS ORDERED: MOXIFLOXACIN OPHTH SOLN 5 MG/ML 0.3 ML SYRINGE OP ONE (09:30)
[2018-07-31] MEDS ORDERED: POVIDONE (BETADINE) OPHTH SOLN 5% 30 ML OP ONE (09:30)
[2018-07-31] MEDS ORDERED: TIMOLOL MALEATE 0.5% 5 ML (TIMOPTIC) BTL OU PRN (09:30)
[2018-07-31] MEDS: TETRACAINE 0.5% OPHTH SOLN 4 ML BTL (SINGLE DOSE ONLY) OU PRN ×4 (09:32→09:53)
[2018-07-31] MEDS: CYCLOPENTOLATE 1% (CYCLOGYL) 2 ML DROPS OP SCH ×3 (09:43→09:53)
[2018-07-31] MEDS: PHENYLEPHRINE 10% OPHTH (NEO-SYN) 5 ML BTL OU SCH ×3 (09:43→09:53)
[2018-07-31] MEDS ORDERED: MIDAZOLAM 2 MG/2 ML (VERSED) VIAL ONE (09:48)
--- NOTE | 2018-07-31 10:10 | Ophthalmologist Pre-Op Note ---
Pre-Operative Progress Note H&P Reviewed The H&P was reviewed, patient examined and no changes noted. Date H&P Reviewed: July 31, 2018 Time H&P Reviewed: 10:10 Pre-Op Dx Cataract, Right Eye ALEXY ALVA MD July 31, 2018 10:10
--- NOTE | 2018-07-31 10:38 | Ophthalmology Operative Report ---
Cataract removal/placement IOL PREOPERATIVE DIAGNOSIS: Cataract Right Eye POSTOPERATIVE DIAGNOSIS: Cataract Right Eye PROCEDURE: Cataract removal and placement of posterior chamber implant, right eye SURGEON: Dion Alva ANESTHESIA: Topical with sedation COMPLICATIONS: None ESTIMATED BLOOD LOSS: Minimal DESCRIPTION OF PROCEDURE: After proper informed consent was obtained, the patient, a 72 female, was taken to the Operating Room and the right eye was anesthetized with tetracaine. The right eye was then prepped and draped in the usual manner. A wire lid speculum was placed. A paracentesis was made at the left hand position. Preservative free lidocaine was injected into the anterior chamber followed by viscoelastic. A clear corneal incision was made in the temporal position. A capsulorrhexis was preformed and the central nuclear and cortical material were removed. The posterior capsule was polished and Bertin 22.5 AU00T0 IOL was placed into the capsular bag. The residual viscoelastic was aspirated and balanced saline solution was injected into the anterior chamber. Moxifloxacin was injected into the anterior chamber. The wound was checked and found to be water tight. The patient tolerated the procedure well without complications. DION ALVA MD July 31, 2018 10:38
[2018-07-31 10:48] VITALS: BP 105/73
[2018-07-31] MEDS ORDERED: acetaZOLAMIDE ER 500 MG CAP (DIAMOX SEQUELS) PO ONE (11:00)
--- NOTE | 2018-07-31 13:18 | Anesthesia-General Post-Op ---
MAC Patient Condition Mental Status/LOC: Same as Preop Cardiovascular: Satisfactory Nausea/Vomiting: Absent Respiratory: Satisfactory Pain: Controlled Complications: Absent Post Op Complications Complications None Follow Up Care/Instructions Patient Instructions None needed. Anesthesiology Discharge Order Discharge Order Patient was seen after the procedure this morning and she was doing well, no complaints, stable vital signs, no apparent adverse anesthesia problems. THEODORA KENDRICK DO July 31, 2018 13:18
== END 2018-07-31 10:48 | disposition home or self-care (01) ==
LOC: SDC 09:06
PROVIDERS: ATTEND Specialist
DX: H25.11 Age-related nuclear cataract, right eye (principal); I10 Essential (primary) hypertension; E03.9 Hypothyroidism, unspecified; K21.9 Gastro-esophageal reflux disease without esophagitis; Z79.82 Long term (current) use of aspirin; Z79.899 Other long term (current) drug therapy

== ENCOUNTER 2018-08-12 05:35 | Outpatient (CLI) | payer MEDICARE ==
[~2018-08-12] VITALS: Ht 160 cm; Wt 104.5 kg
== END 2018-08-12 11:51 | disposition home or self-care (01) ==
LOC: PREOP 05:35
PROVIDERS: ATTEND Specialist
DX: Z01.818 Encounter for other preprocedural examination (principal)

== ENCOUNTER 2018-08-24 08:50 | Emergency (ER) | payer MEDICARE ==
[~2018-08-24] VITALS: Ht 160 cm; Wt 106.6 kg
--- OUTSIDE RECORDS SUMMARY | 2018-08-24 09:24 | XMS REPORT | Continuity of Care Document ---
Author Organization Unknown Address Unknown Allergies Active Description Code Type Severity Reaction Onset Reported/Identified Relationship to Patient Clinical Status Yes No Known Drug Allergies [id number] Drug Allergy Mild N/A 06/24/2008 Yes No Known Drug Allergies [id number] Drug Allergy Unknown N/A 07/30/2018 Medications There is no data. Problems Date [...] 06/06/2008 729.5 PAIN IN LIMB 06/06/2008 LAMB DO, AFUA K 729.5 PAIN IN LIMB 06/06/2008 729.5 Pain In Limb 06/06/2008 729.5 Pain In Limb 06/06/2008 JULIAN GODINEZ APRN 729.5 Pain In Limb 06/06/2008 SLIM TORRES APRNYL A 729.5 Pain In Limb 06/06/2008 JULIAN GODINEZ APRN 729.5 Pain In Limb 06/06/2008 LAMB DOLUISA K 729.5 Pain In Limb 06/06/2008 JULIAN GODINEZ APRN 729.5 Pain In Limb 06/06/2008 JULIAN GODINEZ APRN 729.5 Pain In Limb 06/06/2008 JULIAN GODINEZ APRN 729.5 Pain In Limb 06/06/2008 JULIAN GODINEZ APRN 729.5 Pain In Limb 06/27/2008 724.2 PAIN LOW BACK 06/27/2008 LAMB DO, AFUA K 724.2 PAIN LOW BACK 06/27/2008 724.2 Pain Low Back 06/27/2008 724.2 Pain Low Back 06/27/2008 JULIAN GODINEZ APRN 724.2 Pain Low Back 06/27/2008 BRIAN DAVID MAX A 724.2 Pain Low Back 06/27/2008 JULIAN GODINEZ APRN 724.2 Pain Low Back 06/27/2008 LAMB DO, AFUA K 724.2 Pain Low Back 06/27/2008 JULIAN [...] APRN 724.4 BACK PAIN WITH RADIATION 09/27/2008 ZAINBA PARNELL, AFUA K 724.4 BACK PAIN WITH RADIATION [...] JULIAN GODINEZ APRN 719.46 KNEE PAIN 08/15/2010 RAJOTTE JOANN MAX A 719.46 KNEE PAIN 08/15/2010 JULIAN [...] JULIAN GODINEZ APRN 786.2 Cough 03/15/2011 RAJOTTE CHECK PILOT, MAX A 466.0 Bronchitis, Acute 03/15/2011 RAJOTTE JOANN, MAX A 786.2 Cough 03/15/2011 JULIAN GODINEZ APRN 466.0 Bronchitis, Acute 03/15/2011 JULIAN GODINEZ APRN 786.2 Cough 03/15/2011 LAMB DO, AFUA K 466.0 Bronchitis, Acute 03/15/2011 LAMB DO, AFUA K 786.2 Cough 03/15/2011 JULIAN GODINEZ APRN 466.0 Bronchitis, Acute 03/15/2011 JULIAN GODINEZ APRN 786.2 Cough 03/15/2011 HERBERT DAVID, JULIAN T 466.0 Bronchitis, Acute 03/15/2011 JULIAN GODINEZ APRN T 786.2 Cough 03/15/2011 HERBERT DAVID, JULIAN T 466.0 Bronchitis, Acute 03/15/2011 HERBERT DAVID, JULIAN T 786.2 Cough 03/15/2011 HERBERT DAVID, JULIAN T 466.0 Bronchitis, Acute 03/15/2011 JULIAN GODINEZ APRN T 786.2 Cough 12/31/2011 Ot 244.9 HYPOTHYROIDISM NOS [...] ARTHRITIS/ ARTHROPATHY, UNSPECIFIED 10/30/2012 JULIAN GODINEZ APRN T 716.90 ARTHRITIS/ ARTHROPATHY, UNSPECIFIED 10/30/2012 AFUA LAMB DO 716.90 ARTHRITIS/ ARTHROPATHY, UNSPECIFIED 10/30/2012 JULIAN GODINEZ APRN 716.90 ARTHRITIS/ ARTHROPATHY, UNSPECIFIED 10/30/2012 JULIAN GODINEZ APRN 716.90 ARTHRITIS/ ARTHROPATHY, UNSPECIFIED 10/30/2012 JULIAN GODINEZ APRN T 716.90 ARTHRITIS/ ARTHROPATHY, UNSPECIFIED 10/30/2012 JULIAN GODINEZ APRN 716.90 ARTHRITIS/ ARTHROPATHY, UNSPECIFIED 04/05/2013 BRIAN DAVID MAX A 388.60 OTORRHEA UNSPECIFIED 04/05/2013 BRIAN DAVID MAX A 388.70 OTALGIA 04/05/2013 JULIAN GODINEZ APRN T 388.60 OTORRHEA UNSPECIFIED 04/05/2013 JULIAN GODINEZ APRN T 388.70 OTALGIA 04/05/2013 AFUA LAMB DO 388.60 OTORRHEA UNSPECIFIED 04/05/2013 AFUA LAMB DO K 388.70 OTALGIA 04/05/2013 HERBERT DAVID, JULIAN T 388.60 OTORRHEA UNSPECIFIED 04/05/2013 HERBERT KAMINSKIN, JULIAN T 388.70 OTALGIA 04/05/2013 HERBERT KAMINSKIN, JULIAN T 388.60 OTORRHEA UNSPECIFIED 04/05/2013 HERBERT DAVID, JULIAN T 388.70 OTALGIA 04/05/2013 HERBERT DAVID, JULIAN T 388.60 OTORRHEA UNSPECIFIED 04/05/2013 HERBERT KAMINSKIN, JULIAN T 388.70 OTALGIA 04/05/2013 HERBERT KAMINSKIN, JULIAN T 388.60 OTORRHEA UNSPECIFIED 04/05/2013 HERBERT DAVID, JULIAN T 388.70 OTALGIA 01/15/2014 AFUA LAMB DO K 464.00 ACUTE LARYNGITIS WITHOUT OBSTRUCTION 01/15/2014 HERBERT DAVID, JULIAN T 464.00 ACUTE LARYNGITIS WITHOUT OBSTRUCTION 01/15/2014 [...] 07/04/2014 ALEXX REYNA DC Ot 722.52 07/04/2014 SEBAS REYNA DCERY S Ot 737.30 07/04/2014 SADE DIMAS DO Ot [...] THOMAS DPM, SADIA Q Ot 825.25 10/17/2014 THOMSA DPM, SADIA Q Ot E000.8 10/17/2014 THOMAS [...] P Ot I25.10 ATHSCL HEART DISEASE OF [place] CORONARY 06/12/2015 NICOLETTE SHERIDAN, URI Shaver Ot K21.9 GASTRO-ESOPHAGEAL REFLUX DISEASE WITHOUT 06/12/2015 NICOLETTE SHERIDAN, URI P Ot M17.12 UNILATERAL PRIMARY OSTEOARTHRITIS, LEFT 06/12/2015 NICOLETTE SHERIDAN, URI Shaver Ot R09.02 HYPOXEMIA 06/12/2015 NICOLETTE SHERIDAN, URI Shaver Ot Z68.39 BODY MASS INDEX (BMI) 39.0-39.9, ADULT 07/07/2015 URI WILL MD Ot Z47.1 AFTERCARE FOLLOWING JOINT REPLACEMENT REBOLLEDO 07/07/2015 URI WILL MD, Ot Z96.652 PRESENCE OF LEFT ARTIFICIAL KNEE JOINT 07/11/2015 URI IWLL MD Ot Z47.1 AFTERCARE FOLLOWING JOINT REPLACEMENT [...] FOLLOWING JOINT REPLACEMENT REBOLLEDO 08/07/2015 URI WILL MD, Ot Z96.652 PRESENCE OF LEFT ARTIFICIAL KNEE JOINT 08/10/2015 URI WILL MD Ot Z47.1 AFTERCARE FOLLOWING JOINT REPLACEMENT REBOLLEDO 08/10/2015 URI WILL MD Ot Z96.652 PRESENCE OF LEFT ARTIFICIAL KNEE JOINT 08/21/2015 URI WILL MD Ot Z47.1 AFTERCARE FOLLOWING [...] 09/25/2015 THOMAS DPM, SADIA Q Ot T84.293A [facility] COMPL OF INT FIX OF BONES OF [...] 09/27/2015 THOMAS DPM, SADIA Q Ot T84.293A [facility] COMPL OF INT FIX OF BONES OF [...] 09/29/2015 THOMAS DPM, SADIA Q Ot T84.293A [facility] COMPL OF INT FIX OF BONES OF FOOT A 10/02/2015 THOMAS DPM, SADIA Q Ot M20.12 HALLUX VALGUS (ACQUIRED), LEFT FOOT 10/02/2015 THOMAS DPM, SADIA Q Ot M20.42 OTHER HAMMER TOE(S) (ACQUIRED), LEFT EVELYN 10/02/2015 THOMAS DPM, SADIA Q Ot T84.293A [facility] COMPL OF INT FIX OF BONES OF FOOT A 10/03/2015 THOMAS DPM, SADIA Q Ot M20.12 HALLUX VALGUS (ACQUIRED), LEFT FOOT 10/03/2015 THOMAS DPM, SADIA Q Ot M20.42 OTHER HAMMER TOE(S) (ACQUIRED), LEFT EVELYN 10/03/2015 THOMAS DPM, SADIA Q Ot T84.293A [facility] COMPL OF INT FIX OF BONES OF FOOT A 02/05/2016 LONG DC, ALEXX S Ot 722.52 LUMB/LUMBOSAC DISC DEGEN 02/05/2016 LONG DC, ALEXX S Ot 737.30 IDIOPATHIC SCOLIOSIS 02/05/2016 THOMAS [...] OF ELECTROLYTE AND FLUID B 05/23/2016 LONG DC, ALEXX S Ot 722.52 LUMB/LUMBOSAC DISC DEGEN 05/23/2016 LONG DC, ALEXX S Ot 737.30 IDIOPATHIC SCOLIOSIS 05/23/2016 THOMAS [...] 06/24/2016 BRODY HARRISON MD Ot Z79.899 OTHER ADMITTING SUPERVISOR (CURRENT) DRUG THERAPY 06/27/2016 ZAINAB PARNELL AFUA K Ot E87.6 HYPOKALEMIA 06/27/2016 LAMB DO AFUA K Ot E87.8 OTH DISORDERS OF ELECTROLYTE AND FLUID B 06/28/2016 BRODY HARRISON MD Ot K44.9 DIAPHRAGMATIC HERNIA WITHOUT OBSTRUCTION 06/28/2016 HUNTER SHERIDAN, BRODY Way Ot R07.9 CHEST PAIN, UNSPECIFIED 06/28/2016 HUNTER SHERIDAN, BRODY Way Ot Z79.899 OTHER LONG-TERM (CURRENT) DRUG THERAPY 09/28/2016 SEAN SHERIDAN, DOLLY Snider Ot E03.9 HYPOTHYROIDISM, UNSPECIFIED 09/28/2016 SEAN SHERIDAN, DOLLY Snider Ot I10 ESSENTIAL (PRIMARY) HYPERTENSION 09/28/2016 SEAN SHERIDAN, DOLLY Snider Ot K21.9 GASTRO-ESOPHAGEAL REFLUX DISEASE WITHOUT 09/28/2016 SEAN SHERIDAN, DOLLY Snider Ot M19.90 UNSPECIFIED OSTEOARTHRITIS, UNSPECIFIED 09/28/2016 SEAN SHERIDAN, DOLLY Snider Ot R06.02 SHORTNESS OF BREATH 09/28/2016 DOLLY ESTRADA MD Ot Z80.0 FAMILY HISTORY OF MALIGNANT NEOPLASM OF 09/28/2016 DOLLY ESTRADA MD Ot Z87.81 PERSONAL HISTORY OF (HEALED) TRAUMATIC [...] HISTORY OF (HEALED) TRAUMATIC F 01/08/2017 LONG ALEXX EVERETT S Ot 722.52 LUMB/LUMBOSAC DISC DEGEN 01/08/2017 [...] Q Ot V74.8 SCREEN-BACTERIAL DIS NEC 01/08/2017 LUIS LAMB DOA K Ot E87.6 HYPOKALEMIA 01/08/2017 ZAINAB PARNELL AFUA K Ot E87.8 OTH [...] Q Ot V74.8 SCREEN-BACTERIAL DIS NEC 02/03/2017 AFUA LAMB DO Ot E87.6 HYPOKALEMIA 02/03/2017 LUIS LAMB DOA K Ot E87.8 OTH DISORDERS OF ELECTROLYTE [...] PRESENCE OF LEFT ARTIFICIAL KNEE JOINT 03/04/2017 GRANDE DO, ROBERT Ot E03.9 HYPOTHYROIDISM, UNSPECIFIED 03/04/2017 GRANDE DO ROBERT Ot E78.00 PURE HYPERCHOLESTEROLEMIA, UNSPECIFIED 03/04/2017 GRANDE DO ROBERT Ot I10 ESSENTIAL (PRIMARY) HYPERTENSION 03/04/2017 CHRISTIANE PARNELL ROBERT Ot I25.10 ATHSCL HEART DISEASE OF [place] CORONARY 03/04/2017 CHRISTIANE DO ROBERT Ot K21.9 GASTRO-ESOPHAGEAL REFLUX DISEASE WITHOUT 03/04/2017 CHRISTIANE DO ROBERT Ot K44.9 DIAPHRAGMATIC HERNIA WITHOUT OBSTRUCTION 03/04/2017 CHRISTIANE PARNELL ROBERT Ot R05 COUGH 03/04/2017 CHRISTIANE PARNELL ROBERT Ot Z79.82 ADMITTING SUPERVISOR (CURRENT) USE OF ASPIRIN 03/04/2017 KIMMIE GRANDE DOI Ot Z79.899 OTHER LONG-TERM (CURRENT) DRUG THERAPY 03/04/2017 CHRISTIANE PARNELL ROBERT Ot Z87.891 PERSONAL HISTORY OF NICOTINE DEPENDENCE 03/05/2017 JEANETTE MARTINEZ APRN Ot E03.9 HYPOTHYROIDISM, UNSPECIFIED 03/05/2017 JEANETTE MARTINEZ APRN Ot E78.00 PURE HYPERCHOLESTEROLEMIA, UNSPECIFIED 03/05/2017 JEANETTE MARTINEZ APRN Ot I10 ESSENTIAL (PRIMARY) HYPERTENSION 03/05/2017 JEANETTE MARTINEZ APRN Ot K21.9 GASTRO-ESOPHAGEAL REFLUX DISEASE WITHOUT 03/05/2017 JEANETTE MARTINEZ APRN Ot M54.9 DORSALGIA, UNSPECIFIED 03/05/2017 JEANETTE MARTINEZ APRN Ot N39.0 URINARY TRACT INFECTION, SITE NOT SPECIF 03/05/2017 JEANETTE MARTINEZ CHECK PILOT Ot R53.83 OTHER FATIGUE 03/05/2017 JEANETTE MARTINEZ CHECK PILOT Ot Z79.82 ADMITTING SUPERVISOR (CURRENT) USE OF ASPIRIN 03/05/2017 JEANETTE MARTINEZ CHECK PILOT Ot Z87.891 PERSONAL HISTORY OF NICOTINE DEPENDENCE 03/05/2017 JEANETTE MARTINEZ CHECK PILOT Ot Z90.710 ACQUIRED ABSENCE OF BOTH CERVIX AND UTER 03/06/2017 CHRISTIANE PARNELL ROBERT Ot E03.9 HYPOTHYROIDISM, UNSPECIFIED 03/06/2017 CHRISTIANE DO ROBERT Ot E78.00 PURE HYPERCHOLESTEROLEMIA, UNSPECIFIED 03/06/2017 CHRISTIANE PARNELL ROBERT Ot I10 ESSENTIAL (PRIMARY) HYPERTENSION 03/06/2017 CHRISTIANE PARNELL ROBERT Ot I25.10 ATHSCL HEART DISEASE OF [place] CORONARY 03/06/2017 CHRISTIANE PARNELL ROBERT Ot K21.9 GASTRO-ESOPHAGEAL REFLUX DISEASE WITHOUT 03/06/2017 CHRISTIANE PARNELL ROBERT Ot K44.9 DIAPHRAGMATIC HERNIA WITHOUT OBSTRUCTION 03/06/2017 CHRISTIANE PARNELL ROBERT Ot R05 COUGH 03/06/2017 CHRISTIANE PARNELL ROBERT Ot Z79.82 LONG-TERM (CURRENT) USE OF ASPIRIN 03/06/2017 KIMMIE GRANDE DOI Ot Z79.899 OTHER LONG-TERM (CURRENT) DRUG THERAPY 03/06/2017 CHRISTIANE PARNELL ROBERT Ot Z87.891 PERSONAL HISTORY OF NICOTINE DEPENDENCE 03/11/2017 JEANETTE MARTINEZ APRN Ot E03.9 HYPOTHYROIDISM, UNSPECIFIED 03/11/2017 JEANETTE MARTINEZ APRN Ot E78.00 PURE HYPERCHOLESTEROLEMIA, UNSPECIFIED 03/11/2017 JEANETTE MARTINEZ APRN Ot I10 ESSENTIAL (PRIMARY) HYPERTENSION 03/11/2017 JEANETTE MARTINEZ APRN Ot K21.9 GASTRO-ESOPHAGEAL REFLUX DISEASE WITHOUT 03/11/2017 JEANETTE MARTINEZ CHECK PILOT Ot M54.9 DORSALGIA, UNSPECIFIED 03/11/2017 JEANETTE MARTINEZ CHECK PILOT Ot N39.0 URINARY TRACT INFECTION, SITE NOT SPECIF 03/11/2017 JEANETTE MARTINEZ CHECK PILOT Ot R53.83 OTHER FATIGUE 03/11/2017 JEANETTE MARTINEZ CHECK PILOT Ot Z79.82 ADMITTING SUPERVISOR (CURRENT) USE OF ASPIRIN 03/11/2017 JEANETTE MARTINEZ CHECK PILOT Ot Z87.891 PERSONAL HISTORY OF NICOTINE DEPENDENCE 03/11/2017 JEANETTE MARTINEZ CHECK PILOT Ot Z90.710 ACQUIRED ABSENCE OF BOTH CERVIX AND UTER 03/14/2017 CHRISTIANE PARNELL ROBERT Ot E03.9 HYPOTHYROIDISM, UNSPECIFIED 03/14/2017 CHRISTIANE PARNELL ROBERT Ot E78.00 PURE HYPERCHOLESTEROLEMIA, UNSPECIFIED 03/14/2017 CHRISTIANE PARNELL ROBERT Ot I10 ESSENTIAL (PRIMARY) HYPERTENSION 03/14/2017 CHRISTIANE PARNELL ROBERT Ot I25.10 ATHSCL HEART DISEASE OF [place] CORONARY 03/14/2017 CHRISTIANE PARNELL ROBERT Ot K21.9 GASTRO-ESOPHAGEAL REFLUX DISEASE WITHOUT 03/14/2017 CHRISTIANE PARNELL ROBERT Ot K44.9 DIAPHRAGMATIC HERNIA WITHOUT OBSTRUCTION 03/14/2017 ROBERT GRANDE DO Ot R05 COUGH 03/14/2017 ROBERT GRANDE DO Ot Z79.82 LONG-TERM (CURRENT) USE OF ASPIRIN 03/14/2017 ROBERT GRANDE DO Ot Z79.899 OTHER LONG-TERM (CURRENT) DRUG THERAPY 03/14/2017 ROBERT GRANDE DO [...] Q Ot V74.8 SCREEN-BACTERIAL DIS NEC 05/30/2017 LUIS LAMB DOA Radha Ot E87.6 HYPOKALEMIA 05/30/2017 LUIS LAMB DOA K Ot E87.8 OTH DISORDERS OF ELECTROLYTE AND FLUID B 05/30/2017 AFUA LAMB DO Ot E87.6 HYPOKALEMIA 05/30/2017 LUIS LAMB DOA K Ot E87.8 OTH DISORDERS OF ELECTROLYTE AND FLUID B 08/29/2017 NATHANIEL WALSH TILE LAYER SUPERVISOR Ot Z00.00 ENCNTR FOR GENERAL ADULT MEDICAL EXAM 09/08/2017 NATHANIEL WALSH TILE LAYER SUPERVISOR Ot Z00.00 ENCNTR FOR GENERAL ADULT MEDICAL EXAM 09/11/2017 NATHANIEL WALSH TILE LAYER SUPERVISOR Ot Z00.00 ENCNTR FOR GENERAL ADULT MEDICAL EXAM W09/12/2017 NATHANIEL WALSH TILE LAYER SUPERVISOR Ot Z13.820 ENCOUNTER FOR SCREENING FOR OSTEOPOROSIS 10/06/2017 NATHANIEL WALSH TILE LAYER SUPERVISOR Ot Z13.820 ENCOUNTER FOR SCREENING FOR OSTEOPOROSIS [...] SMO 01/02/2018 JEANETTE MARTINEZ APRN Ot Z79.51 ADMITTING SUPERVISOR (CURRENT) USE OF INHALED STERO 01/02/2018 JEANETTE MARTINEZ APRN Ot Z79.82 ADMITTING SUPERVISOR (CURRENT) USE OF ASPIRIN 01/02/2018 JEANETTE MARTINEZ APRN Ot Z87.19 PERSONAL HISTORY OF OTHER DISEASES OF [place] 01/02/2018 JEANETTE MARTINEZ APRN Ot Z90.710 ACQUIRED ABSENCE OF BOTH CERVIX AND UTER 01/02/2018 JEANETTE MARTINEZ APRN Ot Z98.890 OTHER SPECIFIED POSTPROCEDURAL STATES 01/02/2018 AFUA LAMB DO Ot E87.6 HYPOKALEMIA 01/02/2018 AFUA LAMB DO Ot E87.8 OTH DISORDERS [...] APRN Ot I10 ESSENTIAL (PRIMARY) HYPERTENSION 01/06/2018 JEANETTE MARTINEZ APRN Ot J40 BRONCHITIS, NOT SPECIFIED ACUTE OR CH 01/06/2018 JEANETTE MARTINEZ APRN Ot K21.9 GASTRO-ESOPHAGEAL REFLUX DISEASE WITHOUT 01/06/2018 JEANETTE MARTINEZ APRN Ot R05 COUGH 01/06/2018 JEANETTE MARTINEZ APRN Ot Z77.22 CNTCT W AND EXPSR TO ENVIRON TOBACCO SMO 01/06/2018 JEANETTE MARTINEZ APRN Ot Z79.51 LONG-TERM (CURRENT) USE OF INHALED STERO 01/06/2018 JEANETTE MARTINEZ APRN Ot Z79.82 ADMITTING SUPERVISOR (CURRENT) USE OF ASPIRIN 01/06/2018 JEANETTE MARTINEZ APRN Ot Z87.19 PERSONAL HISTORY OF OTHER DISEASES OF TH 01/06/2018 JEANETTE MARTINEZ APRN Ot Z90.710 ACQUIRED ABSENCE OF BOTH CERVIX AND UTER 01/06/2018 JEANETTE MARTINEZ APRN Ot Z98.890 OTHER SPECIFIED POSTPROCEDURAL STATES 04/19/2018 AFUA LAMB DO Ot E87.6 HYPOKALEMIA 04/19/2018 AFUA LAMB DO Ot E87.8 OTH DISORDERS OF ELECTROLYTE AND FLUID B 04/19/2018 NATHANIEL WALSH Ot Z13.820 ENCOUNTER FOR SCREENING FOR OSTEOPOROSIS 04/19/2018 NATHANIEL WALSH Ot Z12.31 ENCNTR SCREEN MAMMOGRAM FOR MALIGNANT NE 04/19/2018 BRODY HARRISON MD Ot D64.9 ANEMIA, UNSPECIFIED 04/19/2018 BRODY HARRISON MD Ot E03.9 HYPOTHYROIDISM, UNSPECIFIED 04/19/2018 BRODY HARRISON MD Ot E78.00 PURE HYPERCHOLESTEROLEMIA, UNSPECIFIED 04/19/2018 BRODY HARRISON MD Ot I10 ESSENTIAL (PRIMARY) HYPERTENSION 04/19/2018 BRODY HARRISON MD Ot K21.9 GASTRO-ESOPHAGEAL REFLUX DISEASE WITHOUT 04/19/2018 BRODY HARRISON MD Ot M79.18 MYALGIA, OTHER SITE 04/19/2018 BRODY HARRISON MD Ot M79.602 PAIN IN LEFT ARM 04/19/2018 BRODY HARRISON MD Ot Z79.52 LONG-TERM (CURRENT) USE OF SYSTEMIC STER 04/19/2018 BRODY HARRISON MD Ot Z79.82 LONG-TERM (CURRENT) USE OF ASPIRIN 04/19/2018 BRODY HARRISON MD Ot Z87.19 PERSONAL HISTORY OF OTHER DISEASES OF TH 04/19/2018 BRODY HARRISON MD, Ot Z87.891 PERSONAL HISTORY OF NICOTINE DEPENDENCE 04/19/2018 BRODY HARRISON MD, Ot Z90.710 ACQUIRED ABSENCE OF BOTH CERVIX AND UTER 04/19/2018 BRODY HARRISON MD, Ot Z98.890 OTHER SPECIFIED POSTPROCEDURAL STATES 04/19/2018 LAMB DO, AFUA K Ot E87.6 HYPOKALEMIA 04/19/2018 LAMB DO, AFUA K Ot E87.8 OTH DISORDERS OF ELECTROLYTE AND FLUID B 04/19/2018 NATHANIEL WALSH Ot Z13.820 ENCOUNTER FOR SCREENING FOR OSTEOPOROSIS 04/19/2018 NATHANIEL WALSH Ot Z12.31 ENCNTR SCREEN MAMMOGRAM FOR MALIGNANT NE 04/21/2018 BRODY HARRISON MD, Ot D64.9 ANEMIA, UNSPECIFIED 04/21/2018 BRODY HARRISON MD Ot E03.9 HYPOTHYROIDISM, UNSPECIFIED 04/21/2018 BRODY HARRISON MD Ot E78.00 PURE HYPERCHOLESTEROLEMIA, UNSPECIFIED 04/21/2018 BRODY HARRISON MD Ot I10 ESSENTIAL (PRIMARY) HYPERTENSION 04/21/2018 BRODY HARRISON MD Ot K21.9 GASTRO-ESOPHAGEAL REFLUX DISEASE WITHOUT 04/21/2018 BRODY HARRISON MD Ot M79.18 MYALGIA, OTHER SITE 04/21/2018 BRODY HARRISON MD Ot M79.602 PAIN IN LEFT ARM 04/21/2018 BRODY HARRISON MD Ot Z79.52 ADMITTING SUPERVISOR (CURRENT) USE OF SYSTEMIC STER 04/21/2018 BRODY HARRISON MD Ot Z79.82 ADMITTING SUPERVISOR (CURRENT) USE OF ASPIRIN 04/21/2018 BRODY HARRISON MD Ot Z87.19 PERSONAL HISTORY OF OTHER DISEASES OF 04/21/2018 BRODY HARRISON MD Ot Z87.891 PERSONAL HISTORY OF NICOTINE DEPENDENCE 04/21/2018 BRODY HARRISON MD Ot Z90.710 ACQUIRED ABSENCE OF BOTH CERVIX AND UTER 04/21/2018 BRODY HARRISON MD Ot Z98.890 OTHER SPECIFIED POSTPROCEDURAL STATES 07/30/2018 NATHANIEL WALSH TILE LAYER SUPERVISOR Ot Z12.31 ENCNTR SCREEN MAMMOGRAM FOR MALIGNANT NE 07/30/2018 ALEXY ALVA MD Ot Z01.818 ENCOUNTER FOR OTHER PREPROCEDURAL EXAMIN 07/31/2018 ALEXY ALVA MD Ot E03.9 HYPOTHYROIDISM, UNSPECIFIED 07/31/2018 ALEXY ALVA MD Ot H25.11 AGE-RELATED NUCLEAR CATARACT, RIGHT EYE 07/31/2018 ALEXY ALVA MD Ot I10 ESSENTIAL (PRIMARY) HYPERTENSION 07/31/2018 ALEXY ALVA MD Ot K21.9 GASTRO-ESOPHAGEAL REFLUX DISEASE WITHOUT 07/31/2018 ALEXY ALVA MD Ot Z79.82 LONG-TERM (CURRENT) USE OF ASPIRIN 07/31/2018 ALEXY ALVA MD Ot Z79.899 OTHER ADMITTING SUPERVISOR (CURRENT) DRUG THERAPY 08/12/2018 ALEXY ALVA MD Ot Z01.818 ENCOUNTER FOR OTHER PREPROCEDURAL EXAMIN 08/14/2018 ALEXY ALVA MD Ot E03.9 HYPOTHYROIDISM, UNSPECIFIED 08/14/2018 ALEXY ALVA MD Ot H25.12 AGE-RELATED NUCLEAR CATARACT, LEFT EYE 08/14/2018 ALEXY ALVA MD Ot I10 ESSENTIAL (PRIMARY) HYPERTENSION 08/14/2018 ALEXY ALVA MD Ot K21.9 GASTRO-ESOPHAGEAL REFLUX DISEASE WITHOUT 08/14/2018 ALEXY ALVA MD Ot Z79.82 LONG-TERM (CURRENT) USE OF ASPIRIN 08/14/2018 ALEXY ALVA MD Ot Z79.899 OTHER LONG-TERM (CURRENT) DRUG THERAPY 08/20/2018 ALEXY ALVA MD Ot E03.9 HYPOTHYROIDISM, UNSPECIFIED 08/20/2018 ALEXY ALVA MD Ot H25.12 AGE-RELATED NUCLEAR CATARACT, LEFT EYE 08/20/2018 ALEXY ALVA MD Ot I10 ESSENTIAL (PRIMARY) HYPERTENSION 08/20/2018 ALEXY ALVA MD Ot K21.9 GASTRO-ESOPHAGEAL REFLUX DISEASE WITHOUT 08/20/2018 ALEXY ALVA MD Ot Z79.82 LONG-TERM (CURRENT) USE OF ASPIRIN 08/20/2018 NIDA SHERIDAN, ALEXY Oates Ot Z79.899 OTHER LONG-TERM (CURRENT) DRUG THERAPY Procedures Code Description [place] [address] ROUTINE VENIPUNCTURE 06/24/2012 90485 CBC 06/24/2012 66930 LIPID PANEL 06/24/2012 87714 CMP 06/24/2012 [id number] GFR CALC (RESULT ONLY) 06/24/2012 91972 TSH 06/24/2012 14033 CULTURE EAR & STAIN 04/05/2013 99993 ROUTINE VENIPUNCTURE 11/02/2013 09563 CMP 11/02/2013 51429 LIPID PANEL 11/02/2013 29186 TSH 11/02/2013 92637 CBC 11/02/2013 [id number] REPLACE OF L KNEE JT WITH SYNTH [...] Automated erythrocyte mean corpuscular hemoglobin concentration measurement (mass/volume) 32 g/dL 32-36 Automated erythrocyte distribution width ratio 13.9 % 10.0- 14.5 Automated blood platelet count (count/volume) 406 10*3/uL [...] Blood monocytes automated count (number/volume) 0.5 10*3 0.0- 1.0 Automated eosinophil count 0.3 10*3/uL 0.0-0.3 Automated [...] Serum or plasma aspartate aminotransferase measurement (enzymatic activity/volume) 20 U/L 5-34 Serum or plasma alanine aminotransferase measurement (enzymatic activity/volume) 13 U/L 0-55 Serum or plasma protein [...] plasma amylase measurement (enzymatic activity/volume) - 06/24/16 13:25 Serum or plasma amylase measurement (enzymatic activity/volume) [...] measurement in platelet poor plasma (mass/volume) - 06/24/16 14:42 Fibrin D-dimer FEU measurement in platelet [...] Automated erythrocyte mean corpuscular hemoglobin concentration measurement (mass/volume) 32 g/dL 32-36 Automated erythrocyte distribution width ratio 14.5 % 10.0- 14.5 Automated blood platelet count (count/volume) 354 10*3/uL [...] Blood monocytes automated count (number/volume) 0.6 10*3 0.0- 1.0 Automated eosinophil count 0.2 10*3/uL 0.0-0.3 Automated [...] measurement in platelet poor plasma (mass/volume) - 09/28/16 06:35 Fibrin D-dimer FEU measurement in platelet [...] Serum or plasma aspartate aminotransferase measurement (enzymatic activity/volume) 22 U/L 5-34 Serum or plasma alanine aminotransferase measurement (enzymatic activity/volume) 19 U/L 0-55 Serum or plasma protein measurement (mass/volume) 7.8 g/dL 6.4-8.2 Serum or plasma albumin measurement (mass/volume) 3.8 g/dL 3.2-4.5 Magnesium - 09/28/16 06:35 Magnesium 2.1 mg/dL 1.8-2.4 Serum or plasma troponin i.cardiac measurement (mass/volume) - 09/28/16 06:35 Serum or plasma troponin i.cardiac measurement (mass/volume) < ng/mL <0.30 Serum or plasma lithium measurement (moles/volume) - 09/28/16 06:35 BNP level 20.7 pg/mL <100.0 Serum or plasma thyroxine (T4) free measurement (mass/volume) - 09/28/16 06:35 Serum or plasma thyroxine (T4) free measurement (mass/volume) 1.01 ng/dL 0.70-1.48 Serum or plasma C reactive protein measurement (mass/volume) - 09/28/16 06:35 Serum or plasma C reactive protein measurement (mass/volume) 0.49 mg/dL 0.00-0.50 Sputum Gram stain - 02/03/17 13:46 GRAM STAIN SPUTUM AND MIXED BACTERIAL [place] [facility] Bacterial sputum culture - 02/03/17 13:46 Bacterial sputum culture NORMAL [facility] Complete blood count (CBC) with automated white [...] Automated erythrocyte mean corpuscular hemoglobin concentration measurement (mass/volume) 32 g/dL 32-36 Automated erythrocyte distribution width ratio 14.3 % 10.0- 14.5 Automated blood platelet count (count/volume) 327 10*3/uL [...] Blood monocytes automated count (number/volume) 0.7 10*3 0.0- 1.0 Automated eosinophil count 0.2 10*3/uL 0.0-0.3 Automated blood basophil count (count/volume) 0.1 10*3/uL 0.0-0.1 Blood lactic acid measurement (moles/volume) - 02/03/17 14:08 Blood lactic acid measurement (moles/volume) 1.72 mmol/L 0.50- 2.00 Comprehensive metabolic panel - 02/03/17 14:08 Serum [...] Serum or plasma aspartate aminotransferase measurement (enzymatic activity/volume) 24 U/L 5-34 Serum or plasma alanine aminotransferase measurement (enzymatic activity/volume) 21 U/L 0-55 Serum or plasma protein [...] Automated erythrocyte mean corpuscular hemoglobin concentration measurement (mass/volume) 32 g/dL 32-36 Automated erythrocyte distribution width ratio 13.9 % 10.0- 14.5 Automated blood platelet count (count/volume) 320 10*3/uL [...] Blood monocytes automated count (number/volume) 0.7 10*3 0.0- 1.0 Automated eosinophil count 0.2 10*3/uL 0.0-0.3 Automated [...] Serum or plasma aspartate aminotransferase measurement (enzymatic activity/volume) 29 U/L 5-34 Serum or plasma alanine aminotransferase measurement (enzymatic activity/volume) 24 U/L 0-55 Serum or plasma protein measurement (mass/volume) 7.6 g/dL 6.4-8.2 Serum or plasma albumin measurement (mass/volume) 3.8 g/dL 3.2-4.5 Magnesium - 03/03/17 04:22 Magnesium 2.2 mg/dL 1.8-2.4 Serum or plasma creatine kinase measurement (enzymatic activity/volume) - 03/03/17 04:22 Serum or plasma creatine kinase measurement (enzymatic activity/volume) 106 U/L 29-168 Serum or plasma creatine kinase MB measurement (enzymatic activity/volume) - 03/03/17 04:22 Serum or plasma creatine kinase MB measurement (enzymatic activity/volume) 1.6 ng/mL <6.6 Serum or plasma troponin i.cardiac measurement (mass/volume) - 03/03/17 04:22 Serum or plasma troponin i.cardiac measurement (mass/volume) < ng/mL <0.30 Serum or plasma amylase measurement (enzymatic activity/volume) - 03/03/17 04:22 Serum or plasma amylase measurement (enzymatic activity/volume) 30 U/L 25-125 Lipase - 03/03/17 04:22 Lipase 25 U/L 8-78 Serum or plasma lithium measurement (moles/volume) - 03/03/17 04:22 BNP level 19.4 pg/mL <100.0 Serum or plasma troponin i.cardiac measurement (mass/volume) - 03/03/17 10:29 Serum or plasma troponin i.cardiac measurement (mass/volume) < ng/mL <0.30 Complete blood count (CBC) with automated [...] Automated erythrocyte mean corpuscular hemoglobin concentration measurement (mass/volume) 32 g/dL 32-36 Automated erythrocyte distribution width ratio 14.0 % 10.0- 14.5 Automated blood platelet count (count/volume) 259 10*3/uL [...] Blood monocytes automated count (number/volume) 0.5 10*3 0.0- 1.0 Automated eosinophil count 0.2 10*3/uL 0.0-0.3 Automated [...] Serum or plasma aspartate aminotransferase measurement (enzymatic activity/volume) 30 U/L 5-34 Serum or plasma alanine aminotransferase measurement (enzymatic activity/volume) 23 U/L 0-55 Serum or plasma protein [...] plasma cholesterol in HDL measurement (mass/volume) 39 mg/dL 40-60 Cholesterol in LDL [mass/volume] in serum or plasma by direct assay 79 mg/dL 1-129 Serum or plasma cholesterol in VLDL measurement (mass/volume) 16 mg/dL 5-40 Complete blood count (CBC) with automated [...] Automated erythrocyte mean corpuscular hemoglobin concentration measurement (mass/volume) 32 g/dL 32-36 Automated erythrocyte distribution width ratio 14.0 % 10.0- 14.5 Automated blood platelet count (count/volume) 277 10*3/uL [...] Blood monocytes automated count (number/volume) 0.5 10*3 0.0- 1.0 Automated eosinophil count 0.1 10*3/uL 0.0-0.3 Automated [...] Serum or plasma aspartate aminotransferase measurement (enzymatic activity/volume) 31 U/L 5-34 Serum or plasma alanine aminotransferase measurement (enzymatic activity/volume) 23 U/L 0-55 Serum or plasma protein [...] gravity of urine by test strip 1.005 1.016-1.022 Urine protein assay by test strip, semi-quantitative [...] sediment leukocyte count by microscopy (number/high power field) [HPF] NRG Bacteria detection in urine sediment [...] culture - 03/05/17 21:22 Bacterial urine culture [id number] NRG COLONY COUNT 10,000/ML - 100,000/ML NRG FTX;REPORTABLE SENSITIVITY NOT USUALLY PERFORMED FOR NRG URINE CULTURE RESULTS PLUS NRG FREE TEXT ENTRY 2 THIS ORGANISM. BANNER Bacterial susceptibility panel - 03/05/17 21:22 Gentamicin susceptibility test by minimum inhibitory concentration <= NRG Trimethoprim/sulfamethoxazole susceptibility test by minimum inhibitoryconcentration S NR Ampicillin susceptibility test by minimum inhibitory concentration 4 NRG Tobramycin susceptibility test by minimum inhibitory concentration <= NRG Cefazolin susceptibility test by minimum inhibitory concentration <= NRG Ceftriaxone susceptibility test by minimum inhibitory concentration <= NRG Ampicillin/sulbactam susceptibility test by minimum inhibitory concentration <= NRG Piperacillin/tazobactam susceptibility test by minimum inhibitory concentration S NR Ciprofloxacin susceptibility test by minimum inhibitory concentration <= NRG Meropenem susceptibility test by minimum inhibitory concentration <= NRG Nitrofurantoin susceptibility test by minimum inhibitory concentration <= NRG Aztreonam susceptibility test by minimum inhibitory concentration <= NRG Extended spectrum beta lactamase (ESBL) producing bacteria susceptibility test by minimum inhibitory concentration - BANNER TSH - 03/14/17 10:05 TSH 8.89 mIU/L 0.40-4.50 TSH - 05/30/17 10:27 TSH 4.18 mIU/L 0.40-4.50 A1C - 08/05/17 09:35 HEMOGLOBIN A1c 6.2 % of total Hgb <5.7 Complete blood count (CBC) with automated white blood cell (WBC) differential - 04/19/18 11:15 Blood leukocytes automated count (number/volume) 9.2 10*3/uL 4.3-11.0 Blood erythrocytes automated count (number/volume) 4.53 10*6/uL 4.35-5.85 Venous blood hemoglobin measurement (mass/volume) 13.0 g/dL 11.5-16.0 Blood hematocrit (volume fraction) 40 % 35-52 Automated erythrocyte mean corpuscular volume 89 [foz_us] 80-99 Automated erythrocyte mean corpuscular hemoglobin (mass per erythrocyte) 29 pg 25-34 Automated erythrocyte mean corpuscular hemoglobin concentration measurement (mass/volume) 32 g/dL 32-36 Automated erythrocyte distribution width ratio 14.9 % 10.0- 14.5 Automated blood platelet count (count/volume) 382 10*3/uL 130-400 Automated blood platelet mean volume measurement 10.0 [foz_us] 7.4-10.4 Automated blood neutrophils/100 leukocytes 67 % 42-75 Automated blood lymphocytes/100 leukocytes 24 % 12-44 Blood monocytes/100 leukocytes 8 % 0-12 Automated blood eosinophils/100 leukocytes 2 % 0-10 Automated blood basophils/100 leukocytes 0 % 0-10 Blood neutrophils automated count (number/volume) 6.1 10*3 1.8-7.8 Blood lymphocytes automated count (number/volume) 2.2 10*3 1.0-4.0 Blood monocytes automated count (number/volume) 0.7 10*3 0.0- 1.0 Automated eosinophil count 0.2 10*3/uL 0.0-0.3 Automated blood basophil count (count/volume) 0.0 10*3/uL 0.0-0.1 PT panel in platelet poor plasma by coagulation assay - 04/19/18 11:15 Prothrombin time (PT) in platelet poor plasma by coagulation assay 13.5 s 12.2-14.7 INR in platelet poor plasma or blood by coagulation assay 1.0 0.8-1.4 Activated partial thromboplastin time (aPTT) in platelet poor plasma bycoagulation assay - 04/19/18 11:15 Activated partial thromboplastin time (aPTT) in platelet poor plasma bycoagulation assay 29 s 24-35 Fibrin D-dimer FEU measurement in platelet poor plasma (mass/volume) - 04/19/18 11:15 Fibrin D-dimer FEU measurement in platelet poor plasma (mass/volume) 0.58 ug/mL 0.00-0.49 Comprehensive metabolic panel - 04/19/18 11:15 Serum or plasma sodium measurement (moles/volume) 140 mmol/L 135-145 Serum or plasma potassium measurement (moles/volume) 3.6 mmol/L 3.6-5.0 Serum or plasma chloride measurement (moles/volume) 102 mmol/L 98-107 Carbon dioxide 24 mmol/L 21-32 Serum or plasma anion gap determination (moles/volume) 14 mmol/L 5-14 Serum or plasma urea nitrogen measurement (mass/volume) 23 mg/dL 7-18 Serum or plasma creatinine measurement (mass/volume) 1.09 mg/dL 0.60-1.30 Serum or plasma urea nitrogen/creatinine mass ratio 21 NRG Serum or plasma creatinine measurement with calculation of estimated glomerular filtration rate 50 NRG Serum or plasma glucose measurement (mass/volume) 100 mg/dL 70-105 Serum or plasma calcium measurement (mass/volume) 9.4 mg/dL 8.5-10.1 Serum or plasma total bilirubin measurement (mass/volume) 0.4 mg/dL 0.1-1.0 Serum or plasma alkaline phosphatase measurement (enzymatic activity/volume) 67 U/L 40-136 Serum or plasma aspartate aminotransferase measurement (enzymatic activity/volume) 23 U/L 5-34 Serum or plasma alanine aminotransferase measurement (enzymatic activity/volume) 22 U/L 0-55 Serum or plasma protein measurement (mass/volume) 7.4 g/dL 6.4-8.2 Serum or plasma albumin measurement (mass/volume) 4.1 g/dL 3.2-4.5 CALCIUM CORRECTED 9.3 mg/dL 8.5-10.1 Magnesium - 04/19/18 11:15 Magnesium 2.4 mg/dL 1.8-2.4 Serum or plasma troponin i.cardiac measurement (mass/volume) - 04/19/18 11:15 Serum or plasma troponin i.cardiac measurement (mass/volume) < ng/mL <0.028 Myoglobin, serum - 04/19/18 11:15 Myoglobin, serum 57.6 ng/mL 10.0-92.0 Serum or plasma thyrotropin measurement by detection limit <=0.05 miu/l (units/volume) - 04/19/18 11:15 Serum or plasma thyrotropin measurement by detection limit <=0.05 miu/l (units/volume) 3.55 u[iU]/mL 0.35-4.94 Encounters ACCT No. Visit Date/Time Discharge Status Pt. Type Provider Facility Loc./Unit Complaint [id number] 07/08/2014 14:27:00 07/08/2014 23:59:59 CLS Outpatient HERBERT KAMINSKINJULIAN [id number] 04/27/2014 16:07:00 04/27/2014 23:59:59 CLS Outpatient JULIAN GODINEZ APRN [id number] 03/23/2014 15:16:00 03/23/2014 23:59:59 CLS Outpatient HERBERT KAMINSKIAshli JULIAN Kimble [id number] 01/17/2014 15:57:00 01/17/2014 23:59:59 CLS Outpatient JULIAN GODINEZ APRN [id number] 01/15/2014 10:16:00 01/15/2014 23:59:59 CLS Outpatient AFUA LAMB DO [id number] 11/02/2013 13:04:00 11/02/2013 23:59:59 CLS Outpatient JULIAN GODINEZ APRN [id number] 04/05/2013 08:48:00 04/05/2013 23:59:59 CLS Outpatient BRIAN KAMINSKIN MAX Bravo [id number] 10/30/2012 14:22:00 10/30/2012 23:59:59 CLS Outpatient JULIAN GODINEZ APRN [id number] 06/24/2012 08:16:00 06/24/2012 23:59:59 CLS Outpatient [id number] 06/17/2012 14:06:00 06/17/2012 23:59:59 CLS Outpatient [id number] 04/14/2012 16:35:00 04/14/2012 23:59:59 [place] [id number] 03/15/2011 09:42:00 03/15/2011 23:59:59 CLS Outpatient [id number] 08/14/2018 06:05:00 08/14/2018 07:40:00 DIS Outpatient ALEXY ALVA MD Via [facility] CATARACT LEFT EYE [id number] 08/12/2018 05:35:00 08/12/2018 11:51:00 DIS Outpatient ALEXY ALVA MD Via [facility] PREOP CATARACT LEFT EYE [id number] 07/31/2018 09:06:00 07/31/2018 10:48:00 DIS Outpatient ALEXY ALVA MD [facility] SDC CATARACT RIGHT EYE [id number] 07/30/2018 05:36:00 07/30/2018 10:30:00 DIS Outpatient ALEXY ALVA MD [facility] PREOP CATARACT RIGHT EYE [id number] 04/19/2018 09:32:00 04/19/2018 13:30:00 DIS Emergency BRODY HARRISON MD [facility] ER L ARM PAIN [id number] 01/02/2018 10:16:00 01/02/2018 11:43:00 DIS Emergency JEANETTE MARTINEZ APRN [facility] ER COUGH;COLD [id number] 09/11/2017 07:46:00 09/11/2017 23:59:59 CLS Outpatient NATHANIEL WALSH [facility] RAD MEDICARE ANNUAL WELLNESS VISIT Z00.00 [id number] 08/29/2017 12:10:00 08/29/2017 23:59:59 CLS Preadmit NATHANEIL WALSH [facility] RAD WELLNESS VISIT [id number] 03/05/2017 19:00:00 03/05/2017 22:22:00 DIS Emergency JEANETTE MARTINEZ CHECK PILOT [facility] ER BACK PAIN [id number] 03/03/2017 08:00:00 03/04/2017 17:25:00 DIS Outpatient ROBERT GRANDE DO [facility] CATH CHEST PAIN [id number] 02/03/2017 12:40:00 02/03/2017 16:04:00 DIS Emergency VERN SCHULTZ MD [facility] ER COUGH [id number] 09/28/2016 06:09:00 09/28/2016 08:40:00 DIS Emergency SEAN SHERIDAN, DOLLY Snider [facility] ER RT ARM PAIN,SOB,CAN'T SLEEP AT NIGHT [id number] 06/24/2016 12:48:00 06/24/2016 18:30:00 DIS Emergency BRODY HARRISON MD [facility] ER CHEST PAIN [id number] 09/29/2015 08:18:00 09/29/2015 15:00:00 DIS Outpatient THOMAS DPM, SADIA Q [facility] LEFT FOOT HARDWARE FAILURE;HALLUS;HAMMERTOE [id number] 09/25/2015 13:05:00 09/25/2015 13:35:00 DIS Outpatient THOMAS DPM, SADIA Q [facility] PREOP LEFT FOOT HARDWARE FAILURE;HALLUX; HAMMERTOE [id number] 08/31/2015 13:03:00 08/31/2015 14:19:00 DIS Outpatient URI WILL MD [facility] REHAB L TKR [id number] 06/19/2015 14:41:00 06/19/2015 23:59:59 CLS Outpatient AFUA LAMB DO [facility] HH HYPOPOTASSEMIA, LOW CHLORIDE LEVEL [id number] 06/07/2015 07:30:00 06/12/2015 17:30:00 DIS Inpatient URI WILL MD [facility] 4TH LEFT KNEE SEVERE OSTEOARTHRITIS [id number] 05/31/2015 09:21:00 05/31/2015 10:45:00 DIS Outpatient URI WILL MD [facility] PREOP LEFT KNEE SEVERE OSTEOARTHRITIS [id number] 09/23/2014 11:23:00 09/23/2014 17:00:00 DIS Outpatient THOMAS DPM, SADIA Q [facility] FRACTURED 5TH METATARSAL [id number] 09/15/2014 10:32:00 09/15/2014 23:59:59 CLS Outpatient THOMAS DPM, SADIA Q [facility] PREOP FRACTURED 5TH METATARSAL [id number] 07/04/2014 10:30:00 07/04/2014 12:30:00 DIS Emergency SADE DIMAS DO [facility] ER RIGHT LEG PAIN [id number] 03/05/2014 14:17:00 03/06/2014 12:20:00 DIS Inpatient JOSE MARTIN SHERIDAN, PASTORA Torres [facility] ICU CHEST PAIN [id number] 07/02/2013 14:32:00 07/02/2013 23:59:59 CLS Outpatient ALEXX REYNA DC [facility] RAD LUMBAGO [id number] 05/30/2017 12:05:00 Document Registration [id number] 05/30/2017 12:05:00 Document Registration [id number] 12/29/2011 10:00:00 Document Registration [id number] 07/07/2008 14:47:00 Document Registration [id number] 07/17/2018 11:40:00 07/17/2018 23:59:59 CLS Outpatient IAN LEAL [facility] [id number] 08/05/2017 09:00:00 Document Registration [id number] 05/30/2017 11:00:00 Document Registration [id number] 03/14/2017 10:00:00 Document Registration
[2018-08-24] MEDS ORDERED: CLIN300C11 PO (09:51)
--- NOTE | 2018-08-24 09:51 | ED General ---
General Chief Complaint: General Problems/Pain Stated Complaint: THROAT SWELLING Nursing Triage Note: AMB TO ROOM REORTS HAS SWELLING AND PAIN ON R SIDE OF FACE. HAD CATARACT ON R EYE 2 WEEKS AGO Nursing Sepsis Screen: No Definite Risk Source of Information: Patient Exam Limitations: No Limitations History of Present Illness Date Seen by Provider: Aug 24, 2018 Time Seen by Provider: 09:24 Initial Comments This 72-year-old woman presents to the emergency room with complaints of pain and swelling over the parotid gland region of her right face. Symptoms started yesterday and became more severe today. She reports pain of 8/10. She recently had cataract surgery performed. She also reports having a mild cough recently. She has not taken any medications for the pain. She presents to the ER because her primary care providers not in the clinic today. Allergies and Home Medications Allergies Coded Allergies: No Known Drug Allergies (Unverified , 07/30/18) Home Medications Aspirin 81 Mg Tablet., 81 MG PO DAILY Prescribed by: SARAH YEH on 03/04/17 1659 Clindamycin HCl 300 Mg Capsule, 300 MG PO QID Prescribed by: BRIAN BRAY on 08/24/18 0951 Hydrochlorothiazide 25 Mg Tablet, 25 MG PO DAILY, (Reported) Levothyroxine Sodium 75 Mcg Tablet, 75 MCG PO DAILY, (Reported) Omeprazole 40 Mg Capsule.dr, 40 MG PO DAILY, (Reported) Patient Home Medication List Home Medication List Reviewed: Yes Review of Systems Review of Systems Constitutional: no symptoms reported EENTM: see HPI Respiratory: see HPI Cardiovascular: no symptoms reported Gastrointestinal: no symptoms reported Genitourinary: no symptoms reported : No Musculoskeletal: no symptoms reported Skin: no symptoms reported Psychiatric/Neurological: No Symptoms Reported Hematologic/Lymphatic: No Symptoms Reported Immunological/Allergic: no symptoms reported Past Rfazqsp-Vsyfsb-Uqakyq Hx Past Med/Social Hx: Reviewed Nursing Past Med/Soc Hx Patient Social History Alcohol Use: Occasionally Uses Recreational Drug Use: No Smoking Status: Never a Smoker Type Used: Cigarettes Former Smoker, Quit: Mar 03, 1968 2nd Hand Smoke Exposure: Yes ( IS SMOKER) Recent Foreign Travel: No Contact w/Someone Who Travel: No Recent Infectious Disease Expo: No Recent Hopitalizations: Yes (chest pain 03/02/17) Immunizations Up To Date Tetanus Booster (TDap): More than 5yrs Date of Pneumonia Vaccine: Jun 10, 2015 Date of Influenza Vaccine: Dec 15, 2016 Seasonal Allergies Seasonal Allergies: No Past Medical History Surgeries: Yes (LEFT TKR, LEFT FOOT SX, ) Section, Eye Surgery, Hysterectomy, Oophorectomy, Orthopedic Respiratory: No Cardiac: Yes High Cholesterol, Hypertension Neurological: No Reproductive Disorders: No [employer] History: Hysterectomy, Menopausal Sexually Transmitted Disease: No HIV/AIDS: No Genitourinary: No Gastrointestinal: Yes Gastroesophageal Reflux, Hiatal Hernia Musculoskeletal: Yes (LEFT FOOT FX, LEFT TKR) Arthritis, Chronic Back Pain, Spasms Endocrine: Yes Hypothyroidsim HEENT: Yes Cataract Hearing Impairment: Hard of Hearing Cancer: No Psychosocial: No Integumentary: No Blood Disorders: Yes (ANEMIA) Family Medical History Patient reports no known family medical history. Cancer Physical Exam Vital Signs Vital Signs - First Documented 08/24/18 09:05 Temp 97.7 Pulse 87 Resp 18 B/P (MAP) 116/79 (91) Pulse Ox 94 Capillary Refill : Less Than 3 Seconds Height, Weight, BMI Height: 5'3.00" Weight: 235lbs. 6.0oz. 106.289090rk; 46.8 BMI Method:Stated General Appearance: No Apparent Distress, WD/WN HEENT: PERRL/EOMI, TMs Normal, Pharynx Normal, Other (Firm swelling and tenderness over the parotid gland on the right. Most teeth are missing. 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 Norm as Tested Skin: Normal Color, Warm/Dry Progress/Results/Core Measures Suspected Sepsis Recent Fever Within 48 Hours: No Infection Criteria Present: None New/Unexplained Altered Menta: No Sepsis Screen: No Definite Risk SIRS Temperature:97.7 Pulse: 87 Respiratory Rate: 18 Blood Pressure 116 /79 Mean: 91 Results/Orders Vital Signs/I&O 08/24/18 08/24/18 09:05 10:00 Temp 97.7 97.7 Pulse 87 87 Resp 18 18 B/P (MAP) 116/79 (91) 116/79 (91) Pulse Ox 94 94 Capillary Refill : Less Than 3 Seconds Blood Pressure Mean: 91 Departure Impression Primary Impression: Sialoadenitis Disposition: 01 HOME, SELF-CARE Condition: Stable Departure-Patient Inst. Decision time for Depature: 09:38 Referrals: IAN LEAL MD (PCP/Family) Primary Care Physician Patient Instructions: Salivary Gland Infection Add. Discharge Instructions: Drink plenty of clear liquids. For pain you may take ibuprofen up to 600 mg every 6 hours as needed and/or Tylenol (acetaminophen) up to 1000 mg every 6 hours as needed. Warm compresses may help relieve the pressure. Complete antibiotics as prescribed. Return to care if symptoms are worsening or if you develop fevers over 100. Follow-up with your primary care provider if you do not have resolution of symptoms after completing antibiotics. You may try sucking on lemon drops or other sour substances that increase salivation. All discharge instructions reviewed with patient and/or family. Voiced understanding. Scripts Clindamycin HCl (Clindamycin HCl) 300 Mg Capsule 300 MG PO QID, #28 CAP Prov: BRIAN CAMPBELL MD 08/24/18 Copy Copies To 1: IAN LEAL MD, JOSHUA T MD Aug 24, 2018 09:51
[2018-08-24 10:00] VITALS: BP 116/79
== END 2018-08-24 10:00 | disposition home or self-care (01) ==
LOC: EDUNIT# 08:50 → ER 08:51
DX: K11.20 Sialoadenitis, unspecified (principal); E78.00 Pure hypercholesterolemia, unspecified; I10 Essential (primary) hypertension; K21.9 Gastro-esophageal reflux disease without esophagitis; E03.9 Hypothyroidism, unspecified; D64.9 Anemia, unspecified; Z87.19 Personal history of other diseases of the digestive system; Z79.82 Long term (current) use of aspirin; Z87.891 Personal history of nicotine dependence; Z96.652 Presence of left artificial knee joint; Z98.890 Other specified postprocedural states; Z90.710 Acquired absence of both cervix and uterus
CPT/HCPCS: 99281

== ENCOUNTER 2018-12-28 05:06 | Observation (INO) | payer MEDICARE ==
[~2018-12-28] VITALS: Ht 160 cm; Wt 103.8 kg
[~2018-12-28 05:06] MED LIST changes: +CLIN300C11 PO
[2018-12-28] MEDS ORDERED: ASPIRIN 81 MG CHEW (CHILDREN'S ASA) PO ONE (05:15)
[2018-12-28] MEDS ORDERED: NITROGLYCERIN 0.4 MG SL TABS BTL 25'S SL PRN ×2 (05:30→11:00)
[2018-12-28] MEDS: NITROGLYCERIN 0.4 MG SL TABS BTL 25'S SL PRN ×2 (05:31→05:37)
[2018-12-28 05:33] LABS: BASOPHILS % (AUTO) 0 % (0-10); EOSINOPHILS # (AUTO) 0.2 10^3/uL (0.0-0.3); EOSINOPHILS % (AUTO) 2 % (0-10); HEMATOCRIT 41 % (35-52); HEMOGLOBIN 12.6 G/DL (11.5-16.0); LYMPHOCYTES # (AUTO) 1.7 X 10^3 (1.0-4.0); LYMPHOCYTES % (AUTO) 17 % (12-44); MEAN CORPUSCULAR HEMOGLOBIN 26 PG (25-34); MEAN CORPUSCULAR HGB CONC 31 G/DL (32-36); MEAN CORPUSCULAR VOLUME 84 FL (80-99); MEAN PLATELET VOLUME 9.2 FL (7.4-10.4); MONOCYTES # (AUTO) 0.8 X 10^3 (0.0-1.0); MONOCYTES % (AUTO) 7 % (0-12); NEUTROPHILS # (AUTO) 7.5 X 10^3 (1.8-7.8); NEUTROPHILS % (AUTO) 74 % (42-75); PLATELET COUNT 419 10^3/uL (130-400); RED CELL DISTRIBUTION WIDTH 15.7 % (10.0-14.5); WHITE BLOOD COUNT 10.2 10^3/uL (4.3-11.0)
--- NOTE | 2018-12-28 05:36 | ED Chest Pain ---
General Stated Complaint: LIGHT CHEST PAIN Source: patient, spouse History of Present Illness Date Seen by Provider: Dec 28, 2018 Time Seen by Provider: 05:10 Initial Comments PT ARRIVES VIA POV FROM HOME C/O CHEST PAIN/PRESSURE--RATES PAIN 5/10 STATES PAIN BEGAN BETWEEN 0300 AND 0330--DID NOT WAKE HER UP, STATES SHE NORMALLY GETS UP THAT EARLY. WAS SITTING AT THE TIME STATES SHE HAD THE SAME PAIN YESTERDAY MORNING ALSO, LASTED 20-30 MINUTES. WAS ALSO SITTING AT THE TIME PAIN WAS WORSE TODAY NO RADIATION OF PAIN STATES NOTHING WORSENS OR IMPROVES PAION C/O SHORTNESS OF BREATH, ESPECIALLY WITH THE PAIN AND WITH EXERTION, AND HAS HAD DYSPNEA ON EXERTION FOR AT LEAST 6 MONTHS--HAS NOT SOUGHT CARE FOR THAT. WILL HAVE TO STOP 4 OR 5 TIMES AND SIT DOWN, WHEN DOING MINIMAL ACTIVITY SUCH WASHING A FEW DISHES. C/O FATIGUE YESTERDAY AND TODAY, BUT STATES SHE ALWAYS FEELS FATIGUED. TODAY SHE COULDN'T GET UP WHEN THE PAIN BEGAN BECAUSE SHE SO WEAK/FATIGUED. NO SWELLING IN LEGS/ FEET OR PAIN IN CALVES NO SWEATS NO PALPITATIONS NO NAUSEA/VOMITING NO SYNCOPE STATES NOTHING WORSENS OR IMPROVES PAIN HAS HAD SIMILAR PAIN IN THE PAST, "BUT NEVER THIS BAD" HAD CARDIAC CATH IN 2017 FOR THIS SAME PROBLEM--SHOWED MILD DISEASE, NO INTERVENTION. HAD ECHOCARDIOGRAM AT THAT TIME ALSO AND EF WAS 55-60%, WITH NO WALL MOTION ABNORMALITIES HAS NOT TAKEN ANY OF HER MORNING MEDICATIONS YET. PCP: DR. LEAL Allergies and Home Medications Allergies Coded Allergies: No Known Drug Allergies (Unverified , 07/30/18) Home Medications Aspirin 81 Mg Tablet., 81 MG PO DAILY Prescribed by: SARAH YEH on 03/04/17 1659 Clindamycin HCl 300 Mg Capsule, 300 MG PO QID Prescribed by: BRIAN BRAY on 08/24/18 0951 Hydrochlorothiazide 25 Mg Tablet, 25 MG PO DAILY, (Reported) Levothyroxine Sodium 75 Mcg Tablet, 75 MCG PO DAILY, (Reported) Omeprazole 40 Mg Capsule., 40 MG PO DAILY, (Reported) Patient Home Medication List Home Medication List Reviewed: Yes Review of Systems Review of Systems Constitutional: see HPI; No chills, No diaphoresis, No dizziness, No fever; malaise, weakness EENTM: No Symptoms Reported Respiratory: See HPI; Denies Cough; Shortness of Air, SOA With Exertion, SOA at Rest; Denies Wheezing Cardiovascular: Chest Pain; Denies Edema, Denies Irregular Heart Rate, Denies Lightheadedness, Denies Palpitations, Denies Syncope Gastrointestinal: No Symptoms Reported; Denies Abdominal Pain, Denies Nausea, Denies Vomiting Genitourinary: No Symptoms Reported Musculoskeletal: no symptoms reported Skin: no symptoms reported Psychiatric/Neurological: No Symptoms Reported Endocrine: No Symptoms Reported Hematologic/Lymphatic: No Symptoms Reported Past Ltpetkw-Bephmk-[id number] Hx Patient Social History Alcohol Use: Denies Use Recreational Drug Use: No Smoking Status: Former Smoker (SMOKED TEEN, QUIT AGE 22) Type Used: Cigarettes (SMOKED TEEN, QUIT AGE 22 ) Former Smoker, Quit: Mar 03, 1968 2nd Hand Smoke Exposure: Yes ( IS SMOKER) Recent Foreign Travel: No Contact w/Someone Who Travel: No Recent Hopitalizations: No Immunizations Up To Date Tetanus Booster (TDap): More than 5yrs Date of Pneumonia Vaccine: Jun 10, 2015 Date of Influenza Vaccine: Dec 15, 2016 Seasonal Allergies Seasonal Allergies: No Past Medical History Surgeries: Yes (HYST/BSO/APPY; LEFT TOTAL KNEE REPLACEMENT; LEFT FOOT FX/ORIF WITH LATER HARDWARE REMOVAL; RIGHT EYE SURGERY FOR TRAUMA OR CROSSED EYE; BILATERAL CATARACT SURGERY; X 2; CARDIAC CATH 2016--NO INTERVENTION) Appendectomy, Cardiac, Section, Eye Surgery, Hysterectomy, Joint Repla cement, Oophorectomy, Orthopedic Respiratory: No Cardiac: Yes (CARDIAC CATH 2016--MILD DISEASE, NO INTERVENTION; ECHO 2016--EF 55-60% NO WALL MOTION ABNORMALITIES) High Cholesterol, Hypertension Neurological: No Reproductive Disorders: No 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 Cancer Physical Exam Vital Signs Vital Signs - First Documented Capillary Refill : Height, Weight, BMI Height: 5'3.00" Weight: 235lbs. 6.0oz. 106.970348tu; 46.8 BMI Method:Stated General Appearance: No Apparent Distress, Obese, Other (VERY TALKATIVE, SMILING) HEENT: Other (EDENTULOUS) Neck: Full Range of Motion, Normal Inspection, Non Tender, Supple; No JVD Respiratory: Normal Breath Sounds, No Accessory Muscle Use, No Respiratory Distress, Other (SLIGHTLY DYSPNEIC AT REST AND WITH EXERTION) Cardiovascular: Regular Rate, Rhythm, No JVD, No Murmur, Other Gastrointestinal: Non Tender, Soft Extremity: Normal Capillary Refill, Normal Range of Motion, Non Tender, No Calf Tenderness, Pedal Edema (TRACE TO 1+ BILATERALLY) Neurologic/Psychiatric: Alert, Oriented x3, No Motor/Sensory Deficits, Normal Mood/Affect, 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 II-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 Norm as Tested Skin: Normal Color, Warm/Dry Progress/Results/Core Measures Results/Orders Lab Results Laboratory Tests Test 12/28/18 05:25 Range/Units White Blood Count 10.2 4.3-11.0 10^3/uL Red Blood Count 4.82 4.35-5.85 10^6/uL Hemoglobin 12.6 11.5-16.0 G/DL Hematocrit 41 35-52 % Mean Corpuscular Volume 84 80-99 FL Mean Corpuscular Hemoglobin 26 25-34 PG Mean Corpuscular Hemoglobin Concent 31 L 32-36 G/DL Red Cell Distribution Width 15.7 H 10.0-14.5 % Platelet Count 419 H 130-400 10^3/uL Mean Platelet Volume 9.2 7.4-10.4 FL Neutrophils (%) (Auto) 74 42-75 % Lymphocytes (%) (Auto) 17 12-44 % Monocytes (%) (Auto) 7 0-12 % Eosinophils (%) (Auto) 2 0-10 % Basophils (%) (Auto) 0 0-10 % Neutrophils # (Auto) 7.5 1.8-7.8 X 10^3 Lymphocytes # (Auto) 1.7 1.0-4.0 X 10^3 Monocytes # (Auto) 0.8 0.0-1.0 X 10^3 Eosinophils # (Auto) 0.2 0.0-0.3 10^3/uL Basophils # (Auto) 0.0 0.0-0.1 10^3/uL Prothrombin Time 13.1 12.2-14.7 SEC INR Comment 1.0 0.8-1.4 Activated Partial Thromboplast Time 30 24-35 SEC Sodium Level 138 135-145 MMOL/L Potassium Level 4.1 3.6-5.0 MMOL/L Chloride Level 98 98-107 MMOL/L Carbon Dioxide Level 27 21-32 MMOL/L Anion Gap 13 5-14 MMOL/L Blood Urea Nitrogen 19 H 7-18 MG/DL Creatinine 0.92 0.60-1.30 MG/DL Estimat Glomerular Filtration Rate 60 BUN/Creatinine Ratio 21 Glucose Level 150 H 70-105 MG/DL Calcium Level 9.3 8.5-10.1 MG/DL Corrected Calcium 9.3 8.5-10.1 MG/DL Magnesium Level 1.9 1.6-2.4 MG/DL Total Bilirubin 0.3 0.1-1.0 MG/DL Aspartate Amino Transf (AST/SGOT) 21 5-34 U/L Alanine Aminotransferase (ALT/SGPT) 22 0-55 U/L Alkaline Phosphatase 75 40-136 U/L Total Creatine Kinase 95 29-168 U/L Creatine Kinase MB 2.1 <6.6 NG/ML Myoglobin 62.3 10.0-92.0 NG/ML Troponin I < 0.028 <0.028 NG/ML B-Type Natriuretic Peptide 16.8 <100.0 PG/ML Total Protein 7.5 6.4-8.2 GM/DL Albumin 4.0 3.2-4.5 GM/DL Amylase Level 33 25-125 U/L Lipase 23 8-78 U/L My Orders Orders - SADE DIMAS DO Cbc With Automated Diff (12/28/18 05:12) Magnesium (12/28/18 05:12) Chest 1 View, Ap/Pa Only (12/28/18 05:12) Ekg Tracing (12/28/18 05:12) Cardiac Profile 1 (12/28/18 05:12) Comprehensive Metabolic Panel (12/28/18 05:12) Myoglobin Serum (12/28/18 05:12) Protime With Inr (12/28/18 05:12) Partial Thromboplastin Time (12/28/18 05:12) O2 (12/28/18 05:12) Monitor-Rhythm Ecg Trace Only (12/28/18 05:12) Lipid Panel (12/29/18 06:00) Ed Iv/Invasive Line Start (12/28/18 05:12) Creatine Kinase (12/28/18 05:12) Creatine Kinase Mb (12/28/18 05:12) Lipase (12/28/18 05:12) Amylase (12/28/18 05:12) BNP (12/28/18 05:12) Nitroglycerin 0.4 Mg Btl 25's (Nitrostat (12/28/18 05:15) Aspirin Chewable Tablet (Baby Aspirin Ch (12/28/18 05:15) Nitroglycerin 0.4 Mg Btl 25's (Nitrostat (12/28/18 05:30) Ed Iv/Invasive Line Start (12/28/18 05:46) Ns Iv 1000 Ml (Sodium Chloride 0.9%) (12/28/18 05:46) Ct Angio Chest W (12/28/18 06:16) Iohexol Injection (Omnipaque 350 Mg/Ml 1 (12/28/18 06:45) Received Contrast (Hold Metformin- Contr (12/28/18 06:45) Ns (Ivpb) (Sodium Chloride 0.9% Ivpb Bag (12/28/18 06:45) Medications Given in ED Current Medications Medications Dose Ordered Sig/Wu Route Start Time Stop Time Status Last Admin Dose Admin Aspirin 324 mg ONCE ONCE PO 12/28/18 05:15 12/28/18 05:16 DC 12/28/18 05:31 324 MG Iohexol 100 ml ONCE ONCE IV 12/28/18 06:45 12/28/18 06:46 DC 12/28/18 06:35 83 ML Nitroglycerin 0.4 mg UD PRN SL 12/28/18 05:15 12/28/18 05:37 0.4 MG Sodium Chloride 100 ml ONCE ONCE IV 12/28/18 06:45 12/28/18 06:46 DC 12/28/18 06:35 80 ML Vital Signs/I&O 12/28/18 12/28/18 12/28/18 05:15 05:15 05:15 Temp 36.6 Pulse 74 Resp 18 B/P (MAP) 172/94 (120) Pulse Ox 96 96 O2 Delivery Room Air Room Air Room Air Progress Progress Note : Progress Note GIVEN ASPIRIN AND NTG X 2, WITH PAIN AND SHORTNESS OF BREATH COMPLETELY RESOLVED. INITIAL O2 SAT 91%, UP TO 95% ON 3L/NC Initial ECG Impression Date: Dec 28, 2018 Initial ECG Impression Time: 05:14 Initial ECG Rate: 73 Initial ECG Rhythm: Normal Sinus Initial ECG Comparisson: Changed (SLIGHT CHANGE IN ST SEGMENTS IN V1-V2) Diagnostic Imaging Comments CXR--NO ACUTE PROCESS, PER RADIOLOGIST REPORT AT 0647 CT CHEST ANGIOGRAM--NO P.E. OR ACUTE PROCESS, ENLARGING HIATAL HERNIA--PER RADIOLOGIST REPORT AT 0700 Reviewed: Reviewed by Me Departure Communication (Admissions) 0700--SPOKE WITH DR. LEAL. ACCEPTS PT FOR ADMIT. Impression Primary Impression: Chest pain Additional Impression: Dyspnea on minimal exertion Disposition: ADMITTED INPATIENT Condition: Improved Admissions Decision to Admit Reason: Admit from ER (General) Decision to Admit/Date: Dec 28, 2018 Time/Decision to Admit Time: 06:45 Departure-Patient Inst. Referrals: IAN LEAL MD (PCP/Family) Primary Care Physician SADE DIMAS DO Dec 28, 2018 05:36
[2018-12-28 05:45] LABS: PROTHROMBIN TIME PATIENT 13.1 SEC (12.2-14.7)
[2018-12-28] MEDS ORDERED: NS IV 1000 ML 1,000 ML IV ONE (05:46)
[2018-12-28 05:53] LABS: ALANINE AMINOTRANSFERASE 22 U/L (0-55); ALKALINE PHOSPHATASE 75 U/L (40-136); AMYLASE 33 U/L (25-125); BILIRUBIN,TOTAL 0.3 MG/DL (0.1-1.0); BUN/CREATININE RATIO 21; CALCIUM 9.3 MG/DL (8.5-10.1); CARBON DIOXIDE 27 MMOL/L (21-32); CHLORIDE 98 MMOL/L (98-107); CREATINE KINASE 95 U/L (29-168); CREATININE SERUM 0.92 MG/DL (0.60-1.30); GFR ESTIMATED 60; GLUCOSE 150 MG/DL (70-105); LIPASE 23 U/L (8-78); MAGNESIUM 1.9 MG/DL (1.6-2.4); POTASSIUM 4.1 MMOL/L (3.6-5.0); SODIUM 138 MMOL/L (135-145); TOTAL PROTEIN 7.5 GM/DL (6.4-8.2)
[2018-12-28 06:00] LABS: CREATINE KINASE MB 2.1 NG/ML (<6.6)
--- NOTE | 2018-12-28 06:16 | Diagnostic Imaging Report ---
INDICATION: Chest pain COMPARISON: 04/19/2018 FINDINGS: Single view of the chest demonstrates stable hiatal hernia. The heart is slightly enlarged. Lungs are clear. There is no pneumothorax but osseous structures are normal. IMPRESSION: No acute cardiopulmonary findings. Dictated by: Dictated on workstation # [id number]
[2018-12-28] MEDS ORDERED: IOHEXOL 350 MG/ML 100 ML (OMNIPAQUE 350) VIAL IV ONE (06:45)
[2018-12-28] MEDS ORDERED: NS 100 ML (IVPB) BAG IV ONE (06:45)
[2018-12-28] MEDS ORDERED: HOLD METFORMIN - RECEIVED CONTRAST 20 ML VIAL IV SCH (06:45)
--- NOTE | 2018-12-28 06:59 | Diagnostic Imaging Report ---
PROCEDURE: CT angiography of the chest with contrast. TECHNIQUE: Multiple contiguous axial images were obtained through the chest after uneventful bolus administration of intravenous contrast. 3D reconstructed CTA MIP acquisitions were also performed. Auto Exposure Controls were utilized during the CT exam to meet ALARA standards for radiation dose reduction. INDICATION: Chest pain, pressure. COMPARISON: 03/03/2017 FINDINGS: The heart, pulmonary arteries and aorta are grossly unremarkable. There is no pulmonary embolism. No aortic dissection or aneurysm seen. There is no pericardial or pleural effusion. There is no lymphadenopathy. The hiatal hernia has enlarged compared to the prior examination. This does not appear obstructive. Chronic interstitial changes are seen in the lung bases. Otherwise, lungs are clear. Osseous structures are age-appropriate. IMPRESSION: 1. No pulmonary embolism identified. 2. Enlarging hiatal hernia without obstruction. 3. No suspicious infiltrate identified. Dictated by: Dictated on workstation # [id number]
[2018-12-28 10:30] VITALS: BP 123/93
[2018-12-28] MEDS ORDERED: ACET-2267 PO (10:56)
[2018-12-28] MEDS ORDERED: POLY15DR14 OD (10:57)
--- NOTE | 2018-12-28 10:58 | NUR ---
WENT OVER THE EXT MED HX WITH THE PATIENT AND SHE VERIFIED HOW SHE TAKES THEM. SHE STATES SHE TAKES TYLENOL OTC NEEDED AND USES AN OTC LUBRICANT EYE DROP.
[2018-12-28] MEDS ORDERED: CATHETER FLUSH 10 ML SYR IV PRN (11:00)
[2018-12-28] MEDS ORDERED: morphine INJ 4 MG/ML 1 ML (VIAL/SYRINGE) IV PRN (11:00)
[2018-12-28 12:00] VITALS: BP 138/94
[2018-12-28 12:01] LABS: PROTHROMBIN TIME PATIENT 13.5 SEC (12.2-14.7)
--- NOTE | 2018-12-28 12:03 | Consultation-Cardiology ---
HPI-Cardiology Cardiology Consultation: Date of Consultation 12/28/18 Time Seen by a Provider: 11:35 Date of Admission 12-28-18 Attending Physician Deena Bridges MD Admitting Physician Deena Bridges MD Consulting Physician Tonie Cary MD HPI: Chief Complaint: Chest pain Ms. Oconnor is a 73 year old female admitted to ICU5 from the ED with c/o CP. She reports she woke up around 3 a.m. this morning (which is her usual time) and she began to have chest discomfort which she describes as a pressure, burning sensation that lasted for approx 30 minutes. No other assoc symptoms. She states it stayed constant and then gradually resolved. She reports a similar episode yesterday as well. She reports chronic fatigue/malaise which has been progressive. She reports chronic intermittent OROSCO, but reports unchanged. She reports chronic bilat LE swelling which is least in the morning and worse at the end of the day. She denies any palpitations, syncope or near syncope. She denies any current c/o CP. Review of Systems-Cardiology Review of Systems Constitutional: No chills, No fever; malaise Eyes: No vision change Ears/Nose/Throat: epistaxis; No recent hearing loss Respiratory: As described under HPI Cardiovascular: As described under HPI Gastrointestinal: No constipation, No diarrhea, No nausea, No vomiting Genitourinary: No dysuria, No hematuria Skin: No rash on exposed areas, No ulcerations on exposed areas Psychiatric/Neurological: No anxiety, No depression, No seizure, No focal weakness, No syncope Hematologic: No bleeding abnormalities [id number] Hx Patient Social History Alcohol Use: Denies Use Recreational Drug Use: No Smoking Status: Former Smoker (SMOKED TEEN, QUIT AGE 22) Type Used: Cigarettes (SMOKED TEEN, QUIT AGE 22 ) 2nd Hand Smoke Exposure: Yes ( IS SMOKER) Recent Foreign Travel: No Recent Infectious Disease Expo: No Hospitalization with Isolation: Denies Immunizations Up To Date Tetanus Booster (TDap): More than 5yrs Date of Pneumonia Vaccine: Dec 28, 2016 Date of Influenza Vaccine: Dec 07, 2018 Past Medical History PMH As described under Assessment. Family Medical History Family Medical History: She denies any family h/o CAD or premature SCD. Family History: Patient reports no known family medical history. Allergies and Home Medications Allergies Coded Allergies: No Known Drug Allergies (Unverified , 5/16/19) Home Medications Acetaminophen 500 Mg Tablet, 500-1,000 MG PO Q4H PRN for PAIN-MILD, (Reported) Hydrochlorothiazide 25 Mg Tablet, 25 MG PO DAILY, (Reported) Levothyroxine Sodium 75 Mcg Tablet, 75 MCG PO DAILY, (Reported) Omeprazole 40 Mg Capsule.dr, 40 MG PO DAILY, (Reported) Polyvinyl Alcohol/Povidone 15 Ml Drops, 1 DROP OD TID, (Reported) Patient Home Medication List Home Medication List Reviewed: Yes Physical Exam-Cardiology Physical Exam Vital Signs/I&O 12/28/18 12/28/18 12/29/18 12/29/18 20:00 21:00 00:00 00:00 Temp 36.4 Pulse 77 Resp 22 B/P (MAP) 130/82 (98) Pulse Ox 93 93 96 96 O2 Delivery Room Air Room Air Nasal Cannula Nasal Cannula O2 Flow Rate 2.00 2.00 12/29/18 12/29/18 12/29/18 01:00 04:00 04:00 Temp 36.4 Pulse 69 72 Resp 13 B/P (MAP) 114/71 (85) Pulse Ox 96 97 O2 Delivery Nasal Cannula Nasal Cannula O2 Flow Rate 2.00 2.00 12/29/18 00:00 Intake Total 0 ml Output Total 950 ml Balance -950 ml Capillary Refill : Less Than 3 Seconds Constitutional: AAO x 3, well-developed, well-nourished HEENT: PERRL, hearing is well preserved, oral hygience is good Neck: No carotid bruit; carotid pulses are 2 + bilaterally Respiratory: No accessory muscle use, No respiratory distress; chest expansion is symmetric, chest is bilaterally symmetric, lungs clear to auscultation Cardiovascular: regular rate-rhythm; No JVD; S1 and S2 Gastrointestinal: No tender; soft, round, audible bowel sounds Rectal: deferred Extremities: no lower extremity edema bilateral Neurologic/Psychiatric: grossly intact, power is 5/5 both on sides Skin: No rash on exposed areas, No ulcerations on exposed areas Data Review Labs Laboratory Tests 12/28/18 11:35: Prothrombin Time 13.5, INR Comment 1.0, Activated Partial Thromboplast Time 28, Myoglobin 69.6, Troponin I < 0.028 12/28/18 12:05: Urine Color YELLOW, Urine Clarity CLEAR, Urine pH 6.5, Urine Specific [place] 1.010L, Urine Protein 1+H, Urine Glucose (UA) NEGATIVE, Urine Ketones NEGATIVE, Urine Nitrite POSITIVEH, Urine Bilirubin NEGATIVE, Urine Urobilinogen NORMAL, Urine Leukocyte Esterase 3+H, Urine RBC (Auto) 2+H, Urine RBC 0-2, Urine WBC 25- 50H, Urine Crystals NONE, Urine Bacteria FEWH, Urine Casts NONE, Urine Mucus NEGATIVE, Urine Culture Indicated YES 12/29/18 03:20: White Blood Count 7.6, Red Blood Count 4.53, Hemoglobin 11.9, Hematocrit 39, Mean Corpuscular Volume 85, Mean Corpuscular Hemoglobin 26, Mean Corpuscular Hemoglobin Concent 31L, Red Cell Distribution Width 15.5H, Platelet Count 346, Mean Platelet Volume 9.4, Neutrophils (%) (Auto) 67, Lymphocytes (%) (Auto) 23, Monocytes (%) (Auto) 8, Eosinophils (%) (Auto) 3, Basophils (%) (Auto) 0, Neutrophils # (Auto) 5.1, Lymphocytes # (Auto) 1.7, Monocytes # (Auto) 0.6, Eosinophils # (Auto) 0.2, Basophils # (Auto) 0.0, Sodium Level 139, Potassium Level 3.9, Chloride Level 102, Carbon Dioxide Level 26, Anion Gap 11, Blood Urea Nitrogen 17, Creatinine 0.83, Estimat Glomerular Filtration Rate > 60, BUN/Creatinine Ratio 20, Glucose Level 124H, Calcium Level 8.7, Corrected Calcium 8.9, Total Bilirubin 0.4, Aspartate Amino Transf (AST/SGOT) 22, Alanine Aminotransferase (ALT/SGPT) 24, Alkaline Phosphatase 69, Total Protein 6.6, Albumin 3.7, Triglycerides Level 128, Cholesterol Level 155, LDL Cholesterol Direct 98, VLDL Cholesterol 26, HDL Cholesterol 38L, Thyroid Stimulating Hormone (TSH) 4.01 Radiology NAME: NATHANIEL OCONNOR [facility] REC#: [id number] PT STATUS: REG ER : 1945 PHYSICIAN: SADE DIMAS DO ADMIT DATE: 12/28/18/ER Signed Date of Exam: 12/28/18 CHEST 1 VIEW, AP/PA ONLY INDICATION: Chest pain COMPARISON: 04/19/2018 FINDINGS: Single view of the chest demonstrates stable hiatal hernia. The heart is slightly enlarged. Lungs are clear. There is no pneumothorax but osseous structures are normal. IMPRESSION: No acute cardiopulmonary findings. Dictated by: Dictated on workstation # [id number] Dict: 12/28/18604 Trans: 12/28/18905 Interpreted by: RONALD MILLS Electronically signed by: RONALD MILLS 12/28/18905 NAME: NATHANIEL OCONNOR [facility] REC#: [id number] PT STATUS: REG ER : 1945 PHYSICIAN: SADE DIMAS DO ADMIT DATE: 12/28/18/ER Signed Date of Exam: 12/28/18 CT ANGIO CHEST W PROCEDURE: CT angiography of the chest with contrast. TECHNIQUE: Multiple contiguous axial images were obtained through the chest after uneventful bolus administration of intravenous contrast. 3D reconstructed CTA MIP acquisitions were also performed. Auto Exposure Controls were utilized during the CT exam to meet ALARA standards for radiation dose reduction. INDICATION: Chest pain, pressure. COMPARISON: 03/03/2017 FINDINGS: The heart, pulmonary arteries and aorta are grossly unremarkable. There is no pulmonary embolism. No aortic dissection or aneurysm seen. There is no pericardial or pleural effusion. There is no lymphadenopathy. The hiatal hernia has enlarged compared to the prior examination. This does not appear obstructive. Chronic interstitial changes are seen in the lung bases. Otherwise, lungs are clear. Osseous structures are age-appropriate. IMPRESSION: 1. No pulmonary embolism identified. 2. Enlarging hiatal hernia without obstruction. 3. No suspicious infiltrate identified. Dictated by: Dictated on workstation # [id number] Dict: 12/28/1851 Trans: 12/28/18905 Interpreted by: RONALD MILLS Electronically signed by: RONALD MILLS 12/28/18905 ECG Impression ECG Initial ECG Rhythm: Normal Sinus A/P-Cardiology Assessment/Admission Diagnosis Chest pain of undetermined etiology OROSCO of undetermined etiology CAD - Mild coronary artery disease per cardiac cath on Feb [address] Calabrese HTN DM 2 Elevated BMI of 41.8 Hypothyroidism GERD Hiatal hernia Progressive fatigue of undetermined etiology Discussion and Recomendations Non-specific chest pain of undetermined etiology - no evidence of ACS thus far Continue serial cardiac enzymes, if remain WNL then MPI tomorrow Echocardiogram to eval structure Follow lab Continue tele Continue home medications We would like to thank medical services for this consult Clinical Quality Measures AMI/AHF: ASA po Prior to arrival: No DVT/VTE Risk/Contraindication: Risk Factor Score Per Nursin RFS Level Per Nursing on Admit: 4+=Very High ZAID CARROLL Dec 28, 2018 12:03
[2018-12-28 12:13] LABS: CARDIAC PROFILE 2 < 0.028 NG/ML (<0.028)
[2018-12-28] MEDS ORDERED: REGADENOSON 0.4 MG/5 ML SYR (LEXISCAN) IV ONE (12:15)
[2018-12-28 12:36] LABS: BILIRUBIN,URINE NEGATIVE (NEGATIVE); CLARITY,URINE CLEAR; COLOR,URINE YELLOW; GLUCOSE, URINE (UA) NEGATIVE (NEGATIVE); KETONES,URINE NEGATIVE (NEGATIVE); LEUKOCYTE ESTERASE ,URINE 3+ (NEGATIVE); NITRITE,URINE POSITIVE (NEGATIVE); PH,URINE 6.5 (5-9); PROTEIN,URINE 1+ (NEGATIVE); UROBILINOGEN,URINE NORMAL (NORMAL)
[2018-12-28 13:14] LABS: BACTERIA,URINE FEW /HPF; RBC,URINE 0-2 /HPF; WBC,URINE 25-50 /HPF
--- NOTE | 2018-12-28 14:18 | History & Physical ---
HPI History of Present Illness: 73 yo F clinic patient of mine. Presented to ER with chest pain that started this AM around 3 AM. States that it was sharp and burning in the center of her chest. Denies anything that improved the pain or made it worse. States that she has been having these pains on and off for several days. No change in diet or activity level. Denies any sick contacts. She has not missed any medication doses. No radiation of pain. Source: patient Exam Limitations: no limitations Date seen by provider: Dec 28, 2018 Time Seen by Provider: 09:45 Attending Physician Ian Leal MD PCP Ian Leal MD Consult Date of Admission Dec 28, 2018 at 09:30 Home Medications Home Medications Reviewed patient Home Medication Reconciliation performed by pharmacy medication reconciliations serology technician and/or nursing. Patients Allergies have been reviewed. Allergies Coded Allergies: No Known Drug Allergies (Unverified , 07/30/18) TPV-Evlylv-Ncffoj Hx Patient Social History Living Status: Lives in home with Alcohol Use: Denies Use Recreational Drug Use: No Smoking Status: Former Smoker (SMOKED TEEN, QUIT AGE 22) Type Used: Cigarettes (SMOKED TEEN, QUIT AGE 22 ) 2nd Hand Smoke Exposure: Yes ( IS SMOKER) Recent Foreign Travel: No Contact w/other who traveled: No Recent Hopitalizations: No Recent Infectious Disease Expo: No Immunizations Up To Date Tetanus Booster (TDap): More than 5yrs Date of Pneumonia Vaccine: Dec 28, 2016 Date of Influenza Vaccine: Dec 07, 2018 Past Medical History past medical history 1. Hypothyroidism 2. Hypertension 3. Degenerative arthritis Past surgical history 1. Hysterectomy 2. section 2 Family Medical History Significant Family History: Cancer Family History: Patient reports no known family medical history. Review of Systems ([facility]) Constitutional: No chills, No fever; malaise EENTM: no symptoms reported Respiratory: no symptoms reported; No cough, No dyspnea on exertion, No short of breath Cardiovascular: chest pain; No edema, No palpitations Gastrointestinal: no symptoms reported; No abdominal pain, No constipation, No loss of appetite, No nausea, No vomiting Genitourinary: no symptoms reported; No dysuria, No frequency, No hematuria : No Musculoskeletal: joint pain (chronic arthritis) Skin: no symptoms reported; No lesions, No rash Psychiatric/Neurological: Denies Headache, Denies Numbness, Denies Weakness Reviewed Test Results Reviewed Test Results Lab Laboratory Tests Test 12/28/18 05:25 12/28/18 11:35 12/28/18 12:05 Range/Units White Blood Count 10.2 4.3-11.0 10^3/uL Red Blood Count 4.82 4.35-5.85 10^6/uL Hemoglobin 12.6 11.5-16.0 G/DL Hematocrit 41 35-52 % Mean Corpuscular Volume 84 80-99 FL Mean Corpuscular Hemoglobin 26 25-34 PG Mean Corpuscular Hemoglobin Concent 31 L 32-36 G/DL Red Cell Distribution Width 15.7 H 10.0-14.5 % Platelet Count 419 H 130-400 10^3/uL Mean Platelet Volume 9.2 7.4-10.4 FL Neutrophils (%) (Auto) 74 42-75 % Lymphocytes (%) (Auto) 17 12-44 % Monocytes (%) (Auto) 7 0-12 % Eosinophils (%) (Auto) 2 0-10 % Basophils (%) (Auto) 0 0-10 % Neutrophils # (Auto) 7.5 1.8-7.8 X 10^3 Lymphocytes # (Auto) 1.7 1.0-4.0 X 10^3 Monocytes # (Auto) 0.8 0.0-1.0 X 10^3 Eosinophils # (Auto) 0.2 0.0-0.3 10^3/uL Basophils # (Auto) 0.0 0.0-0.1 10^3/uL Prothrombin Time 13.1 13.5 12.2-14.7 SEC INR Comment 1.0 1.0 0.8-1.4 Activated Partial Thromboplast Time 30 28 24-35 SEC Sodium Level 138 135-145 MMOL/L Potassium Level 4.1 3.6-5.0 MMOL/L Chloride Level 98 98-107 MMOL/L Carbon Dioxide Level 27 21-32 MMOL/L Anion Gap 13 5-14 MMOL/L Blood Urea Nitrogen 19 H 7-18 MG/DL Creatinine 0.92 0.60-1.30 MG/DL Estimat Glomerular Filtration Rate 60 BUN/Creatinine Ratio 21 Glucose Level 150 H 70-105 MG/DL Calcium Level 9.3 8.5-10.1 MG/DL Corrected Calcium 9.3 8.5-10.1 MG/DL Magnesium Level 1.9 1.6-2.4 MG/DL Total Bilirubin 0.3 0.1-1.0 MG/DL Aspartate Amino Transf (AST/SGOT) 21 5-34 U/L Alanine Aminotransferase (ALT/SGPT) 22 0-55 U/L Alkaline Phosphatase 75 40-136 U/L Total Creatine Kinase 95 29-168 U/L Creatine Kinase MB 2.1 <6.6 NG/ML Myoglobin 62.3 69.6 10.0-92.0 NG/ML Troponin I < 0.028 < 0.028 <0.028 NG/ML B-Type Natriuretic Peptide 16.8 <100.0 PG/ML Total Protein 7.5 6.4-8.2 GM/DL Albumin 4.0 3.2-4.5 GM/DL Amylase Level 33 25-125 U/L Lipase 23 8-78 U/L Urine Color YELLOW Urine Clarity CLEAR Urine pH 6.5 5-9 Urine Specific [place] 1.010 L 1.016-1.022 Urine Protein 1+ H NEGATIVE Urine Glucose (UA) NEGATIVE NEGATIVE Urine Ketones NEGATIVE NEGATIVE Urine Nitrite POSITIVE H NEGATIVE Urine Bilirubin NEGATIVE NEGATIVE Urine Urobilinogen NORMAL NORMAL MG/DL Urine Leukocyte Esterase 3+ H NEGATIVE Urine RBC (Auto) 2+ H NEGATIVE Urine RBC 0-2 /HPF Urine WBC 25-50 H /HPF Urine Crystals NONE /LPF Urine Bacteria FEW H /HPF Urine Casts NONE /LPF Urine Mucus NEGATIVE /LPF Urine Culture Indicated YES Radiology NAME: NATHANIEL VASQUEZ [facility] REC#: [id number] PT STATUS: REG ER : 1945 PHYSICIAN: SADE DIMAS DO ADMIT DATE: 12/28/18/ER Signed Date of Exam: 12/28/18 CHEST 1 VIEW, AP/PA ONLY INDICATION: Chest pain COMPARISON: 04/19/2018 FINDINGS: Single view of the chest demonstrates stable hiatal hernia. The heart is slightly enlarged. Lungs are clear. There is no pneumothorax but osseous structures are normal. IMPRESSION: No acute cardiopulmonary findings. Dictated by: Dictated on workstation # [id number] Dict: 12/28/18604 Trans: 12/28/18905 Interpreted by: RONALD MILLS Electronically signed by: RONALD MILLS 12/28/18905 NAME: NATHANIEL VASQUEZ [facility] REC#: [id number] PT STATUS: REG ER : 1945 PHYSICIAN: SADE DIMAS DO ADMIT DATE: 12/28/18/ER Signed Date of Exam: 12/28/18 CT ANGIO CHEST W PROCEDURE: CT angiography of the chest with contrast. TECHNIQUE: Multiple contiguous axial images were obtained through the chest after uneventful bolus administration of intravenous contrast. 3D reconstructed CTA MIP acquisitions were also performed. Auto Exposure Controls were utilized during the CT exam to meet ALARA standards for radiation dose reduction. INDICATION: Chest pain, pressure. COMPARISON: 03/03/2017 FINDINGS: The heart, pulmonary arteries and aorta are grossly unremarkable. There is no pulmonary embolism. No aortic dissection or aneurysm seen. There is no pericardial or pleural effusion. There is no lymphadenopathy. The hiatal hernia has enlarged compared to the prior examination. This does not appear obstructive. Chronic interstitial changes are seen in the lung bases. Otherwise, lungs are clear. Osseous structures are age-appropriate. IMPRESSION: 1. No pulmonary embolism identified. 2. Enlarging hiatal hernia without obstruction. 3. No suspicious infiltrate identified. Dictated by: Dictated on workstation # [id number] Dict: 12/28/18 0651 Trans: 12/28/18905 Interpreted by: RONALD MILLS Electronically signed by: RONALD MILLS 12/28/18905 Physical Exam-([facility]) Physical Exam Vital Signs VS - Last 72 Hours, by Label 12/28/18 12/28/18 12/28/18 12/28/18 05:15 05:15 05:15 10:17 Temp 36.6 Pulse 74 75 Resp 18 20 B/P (MAP) 172/94 (120) 133/85 Pulse Ox 96 96 97 O2 Delivery Room Air Room Air Room Air Nasal Cannula O2 Flow Rate 2.00 12/28/18 12/28/18 12/28/18 12/28/18 10:30 11:01 11:04 11:46 Pulse 74 77 Resp 13 B/P (MAP) 123/93 (103) Pulse Ox 97 98 98 O2 Delivery Room Air Room Air Room Air 12/28/18 12/28/18 12:00 12:51 Pulse 75 73 Resp 22 B/P (MAP) 138/94 (109) Pulse Ox 95 O2 Delivery Room Air Capillary Refill : Less Than 3 Seconds General Appearance: WD/WN, no apparent distress HEENT: PERRL/EOMI Neck: non-tender, full range of motion Respiratory: chest non-tender, lungs clear, normal breath sounds, no respiratory distress, no accessory muscle use Cardiovascular: regular rate, rhythm, no murmur Gastrointestinal: normal bowel sounds, non tender, soft, no organomegaly Back: no CVA tenderness, no vertebral tenderness Extremities: normal range of motion, non-tender, no pedal edema, no calf tenderness, normal capillary refill 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, no motor/sensory deficits, alert, normal mood/affect, oriented x 3 Skin: normal color, warm/dry Lymphatic: no adenopathy Assessment/Plan Assessment/Plan Admission Status: Observation (1) Atypical chest pain Status: Acute Assessment & Plan: - Cardiology consulted, CE trending, Echo pending, possible stress testing (2) Hiatal hernia Status: Chronic Assessment & Plan: - Hernia has increased in size and could be source of chest pain (3) CAD (coronary artery disease) Qualifiers: (4) HTN (hypertension) Status: Chronic Assessment & Plan: - Continue home meds Qualifiers: Qualified Codes: I10 - Essential (primary) hypertension (5) Non-insulin dependent type 2 diabetes mellitus Status: Chronic Clinical Quality Measures AMI/AHF: ASA po Prior to arrival: No DVT/VTE Risk/Contraindication: Risk Factor Score Per Nursin RFS Level Per Nursing on Admit: 4+=Very High Copy Copies To 1: IAN LEAL MD, HOLLY R MD Dec 28, 2018 14:18
[2018-12-28] MEDS: CATHETER FLUSH 10 ML SYR IV SCH ×2 (14:56→22:00)
[2018-12-28 16:00] VITALS: BP 119/73
--- NOTE | 2018-12-28 17:55 | Consultation-Cardiology ---
HPI-Cardiology Cardiology Consultation: Date of Consultation 12/28/18 Time Seen by a Provider: 16:50 Date of Admission Attending Physician Deena Bridges MD Admitting Physician Deena Bridges MD Consulting Physician SATHISH LUTZ MD, MA, FACP, FACC, FSCAI, CCDS Physician requesting consult: Dr Bridges HPI: Chief Complaint: CC: Chest pain HPI Ms. Oconnor is a 73 year old female admitted to ICU5 from the ED with c/o CP. She reports she woke up around 3 a.m. this morning (which is her usual time) and she began to have chest discomfort which she describes as a pressure, burning sensation that lasted for approx 30 minutes. No other assoc symptoms. She states it stayed constant and then gradually resolved. She reports a similar episode yesterday as well. She reports chronic fatigue/malaise which has been progressive. She reports chronic intermittent OROSCO, but reports unchanged. She reports chronic bilat LE swelling which is least in the morning and worse at the end of the day. She denies any palpitations, syncope or near syncope. She denies any current c/o CP. Review of Systems-Cardiology Review of Systems Constitutional: No chills, No fever; malaise Eyes: No vision change Ears/Nose/Throat: epistaxis; No recent hearing loss Respiratory: As described under HPI Cardiovascular: As described under HPI Gastrointestinal: No constipation, No diarrhea, No nausea, No vomiting Genitourinary: No dysuria, No hematuria : No Skin: No rash on exposed areas, No ulcerations on exposed areas Psychiatric/Neurological: No anxiety, No depression, No seizure, No focal weakness, No syncope Hematologic: No bleeding abnormalities WII-Ssrayf-Sexgka Hx Patient Social History Living Status: Lives in home with Alcohol Use: Denies Use Recreational Drug Use: No Smoking Status: Former Smoker (SMOKED TEEN, QUIT AGE 22) Type Used: Cigarettes (SMOKED TEEN, QUIT AGE 22 ) 2nd Hand Smoke Exposure: Yes ( IS SMOKER) Recent Foreign Travel: No Recent Infectious Disease Expo: No Hospitalization with Isolation: Denies Immunizations Up To Date Tetanus Booster (TDap): More than 5yrs Date of Pneumonia Vaccine: Dec 28, 2016 Date of Influenza Vaccine: Dec 07, 2018 Past Medical History PMH As described under Assessment. Family Medical History Family Medical History: She denies any family h/o CAD or premature SCD. Family History: Patient reports no known family medical history. Allergies and Home Medications Allergies Coded Allergies: No Known Drug Allergies (Unverified , 07/30/18) Home Medications Acetaminophen 500 Mg Tablet, 500-1,000 MG PO Q4H PRN for PAIN-MILD, (Reported) Hydrochlorothiazide 25 Mg Tablet, 25 MG PO DAILY, (Reported) Levothyroxine Sodium 75 Mcg Tablet, 75 MCG PO DAILY, (Reported) Omeprazole 40 Mg Capsule.dr, 40 MG PO DAILY, (Reported) Polyvinyl Alcohol/Povidone 15 Ml Drops, 1 DROP OD TID, (Reported) Patient Home Medication List Home Medication List Reviewed: Yes Physical Exam-Cardiology Physical Exam Vital Signs/I&O 12/28/18 12/28/18 12/28/18 12/28/18 10:17 10:30 11:01 11:04 Pulse 75 74 77 Resp 20 13 B/P (MAP) 133/85 123/93 (103) Pulse Ox 97 97 98 O2 Delivery Nasal Cannula Room Air Room Air O2 Flow Rate 2.00 12/28/18 12/28/18 12/28/18 12/28/18 11:46 12:00 12:51 16:00 Pulse 75 73 67 Resp 22 13 B/P (MAP) 138/94 (109) 119/73 (88) Pulse Ox 98 95 100 O2 Delivery Room Air Room Air Room Air 12/28/18 16:00 Pulse Ox 98 O2 Delivery Room Air Capillary Refill : Less Than 3 Seconds Constitutional: AAO x 3, well-developed, well-nourished HEENT: PERRL, hearing is well preserved, oral hygience is good Neck: No carotid bruit; carotid pulses are 2 + bilaterally Respiratory: No accessory muscle use, No respiratory distress; chest expansion is symmetric, chest is bilaterally symmetric, lungs clear to auscultation Cardiovascular: regular rate-rhythm; No JVD; S1 and S2 Gastrointestinal: No tender; soft, round, audible bowel sounds Rectal: deferred Extremities: no lower extremity edema bilateral Neurologic/Psychiatric: grossly intact, power is 5/5 both on sides Skin: No rash on exposed areas, No ulcerations on exposed areas Lymphatic: no adenopathy Data Review Labs Laboratory Tests 12/28/18 05:25: White Blood Count 10.2, Red Blood Count 4.82, Hemoglobin 12.6, Hematocrit 41, Mean Corpuscular Volume 84, Mean Corpuscular Hemoglobin 26, Mean Corpuscular Hemoglobin Concent 31L, Red Cell Distribution Width 15.7H, Platelet Count 419H, Mean Platelet Volume 9.2, Neutrophils (%) (Auto) 74, Lymphocytes (%) (Auto) 17, Monocytes (%) (Auto) 7, Eosinophils (%) (Auto) 2, Basophils (%) (Auto) 0, Neutrophils # (Auto) 7.5, Lymphocytes # (Auto) 1.7, Monocytes # (Auto) 0.8, Eosinophils # (Auto) 0.2, Basophils # (Auto) 0.0, Prothrombin Time 13.1, INR Comment 1.0, Activated Partial Thromboplast Time 30, Sodium Level 138, Potassium Level 4.1, Chloride Level 98, Carbon Dioxide Level 27, Anion Gap 13, Blood Urea Nitrogen 19H, Creatinine 0.92, Estimat Glomerular Filtration Rate 60, BUN/Creatinine Ratio 21, Glucose Level 150H, Calcium Level 9.3, Corrected Calcium 9.3, Magnesium Level 1.9, Total Bilirubin 0.3, Aspartate Amino Transf (AST/SGOT) 21, Alanine Aminotransferase (ALT/SGPT) 22, Alkaline Phosphatase 75, Total Creatine Kinase 95, Creatine Kinase MB 2.1, Myoglobin 62.3, Troponin I < 0.028, B-Type Natriuretic Peptide 16.8, Total Protein 7.5, Albumin 4.0, Amylase Level 33, Lipase 23 12/28/18 11:35: Prothrombin Time 13.5, INR Comment 1.0, Activated Partial Thromboplast Time 28, Myoglobin 69.6, Troponin I < 0.028 12/28/18 12:05: Urine Color YELLOW, Urine Clarity CLEAR, Urine pH 6.5, Urine Specific [place] 1.010L, Urine Protein 1+H, Urine Glucose (UA) NEGATIVE, Urine Ketones NEGATIVE, Urine Nitrite POSITIVEH, Urine Bilirubin NEGATIVE, Urine Urobilinogen NORMAL, Urine Leukocyte Esterase 3+H, Urine RBC (Auto) 2+H, Urine RBC 0-2, Urine WBC 25- 50H, Urine Crystals NONE, Urine Bacteria FEWH, Urine Casts NONE, Urine Mucus NEGATIVE, Urine Culture Indicated YES A/P-Cardiology Assessment/Admission Diagnosis Chest pain of undetermined etiology OROSCO of undetermined etiology CAD - Mild coronary artery disease per cardiac cath on Feb [address] Calabrese HTN DM 2 Elevated BMI of 41.8 Hypothyroidism GERD Hiatal hernia Progressive fatigue of undetermined etiology Discussion and Recomendations Continue serial cardiac enzymes, if remain WNL then MPI tomorrow Echocardiogram to eval structure Follow lab Continue tele Continue home medications We would like to thank Medical Services for this consult Clinical Quality Measures AMI/AHF: ASA po Prior to arrival: No DVT/VTE Risk/Contraindication: Risk Factor Score Per Nursin RFS Level Per Nursing on Admit: 4+=Very High SATHISH LUTZ MD FACP FAC CCDS Dec 28, 2018 17:55
[2018-12-28 19:00] VITALS: BP 133/87
[2018-12-29] VITALS: BP 130/82
[2018-12-29 03:30] LABS: BASOPHILS % (AUTO) 0 % (0-10); EOSINOPHILS # (AUTO) 0.2 10^3/uL (0.0-0.3); EOSINOPHILS % (AUTO) 3 % (0-10); HEMATOCRIT 39 % (35-52); HEMOGLOBIN 11.9 G/DL (11.5-16.0); LYMPHOCYTES # (AUTO) 1.7 X 10^3 (1.0-4.0); LYMPHOCYTES % (AUTO) 23 % (12-44); MEAN CORPUSCULAR HEMOGLOBIN 26 PG (25-34); MEAN CORPUSCULAR HGB CONC 31 G/DL (32-36); MEAN CORPUSCULAR VOLUME 85 FL (80-99); MEAN PLATELET VOLUME 9.4 FL (7.4-10.4); MONOCYTES # (AUTO) 0.6 X 10^3 (0.0-1.0); MONOCYTES % (AUTO) 8 % (0-12); NEUTROPHILS # (AUTO) 5.1 X 10^3 (1.8-7.8); NEUTROPHILS % (AUTO) 67 % (42-75); PLATELET COUNT 346 10^3/uL (130-400); RED CELL DISTRIBUTION WIDTH 15.5 % (10.0-14.5); WHITE BLOOD COUNT 7.6 10^3/uL (4.3-11.0)
[2018-12-29 03:51] LABS: ALANINE AMINOTRANSFERASE 24 U/L (0-55); ALBUMIN 3.7 GM/DL (3.2-4.5); ALKALINE PHOSPHATASE 69 U/L (40-136); BILIRUBIN,TOTAL 0.4 MG/DL (0.1-1.0); BUN/CREATININE RATIO 20; CALCIUM 8.7 MG/DL (8.5-10.1); CARBON DIOXIDE 26 MMOL/L (21-32); CHLORIDE 102 MMOL/L (98-107); CHOLESTEROL 155 MG/DL (< 200); CREATININE SERUM 0.83 MG/DL (0.60-1.30); GFR ESTIMATED > 60; GLUCOSE 124 MG/DL (70-105); HDL CHOLESTEROL 38 MG/DL (40-60); POTASSIUM 3.9 MMOL/L (3.6-5.0); SODIUM 139 MMOL/L (135-145); TOTAL PROTEIN 6.6 GM/DL (6.4-8.2); TRIGLYCERIDES 128 MG/DL (<150); VLDL CHOLESTEROL 26 MG/DL (5-40)
[2018-12-29 04:00] VITALS: BP 114/71
[2018-12-29] MEDS: CATHETER FLUSH 10 ML SYR IV SCH ×2 (06:00→16:41)
--- NOTE | 2018-12-29 08:15 | NUR ---
PT OFF UNIT AT THIS TIME. STAFF MEMBER TRANSPORTED DOWN FOR STRESS TEST.
[2018-12-29] MEDS ORDERED: REGADENOSON 0.4 MG/5 ML SYR (LEXISCAN) IV ONE (08:37)
[2018-12-29] MEDS ORDERED: ASPIRIN E.C. 81 MG (ECOTRIN) TAB PO SCH (09:00)
[2018-12-29 09:45] VITALS: BP 119/89
--- NOTE | 2018-12-29 10:57 | Progress Note - Cardiology ---
Cardiology SOAP Progress Note Subjective: No further c/o CP. No c/o dyspnea, palpitations, syncope or near syncope. Objective: I&O/Vital Signs 12/29/18 12/29/18 12/29/18 12/29/18 06:58 07:10 07:10 09:00 Pulse 70 Pulse Ox 93 96 93 O2 Delivery Room Air Nasal Cannula Room Air O2 Flow Rate 2.00 12/29/18 12/29/18 12/29/18 12/29/18 09:45 11:36 13:41 15:34 Temp 36.2 36.4 Pulse 89 73 Resp 18 B/P (MAP) 119/89 (99) Pulse Ox 96 12/29/18 16:00 Pulse Ox 96 O2 Delivery Room Air 12/29/18 00:00 Intake Total 0 ml Output Total 950 ml Balance -950 ml Weight (Pounds): 235 Weight (Ounces): 6.0 Weight (Calculated Kilograms): 106.347851 Constitutional: AAO x 3, well-developed, well-nourished Respiratory: No accessory muscle use, No respiratory distress; chest expansion is symmetric, chest is bilaterally symmetric, lungs clear to auscultation Cardiovascular: regular rate-rhythm; No JVD; S1 and S2 Gastrointestional: No tender; soft, round, audible bowel sounds Extremities: no lower extremity edema bilateral Neurologic/Psychiatric: grossly intact, power is 5/5 both on sides Skin: No rash on exposed areas, No ulcerations on exposed areas Results/Procedures: Labs Laboratory Tests 12/29/18 03:20: White Blood Count 7.6, Red Blood Count 4.53, Hemoglobin 11.9, Hematocrit 39, Mean Corpuscular Volume 85, Mean Corpuscular Hemoglobin 26, Mean Corpuscular Hemoglobin Concent 31L, Red Cell Distribution Width 15.5H, Platelet Count 346, Mean Platelet Volume 9.4, Neutrophils (%) (Auto) 67, Lymphocytes (%) (Auto) 23, Monocytes (%) (Auto) 8, Eosinophils (%) (Auto) 3, Basophils (%) (Auto) 0, Neutrophils # (Auto) 5.1, Lymphocytes # (Auto) 1.7, Monocytes # (Auto) 0.6, Eosinophils # (Auto) 0.2, Basophils # (Auto) 0.0, Sodium Level 139, Potassium Level 3.9, Chloride Level 102, Carbon Dioxide Level 26, Anion Gap 11, Blood Urea Nitrogen 17, Creatinine 0.83, Estimat Glomerular Filtration Rate > 60, BUN/Creatinine Ratio 20, Glucose Level 124H, Calcium Level 8.7, Corrected Param cium 8.9, Total Bilirubin 0.4, Aspartate Amino Transf (AST/SGOT) 22, Alanine Aminotransferase (ALT/SGPT) 24, Alkaline Phosphatase 69, Total Protein 6.6, Albumin 3.7, Triglycerides Level 128, Cholesterol Level 155, LDL Cholesterol Direct 98, VLDL Cholesterol 26, HDL Cholesterol 38L, Thyroid Stimulating Hormone (TSH) 4.01 Microbiology 12/28/18 Urine Culture - Preliminary, Resulted Escherichia coli A/P: Assessment: Chest pain of undetermined etiology OROSCO of undetermined etiology Echo of Dec 28, 2018 showed LVEF 60-65%, grade 1 diastolic dysfunction. RVSP 21 mmHg MPI of 12/29/18 showed LVEF 71%, no ischemia, no infarction CAD - Mild coronary artery disease per cardiac cath on Feb [address] Calabrese HTN DM 2 Elevated BMI of 41.8 Hypothyroidism GERD Hiatal hernia Progressive fatigue of undetermined etiology Plan: MPI pending Continue current medication regimen Physician Assessment Physician Assessment No cp Shortness of breath now at usual baseline No palp or syncope Lungs: feb bs at bases Cor: reg Ext: mild edema A&R * As documented in our note above that I updated (italics) and as noted below * Focus of CV management is on risk facto mod. This was reviewed with her * Outpt f/u is advised Clinical Quality Measures AMI/AHF: ASA po Prior to arrival: ZAID Ariza [facility] Dec 29, 2018 10:56 SATHISH LUTZ MD FACP FAC CCDS Dec 29, 2018 17:24
--- NOTE | 2018-12-29 16:10 | NUR ---
Pastoral care visit.
--- NOTE | 2018-12-29 16:47 | Discharge Summary ---
Diagnosis/Chief Complaint Date of Admission Dec 28, 2018 at 09:30 Date of Discharge Discharge Diagnosis Problems/Diagnosis: (1) Atypical chest pain Assessment & Plan: - Cardiology consulted, CE trending, Echo pending, possible stress testing Status: Acute (2) Hiatal hernia Assessment & Plan: - Hernia has increased in size and could be source of chest pain Status: Chronic (3) CAD (coronary artery disease) Qualifiers: (4) HTN (hypertension) Assessment & Plan: - Continue home meds Qualifiers: Qualified Codes: I10 - Essential (primary) hypertension Status: Chronic (5) Non-insulin dependent type 2 diabetes mellitus Status: Chronic Chief Complaint/HPI Chief Complaint/HPI 73 yo F clinic patient of mine. Presented to ER with chest pain that started this AM around 3 AM. States that it was sharp and burning in the center of her chest. Denies anything that improved the pain or made it worse. States that she has been having these pains on and off for several days. No change in diet or activity level. Denies any sick contacts. She has not missed any medication doses. No radiation of pain. Discharge Summary-Simple/Stand Consultations Discharge Physical Examination Allergies: Coded Allergies: No Known Drug Allergies (Unverified , 07/30/18) Vitals & I&Os Vital Sign - Last 12Hours Date Time Temp Pulse Resp B/P (MAP) Pulse Ox O2 Delivery O2 Flow Rate FiO2 12/29/18 15:34 36.4 12/29/18 09:45 89 18 119/89 (99) 96 12/29/18 09:00 Room Air 12/29/18 07:10 2.00 Intake and Output 12/29/18 00:00 Intake Total 0 ml Output Total 950 ml Balance -950 ml Hospital Course See final discharge diagnosis. Radiology Reviewed NAME: NATHANIEL VASQUEZ MED REC#: [id number] PT STATUS: REG ER : 1945 PHYSICIAN: SADE DIMAS DO ADMIT DATE: 12/28/18/ER Signed Date of Exam: 12/28/18 CHEST 1 VIEW, AP/PA ONLY INDICATION: Chest pain COMPARISON: 04/19/2018 FINDINGS: Single view of the chest demonstrates stable hiatal hernia. The heart is slightly enlarged. Lungs are clear. There is no pneumothorax but osseous structures are normal. IMPRESSION: No acute cardiopulmonary findings. Dictated by: Dictated on workstation # [id number] Dict: 12/28/1805 Trans: 12/28/18905 Interpreted by: RONALD MILLS Electronically signed by: RONALD MILLS 12/28/18905 NAME: NATHANIEL VASQUEZ [facility] REC#: [id number] PT STATUS: REG ER : 1945 PHYSICIAN: SADE DIMAS DO ADMIT DATE: 12/28/18/ER Signed Date of Exam: 12/28/18 CT ANGIO CHEST W PROCEDURE: CT angiography of the chest with contrast. TECHNIQUE: Multiple contiguous axial images were obtained through the chest after uneventful bolus administration of intravenous contrast. 3D reconstructed CTA MIP acquisitions were also performed. Auto Exposure Controls were utilized during the CT exam to meet ALARA standards for radiation dose reduction. INDICATION: Chest pain, pressure. COMPARISON: 03/03/2017 FINDINGS: The heart, pulmonary arteries and aorta are grossly unremarkable. There is no pulmonary embolism. No aortic dissection or aneurysm seen. There is no pericardial or pleural effusion. There is no lymphadenopathy. The hiatal hernia has enlarged compared to the prior examination. This does not appear obstructive. Chronic interstitial changes are seen in the lung bases. Otherwise, lungs are clear. Osseous structures are age-appropriate. IMPRESSION: 1. No pulmonary embolism identified. 2. Enlarging hiatal hernia without obstruction. 3. No suspicious infiltrate identified. Dictated by: Dictated on workstation # [id number] Dict: 12/28/1851 Trans: 12/28/18905 Interpreted by: RONALD MILLS Electronically signed by: RONALD MILLS 12/28/18905 Discharge Instructions to patient/family Please see electronic discharge instructions given to patient. Discharge Medications Reviewed and agree with Discharge Medication list on patient's Discharge Instruction sheet Clinical Quality Measures AMI/AHF: ASA po Prior to arrival: No DVT/VTE Risk/Contraindication: Risk Factor Score Per Nursin RFS Level Per Nursing on Admit: 4+=Very High IAN LEAL MD Dec 29, 2018 16:46
[2018-12-29] MEDS ORDERED: ASPI-983 PO (16:50)
[2018-12-29] MEDS ORDERED: NITR-65 PO (16:51)
--- NOTE | 2018-12-29 16:53 | Discharge Instructions ---
Discharge [facility] Reconcile Patient Problems Problems Reviewed?: Yes Discharge Medications New, Converted or Re-Newed RX: Transmitted to Pharmacy New Medications: Nitrofurantoin Monohyd/M-Cryst (Macrobid 100 mg Capsule) 100 Mg Capsule 1 TAB PO BID, #14 CAP Aspirin (Aspirin EC) 81 Mg Tablet.dr 81 MG PO DAILY, #30 TAB Continued Medications: Acetaminophen (Tylenol Extra Strength) 500 Mg Tablet 500-1000 MG PO Q4H PRN for PAIN-MILD, TAB Hydrochlorothiazide (Hydrochlorothiazide) 25 Mg Tablet 25 MG PO DAILY, TAB Levothyroxine Sodium (Levothyroxine Sodium) 75 Mcg Tablet 75 MCG PO DAILY, TAB Omeprazole (Omeprazole) 40 Mg Capsule.dr 40 MG PO DAILY, CAP Polyvinyl Alcohol/Povidone (Artificial Tears Drops) 15 Ml Drops 1 DROP OD TID, DROPS Patient Instructions Goal/Follow Up Appt: You have a hosp f.u with Yuliana on @ 340 PM Patient Instructions: - Make sure to complete your antibiotics Activity & Diet Discharge Diet: Cardiac Diet Activity as Tolerated: Yes Copy Copies To 1: IAN LEAL MD, HOLLY R MD Dec 29, 2018 16:53
--- NOTE | 2018-12-29 20:24 | STRESS TEST ---
DATE OF SERVICE: 12/29/2018 RESTING AND POST REGADENOSON TECHNETIUM-99M TETROFOSMIN SPECT CT IMAGING Baseline images were carried out after injection of 10.7 mCi of technetium-99m Tetrofosmin. This was followed by 0.4 mg regadenoson and 30.3 mCi of technetium-99m Tetrofosmin for stress imaging. The electrocardiogram shows sinus rhythm at baseline. It did not change significantly with regadenoson infusion. Review of images at rest and following stress does not indicate any significant perfusion defects consistent with significant myocardial ischemia or infarction. Gated images show normal global left ventricular systolic function with normal regional wall motion. Left ventricular ejection fraction is calculated to be 76%. TID is absent (1.16). CONCLUSIONS: 1. No evidence of any significant myocardial ischemia or infarction on this study. 2. Normal regional wall motion. 3. Normal global left ventricular systolic function with a calculated ejection fraction of 76%. Job ID: [id number] DocumentID: [id number] Dictated Date: 12/29/2018 16:25:09 Webmaster Date: 12/29/2018 20:23:13 Dictated By: SATHISH LUTZ MD, MA, FACP, FACC,
== END 2018-12-29 17:29 | disposition home or self-care (01) ==
LOC: EDUNIT# 05:06 → ER 05:07 → ICU 09:30
PROVIDERS: ADMIT Family Medicine; ATTEND Family Medicine
DX: I25.10 Atherosclerotic heart disease of native coronary artery without angina pectoris (principal); I10 Essential (primary) hypertension; K44.9 Diaphragmatic hernia without obstruction or gangrene; E11.9 Type 2 diabetes mellitus without complications; E78.00 Pure hypercholesterolemia, unspecified; M19.90 Unspecified osteoarthritis, unspecified site; G89.29 Other chronic pain; M54.9 Dorsalgia, unspecified; E03.9 Hypothyroidism, unspecified; Z79.899 Other long term (current) drug therapy; Z79.82 Long term (current) use of aspirin; Z79.891 Long term (current) use of opiate analgesic; Z90.89 Acquired absence of other organs; Z90.710 Acquired absence of both cervix and uterus
CPT/HCPCS: 36415; 71045; 71275; 78452; 80053; 80061; 81000; 82150; 82550; 82553; 83690; 83735; 83874; 83880; 84443; 84484; 85025; 85610; 85730; 87077; 87088; 87186; 93005; 93017; 93041; 93306

== ENCOUNTER 2019-01-21 13:03 | Emergency (ER) | payer MEDICARE ==
[~2019-01-21] VITALS: Ht 160 cm; Wt 107.7 kg
[~2019-01-21 13:03] MED LIST changes: +ACET-2267 PO; +NITR-65 PO; +POLY15DR14 OD
--- NOTE | 2019-01-21 13:19 | ED General ---
General Chief Complaint: Foreign Body Stated Complaint: WAS UNRESPONSIVE Nursing Triage Note: TO ED PER EMS WAS EATING A CHIP WHEN SHE BECAME CHOCKED. WHEN EMS ARRIVAL PATIENT BLUE. AND UNRESPONSIVE CPR STARTED AND OBSTRUCTION REOMVED BY PD. ON ADMIT ALERT Nursing Sepsis Screen: No Definite Risk Source of Information: Patient History of Present Illness Date Seen by Provider: Jan 21, 2019 Time Seen by Provider: 13:06 Initial Comments 73-year-old female brought in by EMS. Patient was at a [place] restaurant and her are. Reports that checked on a chip. EMS reports that CPR was started by PD after failed Heimlich. Patient then started vomiting clearing airway. Patient symptoms from the choking resolved. Family felt the patient maybe had some new right-sided facial droop. Patient denies any other neurologic symptoms. She denies any difficulty swallowing weakness or speech issues. Patient had approximately 15 compressions by PD. No other complaints at this time Allergies and Home Medications Allergies Coded Allergies: No Known Drug Allergies (Unverified , 07/30/18) Home Medications Acetaminophen 500 Mg Tablet, 500-1,000 MG PO Q4H PRN for PAIN-MILD, (Reported) Aspirin 81 Mg Tablet., 81 MG PO DAILY Prescribed by: IAN LEAL on 12/29/18 1650 Hydrochlorothiazide 25 Mg Tablet, 25 MG PO DAILY, (Reported) Levothyroxine Sodium 75 Mcg Tablet, 75 MCG PO DAILY, (Reported) Nitrofurantoin Monohyd/M-Cryst 100 Mg Capsule, 1 TAB PO BID Prescribed by: IAN LEAL on 12/29/18 1651 Omeprazole 40 Mg Capsule., 40 MG PO DAILY, (Reported) Polyvinyl Alcohol/Povidone 15 Ml Drops, 1 DROP OD TID, (Reported) Patient Home Medication List Home Medication List Reviewed: Yes Review of Systems Review of Systems Constitutional: No chills, No fever EENTM: see HPI Respiratory: see HPI Cardiovascular: see HPI Gastrointestinal: see HPI Genitourinary: no symptoms reported Psychiatric/Neurological: See HPI Past Vjjbsuz-Ltxaui-Dvybjx Hx Past Med/Social Hx: Reviewed Nursing Past Med/Soc Hx Patient Social History Alcohol Use: Denies Use Recreational Drug Use: No Smoking Status: Never a Smoker Type Used: Cigarettes Former Smoker, Quit: Mar 03, 1968 2nd Hand Smoke Exposure: Yes ( IS SMOKER) Recent Foreign Travel: No Contact w/Someone Who Travel: No Recent Infectious Disease Expo: No Recent Hopitalizations: No Immunizations Up To Date Tetanus Booster (TDap): More than 5yrs PED Vaccines UTD: Yes Date of Pneumonia Vaccine: Dec 28, 2016 Date of Influenza Vaccine: Dec 07, 2018 Seasonal Allergies Seasonal Allergies: No Past Medical History Surgeries: Yes Appendectomy, Cardiac, Section, Eye Surgery, Hysterectomy, Joint Replacement, Oophorectomy, Orthopedic Respiratory: No Cardiac: Yes High Cholesterol, Hypertension Neurological: No Reproductive Disorders: No 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 Cancer Physical Exam Vital Signs Vital Signs - First Documented 01/21/19 13:07 Temp 36.7 Pulse 103 Resp 18 B/P (MAP) 157/117 (130) Pulse Ox 95 O2 Delivery Nasal Cannula Capillary Refill : Less Than 3 Seconds Height, Weight, BMI Height: 5'3.00" Weight: 235lbs. 6.0oz. 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 I do not appreciate any noticeable facial droop.) Skin: Normal Color, Warm/Dry Progress/Results/Core Measures Suspected Sepsis Recent Fever Within 48 Hours: No Infection Criteria Present: None New/Unexplained Altered Menta: No Sepsis Screen: No Definite Risk SIRS Temperature: Pulse: 103 Respiratory Rate: 18 Blood Pressure 157 /117 Mean: 130 Results/Orders My Orders Orders - AMBER SANCHEZ DO Ct Head Wo-R/O Stroke (01/21/19 13:08) Chest Pa/Lat (2 View) (01/21/19 13:08) Vital Signs/I&O 01/21/19 13:07 Temp 36.7 Pulse 103 Resp 18 B/P (MAP) 157/117 (130) Pulse Ox 95 O2 Delivery Nasal Cannula Capillary Refill : Less Than 3 Seconds Blood Pressure Mean: 130 POS Progress Note : Time: 14:27 Progress Note Patient remained asymptomatic started her stay. Patient's daughter felt that her myoglobin a little bit of left-sided facial droop, patients feels that there is not any new facial droop. I offered admission versus outpatient follow- up. After family discussion a with prefer follow-up on outpatient basis for further workup of potential TIA or new facial droop. Patient did have an NIH of 011 if he would consider some mild facial droop. I made an appointment for January 28 at 10:20 AM at their medical off Departure Impression Primary Impression: Choked on food Disposition: 01 HOME, SELF-CARE Condition: Stable Departure-Patient Inst. Referrals: AIN LEAL MD (PCP/Family) Primary Care Physician Patient Instructions: Choking Add. Discharge Instructions: You have an appointment at the physician's office on January 28 at 10:20 AM All discharge instructions reviewed with patient and/or family. Voiced understanding. AMBER SANCHEZ DO Jan 21, 2019 13:19 POS
--- NOTE | 2019-01-21 13:55 | Diagnostic Imaging Report ---
PROCEDURE: CT head wo r/o stroke. TECHNIQUE: Multiple contiguous axial images were obtained through the brain without the use of intravenous contrast. Auto Exposure Controls were utilized during the CT exam to meet ALARA standards for radiation dose reduction. INDICATION: Status post CODE BLUE. Choked on a chip. COMPARISON: None. FINDINGS: No large acute territorial ischemia, mass, or hemorrhage. Chronic microvascular disease is seen in the periventricular and subcortical white matter. The ventricles and cortical sulci are prominent, consistent with generalized volume loss. The basilar cisterns are patent and unremarkable. The calvarium is intact. The visualized paranasal sinuses are clear. IMPRESSION: 1. No large acute territorial ischemia, mass, or hemorrhage. 2. Chronic microvascular disease. 3. Generalized volume loss. Dictated by: Dictated on workstation # [id number]
--- NOTE | 2019-01-21 14:18 | Diagnostic Imaging Report ---
EXAMINATION: PA and lateral chest at 01:41 p.m. INDICATION: Difficulty breathing, choking. FINDINGS: The heart size is within normal limits and stable when compared to 12/28/2018. The large hiatal hernia seen previously is again evident and no different. The lungs remain clear. There is still no sign of failure, pneumonia, or pleural effusion. The mediastinum is not widened. The osseous structures are intact. IMPRESSION: Stable chest. There has been no adverse change since the prior exam. Dictated by: Dictated on workstation # [id number]
[2019-01-21 14:41] VITALS: BP 131/86
== END 2019-01-21 14:41 | disposition home or self-care (01) ==
LOC: EDUNIT# 13:03 → ER 13:05
DX: T17.928A Food in respiratory tract, part unspecified causing other injury, initial encounter (principal); I10 Essential (primary) hypertension; E78.00 Pure hypercholesterolemia, unspecified; K21.9 Gastro-esophageal reflux disease without esophagitis; E03.9 Hypothyroidism, unspecified; D64.9 Anemia, unspecified; Z87.828 Personal history of other (healed) physical injury and trauma; Z96.652 Presence of left artificial knee joint; Z79.82 Long term (current) use of aspirin; Z87.891 Personal history of nicotine dependence; Z77.22 Contact with and (suspected) exposure to environmental tobacco smoke (acute) (chronic); Z90.49 Acquired absence of other specified parts of digestive tract; Z90.710 Acquired absence of both cervix and uterus
CPT/HCPCS: 70450; 71046

== ENCOUNTER → 2019-02-03 | Outpatient (CLI) | payer MEDICARE ==
[~2019-02-03] MED LIST changes: +BARIUM for suspension 96% w/w (Vanilla Silq Medium Density) PO ONE; +BARIUM for suspension 98% w/w (Vanilla Silq High Density) PO ONE
--- NOTE | 2019-02-03 11:49 | Diagnostic Imaging Report ---
INDICATION: Choking episode. Patient ingested effervescent crystals as well as thin and thick barium and imaging of the esophagus was performed. Total of 1 minute and 8 seconds of fluoroscopic time was utilized. No discrete esophageal mass is seen. Patient has a very large hiatal hernia present. No gastroesophageal reflux was demonstrated. IMPRESSION: Large hiatal hernia. No other significant abnormality is seen. Dictated by: Dictated on workstation # [id number]
--- NOTE | 2019-02-03 11:53 | Diagnostic Imaging Report ---
PROCEDURE: US carotid duplex, bilateral. TECHNIQUE: Multiple real-time grayscale images were obtained over the carotid arteries in various projections, bilaterally. Additional spectral analysis and color Doppler duplex images were also obtained. INDICATION: Facial droop. FINDINGS: No significant plaquing is identified in either carotid system. There is moderate tortuosity of the right internal carotid artery. No significant velocity elevation or stenosis is identified. Both vertebral arteries show antegrade flow. IMPRESSION: No evidence of a hemodynamically significant stenosis. Parameters based on the consensus panel Quinteros-Scale and Doppler ultrasound criteria published January 2003, Radiology, Volume 229. DOPPLER (peak systolic velocity M/S Right Left CCA 1.0 1.3 ICA Proximal 0.6 1.2 ICA Mid 0.8 0.7 ICA Distal 1.3 0.6 RATIO 1.3 0.9 ECA 1.2 0.9 VERT 0.5 0.4 Dictated by: Dictated on workstation # [id number]
== END ==
LOC: RAD 10:10
PROVIDERS: ATTEND Nurse Practitioner Family
DX: K44.9 Diaphragmatic hernia without obstruction or gangrene (principal); R09.89 Other specified symptoms and signs involving the circulatory and respiratory systems; R29.810 Facial weakness
CPT/HCPCS: 74220; 93880

== ENCOUNTER 2022-08-27 05:29 | Outpatient (CLI) | payer MEDICARE ==
[~2022-08-27] VITALS: Ht 160 cm; Wt 111.8 kg
[~2022-08-27 05:29] MED LIST changes: +ALBU8.5H6 IH; +ASPI-1238 PO; -ASPI-983 PO; -BARIUM for suspension 96% w/w (Vanilla Silq Medium Density) PO ONE; -BARIUM for suspension 98% w/w (Vanilla Silq High Density) PO ONE; +CLIN-144 PO; -CLIN300C11 PO; -OMEP40CA36 PO; +OMEP40CA6 PO; -RT-ALBUINH IH; -SULF1TAB35 PO; +SULF1TAB38 PO
== END 2022-08-27 17:23 | disposition home or self-care (01) ==
LOC: PREOP 05:29
PROVIDERS: ATTEND Specialist
DX: Z01.818 Encounter for other preprocedural examination (principal)

== ENCOUNTER 2022-08-30 07:39 | Day surgery (SDC) | payer MEDICARE ==
[~2022-08-30] VITALS: Ht 160 cm; Wt 111.8 kg
[2022-08-30 07:59] VITALS: BP 148/74
[2022-08-30] MEDS ORDERED: PHENYLEPHRINE 10% OPHTH (NEO-SYN) 5 ML BTL OU PRN (08:00)
[2022-08-30] MEDS ORDERED: TROPICAMIDE 1% OPH SOLN (MYDRIACYL) 15 ML BTL OU PRN (08:00)
[2022-08-30] MEDS: TETRACAINE 0.5% OPHTH SOLN 4 ML BTL (SINGLE DOSE ONLY) OU PRN ×2 (08:02→08:05)
--- NOTE | 2022-08-30 08:52 | Ophthalmologist Pre-Op Note ---
Pre-Operative Progress Note H&P Reviewed The H&P was reviewed, patient examined and no changes noted. Date H&P Reviewed: Aug 30, 2022 Time H&P Reviewed: 08:30 Pre-Op Dx Secondary Cataract, Bilateral Eyes ALEXY ALVA MD Aug 30, 2022 08:52
--- NOTE | 2022-08-30 08:52 | Ophthalmology Operative Report ---
YAG Capsulotomy PREOPERATIVE DIAGNOSIS: Secondary Cataract Bilateral POSTOPERATIVE DIAGNOSIS: Secondary Cataract Bilateral PROCEDURE: YAG Capsulotomy, Bilateral SURGEON: Dion Alva ANESTHESIA: Topical anesthesia COMPLICATIONS: None ESTIMATED BLOOD LOSS: Minimal DESCRIPTION OF PROCEDURE: After proper informed consent was obtained, the patient's, a 76 female , received one drop of Tropicamide and one drop of Tetracaine in each eye. The patient was then placed at the YAG laser and using a power of [5.0 ] millijoules and bursts [22 ] right eye and [19 ] left eye were used to fashion a central capsulotomy. The patient tolerated the procedure well without complications. DION ALVA MD Aug 30, 2022 08:52
== END 2022-08-30 08:46 | disposition home or self-care (01) ==
LOC: SDC 07:39
PROVIDERS: ATTEND Specialist
DX: H26.40 Unspecified secondary cataract (principal)